=== PATIENT | male | born 1950 | race Caucasian/White ===

== ENCOUNTER 2022-11-15 18:22 | Inpatient (IN) ==
[2022-11-15] MEDS ORDERED: SODIUM CHLORIDE 0.9% 250 ML IV PRN (18:36)
--- NOTE | 2022-11-15 18:43 | Emergency Department Note ---
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 EMS did find the patient to be tachycardic and hypotensive and per their report attempted to convince the patient's family to go to closer hospitals including [facility] and [facility] for stabilization however per their report family insisted he be transported to [facility]. Per EMS report the colonoscopy polypectomy was performed at the [facility] in [place]. The patient is a poor historian and while alert to self is confused to situation and place and unable to explain in any substantive way why he was brought to the hospital nor was he able to independently say generally where he was, i.e. at the hospital. On arrival emergency department patient is tachycardic in the 160s, hypotensive with systolic blood pressure 80s/50s. He is pale, cool and clammy. Anasarca diffusely. Abdomen is mildly distended but non-tender. Old ventral abdominal surgical scar with palpable scarring/abdominal wall asymmetry. Bilateral lower extremities are wrapped in compression wound dressings. The patient did have scant amount of red blood that was Hemoccult positive on rectal exam though no gross hematochezia at this time. Given the patient's hemodynamic instability and suspicion for acute lower GI bleed the patient was crossed for 4 units of PRBCs initially ordered to transfuse but then held after hemoglobin appeared stable. Emergent consent was implied given the patient's critical illness. I did contact the patient's son using the patient's own cell phone which was accompanying him as no contact information was brought by EMS. I did explain to the patient's son the patient's critical condition at this time and that his resuscitation is underway but despite these efforts underway the possibility of the patient having further decline leading to is still a high possibility and communicated this to him clearly. I did then discuss whether or not they had reviewed goals of care with the patient in the past. He did reply that he is the power of ict support and test engineers and has the decision making ability for this. However I did want to emphasize that typically the decision maker will keep in mind the goals which the patient would have wanted and/or may have stated/communicated in the past. He did report that if the patient were to be "brain he would not want to be hooked up to machines" but beyond this he did not describe any definitive wishes that the patient had and so at this time patient is full code. His son will be traveling to the hospital shortly to be at the bedside as a we did agree that the complexity of these conversations is difficult over the phone given his father's critical condition. Upon the arrival of the patient's son and [id number] additional history was obtained including the report of her recent hospitalization a month or so ago at the [facility] for a blood infection which they understood to be related to MRSA. They further confirm the patient's history of cirrhosis related to alcohol use and confirm the patient had reported and that he has not had anything to drink since July. They describe that the patient had his recent colonoscopy at the [facility] in [place] due to his high risk medical history and they understand that he had several polyps removed that were considered to be cancerous but they understand that it was suspected that the polyps may have been resected with clear margins per the family's understanding. They report that the patient has been feeling sick for the past week with frequent nausea and vomiting and poor oral intake which they report became acutely worse over the past 2 days and in particular today. He reports that he began to have red blood per rectum yesterday and today had large amounts of red blood that had passed when he became over, by weakness and lethargy which prompted their call for EMS. At this time they confirm that the patient does not have any limitations on his care but they will discuss as a family whether or not this will be modified. EKG demonstrates atrial fibrillation with RVR with ST and T wave abnormalities without overt ST elevation. Chest x-ray negative for acute cardiopulmonary process per my preliminary review. Chemistry demonstrates elevated anion gap metabolic acidosis with anion gap of 18 and bicarbonate of 18. Creatinine is 2.97 consistent with acute renal failure as family reported that they understood his kidney function to be normal recently. Initial lactic acid 10.1. Lab with potassium was 5.1 and so [id number] potassium likely hemolyzed. Sodium 130. LFTs with total bilirubin 2.1 and direct bilirubin 1.1 in the setting of the patient's known cirrhosis without recent values for comparison. Alk phos is 271. AST 107. ALT within normal limits. Initial high-sensitivity troponin 48, nonspecific. Total protein is low at 5.5 and albumin at 2.0 consistent with the patient's cirrhosis and anasarca. INR was elevated at 6.5 without prior for comparison though in setting of the patient cirrhosis and acute critical illness. Lipase is not elevated. Procalcitonin is elevated at 4.2 in the setting of the patient's acute renal failure. TSH 5.5 with free T4 within normal limits. UA with 2+ bacteria and WBCs albeit with no nitrites and epithelial cells present. COVID- 19 RNA, JANELL test was negative. CT of the head negative for acute findings though demonstrates chronic small vessel disease. CT of the chest with nonspecific sm all layering left-sided pleural effusion and associated atelectasis. CT of the abdomen pelvis demonstrates nondilated bowel loops with note of thickening of the left side of the transverse colon and sigmoid colon consistent with colitis/ileus. Note is made of 4.5 x 2.8 x 5.6 left rectus sheath hematoma of unclear etiology given the patient denies any falls. Repeat H/H following CT imaging relatively stable and declined to 10.6 after 1.5L normal saline for initial resuscitation. Thus transfusion of PRBCs was deferred. IV fluid hydration/resuscitation was initiated with caution given the patient's physical exam with evidence of third spacing in the setting of acute renal failure and cirrhosis and the patient's atrial fibrillation with RVR. Thus 30 cc/kg of IV fluid were deferred. Given the patient's cirrhosis with GI bleeding without recent medical history available for review patient was started on Protonix and octreotide with bolus and drip. Given family reports recent bacteremia from MRSA the patient was treated empirically with cefepime and vancomycin. Of note, while the patient's blood pressure did respond to initial IV fluid hydration it did also gradually soften in the setting of his atrial fibrillation with RVR. He was given 5 mg Lopressor x2 which did result in some improvement in heart rate from the 150s-160s down to the 130s-140s and did translate to improvement in blood pressure to 100s-110s/70s-80s. Case was discussed with Ty Kam hospitalist who will evaluate the patient for admission. Further management per admitting team. Triage Nursing notes reviewed and agree them. Prior/outside medical records reviewed Vital Signs: reviewed Differential diagnosis: Diverticulosis, AVM, coagulopathy, colitis, inflammatory bowel disease, malignancy, Janet-Browne tear, esophagitis, peptic ulcer disease, variceal bleed, gastritis, epistaxis, fissure, hemorrhoids, as well as other pathologies. ER treatment provided: See below. Diagnostics interpreted by me: ECG: Atrial fibrillation with RVR, 166 bpm, ST and T wave abnormalities, no overt ST elevation, QTc 422, QRS 66 Cardiac Monitoring: An order for continuous cardiac monitoring was placed and demonstrated Atrial fibrillation with RVR, 166 bpm. no ectopy. Laboratory studies: See below Imaging studies: See below Consultation(s): Case was discussed with Ty Kam hospitalist who will evaluate the patient for admission. 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 EMS did find the patient to be tachycardic and hypotensive and per their report attempted to convince the patient's family [facility] [place] [facility] [place] for stabilization however per their report family insisted he be transported to [facility]. Per EMS report the colonoscopy polypectomy was performed at the [facility] in [place]. The patient is a poor historian and while alert to self is confused to situation and place and unable to explain in any substantive way why he was brought to the hospital nor was he able to independently say generally where he was, i.e. at the hospital. ROS: See above HPI for pertinent positives & negatives. A total of 10 systems reviewed and were otherwise negative. VITALS:See Below PHYSICAL EXAMINATION: GENERAL: Awake, alert, but confused, critically ill-appearing, in moderate distress. HENT: Normocephalic, atraumatic. Oropharynx with dry mucous membranes and otherwise unremarkable. EYES: Normal conjunctiva. Sclera non-icteric. NECK: Supple. No nuchal rigidity. FROM. No JVD. RESPIRATORY: Diminished breath sounds at the bases and otherwise clear. CARDIAC: Tachycardic rate, irregular rhythm. Pulses equal. ABDOMEN: Abdomen is mildly distended but non-tender. Old ventral abdominal surgical scar with palpable scarring/abdominal wall asymmetry. RECTAL: Deferred. MUSCULOSKELETAL: Chest examination reveals no tenderness. The back is symmetrical on inspection without obvious abnormality. There is no CVA tenderness to palpation. No joint edema. LOWER EXTREMITIES: Calves are equal size bilaterally and non-tender. No edema. No discoloration. NEURO: Normal sensorium. No sensory or motor deficits noted. SKIN: No rash or jaundice noted. Moderate pallor. Extremities cool and clammy with delayed capillary refill and skin mottling. ED COURSE: Critical Care: I have personally spent greater than 125 minutes of critical care time in the direct management of this patient. This includes bedside care, interpretation of diagnostic studies, and testing, discussion with consultants, patient, and family members, and other required patient management activities. This 125 minutes is in excess of all separately billable procedures. Patrick Singer MD Past Med/Surg History Medical History Atrial fibrillation Cirrhosis History of alcohol abuse History of bacteremia Per family's report On apixaban therapy Family History Other Family history non-contributory Social History Smoking Status: Never smoker Second Hand Exposure: No; Do You Dip or Chew Tobacco: No; Tobacco Cessation Education Requested by Patient: No Hx Alcohol Use: Yes Hx Substance Use: No Preferred Language: Zimbabwean Communication Ability: Impaired Beliefs That Will Affect Care: None Current Living Situation: Family Other Information That Helps Us Care for You: No Feels Safe at Home: Yes Safety Concerns: Feels Safe At This Time Allergies Allergies Allergy/AdvReac Type Severity Reaction Status Date / Time fentanyl AdvReac Mild itch Verified 09/13/14 14:09 Home Meds Home Medications Medication Instructions Recorded Confirmed albuterol sulfate 2.5 mg/3 mL 2.5 mg continuous nebulization Q4 11/15/22 11/15/22 (0.083 %) solution for nebulization PRN Shortness Of Breath Or Wheezing amiodarone 100 mg tablet 100 mg PO BID 11/15/22 11/15/22 apixaban 5 mg tablet (Eliquis) 5 mg PO BID 11/15/22 11/15/22 ascorbic acid (vitamin C) 500 mg 500 mg PO DAILY 11/15/22 11/15/22 tablet (Vitamin C) aspirin 81 mg tablet,delayed 81 mg PO DAILY 11/15/22 11/15/22 release bumetanide 0.5 mg tablet 0.5 mg PO BID 11/15/22 11/15/22 diltiazem HCl 180 mg capsule,24 180 mg PO DAILY 11/15/22 11/15/22 hr,extended release ferrous sulfate 325 mg (65 mg 325 mg PO DAILY 11/15/22 11/15/22 iron) tablet (FeroSul) furosemide 40 mg tablet 40 mg PO DAILY 11/15/22 11/15/22 gabapentin 300 mg capsule 300 mg PO HS 11/15/22 11/15/22 lisinopril 5 mg tablet 5 mg PO DAILY 11/15/22 11/15/22 magnesium oxide 420 mg tablet 420 mg PO BID 11/15/22 11/15/22 metoprolol succinate 100 mg 100 mg PO BID 11/15/22 11/15/22 tablet,extended release 24 hr metoprolol tartrate 50 mg tablet 50 mg PO BID 11/15/22 11/15/22 morphine 15 mg tablet,extended 15 mg PO BID 11/15/22 11/15/22 release multivitamin (Daily Multi-Vitamin 1 tab PO DAILY 11/15/22 11/15/22 tablet) omeprazole 20 mg capsule,delayed 20 mg PO DAILY 11/15/22 11/15/22 release ondansetron HCl 4 mg tablet 4 mg PO TID PRN Nausea 11/15/22 11/15/22 potassium chloride 20 mEq 20 meq PO BID 11/15/22 11/15/22 tablet,extended release(part/cryst) spironolactone 25 mg tablet 25 mg PO DAILY 11/15/22 11/15/22 thiamine HCl (vitamin B1) 100 mg 100 mg PO DAILY 11/15/22 11/15/22 tablet Results & Data (ED) Vital Signs Vital Signs - 24 hr 11/15/22 18:15 11/15/22 18:15 11/15/22 18:50 Temperature Temperature Source Pulse Rate 164 H 166 H Pulse Rate [Apical] 158 H Pulse Rate from SpO2 Sensor Respiratory Rate 18 18 18 Blood Pressure 109/78 Blood Pressure [Left Arm] 109/78 Blood Pressure Mean 88 Blood Pressure Mean [Left Arm] 88 Pulse Oximetry 100 100 100 Oxygen Delivery Method Ambu-Bag Oxygen Flow Rate 8 8 Sepsis Recent Fever Within 48 Hours No Sepsis New/Unexplained Change in Mental Status N/A Sepsis Action Taken by Nursing No Action Required 11/15/22 18:36 11/15/22 19:31 11/15/22 18:45 Temperature 37.3 C Temperature Source Rectal Pulse Rate 167 H 166 H Pulse Rate [Apical] Pulse Rate from SpO2 Sensor 159 H Respiratory Rate 19 Blood Pressure 109/78 Blood Pressure [Left Arm] Blood Pressure Mean 88 Blood Pressure Mean [Left Arm] Pulse Oximetry 100 Oxygen Delivery Method Nasal Cannula Oxygen Flow Rate 4 Sepsis Recent Fever Within 48 Hours Sepsis New/Unexplained Change in Mental Status Sepsis Action Taken by Nursing 11/15/22 18:50 11/15/22 18:55 11/15/22 19:00 Temperature Temperature Source Pulse Rate 164 H 160 H 168 H Pulse Rate [Apical] Pulse Rate from SpO2 Sensor 147 H 157 H 159 H Respiratory Rate 17 18 19 Blood Pressure 123/90 127/91 114/99 Blood Pressure [Left Arm] Blood Pressure Mean 101 103 104 Blood Pressure Mean [Left Arm] Pulse Oximetry 100 100 100 Oxygen Delivery Method Nasal Cannula Nasal Cannula Nasal Cannula Oxygen Flow Rate 4 4 4 Sepsis Recent Fever Within 48 Hours Sepsis New/Unexplained Change in Mental Status Sepsis Action Taken by Nursing 11/15/22 19:05 11/15/22 19:14 11/15/22 19:15 Temperature Temperature Source Pulse Rate 161 H 170 H 180 H Pulse Rate [Apical] Pulse Rate from SpO2 Sensor 174 H 173 H 173 H Respiratory Rate 22 22 20 Blood Pressure 110/86 117/97 128/82 Blood Pressure [Left Arm] Blood Pressure Mean 94 103 97 Blood Pressure Mean [Left Arm] Pulse Oximetry 100 100 99 Oxygen Delivery Method Nasal Cannula Nasal Cannula Nasal Cannula Oxygen Flow Rate 4 4 4 Sepsis Recent Fever Within 48 Hours Sepsis New/Unexplained Change in Mental Status Sepsis Action Taken by Nursing 11/15/22 19:20 11/15/22 19:25 11/15/22 19:42 Temperature Temperature Source Pulse Rate 166 H 169 H 167 H Pulse Rate [Apical] Pulse Rate from SpO2 Sensor 167 H 178 H 167 H Respiratory Rate 20 21 23 Blood Pressure 119/90 121/99 120/78 Blood Pressure [Left Arm] Blood Pressure Mean 99 106 92 Blood Pressure Mean [Left Arm] Pulse Oximetry 100 100 99 Oxygen Delivery Method Nasal Cannula Nasal Cannula Nasal Cannula Oxygen Flow Rate 4 4 4 Sepsis Recent Fever Within 48 Hours Sepsis New/Unexplained Change in Mental Status Sepsis Action Taken by Nursing 11/15/22 19:45 11/15/22 20:06 11/15/22 20:10 Temperature Temperature Source Pulse Rate 144 H 156 H 164 H Pulse Rate [Apical] Pulse Rate from SpO2 Sensor 148 H Respiratory Rate 22 24 22 Blood Pressure 139/86 99/83 L 101/75 Blood Pressure [Left Arm] Blood Pressure Mean 103 88 83 Blood Pressure Mean [Left Arm] Pulse Oximetry 95 96 99 Oxygen Delivery Method Nasal Cannula Nasal Cannula Nasal Cannula Oxygen Flow Rate 4 4 4 Sepsis Recent Fever Within 48 Hours Sepsis New/Unexplained Change in Mental Status Sepsis Action Taken by Nursing 11/15/22 20:15 11/15/22 20:20 11/15/22 20:25 Temperature Temperature Source Pulse Rate 152 H 150 H 157 H Pulse Rate [Apical] Pulse Rate from SpO2 Sensor Respiratory Rate 21 24 24 Blood Pressure 103/77 104/83 127/104 H Blood Pressure [Left Arm] Blood Pressure Mean 85 90 111 Blood Pressure Mean [Left Arm] Pulse Oximetry 99 97 99 Oxygen Delivery Method Nasal Cannula Nasal Cannula Nasal Cannula Oxygen Flow Rate 4 4 4 Sepsis Recent Fever Within 48 Hours Sepsis New/Unexplained Change in Mental Status Sepsis Action Taken by Nursing 11/15/22 20:30 11/15/22 20:35 11/15/22 20:45 Temperature Temperature Source Pulse Rate 152 H 151 H 145 H Pulse Rate [Apical] Pulse Rate from SpO2 Sensor Respiratory Rate 30 H 27 H 22 Blood Pressure 126/99 118/94 129/71 Blood Pressure [Left Arm] Blood Pressure Mean 108 102 90 Blood Pressure Mean [Left Arm] Pulse Oximetry 97 98 97 Oxygen Delivery Method Nasal Cannula Nasal Cannula Nasal Cannula Oxygen Flow Rate 4 4 4 Sepsis Recent Fever Within 48 Hours Sepsis New/Unexplained Change in Mental Status Sepsis Action Taken by Nursing 11/15/22 20:50 11/15/22 20:55 11/15/22 21:05 Temperature Temperature Source Pulse Rate 163 H 153 H 154 H Pulse Rate [Apical] Pulse Rate from SpO2 Sensor Respiratory Rate 23 22 22 Blood Pressure 113/79 101/76 Blood Pressure [Left Arm] Blood Pressure Mean 90 84 Blood Pressure Mean [Left Arm] Pulse Oximetry 98 94 96 Oxygen Delivery Method Nasal Cannula Nasal Cannula Nasal Cannula Oxygen Flow Rate 4 4 4 Sepsis Recent Fever Within 48 Hours Sepsis New/Unexplained Change in Mental Status Sepsis Action Taken by Nursing 11/15/22 21:10 11/15/22 21:46 11/15/22 21:50 Temperature Temperature Source Pulse Rate 146 H 158 H 153 H Pulse Rate [Apical] Pulse Rate from SpO2 Sensor 162 H 160 H Respiratory Rate 24 22 Blood Pressure 109/77 109/77 94/67 L Blood Pressure [Left Arm] Blood Pressure Mean 87 87 76 Blood Pressure Mean [Left Arm] Pulse Oximetry 96 96 95 Oxygen Delivery Method Nasal Cannula Nasal Cannula Nasal Cannula Oxygen Flow Rate 4 4 4 Sepsis Recent Fever Within 48 Hours Sepsis New/Unexplained Change in Mental Status Sepsis Action Taken by Nursing Laboratory Data Attestation: I reviewed the patient's lab results. 11/15/22 21:40 11/16/22 01:31 Lab Results 11/15/22 11/15/22 11/15/22 Range/Units 17:46 18:46 18:46 WBC 13.23 H (4.8-10.8) K/ul RBC 3.43 L (4.70-6.10) M/uL Hgb 11.3 L (14.0-18.0) g/dl POC Hgb (14.0-18.0) g/dl Hct 31.7 L (42.0-52.0) % POC Hct (42-52) % MCV 92.4 (80.0-100.0) fL MCH 32.9 (25.0-34.0) pg MCHC 35.6 (32.0-36.0) g/dL RDW Std Deviation 57.3 H (36.4-46.3) fL RDW Coeff of Giancarlo 18.2 H (11.5-14.5) % Plt Count 271 (130-400) K/uL MPV 9.7 (9.4-12.4) fL Immature Gran % (Auto) 0.7 % Neut % (Auto) 89.9 % Lymph % (Auto) 4.9 % Fleming % (Auto) 4.3 % Eos % (Auto) 0.0 % Baso % (Auto) 0.2 % Neut # (Auto) 11.90 H (1.40-6.50) K/uL Lymph # (Auto) 0.65 L (1.2-3.4) K/uL Fleming # (Auto) 0.57 (0.11-0.59) K/uL Eos # (Auto) 0.00 (0-0.50) K/uL Baso # (Auto) 0.02 (0-0.2) K/uL Immature Gran # (Auto) 0.09 (0.01-0.20) K/uL Absolute Nucleated RBC 0.03 (0-0.12) K/uL Nucleated RBC % (auto) 0.2 % Toxic Vacuolation 2+ Polychromasia 1+ Macrocytosis Present Target Cells 2+ PT INR APTT PTT Ratio POC Sodium (135-144) mmol/L Sodium (136-145) mmol/L POC Potassium (3.3-5.0) mmol/L Potassium (3.5-5.1) mmol/L POC Chloride (101-112) mmol/L Chloride (98-107) mmol/L Carbon Dioxide (21-32) mmol/L POC Total CO2 (24-31) mmol/L Anion Gap (3-11) POC Anion Gap (16-25) mmol/L POC BUN (7-18) mg/dl BUN (6-23) mg/dl Creatinine (0.6-1.4) mg/dl POC Creatinine (0.6-1.3) mg/dl Est Cr Clr Drug Dosing ml/min Est GFR ( Amer) ml/min Est GFR (Non-Af Amer) ml/min BUN/Creatinine Ratio (10-20) Glucose (70-99(Fasting)) mg/dl POC Glucose (other) (70-99) mg/dl Osmolality (280-300) mOsm/kg Lactate (0.4-2.0) mmol/L Calcium (8.6-10.3) mg/dl POC Ioniz Calcium Lili (1.12-1.32) mmol/l Phosphorus (2.5-4.9) mg/dl Magnesium (1.7-2.4) mg/dl Total Bilirubin (0.2-1.0) mg/dl Direct Bilirubin (0-0.2) mg/dl AST (13-39) U/L ALT (7-52) U/L Alkaline Phosphatase (34-104) U/L Ammonia (18-72) umol/L Troponin I High Sens (0-20) pg/ml Total Protein (6.0-8.3) gm/dl Albumin (3.4-5.0) gm/dl Globulin (2.5-4.0) gm/dl Albumin/Globulin Ratio (0.9-2) Lipase (11-82) U/L Procalcitonin 4.28 H (0-0.5) ng/ml TSH (0.300-4.500) uIu/ml Free T4 (0.61-1.60) ng/dl Urine Color Urine Appearance (Clear) Urine pH (4.5-7.5) Ur Specific [place] (1.000-1.030) Urine Protein (Negative) Urine Glucose (UA) (Negative) Urine Ketones (Negative) Urine Blood (Negative) Urine Nitrite (Negative) Urine Bilirubin (Negative) Urine Urobilinogen (Negative) Ur Leukocyte Esterase (Negative) Urine RBC (0-4) /hpf Urine WBC (0-5) /hpf Ur Epithelial Cells (0-5) /lpf Urine Bacteria (Negative) Urine Osmolality (500-800) mOsm/kg Ur Random Sodium mmol/L POC Stool Occult Blood (Negative) Ethyl Alcohol mg/dL (<10.0) mg/dl SARS-CoV-2, RNA, NAAT (NEGATIVE) Blood Type A Positive Blood Type Recheck Antibody Screen NEGATIVE Crossmatch See Detail 11/15/22 11/15/22 11/15/22 Range/Units 18:46 18:46 18:48 WBC (4.8-10.8) K/ul RBC (4.70-6.10) M/uL Hgb (14.0-18.0) g/dl POC Hgb 12.6 L (14.0-18.0) g/dl Hct (42.0-52.0) % POC Hct 37 L (42-52) % MCV (80.0-100.0) fL MCH (25.0-34.0) pg MCHC (32.0-36.0) g/dL RDW Std Deviation (36.4-46.3) fL RDW Coeff of Giancarlo (11.5-14.5) % Plt Count (130-400) K/uL MPV (9.4-12.4) fL Immature Gran % (Auto) % Neut % (Auto) % Lymph % (Auto) % Fleming % (Auto) % Eos % (Auto) % Baso % (Auto) % Neut # (Auto) (1.40-6.50) K/uL Lymph # (Auto) (1.2-3.4) K/uL Fleming # (Auto) (0.11-0.59) K/uL Eos # (Auto) (0-0.50) K/uL Baso # (Auto) (0-0.2) K/uL Immature Gran # (Auto) (0.01-0.20) K/uL Absolute Nucleated RBC (0-0.12) K/uL Nucleated RBC % (auto) % Toxic Vacuolation Polychromasia Macrocytosis Target Cells PT Cancelled INR Cancelled APTT Cancelled PTT Ratio Cancelled POC Sodium 128 L (135-144) mmol/L Sodium 130 L (136-145) mmol/L POC Potassium 6.0 H (3.3-5.0) mmol/L Potassium 5.1 (3.5-5.1) mmol/L POC Chloride 95 L (101-112) mmol/L Chloride 94 L (98-107) mmol/L Carbon Dioxide 18 L (21-32) mmol/L POC Total CO2 21 L (24-31) mmol/L Anion Gap 18 H (3-11) POC Anion Gap 20.0 (16-25) mmol/L POC BUN 41 H (7-18) mg/dl BUN 32 H (6-23) mg/dl Creatinine 2.97 H (0.6-1.4) mg/dl POC Creatinine 3.3 H (0.6-1.3) mg/dl Est Cr Clr Drug Dosing 19.6 ml/min Est GFR ( Amer) 22.9 ml/min Est GFR (Non-Af Amer) 19.8 ml/min BUN/Creatinine Ratio 10.8 (10-20) Glucose 119 H (70-99(Fasting)) mg/dl POC Glucose (other) 115 H (70-99) mg/dl Osmolality (280-300) mOsm/kg Lactate (0.4-2.0) mmol/L Calcium 7.7 L (8.6-10.3) mg/dl POC Ioniz Calcium Lili 0.88 L (1.12-1.32) mmol/l Phosphorus 5.2 H (2.5-4.9) mg/dl Magnesium 2.4 (1.7-2.4) mg/dl Total Bilirubin 2.1 H (0.2-1.0) mg/dl Direct Bilirubin (0-0.2) mg/dl AST 107 H (13-39) U/L ALT 27 (7-52) U/L Alkaline Phosphatase 271 H (34-104) U/L Ammonia (18-72) umol/L Troponin I High Sens (0-20) pg/ml Total Protein 5.5 L (6.0-8.3) gm/dl Albumin 2.0 L (3.4-5.0) gm/dl Globulin 3.5 (2.5-4.0) gm/dl Albumin/Globulin Ratio 0.6 L (0.9-2) Lipase (11-82) U/L Procalcitonin (0-0.5) ng/ml TSH (0.300-4.500) uIu/ml Free T4 (0.61-1.60) ng/dl Urine Color Urine Appearance (Clear) Urine pH (4.5-7.5) Ur Specific [place] (1.000-1.030) Urine Protein (Negative) Urine Glucose (UA) (Negative) Urine Ketones (Negative) Urine Blood (Negative) Urine Nitrite (Negative) Urine Bilirubin (Negative) Urine Urobilinogen (Negative) Ur Leukocyte Esterase (Negative) Urine RBC (0-4) /hpf Urine WBC (0-5) /hpf Ur Epithelial Cells (0-5) /lpf Urine Bacteria (Negative) Urine Osmolality (500-800) mOsm/kg Ur Random Sodium mmol/L POC Stool Occult Blood (Negative) Ethyl Alcohol mg/dL (<10.0) mg/dl SARS-CoV-2, RNA, NAAT (NEGATIVE) Blood Type Blood Type Recheck Antibody Screen Crossmatch 11/15/22 11/15/22 11/15/22 Range/Units 19:05 19:10 19:29 WBC (4.8-10.8) K/ul RBC (4.70-6.10) M/uL Hgb (14.0-18.0) g/dl POC Hgb (14.0-18.0) g/dl Hct (42.0-52.0) % POC Hct (42-52) % MCV (80.0-100.0) fL MCH (25.0-34.0) pg MCHC (32.0-36.0) g/dL RDW Std Deviation (36.4-46.3) fL RDW Coeff of Giancarlo (11.5-14.5) % Plt Count (130-400) K/uL MPV (9.4-12.4) fL Immature Gran % (Auto) % Neut % (Auto) % Lymph % (Auto) % Fleming % (Auto) % Eos % (Auto) % Baso % (Auto) % Neut # (Auto) (1.40-6.50) K/uL Lymph # (Auto) (1.2-3.4) K/uL Fleming # (Auto) (0.11-0.59) K/uL Eos # (Auto) (0-0.50) K/uL Baso # (Auto) (0-0.2) K/uL Immature Gran # (Auto) (0.01-0.20) K/uL Absolute Nucleated RBC (0-0.12) K/uL Nucleated RBC % (auto) % Toxic Vacuolation Polychromasia Macrocytosis Target Cells PT INR APTT PTT Ratio POC Sodium (135-144) mmol/L Sodium (136-145) mmol/L POC Potassium (3.3-5.0) mmol/L Potassium (3.5-5.1) mmol/L POC Chloride (101-112) mmol/L Chloride (98-107) mmol/L Carbon Dioxide (21-32) mmol/L POC Total CO2 (24-31) mmol/L Anion Gap (3-11) POC Anion Gap (16-25) mmol/L POC BUN (7-18) mg/dl BUN (6-23) mg/dl Creatinine (0.6-1.4) mg/dl POC Creatinine (0.6-1.3) mg/dl Est Cr Clr Drug Dosing ml/min Est GFR ( Amer) ml/min Est GFR (Non-Af Amer) ml/min BUN/Creatinine Ratio (10-20) Glucose (70-99(Fasting)) mg/dl POC Glucose (other) (70-99) mg/dl Osmolality (280-300) mOsm/kg Lactate (0.4-2.0) mmol/L Calcium (8.6-10.3) mg/dl POC Ioniz Calcium Lili (1.12-1.32) mmol/l Phosphorus (2.5-4.9) mg/dl Magnesium (1.7-2.4) mg/dl Total Bilirubin (0.2-1.0) mg/dl Direct Bilirubin (0-0.2) mg/dl AST (13-39) U/L ALT (7-52) U/L Alkaline Phosphatase (34-104) U/L Ammonia (18-72) umol/L Troponin I High Sens (0-20) pg/ml Total Protein (6.0-8.3) gm/dl Albumin (3.4-5.0) gm/dl Globulin (2.5-4.0) gm/dl Albumin/Globulin Ratio (0.9-2) Lipase (11-82) U/L Procalcitonin (0-0.5) ng/ml TSH (0.300-4.500) uIu/ml Free T4 (0.61-1.60) ng/dl Urine Color Dark Yellow Urine Appearance Slightly Cloudy (Clear) Urine pH 5.0 (4.5-7.5) Ur Specific [place] >= 1.030 (1.000-1.030) Urine Protein 2+ H (Negative) Urine Glucose (UA) Trace H (Negative) Urine Ketones Trace H (Negative) Urine Blood 1+ H (Negative) Urine Nitrite Negative (Negative) Urine Bilirubin 2+ H (Negative) Urine Urobilinogen Negative (Negative) Ur Leukocyte Esterase Negative (Negative) Urine RBC 5-10 H (0-4) /hpf Urine WBC 5-10 H (0-5) /hpf Ur Epithelial Cells 10-20 H (0-5) /lpf Urine Bacteria 2+ H (Negative) Urine Osmolality (500-800) mOsm/kg Ur Random Sodium mmol/L POC Stool Occult Blood (Negative) Ethyl Alcohol mg/dL (<10.0) mg/dl SARS-CoV-2, RNA, NAAT NEGATIVE (NEGATIVE) Blood Type Blood Type Recheck A Positive Antibody Screen Crossmatch 11/15/22 11/15/22 11/15/22 Range/Units 19:29 19:29 19:31 WBC (4.8-10.8) K/ul RBC (4.70-6.10) M/uL Hgb (14.0-18.0) g/dl POC Hgb (14.0-18.0) g/dl Hct (42.0-52.0) % POC Hct (42-52) % MCV (80.0-100.0) fL MCH (25.0-34.0) pg MCHC (32.0-36.0) g/dL RDW Std Deviation (36.4-46.3) fL RDW Coeff of Giancarlo (11.5-14.5) % Plt Count (130-400) K/uL MPV (9.4-12.4) fL Immature Gran % (Auto) % Neut % (Auto) % Lymph % (Auto) % Fleming % (Auto) % Eos % (Auto) % Baso % (Auto) % Neut # (Auto) (1.40-6.50) K/uL Lymph # (Auto) (1.2-3.4) K/uL Fleming # (Auto) (0.11-0.59) K/uL Eos # (Auto) (0-0.50) K/uL Baso # (Auto) (0-0.2) K/uL Immature Gran # (Auto) (0.01-0.20) K/uL Absolute Nucleated RBC (0-0.12) K/uL Nucleated RBC % (auto) % Toxic Vacuolation Polychromasia Macrocytosis Target Cells PT INR APTT PTT Ratio POC Sodium (135-144) mmol/L Sodium (136-145) mmol/L POC Potassium (3.3-5.0) mmol/L Potassium (3.5-5.1) mmol/L POC Chloride (101-112) mmol/L Chloride (98-107) mmol/L Carbon Dioxide (21-32) mmol/L POC Total CO2 (24-31) mmol/L Anion Gap (3-11) POC Anion Gap (16-25) mmol/L POC BUN (7-18) mg/dl BUN (6-23) mg/dl Creatinine (0.6-1.4) mg/dl POC Creatinine (0.6-1.3) mg/dl Est Cr Clr Drug Dosing ml/min Est GFR ( Amer) ml/min Est GFR (Non-Af Amer) ml/min BUN/Creatinine Ratio (10-20) Glucose (70-99(Fasting)) mg/dl POC Glucose (other) (70-99) mg/dl Osmolality (280-300) mOsm/kg Lactate (0.4-2.0) mmol/L Calcium (8.6-10.3) mg/dl POC Ioniz Calcium Lili (1.12-1.32) mmol/l Phosphorus (2.5-4.9) mg/dl Magnesium (1.7-2.4) mg/dl Total Bilirubin (0.2-1.0) mg/dl Direct Bilirubin (0-0.2) mg/dl AST (13-39) U/L ALT (7-52) U/L Alkaline Phosphatase (34-104) U/L Ammonia (18-72) umol/L Troponin I High Sens (0-20) pg/ml Total Protein (6.0-8.3) gm/dl Albumin (3.4-5.0) gm/dl Globulin (2.5-4.0) gm/dl Albumin/Globulin Ratio (0.9-2) Lipase (11-82) U/L Procalcitonin (0-0.5) ng/ml TSH (0.300-4.500) uIu/ml Free T4 (0.61-1.60) ng/dl Urine Color Urine Appearance (Clear) Urine pH (4.5-7.5) Ur Specific [place] (1.000-1.030) Urine Protein (Negative) Urine Glucose (UA) (Negative) Urine Ketones (Negative) Urine Blood (Negative) Urine Nitrite (Negative) Urine Bilirubin (Negative) Urine Urobilinogen (Negative) Ur Leukocyte Esterase (Negative) Urine RBC (0-4) /hpf Urine WBC (0-5) /hpf Ur Epithelial Cells (0-5) /lpf Urine Bacteria (Negative) Urine Osmolality 304 L (500-800) mOsm/kg Ur Random Sodium 11 mmol/L POC Stool Occult Blood Positive A (Negative) Ethyl Alcohol mg/dL (<10.0) mg/dl SARS-CoV-2, RNA, NAAT (NEGATIVE) Blood Type Blood Type Recheck Antibody Screen Crossmatch 11/15/22 11/15/22 11/15/22 Range/Units 20:29 20:59 21:40 WBC (4.8-10.8) K/ul RBC (4.70-6.10) M/uL Hgb (14.0-18.0) g/dl POC Hgb (14.0-18.0) g/dl Hct (42.0-52.0) % POC Hct (42-52) % MCV (80.0-100.0) fL MCH (25.0-34.0) pg MCHC (32.0-36.0) g/dL RDW Std Deviation (36.4-46.3) fL RDW Coeff of Giancarlo (11.5-14.5) % Plt Count (130-400) K/uL MPV (9.4-12.4) fL Immature Gran % (Auto) % Neut % (Auto) % Lymph % (Auto) % Fleming % (Auto) % Eos % (Auto) % Baso % (Auto) % Neut # (Auto) (1.40-6.50) K/uL Lymph # (Auto) (1.2-3.4) K/uL Fleming # (Auto) (0.11-0.59) K/uL Eos # (Auto) (0-0.50) K/uL Baso # (Auto) (0-0.2) K/uL Immature Gran # (Auto) (0.01-0.20) K/uL Absolute Nucleated RBC (0-0.12) K/uL Nucleated RBC % (auto) % Toxic Vacuolation Polychromasia Macrocytosis Target Cells PT INR APTT PTT Ratio POC Sodium (135-144) mmol/L Sodium (136-145) mmol/L POC Potassium (3.3-5.0) mmol/L Potassium (3.5-5.1) mmol/L POC Chloride (101-112) mmol/L Chloride (98-107) mmol/L Carbon Dioxide (21-32) mmol/L POC Total CO2 (24-31) mmol/L Anion Gap (3-11) POC Anion Gap (16-25) mmol/L POC BUN (7-18) mg/dl BUN (6-23) mg/dl Creatinine (0.6-1.4) mg/dl POC Creatinine (0.6-1.3) mg/dl Est Cr Clr Drug Dosing ml/min Est GFR ( Amer) ml/min Est GFR (Non-Af Amer) ml/min BUN/Creatinine Ratio (10-20) Glucose (70-99(Fasting)) mg/dl POC Glucose (other) (70-99) mg/dl Osmolality 292 (280-300) mOsm/kg Lactate 10.1 H* (0.4-2.0) mmol/L Calcium (8.6-10.3) mg/dl POC Ioniz Calcium Lili (1.12-1.32) mmol/l Phosphorus (2.5-4.9) mg/dl Magnesium (1.7-2.4) mg/dl Total Bilirubin (0.2-1.0) mg/dl Direct Bilirubin (0-0.2) mg/dl AST (13-39) U/L ALT (7-52) U/L Alkaline Phosphatase (34-104) U/L Ammonia (18-72) umol/L Troponin I High Sens (0-20) pg/ml Total Protein (6.0-8.3) gm/dl Albumin (3.4-5.0) gm/dl Globulin (2.5-4.0) gm/dl Albumin/Globulin Ratio (0.9-2) Lipase (11-82) U/L Procalcitonin (0-0.5) ng/ml TSH 5.570 H (0.300-4.500) uIu/ml Free T4 0.86 (0.61-1.60) ng/dl Urine Color Urine Appearance (Clear) Urine pH (4.5-7.5) Ur Specific [place] (1.000-1.030) Urine Protein (Negative) Urine Glucose (UA) (Negative) Urine Ketones (Negative) Urine Blood (Negative) Urine Nitrite (Negative) Urine Bilirubin (Negative) Urine Urobilinogen (Negative) Ur Leukocyte Esterase (Negative) Urine RBC (0-4) /hpf Urine WBC (0-5) /hpf Ur Epithelial Cells (0-5) /lpf Urine Bacteria (Negative) Urine Osmolality (500-800) mOsm/kg Ur Random Sodium mmol/L POC Stool Occult Blood (Negative) Ethyl Alcohol mg/dL (<10.0) mg/dl SARS-CoV-2, RNA, NAAT (NEGATIVE) Blood Type Blood Type Recheck Antibody Screen Crossmatch 11/15/22 11/15/22 11/15/22 Range/Units 21:40 21:40 21:40 WBC (4.8-10.8) K/ul RBC (4.70-6.10) M/uL Hgb 10.6 L (14.0-18.0) g/dl POC Hgb (14.0-18.0) g/dl Hct 29.0 L (42.0-52.0) % POC Hct (42-52) % MCV (80.0-100.0) fL MCH (25.0-34.0) pg MCHC (32.0-36.0) g/dL RDW Std Deviation (36.4-46.3) fL RDW Coeff of Giancarlo (11.5-14.5) % Plt Count (130-400) K/uL MPV (9.4-12.4) fL Immature Gran % (Auto) % Neut % (Auto) % Lymph % (Auto) % Fleming % (Auto) % Eos % (Auto) % Baso % (Auto) % Neut # (Auto) (1.40-6.50) K/uL Lymph # (Auto) (1.2-3.4) K/uL Fleming # (Auto) (0.11-0.59) K/uL Eos # (Auto) (0-0.50) K/uL Baso # (Auto) (0-0.2) K/uL Immature Gran # (Auto) (0.01-0.20) K/uL Absolute Nucleated RBC (0-0.12) K/uL Nucleated RBC % (auto) % Toxic Vacuolation Polychromasia Macrocytosis Target Cells PT 63.4 H INR 6.5 H* APTT 64.3 H* PTT Ratio 2.3 POC Sodium (135-144) mmol/L Sodium (136-145) mmol/L POC Potassium (3.3-5.0) mmol/L Potassium (3.5-5.1) mmol/L POC Chloride (101-112) mmol/L Chloride (98-107) mmol/L Carbon Dioxide (21-32) mmol/L POC Total CO2 (24-31) mmol/L Anion Gap (3-11) POC Anion Gap (16-25) mmol/L POC BUN (7-18) mg/dl BUN (6-23) mg/dl Creatinine (0.6-1.4) mg/dl POC Creatinine (0.6-1.3) mg/dl Est Cr Clr Drug Dosing ml/min Est GFR ( Amer) ml/min Est GFR (Non-Af Amer) ml/min BUN/Creatinine Ratio (10-20) Glucose (70-99(Fasting)) mg/dl POC Glucose (other) (70-99) mg/dl Osmolality (280-300) mOsm/kg Lactate (0.4-2.0) mmol/L Calcium (8.6-10.3) mg/dl POC Ioniz Calcium Lili (1.12-1.32) mmol/l Phosphorus (2.5-4.9) mg/dl Magnesium (1.7-2.4) mg/dl Total Bilirubin (0.2-1.0) mg/dl Direct Bilirubin 1.1 H (0-0.2) mg/dl AST (13-39) U/L ALT (7-52) U/L Alkaline Phosphatase (34-104) U/L Ammonia (18-72) umol/L Troponin I High Sens 48.8 H (0-20) pg/ml Total Protein (6.0-8.3) gm/dl Albumin (3.4-5.0) gm/dl Globulin (2.5-4.0) gm/dl Albumin/Globulin Ratio (0.9-2) Lipase 6 L (11-82) U/L Procalcitonin (0-0.5) ng/ml TSH (0.300-4.500) uIu/ml Free T4 (0.61-1.60) ng/dl Urine Color Urine Appearance (Clear) Urine pH (4.5-7.5) Ur Specific [place] (1.000-1.030) Urine Protein (Negative) Urine Glucose (UA) (Negative) Urine Ketones (Negative) Urine Blood (Negative) Urine Nitrite (Negative) Urine Bilirubin (Negative) Urine Urobilinogen (Negative) Ur Leukocyte Esterase (Negative) Urine RBC (0-4) /hpf Urine WBC (0-5) /hpf Ur Epithelial Cells (0-5) /lpf Urine Bacteria (Negative) Urine Osmolality (500-800) mOsm/kg Ur Random Sodium mmol/L POC Stool Occult Blood (Negative) Ethyl Alcohol mg/dL (<10.0) mg/dl SARS-CoV-2, RNA, NAAT (NEGATIVE) Blood Type Blood Type Recheck Antibody Screen Crossmatch 11/15/22 11/15/22 Range/Units 21:40 21:40 WBC (4.8-10.8) K/ul RBC (4.70-6.10) M/uL Hgb (14.0-18.0) g/dl POC Hgb (14.0-18.0) g/dl Hct (42.0-52.0) % POC Hct (42-52) % MCV (80.0-100.0) fL MCH (25.0-34.0) pg MCHC (32.0-36.0) g/dL RDW Std Deviation (36.4-46.3) fL RDW Coeff of Giancarlo (11.5-14.5) % Plt Count (130-400) K/uL MPV (9.4-12.4) fL Immature Gran % (Auto) % Neut % (Auto) % Lymph % (Auto) % Fleming % (Auto) % Eos % (Auto) % Baso % (Auto) % Neut # (Auto) (1.40-6.50) K/uL Lymph # (Auto) (1.2-3.4) K/uL Fleming # (Auto) (0.11-0.59) K/uL Eos # (Auto) (0-0.50) K/uL Baso # (Auto) (0-0.2) K/uL Immature Gran # (Auto) (0.01-0.20) K/uL Absolute Nucleated RBC (0-0.12) K/uL Nucleated RBC % (auto) % Toxic Vacuolation Polychromasia Macrocytosis Target Cells PT INR APTT PTT Ratio POC Sodium (135-144) mmol/L Sodium (136-145) mmol/L POC Potassium (3.3-5.0) mmol/L Potassium (3.5-5.1) mmol/L POC Chloride (101-112) mmol/L Chloride (98-107) mmol/L Carbon Dioxide (21-32) mmol/L POC Total CO2 (24-31) mmol/L Anion Gap (3-11) POC Anion Gap (16-25) mmol/L POC BUN (7-18) mg/dl BUN (6-23) mg/dl Creatinine (0.6-1.4) mg/dl POC Creatinine (0.6-1.3) mg/dl Est Cr Clr Drug Dosing ml/min Est GFR ( Amer) ml/min Est GFR (Non-Af Amer) ml/min BUN/Creatinine Ratio (10-20) Glucose (70-99(Fasting)) mg/dl POC Glucose (other) (70-99) mg/dl Osmolality (280-300) mOsm/kg Lactate (0.4-2.0) mmol/L Calcium (8.6-10.3) mg/dl POC Ioniz Calcium Lili (1.12-1.32) mmol/l Phosphorus (2.5-4.9) mg/dl Magnesium (1.7-2.4) mg/dl Total Bilirubin (0.2-1.0) mg/dl Direct Bilirubin (0-0.2) mg/dl AST (13-39) U/L ALT (7-52) U/L Alkaline Phosphatase (34-104) U/L Ammonia 45.0 (18-72) umol/L Troponin I High Sens (0-20) pg/ml Total Protein (6.0-8.3) gm/dl Albumin (3.4-5.0) gm/dl Globulin (2.5-4.0) gm/dl Albumin/Globulin Ratio (0.9-2) Lipase (11-82) U/L Procalcitonin (0-0.5) ng/ml TSH (0.300-4.500) uIu/ml Free T4 (0.61-1.60) ng/dl Urine Color Urine Appearance (Clear) Urine pH (4.5-7.5) Ur Specific [place] (1.000-1.030) Urine Protein (Negative) Urine Glucose (UA) (Negative) Urine Ketones (Negative) Urine Blood (Negative) Urine Nitrite (Negative) Urine Bilirubin (Negative) Urine Urobilinogen (Negative) Ur Leukocyte Esterase (Negative) Urine RBC (0-4) /hpf Urine WBC (0-5) /hpf Ur Epithelial Cells (0-5) /lpf Urine Bacteria (Negative) Urine Osmolality (500-800) mOsm/kg Ur Random Sodium mmol/L POC Stool Occult Blood (Negative) Ethyl Alcohol mg/dL < 10.0 (<10.0) mg/dl SARS-CoV-2, RNA, NAAT (NEGATIVE) Blood Type Blood Type Recheck Antibody Screen Crossmatch Administered Medications Amiodarone HCl (Amiodarone 200 Mg Tab) 100 mg PO BID SHAWN Stop: 12/15/22 23:28 Last Admin: 11/16/22 00:07 Dose: Not Given Documented By: NETTE Amiodarone HCl/Dextrose (Nexterone / D5w) 360 mg in 200 mls @ 33.333 mls/hr IV ONE ONE Stop: 11/16/22 03:28 Last Admin: 11/15/22 21:57 Dose: 1 mg/min, 33.3 mls/hr Documented By: QGV Co-signed By: DML Discontinued Medications Sodium Chloride (Nss) 500 mls @ 999 mls/hr IV .Q31M ONE Stop: 11/15/22 19:07 Last Admin: 11/15/22 20:52 Dose: Not Given Documented By: QGV Pantoprazole Sodium (Protonix Bolus/Drip) 0 mls @ 1 mls/hr IV ONE STA Stop: 11/15/22 19:44 Last Admin: 11/15/22 20:49 Dose: Not Given Documented By: QGV Pantoprazole Sodium 80 mg/ (Dextrose) 120 mls @ 400 mls/hr IV NOW ONE Stop: 11/15/22 20:00 Last Infusion: 11/15/22 20:52 Dose: 0 mls/hr Documented By: Admin: 11/15/22 20:48 Dose: 400 mls/hr Documented By: QGV Pantoprazole Sodium 40 mg/ (Dextrose) 100 mls @ 20 mls/hr IV Q5H SHAWN Stop: 12/15/22 19:59 Last Infusion: 11/15/22 22:34 Dose: 0 mg/hr, 0 mls/hr Documented By: Admin: 11/15/22 20:48 Dose: 8 mg/hr, 20 mls/hr Documented By: QGV Octreotide Acetate 50 mcg/ (Syringe) 10 mls @ 3 mls/min IV ONE STA Stop: 11/15/22 19:46 Last Admin: 11/15/22 20:09 Dose: 3 mls/min Documented By: QGV Octreotide Acetate 500 mcg/ (Dextrose) 100.5 mls @ 10.05 mls/hr IV .Q10H SHAWN Stop: 12/15/22 19:44 Last Infusion: 11/15/22 22:34 Dose: 0 mcg/hr, 0 mls/hr Documented By: Admin: 11/15/22 20:09 Dose: 50 mcg/hr, 10.1 mls/hr Documented By: QGV Sodium Chloride (Nss 1000ml) 1,000 mls @ 999 mls/hr IV .Q1H1M ONE Stop: 11/15/22 21:15 Last Infusion: 11/15/22 20:52 Dose: 0 mls/hr Documented By: Admin: 11/15/22 19:40 Dose: 999 mls/hr Documented By: QGV Vancomycin HCl 1,750 mg/ (Sodium Chloride) 535 mls @ 200 mls/hr IV NOW ONE Stop: 11/15/22 23:01 Last Admin: 11/15/22 22:02 Dose: Not Given Documented By: QGV Cefepime HCl (Maxipime) 2,000 mg in 20 mls @ 5 mls/min IV NOW STA; Protocol Stop: 11/15/22 20:25 Last Admin: 11/15/22 22:02 Dose: Not Given Documented By: QGV Amiodarone HCl/Dextrose (Nexterone / D5w) 150 mg in 100 mls @ 600 mls/hr IV NOW STA Stop: 11/15/22 21:28 Last Infusion: 11/15/22 22:02 Dose: 0 mls/hr Documented By: QGV Co-signed By: DMMelvin Admin: 11/15/22 21:46 Dose: 600 mls/hr Documented By: QGV Co-signed By: DML Albumin Human (Albumin 25% 100 Ml) 25 gm in 100 mls @ 50 mls/hr IV ONE ONE Stop: 11/15/22 23:44 Last Infusion: 11/15/22 23:56 Dose: 0 mls/hr Documented By: Admin: 11/15/22 21:48 Dose: 50 mls/hr Documented By: QGV Piperacillin Sod/Tazobactam Sod (Zosyn) 4.5 gm in 120 mls @ 240 mls/hr IV NOW ONE Stop: 11/15/22 21:54 Last Infusion: 11/15/22 22:35 Dose: 0 mls/hr Documented By: Admin: 11/15/22 22:05 Dose: 240 mls/hr Documented By: QGV Metronidazole (Flagyl) 500 mg in 100 mls @ 100 mls/hr IV NOW STA Stop: 11/15/22 22:50 Last Infusion: 11/16/22 00:02 Dose: 0 mls/hr Documented By: Admin: 11/15/22 22:46 Dose: 100 mls/hr Documented By: QGV Sodium Chloride (Nss 1000ml) 1,000 mls @ 999 mls/hr IV .Q1H1M ONE Stop: 11/15/22 23:19 Last Admin: 11/15/22 22:25 Dose: Not Given Documented By: QGV Lactated Ringer's (Lr) 1,000 mls @ 500 mls/hr IV .Q2H ONE Stop: 11/16/22 00:21 Last Infusion: 11/16/22 01:24 Dose: 0 mls/hr Documented By: Admin: 11/15/22 22:46 Dose: 500 mls/hr Documented By: QGV Metoprolol Tartrate (Metoprolol Tartrate 1 Mg/Ml Vial) Confirm Administered Dose 5 mg IV .STK-MED ONE Stop: 11/15/22 19:40 Last Admin: 11/15/22 20:44 Dose: Not Given Documented By: QGV Metoprolol Tartrate (Metoprolol Tartrate 1 Mg/Ml Vial) 5 mg IV NOW STA Stop: 11/15/22 20:16 Last Admin: 11/15/22 19:41 Dose: 5 mg Documented By: QGV Miscellaneous (Stat Iv) 1 each N/A NOW STA Stop: 11/15/22 19:44 Last Admin: 11/15/22 20:44 Dose: Not Given Documented By: QGV Imaging Data Radiologist's Impression: Head CT 11/15/22 18:41 Exam(s): CT HEAD Without Contrast EXAM: CT Head Without Intravenous Contrast CLINICAL HISTORY: Reason for exam: ams. TECHNIQUE: Axial computed tomography images of the head/brain without intravenous contrast. CTDI is 10.36 mGy and DLP is 296.47 mGy-cm. Automated exposure control was utilized for the study. A dose lowering technique was utilized adhering to the principles of ALARA. COMPARISON: No relevant prior studies available. FINDINGS: Brain: Mild cerebral atrophy and periventricular white matter low density consistent with chronic small vessel disease and/or senescent changes. No acute large vessel infarct or intracranial hemorrhage is seen. Ventricles: Unremarkable. No ventriculomegaly. Bones/joints: Unremarkable. No acute fracture. Soft tissues: Unremarkable. Sinuses: Unremarkable as visualized. No acute sinusitis. Mastoid air cells: Unremarkable as visualized. No mastoid effusion. IMPRESSION: Mild cerebral atrophy and periventricular white matter low density consistent with chronic small vessel disease and/or senescent changes. No acute large vessel infarct or intracranial hemorrhage is seen. Electronically signed by: Johnson Perrin MD 11/15/22 20:29 PM Abdomen/Pelvis CT 11/15/22 19:24 Exam(s): CT ABDOMEN + PELVIS Without Contrast EXAM: CT Abdomen and Pelvis Without Intravenous Contrast CLINICAL HISTORY: Reason for exam: GIB, hypotension. TECHNIQUE: Axial computed tomography images of the abdomen and pelvis without intravenous contrast. CTDI is 10.79 mGy and DLP is 545.97 mGy-cm. Automated exposure control was utilized for the study. A dose lowering technique was utilized adhering to the principles of ALARA. COMPARISON: No relevant prior studies available. FINDINGS: Lung bases: See below. Pleural space: There is a small left pleural effusion layering 4 cm with adjacent left lung base atelectasis. Heart: Mild cardiomegaly. There is a pacing device in place. Mediastinum: Surgical clips adjacent to the gastroesophageal junction, likely previous hiatal hernia repair. No recurrence. ABDOMEN: Liver: There is fatty infiltration of the liver. No focal liver lesion is identified. Gallbladder and bile ducts: Unremarkable. No calcified stones. No ductal dilation. Pancreas: Unremarkable. No ductal dilation. Spleen: Unremarkable. No splenomegaly. Adrenals: Unremarkable. No mass. Kidneys and ureters: Unremarkable. No obstructing stones. No hydronephrosis. Stomach and bowel: Bowel loops are nondilated. There is wall thickening of the left side of the transverse colon and sigmoid colon consistent with colitis and mild ileus. PELVIS: Appendix: No findings to suggest acute appendicitis. Bladder: The urinary bladder is decompressed by Caraballo catheter. No stones. Reproductive: Unremarkable as visualized. ABDOMEN and PELVIS: Intraperitoneal space: There is a trace amount of free fluid in the pelvis. No free air. Bones/joints: Metallic artifact from left hip arthroplasty. No periprosthetic fracture or dislocation is seen. Moderate multilevel degenerative changes throughout the spine. There is a chronic appearing compression fracture at L1 50%. There is a 20% superior endplate compression fracture at L5. No acute fracture or subluxation is seen. Soft tissues: Anterior abdominal wall hernia superior to the previous abdominal incision. There is herniation of a small amount of the transverse colon without signs of obstruction or incarceration. There is an approximately 4.5 x 2.8 x 5.6 cm left rectus sheath hematoma. Vasculature: Unremarkable. No abdominal aortic aneurysm. Lymph nodes: Unremarkable. No enlarged lymph nodes. IMPRESSION: 1. Bowel loops are nondilated. There is wall thickening of the left side of the transverse colon and sigmoid colon consistent with colitis and mild ileus. 2. There is an approximately 4.5 x 2.8 x 5.6 cm left rectus sheath hematoma. Electronically signed by: Johnson Perrin MD 11/15/22 20:[address] 11/15/22 19:24 Exam(s): CT CHEST Without Contrast EXAM: CT Chest Without Intravenous Contrast CLINICAL HISTORY: Images Study Description: CT chest diagnostic wo con Body Part: <none> HX ams hypotension best images possible PT unable to raise arem TECHNIQUE: Axial computed tomography images of the chest without intravenous contrast. CTDI is 10.79 mGy and DLP is 545.97 mGy-cm. Automated exposure control was utilized for the study. A dose lowering technique was utilized adhering to the principles of ALARA. COMPARISON: No relevant prior studies available. FINDINGS: Lungs: See below. Pleural space: Left pleural effusion layering 4 cm posteriorly with small amount of left lung base atelectasis. No pneumothorax. Heart: Unremarkable. No cardiomegaly. No significant pericardial effusion. No significant coronary artery calcifications. There is a left atrial appendage point. Bones/joints: Mild to moderate multilevel degenerative changes throughout the spine. No acute fracture or subluxation is seen. There is an old healed compression fracture in the mid thoracic spine. Soft tissues: See below. Vasculature: There is a sessile calcified aneurysm/penetrating ulcer measuring 2.4 cm in diameter. No evidence of B-cell hematoma. This is a noncontrast study. Lymph nodes: Unremarkable. No enlarged lymph nodes. Tubes, lines and devices: The heart is mildly enlarged. There is a pacing device in place. IMPRESSION: Left pleural effusion layering 4 cm posteriorly with small amount of left lung base atelectasis. The lungs are otherwise clear. 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 No sign of hematoma. Mild cardiomegaly pacing device in place. Electronically signed by: Johnson Perrin MD 11/15/22 21:16 PM Discharge Plan Visit Data Chief Complaint: GI Bleed ED Provider: Patrick Singer Discharge Problem: Lower gastrointestinal hemorrhage, Atrial fibrillation with rapid ventricular response, Hypotension, Increased anion gap metabolic acidosis, Elevated lactic acid level, Acute renal failure Patient Disposition: Admitted As Inpatient Discharge Instructions Interventions: ED Discharge Assessment Last Done: 11/15/22 23:03
[2022-11-15] MEDS: SODIUM CHLORIDE 0.9% 500 ML IV ONE ×2 (19:00→20:52)
[2022-11-15 19:01] LABS: iSTAT Creatinine 3.3 mg/dl (0.6-1.3); iSTAT Hemoglobin 12.6 g/dl (14.0-18.0); iSTAT Ionized Calcium 0.88 mmol/l (1.12-1.32)
[2022-11-15 19:03] LABS: Hematocrit (blood only) 31.7 % (42.0-52.0); Hemoglobin 11.3 g/dl (14.0-18.0); Mean Corpuscular Hemoglobin 32.9 pg (25.0-34.0); Mean Corpuscular Hgb Conc 35.6 g/dL (32.0-36.0); Mean Corpuscular Volume 92.4 fL (80.0-100.0); Mean Platelet Volume 9.7 fL (9.4-12.4); Nucleated RBC # (auto) 0.03 K/uL (0-0.12); Nucleated RBC % (auto) 0.2 %; Platelet Count 271 K/uL (130-400); RDW Coefficient of Variation 18.2 % (11.5-14.5); RDW Standard Deviation 57.3 fL (36.4-46.3); Red Blood Count 3.43 M/uL (4.70-6.10); White Blood Count 13.23 K/ul (4.8-10.8)
[2022-11-15 19:24] LABS: Toxic Vacuolation 2+
[2022-11-15 19:25] LABS: Macrocytosis Present; Polychromasia 1+
[2022-11-15 19:26] LABS: Albumin Globulin Ratio 0.6 (0.9-2); BUN Creatinine Ratio 10.8 (10-20); Basophils # (auto) 0.02 K/uL (0-0.2); Basophils % (auto) 0.2 %; Bilirubin,Total 2.1 mg/dl (0.2-1.0); Calcium 7.7 mg/dl (8.6-10.3); Creatinine Clr Calc Pharmacy 19.6 ml/min; Est GFR (African American) 22.9 ml/min; Est GFR (Non-African American) 19.8 ml/min; Globulin 3.5 gm/dl (2.5-4.0); Immature Granulocytes # (auto) 0.09 K/uL (0.01-0.20); Immature Granulocytes % (auto) 0.7 %; Lymphocytes # (auto) 0.65 K/uL (1.2-3.4); Lymphocytes % (auto) 4.9 %; Magnesium 2.4 mg/dl (1.7-2.4); Monocytes # (auto) 0.57 K/uL (0.11-0.59); Monocytes % (auto) 4.3 %; Neutrophils % (auto) 89.9 %; Phosphorus 5.2 mg/dl (2.5-4.9); Potassium 5.1 mmol/L (3.5-5.1); Total Protein 5.5 gm/dl (6.0-8.3)
[2022-11-15] MEDS ORDERED: METOPROLOL TARTRATE 1 MG/ML VIAL IV ONE (19:39)
[2022-11-15] MEDS ORDERED: PANTOprazole 80 MG in DEXTROSE 5% 100 ML IV ONE (19:43)
[2022-11-15] MEDS ORDERED: OCTREOTIDE ACETATE 50 MCG in SYRINGE 9.5 ML IV STA (19:43)
[2022-11-15] MEDS ORDERED: PANTOPRAZOLE BOLUS/DRIP 1 EACH IV STA (19:43)
[2022-11-15] MEDS ORDERED: STAT IV STA (19:43)
[2022-11-15] MEDS ORDERED: OCTREOTIDE ACETATE 500 MCG in DEXTROSE 5% 100 ML IV SCH (19:45)
[2022-11-15] MEDS ORDERED: PANTOprazole 40 MG in DEXTROSE 5% 100 ML IV SCH (20:00)
[2022-11-15] MEDS ORDERED: SODIUM CHLORIDE 0.9% 1000ML 1,000 ML IV ONE ×2 (20:15→22:19)
[2022-11-15] MEDS ORDERED: METOPROLOL TARTRATE 1 MG/ML VIAL IV STA (20:15)
[2022-11-15] MEDS ORDERED: VANCOMYCIN CONSULT ACTIVE PRN (20:21)
[2022-11-15] MEDS ORDERED: VANCOMYCIN HCL 1,750 MG in SODIUM CHLORIDE 0.9% 500 ML IV ONE (20:21)
[2022-11-15] MEDS ORDERED: CEFEPIME 2,000 MG/20 ML VIAL IV STA (20:22)
--- NOTE | 2022-11-15 20:30 | CT Scan Report ---
Exam(s): CT HEAD Without Contrast EXAM: CT Head Without Intravenous Contrast CLINICAL HISTORY: Reason for exam: ams. TECHNIQUE: Axial computed tomography images of the head/brain without intravenous contrast. CTDI is 10.36 mGy and DLP is 296.47 mGy-cm. Automated exposure control was utilized for the study. A dose lowering technique was utilized adhering to the principles of ALARA. COMPARISON: No relevant prior studies available. FINDINGS: Brain: Mild cerebral atrophy and periventricular white matter low density consistent with chronic small vessel disease and/or senescent changes. No acute large vessel infarct or intracranial hemorrhage is seen. Ventricles: Unremarkable. No ventriculomegaly. Bones/joints: Unremarkable. No acute fracture. Soft tissues: Unremarkable. Sinuses: Unremarkable as visualized. No acute sinusitis. Mastoid air cells: Unremarkable as visualized. No mastoid effusion. IMPRESSION: Mild cerebral atrophy and periventricular white matter low density consistent with chronic small vessel disease and/or senescent changes. No acute large vessel infarct or intracranial hemorrhage is seen. Electronically signed by: Johnson Perrin MD 11/15/22 20:29 PM
[2022-11-15 20:40] LABS: Appearance Urine Slightly Cloudy (Clear); Bilirubin Urine 2+ (Negative); Blood Urine 1+ (Negative); Glucose Urine UA Trace (Negative); Ketones Urine Trace (Negative); Leukocyte Esterase Urine Negative (Negative); Nitrite Urine Negative (Negative); Protein Urine 2+ (Negative); Specific Gravity Urine >= 1.030 (1.000-1.030); Urobilinogen Urine Negative (Negative)
[2022-11-15 20:48] LABS: Color Urine Dark Yellow
[2022-11-15 20:50] LABS: Bacteria Urine 2+ (Negative)
--- NOTE | 2022-11-15 21:00 | CT Scan Report ---
Exam(s): CT ABDOMEN + PELVIS Without Contrast EXAM: CT Abdomen and Pelvis Without Intravenous Contrast CLINICAL HISTORY: Reason for exam: GIB, hypotension. TECHNIQUE: Axial computed tomography images of the abdomen and pelvis without intravenous contrast. CTDI is 10.79 mGy and DLP is 545.97 mGy-cm. Automated exposure control was utilized for the study. A dose lowering technique was utilized adhering to the principles of ALARA. COMPARISON: No relevant prior studies available. FINDINGS: Lung bases: See below. Pleural space: There is a small left pleural effusion layering 4 cm with adjacent left lung base atelectasis. Heart: Mild cardiomegaly. There is a pacing device in place. Mediastinum: Surgical clips adjacent to the gastroesophageal junction, likely previous hiatal hernia repair. No recurrence. ABDOMEN: Liver: There is fatty infiltration of the liver. No focal liver lesion is identified. Gallbladder and bile ducts: Unremarkable. No calcified stones. No ductal dilation. Pancreas: Unremarkable. No ductal dilation. Spleen: Unremarkable. No splenomegaly. Adrenals: Unremarkable. No mass. Kidneys and ureters: Unremarkable. No obstructing stones. No hydronephrosis. Stomach and bowel: Bowel loops are nondilated. There is wall thickening of the left side of the transverse colon and sigmoid colon consistent with colitis and mild ileus. PELVIS: Appendix: No findings to suggest acute appendicitis. Bladder: The urinary bladder is decompressed by Caraballo catheter. No stones. Reproductive: Unremarkable as visualized. ABDOMEN and PELVIS: Intraperitoneal space: There is a trace amount of free fluid in the pelvis. No free air. Bones/joints: Metallic artifact from left hip arthroplasty. No periprosthetic fracture or dislocation is seen. Moderate multilevel degenerative changes throughout the spine. There is a chronic appearing compression fracture at L1 50%. There is a 20% superior endplate compression fracture at L5. No acute fracture or subluxation is seen. Soft tissues: Anterior abdominal wall hernia superior to the previous abdominal incision. There is herniation of a small amount of the transverse colon without signs of obstruction or incarceration. There is an approximately 4.5 x 2.8 x 5.6 cm left rectus sheath hematoma. Vasculature: Unremarkable. No abdominal aortic aneurysm. Lymph nodes: Unremarkable. No enlarged lymph nodes. IMPRESSION: 1. Bowel loops are nondilated. There is wall thickening of the left side of the transverse colon and sigmoid colon consistent with colitis and mild ileus. 2. There is an approximately 4.5 x 2.8 x 5.6 cm left rectus sheath hematoma. Electronically signed by: Johnson Perrin MD 11/15/22 20:59 PM
[2022-11-15] MEDS ORDERED: AMIODARONE / D5W 150 MG/100 ML BAG IV STA (21:19)
[2022-11-15] MEDS ORDERED: 0.2 MICRON FILTER SET 1 EACH IV STA (21:19)
[2022-11-15] MEDS ORDERED: AMIODARONE IV BOLUS & DRIP IV STA (21:19)
[2022-11-15] MEDS ORDERED: STAT IV Infusion **Titration per Protocol STA (21:19)
[2022-11-15] MEDS ORDERED: PIPERACILLIN/TAZOBACTAM 4.5 GM/120 ML BAG IV ONE (21:25)
[2022-11-15 21:28] LABS: Thyroid Stimulating Hormone 5.57 uIu/ml (0.300-4.500)
[2022-11-15] MEDS ORDERED: AMIODARONE / D5W 360 MG/200 ML BAG IV ONE (21:29)
[2022-11-15] MEDS ORDERED: ALBUMIN 25% 100 mL 25 GM/100 ML VIAL IV ONE (21:45)
--- NOTE | 2022-11-15 21:50 | History & Physical Report ---
Date of Service November 15, 2022 Assessment & Plan (1) Hypotension: Plan: Multifactorial: Hypovolemia secondary to abdominal bleed (rectus sheath hematoma and colitis rule out C. 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 difficile Bowel rest for now GI consult for colitis if C. difficile negative General Surgery consult RE rectus sheath hematoma Appropriate to hold home aspirin and Eliquis for now given bleeding. Follow H&H, transfuse RBC if hemoglobin less than 8 and or for symptomatic anemia (hx PVD as per records) Follow troponin, TTE for progression Cardiology consult if A-fib rate uncontrolled with IV amiodarone Hold RTC narcotics and gabapentin until patient mentation back to baseline Check hemoglobin A1c Nephrology consult if with worsening kidney dysfunction. Check hemoglobin A1c Nicotine replacement therapy as needed PT OT eval once medically stable to assess px patient for fall risk especially with home Eliquis Rx sent home DVT prophylaxis. SCDs Re: Abdominal bleed Full code as per son/POA, Mr. Moreno Gilbert. He requests updates providers through [id number]. Total critical care time was 50 minutes. Text document was generated using Periscope voice recognition software. It may contain grammatical or spelling errors. Kindly contact undersigned for clarification of any documentation item in question. History of Present Illness Chief Complaint: Confusion, lower GI bleed Primary Care Provider: Shadia Hernandez DO History obtained from patient, family, and records. Limited history from patient secondary to disoriented state. Medical history significant for CHF, A-fib status post PPM on Eliquis, PVD, hypertension, chronic back pain secondary to thoracic spine fracture status post surgery on narcotics, dural AV fistula as per records, recent diagnosis of colonic malignancy, past alcohol abuse, ongoing tobacco abuse. Patient underwent follow-up colonoscopic polypectomy at the [facility] in [place]. Family informed of malignancy on pathology a few days ago over the phone. Family instructed to follow-up with his [place] [facility] specialist. Few days ago, patient noted by family to be increasingly confused. Fall at home 2 days ago. Yesterday, patient complained of lower abdominal pain associated with nausea symptoms. Bloody bowel movements. No account of hematemesis/coffee-ground emesis/melena as per family. No fever, no chills. No chest pain. Patient complaining of some shortness of breath. Patient noted to be hypotensive upon EMS arrival at home. Patient noted to be in rapid A-fib upon arrival at the ER Lowest SBP at the ER was 90s. Medical History as above Surgical History : PPM, splenectomy, partial gastrectomy, thoracic spine surgery Family History : Lung cancer, DM Personal/Social history : Few cigarettes a day, past alcohol abuse Allergies Allergy/AdvReac Type Severity Reaction Status Date / Time fentanyl AdvReac Mild itch Verified 09/13/14 14:09 Home Medications Medication Instructions Recorded Confirmed Type albuterol sulfate 2.5 mg/3 mL 2.5 mg continuous nebulization Q4 11/15/22 11/15/22 History (0.083 %) solution for nebulization PRN Shortness Of Breath Or Wheezing amiodarone 100 mg tablet 100 mg PO BID 11/15/22 11/15/22 History apixaban 5 mg tablet (Eliquis) 5 mg PO BID 11/15/22 11/15/22 History ascorbic acid (vitamin C) 500 mg 500 mg PO DAILY 11/15/22 11/15/22 History tablet (Vitamin C) aspirin 81 mg tablet,delayed 81 mg PO DAILY 11/15/22 11/15/22 History release bumetanide 0.5 mg tablet 0.5 mg PO BID 11/15/22 11/15/22 History diltiazem HCl 180 mg capsule,24 180 mg PO DAILY 11/15/22 11/15/22 History hr,extended release ferrous sulfate 325 mg (65 mg 325 mg PO DAILY 11/15/22 11/15/22 History iron) tablet (FeroSul) furosemide 40 mg tablet 40 mg PO DAILY 11/15/22 11/15/22 History gabapentin 300 mg capsule 300 mg PO HS 11/15/22 11/15/22 History lisinopril 5 mg tablet 5 mg PO DAILY 11/15/22 11/15/22 History magnesium oxide 420 mg tablet 420 mg PO BID 11/15/22 11/15/22 History metoprolol succinate 100 mg 100 mg PO BID 11/15/22 11/15/22 History tablet,extended release 24 hr metoprolol tartrate 50 mg tablet 50 mg PO BID 11/15/22 11/15/22 History morphine 15 mg tablet,extended 15 mg PO BID 11/15/22 11/15/22 History release multivitamin (Daily Multi-Vitamin 1 tab PO DAILY 11/15/22 11/15/22 History tablet) omeprazole 20 mg capsule,delayed 20 mg PO DAILY 11/15/22 11/15/22 History release ondansetron HCl 4 mg tablet 4 mg PO TID PRN Nausea 11/15/22 11/15/22 History potassium chloride 20 mEq 20 meq PO BID 11/15/22 11/15/22 History tablet,extended release(part/cryst) spironolactone 25 mg tablet 25 mg PO DAILY 11/15/22 11/15/22 History thiamine HCl (vitamin B1) 100 mg 100 mg PO DAILY 11/15/22 11/15/22 History tablet Past Med/Surg History Medical History (Updated 11/16/22 @ 05:21 by CANDIDO Hollis) Atrial fibrillation Cirrhosis History of alcohol abuse History of bacteremia Per family's report On apixaban therapy Family History Other Family history non-contributory Social History Smoking Status: Never smoker Second Hand Exposure: No; Do You Dip or Chew Tobacco: No; Tobacco Cessation Education Requested by Patient: No Hx Alcohol Use: Yes Hx Substance Use: No Preferred Language: Iranian Communication Ability: Impaired Beliefs That Will Affect Care: None Current Living Situation: Family Other Information That Helps Us Care for You: No Feels Safe at Home: Yes Safety Concerns: Feels Safe At This Time Review of Systems Review of Systems: Could not be reliably obtained secondary to disorientation Physical Exam Physical Exam: GENERAL: Disoriented, no respiratory distress SKIN: Pallor, warm HEENT: Pale palpebral conjunctivae, no ptosis, dry buccal mucosa, nasal cannula in place NECK : Supple, no tenderness CHEST : Decreased breath sounds, no tenderness HEART : Irregular, tachycardic, systolic murmur ABDOMEN: Marked distention, hypogastric tenderness EXTREMITIES : Bilateral LE swelling, no LE tenderness, no other conspicuous deformities noted NEUROLOGIC : Disoriented, no facial asymmetry, gait and stance not assessed Results & Data Results & Data Vital Signs (Past 12 Hours) Vital Signs Temp Pulse Pulse Resp BP BP Pulse Ox 11/15/22 20:50 163 H 23 98 11/15/22 20:45 145 H 22 129/71 97 11/15/22 20:35 151 H 27 H 118/94 98 11/15/22 20:30 152 H 30 H 126/99 97 11/15/22 20:25 157 H 24 127/104 H 99 11/15/22 20:20 150 H 24 104/83 97 11/15/22 20:15 152 H 21 103/77 99 11/15/22 20:10 164 H 22 101/75 99 11/15/22 20:06 156 H 24 99/83 L 96 11/15/22 19:45 144 H 22 139/86 95 11/15/22 19:42 167 H 23 120/78 99 11/15/22 19:25 169 H 21 121/99 100 11/15/22 19:20 166 H 20 119/90 100 11/15/22 19:15 180 H 20 128/82 99 11/15/22 19:14 170 H 22 117/97 100 11/15/22 19:05 161 H 22 110/86 100 11/15/22 19:00 168 H 19 114/99 100 11/15/22 18:55 160 H 18 127/91 100 11/15/22 18:50 164 H 17 123/90 100 11/15/22 18:45 166 H 19 109/78 100 11/15/22 19:31 37.3 C 11/15/22 18:36 167 H 11/15/22 18:50 166 H 18 100 11/15/22 18:15 158 H 18 109/78 100 11/15/22 18:15 164 H 18 109/78 100 O2 Del Method O2 Flow Rate 11/15/22 20:50 Nasal Cannula 4 11/15/22 20:45 Nasal Cannula 4 11/15/22 20:35 Nasal Cannula 4 11/15/22 20:30 Nasal Cannula 4 11/15/22 20:25 Nasal Cannula 4 11/15/22 20:20 Nasal Cannula 4 11/15/22 20:15 Nasal Cannula 4 11/15/22 20:10 Nasal Cannula 4 11/15/22 20:06 Nasal Cannula 4 11/15/22 19:45 Nasal Cannula 4 11/15/22 19:42 Nasal Cannula 4 11/15/22 19:25 Nasal Cannula 4 11/15/22 19:20 Nasal Cannula 4 11/15/22 19:15 Nasal Cannula 4 11/15/22 19:14 Nasal Cannula 4 11/15/22 19:05 Nasal Cannula 4 11/15/22 19:00 Nasal Cannula 4 11/15/22 18:55 Nasal Cannula 4 11/15/22 18:50 Nasal Cannula 4 11/15/22 18:45 Nasal Cannula 4 11/15/22 19:31 11/15/22 18:36 11/15/22 18:50 8 11/15/22 18:15 11/15/22 18:15 Ambu-Bag 8 Laboratory Results Laboratory Results WBC 13.23 K/ul (4.8-10.8) H 11/15/22 18:46 RBC 3.43 M/uL (4.70-6.10) L 11/15/22 18:46 Hgb 11.3 g/dl (14.0-18.0) L 11/15/22 18:46 POC Hgb 12.6 g/dl (14.0-18.0) L 11/15/22 18:48 Hct 31.7 % (42.0-52.0) L 11/15/22 18:46 POC Hct 37 % (42-52) L 11/15/22 18:48 MCV 92.4 fL (80.0-100.0) 11/15/22 18:46 MCH 32.9 pg (25.0-34.0) 11/15/22 18:46 MCHC 35.6 g/dL (32.0-36.0) 11/15/22 18:46 RDW Std Deviation 57.3 fL (36.4-46.3) H 11/15/22 18:46 RDW Coeff of Giancarlo 18.2 % (11.5-14.5) H 11/15/22 18:46 Plt Count 271 K/uL (130-400) 11/15/22 18:46 MPV 9.7 fL (9.4-12.4) 11/15/22 18:46 Immature Gran % (Auto) 0.7 % 11/15/22 18:46 Neut % (Auto) 89.9 % 11/15/22 18:46 Lymph % (Auto) 4.9 % 11/15/22 18:46 [place] % (Auto) 4.3 % 11/15/22 18:46 Eos % (Auto) 0.0 % 11/15/22 18:46 Baso % (Auto) 0.2 % 11/15/22 18:46 Neut # (Auto) 11.90 K/uL (1.40-6.50) H 11/15/22 18:46 Lymph # (Auto) 0.65 K/uL (1.2-3.4) L 11/15/22 18:46 [place] # (Auto) 0.57 K/uL (0.11-0.59) 11/15/22 18:46 Eos # (Auto) 0.00 K/uL (0-0.50) 11/15/22 18:46 Baso # (Auto) 0.02 K/uL (0-0.2) 11/15/22 18:46 Immature Gran # (Auto) 0.09 K/uL (0.01-0.20) 11/15/22 18:46 Absolute Nucleated RBC 0.03 K/uL (0-0.12) 11/15/22 18:46 Nucleated RBC % (auto) 0.2 % 11/15/22 18:46 Toxic Vacuolation 2+ 11/15/22 18:46 Polychromasia 1+ 11/15/22 18:46 Macrocytosis Present 11/15/22 18:46 Target Cells 2+ 11/15/22 18:46 PT Cancelled 11/15/22 18:46 INR Cancelled 11/15/22 18:46 APTT Cancelled 11/15/22 18:46 PTT Ratio Cancelled 11/15/22 18:46 POC Sodium 128 mmol/L (135-144) L 11/15/22 18:48 Sodium 130 mmol/L (136-145) L 11/15/22 18:46 POC Potassium 6.0 mmol/L (3.3-5.0) H 11/15/22 18:48 Potassium 5.1 mmol/L (3.5-5.1) 11/15/22 18:46 POC Chloride 95 mmol/L (101-112) L 11/15/22 18:48 Chloride 94 mmol/L (98-107) L 11/15/22 18:46 Carbon Dioxide 18 mmol/L (21-32) L 11/15/22 18:46 POC Total CO2 21 mmol/L (24-31) L 11/15/22 18:48 Anion Gap 18 (3-11) H 11/15/22 18:46 POC Anion Gap 20.0 mmol/L (16-25) 11/15/22 18:48 POC BUN 41 mg/dl (7-18) H 11/15/22 18:48 BUN 32 mg/dl (6-23) H 11/15/22 18:46 Creatinine 2.97 mg/dl (0.6-1.4) H 11/15/22 18:46 POC Creatinine 3.3 mg/dl (0.6-1.3) H 11/15/22 18:48 Est Cr Clr Drug Dosing 19.6 ml/min 11/15/22 18:46 Est GFR ( Amer) 22.9 ml/min 11/15/22 18:46 Est GFR (Non-Af Amer) 19.8 ml/min 11/15/22 18:46 BUN/Creatinine Ratio 10.8 (10-20) 11/15/22 18:46 Glucose 119 mg/dl (70-99(Fasting)) H 11/15/22 18:46 POC Glucose (other) 115 mg/dl (70-99) H 11/15/22 18:48 Osmolality 292 mOsm/kg (280-300) 11/15/22 20:29 Calcium 7.7 mg/dl (8.6-10.3) L 11/15/22 18:46 POC Ioniz Calcium Lili 0.88 mmol/l (1.12-1.32) L 11/15/22 18:48 Phosphorus 5.2 mg/dl (2.5-4.9) H 11/15/22 18:46 Magnesium 2.4 mg/dl (1.7-2.4) 11/15/22 18:46 Total Bilirubin 2.1 mg/dl (0.2-1.0) H 11/15/22 18:46 AST 107 U/L (13-39) H 11/15/22 18:46 ALT 27 U/L (7-52) 11/15/22 18:46 Alkaline Phosphatase 271 U/L (34-104) H 11/15/22 18:46 Total Protein 5.5 gm/dl (6.0-8.3) L 11/15/22 18:46 Albumin 2.0 gm/dl (3.4-5.0) L 11/15/22 18:46 Globulin 3.5 gm/dl (2.5-4.0) 11/15/22 18:46 Albumin/Globulin Ratio 0.6 (0.9-2) L 11/15/22 18:46 Procalcitonin 4.28 ng/ml (0-0.5) H 11/15/22 17:46 TSH 5.570 uIu/ml (0.300-4.500) H 11/15/22 20:59 Urine Color Dark Yellow 11/15/22 19: Urine Appearance Slightly Cloudy (Clear) 11/15/22 19: Urine pH 5.0 (4.5-7.5) 11/15/22 19:29 Ur Specific [place] >= 1.030 (1.000-1.030) 11/15/22 19:29 Urine Protein 2+ (Negative) H 11/15/22 19:29 Urine Glucose (UA) Trace (Negative) H 11/15/22 19:29 Urine Ketones Trace (Negative) H 11/15/22 19:29 Urine Blood 1+ (Negative) H 11/15/22 19: Urine Nitrite Negative (Negative) 11/15/22 19: Urine Bilirubin 2+ (Negative) H 11/15/22 19: Urine Urobilinogen Negative (Negative) 11/15/22 19: Ur Leukocyte Esterase Negative (Negative) 11/15/22 19: Urine RBC 5-10 /hpf (0-4) H 11/15/22 19:29 Urine WBC 5-10 /hpf (0-5) H 11/15/22 19:29 Ur Epithelial Cells 10-20 /lpf (0-5) H 11/15/22 19:29 Urine Bacteria 2+ (Negative) H 11/15/22 19:29 Urine Osmolality 304 mOsm/kg (500-800) L 11/15/22 19:29 Ur Random Sodium 11 mmol/L 11/15/22 19:29 POC Stool Occult Blood Positive (Negative) A 11/15/22 19:31 SARS-CoV-2, RNA, NAAT NEGATIVE (NEGATIVE) 11/15/22 19:10 Blood Type A Positive 11/15/22 18:46 Blood Type Recheck A Positive 11/15/22 19:05 Antibody Screen NEGATIVE 11/15/22 18:46 Crossmatch See Detail 11/15/22 18:[address] 11/15/22 18:41 Exam(s): CT HEAD Without Contrast EXAM: CT Head Without Intravenous Contrast CLINICAL HISTORY: Reason for exam: ams. TECHNIQUE: Axial computed tomography images of the head/brain without intravenous contrast. CTDI is 10.36 mGy and DLP is 296.47 mGy-cm. Automated exposure control was utilized for the study. A dose lowering technique was utilized adhering to the principles of ALARA. COMPARISON: No relevant prior studies available. FINDINGS: Brain: Mild cerebral atrophy and periventricular white matter low density consistent with chronic small vessel disease and/or senescent changes. No acute large vessel infarct or intracranial hemorrhage is seen. Ventricles: Unremarkable. No ventriculomegaly. Bones/joints: Unremarkable. No acute fracture. Soft tissues: Unremarkable. Sinuses: Unremarkable as visualized. No acute sinusitis. Mastoid air cells: Unremarkable as visualized. No mastoid effusion. IMPRESSION: Mild cerebral atrophy and periventricular white matter low density consistent with chronic small vessel disease and/or senescent changes. No acute large vessel infarct or intracranial hemorrhage is seen. Electronically signed by: Johnson Perrin MD 11/15/22 20:29 PM Abdomen/Pelvis CT 11/15/22 19:24 Exam(s): CT ABDOMEN + PELVIS Without Contrast EXAM: CT Abdomen and Pelvis Without Intravenous Contrast CLINICAL HISTORY: Reason for exam: GIB, hypotension. TECHNIQUE: Axial computed tomography images of the abdomen and pelvis without intravenous contrast. CTDI is 10.79 mGy and DLP is 545.97 mGy-cm. Automated exposure control was utilized for the study. A dose lowering technique was utilized adhering to the principles of ALARA. COMPARISON: No relevant prior studies available. FINDINGS: Lung bases: See below. Pleural space: There is a small left pleural effusion layering 4 cm with adjacent left lung base atelectasis. Heart: Mild cardiomegaly. There is a pacing device in place. Mediastinum: Surgical clips adjacent to the gastroesophageal junction, likely previous hiatal hernia repair. No recurrence. ABDOMEN: Liver: There is fatty infiltration of the liver. No focal liver lesion is identified. Gallbladder and bile ducts: Unremarkable. No calcified stones. No ductal dilation. Pancreas: Unremarkable. No ductal dilation. Spleen: Unremarkable. No splenomegaly. Adrenals: Unremarkable. No mass. Kidneys and ureters: Unremarkable. No obstructing stones. No hydronephrosis. Stomach and bowel: Bowel loops are nondilated. There is wall thickening of the left side of the transverse colon and sigmoid colon consistent with colitis and mild ileus. PELVIS: Appendix: No findings to suggest acute appendicitis. Bladder: The urinary bladder is decompressed by Caraballo catheter. No stones. Reproductive: Unremarkable as visualized. ABDOMEN and PELVIS: Intraperitoneal space: There is a trace amount of free fluid in the pelvis. No free air. Bones/joints: Metallic artifact from left hip arthroplasty. No periprosthetic fracture or dislocation is seen. Moderate multilevel degenerative changes throughout the spine. There is a chronic appearing compression fracture at L1 50%. There is a 20% superior endplate compression fracture at L5. No acute fracture or subluxation is seen. Soft tissues: Anterior abdominal wall hernia superior to the previous abdominal incision. There is herniation of a small amount of the transverse colon without signs of obstruction or incarceration. There is an approximately 4.5 x 2.8 x 5.6 cm left rectus sheath hematoma. Vasculature: Unremarkable. No abdominal aortic aneurysm. Lymph nodes: Unremarkable. No enlarged lymph nodes. IMPRESSION: 1. Bowel loops are nondilated. There is wall thickening of the left side of the transverse colon and sigmoid colon consistent with colitis and mild ileus. 2. There is an approximately 4.5 x 2.8 x 5.6 cm left rectus sheath hematoma. Electronically signed by: Johnson Perrin MD 11/15/22 20:59 PM Diagnostic Findings EKG as per my interpretation : Rate 170, A-fib, normal axis, diffuse T wave abnormalities, low voltage
[2022-11-15] MEDS ORDERED: metroNIDAZOLE 500 MG/100 ML BAG IV STA (21:51)
[2022-11-15] MEDS ORDERED: PROMETHAZINE HCL 6.25 MG in SODIUM CHLORIDE 0.9% 50 ML IV PRN (21:58)
[2022-11-15] MEDS ORDERED: oxyCODONE HCL IR 5 MG TAB (IMMEDIATE RELEASE) PO PRN (21:58)
[2022-11-15] MEDS ORDERED: ACETAMINOPHEN 325 MG TAB PO PRN (21:58)
--- NOTE | 2022-11-15 22:00 | CT Scan Report ---
Exam(s): CT CHEST Without Contrast EXAM: CT Chest Without Intravenous Contrast CLINICAL HISTORY: Images Study Description: CT chest diagnostic wo con Body Part: <none> HX ams hypotension best images possible PT unable to raise arem TECHNIQUE: Axial computed tomography images of the chest without intravenous contrast. CTDI is 10.79 mGy and DLP is 545.97 mGy-cm. Automated exposure control was utilized for the study. A dose lowering technique was utilized adhering to the principles of ALARA. COMPARISON: No relevant prior studies available. FINDINGS: Lungs: See below. Pleural space: Left pleural effusion layering 4 cm posteriorly with small amount of left lung base atelectasis. No pneumothorax. Heart: Unremarkable. No cardiomegaly. No significant pericardial effusion. No significant coronary artery calcifications. There is a left atrial appendage point. Bones/joints: Mild to moderate multilevel degenerative changes throughout the spine. No acute fracture or subluxation is seen. There is an old healed compression fracture in the mid thoracic spine. Soft tissues: See below. Vasculature: There is a sessile calcified aneurysm/penetrating ulcer measuring 2.4 cm in diameter. No evidence of B-cell hematoma. This is a noncontrast study. Lymph nodes: Unremarkable. No enlarged lymph nodes. Tubes, lines and devices: The heart is mildly enlarged. There is a pacing device in place. IMPRESSION: Left pleural effusion layering 4 cm posteriorly with small amount of left lung base atelectasis. The lungs are otherwise clear. 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 No sign of hematoma. Mild cardiomegaly pacing device in place. Electronically signed by: Johnson Perrin MD 11/15/22 21:16 PM
[2022-11-15 22:03] LABS: Hemoglobin 10.6 g/dl (14.0-18.0)
[2022-11-15 22:04] LABS: T4 Free Thyroxine 0.86 ng/dl (0.61-1.60)
[2022-11-15 22:14] LABS: Bilirubin Direct 1.1 mg/dl (0-0.2)
[2022-11-15 22:21] LABS: Troponin I High Sensitivity 48.8 pg/ml (0-20)
[2022-11-15] MEDS ORDERED: LACTATED RINGER'S 1,000 ML IV ONE (22:22)
[2022-11-15 22:49] LABS: Partial Thromboplastin Ratio 2.3; Prothrombin Time 63.4 Seconds (9.0-12.0)
[2022-11-15 23:05] LABS: INR 6.5 (0.9-1.1)
[2022-11-15 23:06] LABS: Partial Thromboplastin Time 64.3 Seconds (21.0-31.0)
[2022-11-16] MEDS: AMIODARONE 200 MG TAB PO SCH ×2 (00:07→08:39)
[2022-11-16] MEDS ORDERED: LACTATED RINGER'S 1,000 ML IV ONE (02:08)
[2022-11-16 02:10] LABS: Alanine Aminotransferase 23 U/L (7-52); Albumin Globulin Ratio 0.8 (0.9-2); Albumin Level 2.2 gm/dl (3.4-5.0); Alkaline Phosphatase 193 U/L (34-104); Anion Gap 14 (3-11); BUN Creatinine Ratio 10.7 (10-20); Bilirubin,Total 2.1 mg/dl (0.2-1.0); Blood Urea Nitrogen 32 mg/dl (6-23); Calcium 7.5 mg/dl (8.6-10.3); Carbon Dioxide 18 mmol/L (21-32); Chloride 98 mmol/L (98-107); Creatinine Clr Calc Pharmacy 19.5 ml/min; Est GFR (African American) 22.7 ml/min; Est GFR (Non-African American) 19.6 ml/min; Globulin 2.7 gm/dl (2.5-4.0); Glucose 104 mg/dl (70-99(Fasting)); Sodium 130 mmol/L (136-145); Total Protein 4.9 gm/dl (6.0-8.3)
[2022-11-16 02:12] LABS: Troponin I High Sensitivity 42.5 pg/ml (0-20)
[2022-11-16] MEDS ORDERED: STAT IV Infusion **Titration per Protocol STA ×3 (03:27→09:44)
[2022-11-16] MEDS ORDERED: NOREPINEPHRINE/D5W 4 MG/250 ML PLCT IV SCH (03:30)
[2022-11-16] MEDS ORDERED: AMIODARONE / D5W 360 MG/200 ML BAG IV SCH (03:30)
--- NOTE | 2022-11-16 03:31 | Communication Note ---
Date of Service: November 16, 2022 3:20 AM Notified by RN of difficulty in obtaining patient blood pressure. Lab could not get repeat lactic acid and H&H scheduled for midnight. INR 6.5. AP Worsening hypotension Coagulopathy (high INR), unclear reason ICU transfer for possible pressor Rx IV vitamin K Case discussed with Dr. Melendez ([facility] transfusion specialist) to ask for recomm endations regarding role for Kcentra given hemodynamic instability in the setting of coagulopathy, hold Eliquis Rx (last dose presumably more than 12 hours ago after discussion with family). She recommends holding off on Kcentra Rx for now.
[2022-11-16] MEDS ORDERED: SODIUM CHLORIDE 0.9% 250 ML IV PRN ×2 (03:33→03:44)
[2022-11-16] MEDS ORDERED: PHYTONADIONE 10 MG in SODIUM CHLORIDE 0.9% 50 ML IV ONE (03:45)
[2022-11-16] MEDS ORDERED: LACTATED RINGER'S 1,000 ML IV SCH (04:00)
[2022-11-16] MEDS: VASOPRESSION #-# Do NOT Titrate #-# Option IV SCH ×2 (04:02→10:23)
[2022-11-16 04:06] LABS: iSTAT Allen Test Pass; iSTAT Art Bld Gas pCO2 Correct 25 mmHg (35-46); iSTAT Art Bld Gas pH Corrected 7.494 (7.35-7.45); iSTAT Arterial Blood Gas HCO3 19 meg/L (19-24); iSTAT Arterial Blood Gas pCO2 25 mmHg (35-46); iSTAT Arterial Blood Gas pH 7.49 (7.35-7.45); iSTAT Arterial Blood Gas pO2 146 mmHg (80-95); iSTAT Arterial Blood Gas pO2 C 144; iSTAT Carbon Dioxide 20 mmol/L (24-31); iSTAT Hematocrit 30 % (42-52); iSTAT Hemoglobin 10.2 g/dl (14.0-18.0); iSTAT Site L Radial; iSTAT Sodium 131 mmol/L (135-144)
[2022-11-16] MEDS ORDERED: ALBUMIN 25% 100 mL 25 GM/100 ML VIAL IV SCH ×2 (04:30→06:00)
--- NOTE | 2022-11-16 04:32 | Procedure Note ---
Procedure Note Date of Service November 16, 2022 Note INTERNAL JUGULAR CENTRAL LINE PROCEDURE NOTE: Procedure: Internal Jugular Central Line Placement Attending: Dr. Dez Bear Provider: CANDIDO Farias Indication: Central Drug Administration, Poor Venous Access, Multiple Lab Draws Necessary, Anesthesia: Lidocaine 1% Line placed emergently in the setting of shock requiring vasopressor support and need for central venous access, multiple lab draws, and patient with anasarca and poor venous access. A time-out was completed verifying correct patient, procedure, site, positioning, and implants(s) or special equipment if applicable. Patients Right Neck was cleansed and draped in the typical sterile fashion using Chloraprep. TheRight Internal Jugular Vein and Carotid Artery were identified using ultrasound. The superficial tissue was anesthetized using 3 mL of 1% lidocaine without epinephrine under direct visualization with the ultrasound. After adequate anesthetization was achieved, the Internal Jugular vein was cannulated under direct ultrasound guidance using an introducer needle on a syringe. Good venous blood return was maintained prior to removal of syringe from introducer needle. Using Seldinger Technique, a guide wire was advanced through the introducer needle without resistance. The introducer needle was removed and ultrasound images were obtained of the guide wire within the Internal Jugular Vein and saved to the patients medical record. A small incision was made in penetrating fashion at the guide wire insertion site utilizing an 11 blade scalpel. The dilator was advanced to the vessel without resistance. The dilator was exchanged for the triple lumen catheter which was advanced into the vessel without resistance. The guide wire was removed intact from the catheter without issue. Claves were placed on each catheter tip with confirmation of good blood flow from each lumen. Each port was easily flushed with sterile saline. The catheter was placed at 16 cm and sutured in place. BioPatch was applied to the catheter and a sterile Tegaderm dressing was applied over the catheter with careful attention to sterility. Patient tolerated procedure well. No immediate complications were met. Post procedure x-ray was completed, placement was appropriate and no pneumothorax was noted. Coding
--- NOTE | 2022-11-16 04:42 | Critical Care Consultation ---
Date of Consultation November 16, 2022 Assessment & Plan (1) Septic shock: Reason Critically Ill: 72-year-old male presents to the ICU with hypotension with presumed Sepsis, GI bleed, acute renal failure, and liver failure. Now undergoing blood transfusion with FFP for supratherapeutic INR, and vasopressor support with Levophed drip. Neuro - Encephalopathy Likely metabolic in the setting of sepsis, acute liver failure, and liver failure - CT head negative for acute intracranial findings - Ammonia within normal limits - BUN mildly elevated at 32 - Continue to monitor for now. We will treat underlying issues Cardiac - ShockUnsure of etiology at this time but likely multifactoral in the setting of sepsis, GI bleed, acute liver failure, and acute renal failure with metabolic acidosis. - Received 3 L crystalloid bolus and currently requiring vasopressor support with Levophed drip. Right IJ central line was emergently inserted -TTE pending, cortisol level pending - Undergoing blood transfusion for GI bleed, see ID for management of sepsis - Starting 25 mg IV albumin every 8 hours as patient appears to be failure to thrive with diffuse anasarca and malnourished - Hold antihypertensives A-fib RVR History of chronic a field and anticoagulated on Eliquis. Anticoagulation on hold due to GI bleed. Continue to hold beta-franc for hypotension. Started on amnio drip with goal of rate control. Continuous monitoring on telemetry. Cardiology consulted. Respiratory - No history of pulmonary disease. Currently maintaining oxygen saturation on nasal cannula. CT chest with left pleural effusion. We will continue to monitor on pulse ox and wean FiO2 as tolerated. No indication for diuresis at this time. DuoNeb as needed. GI - Acute on chronic liver failure Patient with history of alcoholic cirrhosis and reported last drink in July 2022. Currently jaundiced with elevated LFTs and bilirubin. Possibly shock liver in the setting of hypotension. - CT abdomen and pelvis with fatty liver disease and no focal liver lesion identified - Continue to trend LFTs for now Acute colitisCT abdomen with bowel loops nondilated but with wall thickening of the left side of the transverse colon and sigmoid colon with a mild ileus - Antibiotics expanded to cover intra-abdominal - Abdomen distended and somewhat firm but nontender. Surgery consulted. Continue to monitor for now Lower GI bleedpatient with positive Hemoccult without's gross Hematochezia - See treatment for blood loss anemia below - Continue Protonix and Ocrotide drip - Consult to gastroenterology RENAL/LYTES - Acute renal failure Unsure of baseline creatinine. Creatinine now 3.0. Patient was initially hyperkalemic in the ED but now within normal limits. ATN in the setting of hypotension? - Metabolic acidosis likely due to elevated lactate, now improving - Hold lisinopril, renally adjust medications, Maintain maps greater than 65 - We will start on scheduled albumin, continue with gentle fluid resuscitation - Nephrology consulted - Monitor routine BMPs and follow electrolytes closely - OliguricFoley strict I's and O's ENDO - No history of diabetes or thyroid disease. ICU hyperglycemic protocol HEME - Acute blood loss anemia Patient with lower GI bleed with positive Hemoccult and CT with gluteal hematoma which was reportedly from a recent fall, In the setting of supratherapeutic INR - Transfused with FFP for INR now elevated at 6, vitamin K 10 mg Transfused - We will give 2 units RBCs as patient appears to be still bleeding and hemoglobin of 10. No baseline hemoglobin to based off of but patient does appear very pallor and is now hypotensive - Platelets in the normal limits. Fibrinogen pending - Continue to trend INR and H&H and transfuse as indicated ID - SepsisLikely intra-abdominal source with colitis but patient also has UTI with +2 bacteria on UA - Urine culture and blood cultures pending -COVID-19 negative - Continue with Zosyn, Vancomycin added for positive nasal MRSA LINES/IV ACCESS - Peripheral IVs, right IJ CVC DVT PROPHYLAXIS - SCDs, Hold anticoagulation in the setting of GI bleed Heme-onc- Patient with recent colonoscopy andPolypectomy which per EMS/family was reported to be cancerous. [place] to have scheduled outpatient follow-up prior to treatment which has not been done yet. Consider records request CODE STATUS: Full code I have personally spent 60 minutes of critical care time in the direct management of this patient. This is a life/limb threatening event. This includes time spent evaluating patient, direct bedside care, chart review, placing orders, interpretation of diagnostic studies, discussion with consultants, patient, and family members, as well as other required patient management activities. This time is exclusive of all separately billable procedures, and teaching time and separate from and in addition to any other critical care service time. Thank you for allowing us to participate in the care of this patient. Please refer to my attending physician's documentation for any further recommendations. (2) Hypotension: (3) Lower gastrointestinal hemorrhage: (4) Atrial fibrillation with rapid ventricular response: (5) Encephalopathy: (6) Increased anion gap metabolic acidosis: (7) Elevated lactic acid level: (8) Acute renal failure: (9) Liver failure: (10) Cirrhosis: (11) UTI (urinary tract infection): History of Present Illness Attending Physician: Lucio Herrmann MD History of Present Illness Patient is a 72-year-old male with past medical history of hypertension, atrial fibrillation (anticoagulated on Eliquis), cirrhosis leading to alcohol abuse (last drink in July 2022) and recent colonoscopy with polypectomy which per EMS report was found to be cancerous which occurred at the [facility] (patient has not undergone treatment yet). Patient presented to the emergency department via EMS from home but was found to be poor historian with confusion and only oriented to self. Per family the patient had bleeding from his rectum for the past 2 days and increased confusion. He was found to be tachycardic and hypotensive. He was noted to be pale, clammy, with diffuse anasarca and distended abdomen but nontender.His lower extremities were wrapped in compression wound dressings. He was found to have positive Hemoccult without gross hematochezia. EKG revealed A-fib RVR with heart rate in the 160s and he was started on amiodarone drip. Lab work revealed metabolic acidosis with anion gap of 18, bicarb 18, lactic acid 10.1. INR elevated at 6.5 and hemoglobin currently 10.6. He was started on a creatinine diet and Protonix drips. Patient also has BIANCA with elevated creatinine 2.97 but no prior lab work to confirm baseline creatinine. LFTs elevated. He underwent CT head which is negative for acute intracranial findings. CT showed chest showed left-sided pleural effusion with associated atelectasis. He underwent CT abdomen and pelvis's which demonstrated nondilated bowel loops with noted thickening of the left side of the transverse colon and sigmoid colon consistent with colitis/ileus, And 4.5 x 2.8 x 5.6 left rectus sheath hematoma. Patient was given IV fluid boluses and broad-spectrum antibiotics. Urinalysis was consistent with UTI as well. He was initially admitted to PCU. ICU was called as patient was becoming Increasingly hypotensive. He was started on vasopressors and given crystalloid bolus x1 L. A right IJ CVC was emergently placed as the patient has poor venous access due to anasarca and there was need for central drug administration. Vitamin K 10 mg administered and FFP ordered along with RBCs. Repeat lab work also pending. Will manage patient in ICU for now. Allergies Allergy/AdvReac Type Severity Reaction Status Date / Time fentanyl AdvReac Mild itch Verified 09/13/14 14:09 Home Medications Medication Instructions Recorded Confirmed Type albuterol sulfate 2.5 mg/3 mL 2.5 mg continuous nebulization Q4 11/15/22 11/15/22 History (0.083 %) solution for nebulization PRN Shortness Of Breath Or Wheezing amiodarone 100 mg tablet 100 mg PO BID 11/15/22 11/15/22 History apixaban 5 mg tablet (Eliquis) 5 mg PO BID 11/15/22 11/15/22 History ascorbic acid (vitamin C) 500 mg 500 mg PO DAILY 11/15/22 11/15/22 History tablet (Vitamin C) aspirin 81 mg tablet,delayed 81 mg PO DAILY 11/15/22 11/15/22 History release bumetanide 0.5 mg tablet 0.5 mg PO BID 11/15/22 11/15/22 History diltiazem HCl 180 mg capsule,24 180 mg PO DAILY 11/15/22 11/15/22 History hr,extended release ferrous sulfate 325 mg (65 mg 325 mg PO DAILY 11/15/22 11/15/22 History iron) tablet (FeroSul) furosemide 40 mg tablet 40 mg PO DAILY 11/15/22 11/15/22 History gabapentin 300 mg capsule 300 mg PO HS 11/15/22 11/15/22 History lisinopril 5 mg tablet 5 mg PO DAILY 11/15/22 11/15/22 History magnesium oxide 420 mg tablet 420 mg PO BID 11/15/22 11/15/22 History metoprolol succinate 100 mg 100 mg PO BID 11/15/22 11/15/22 History tablet,extended release 24 hr metoprolol tartrate 50 mg tablet 50 mg PO BID 11/15/22 11/15/22 History morphine 15 mg tablet,extended 15 mg PO BID 11/15/22 11/15/22 History release multivitamin (Daily Multi-Vitamin 1 tab PO DAILY 11/15/22 11/15/22 History tablet) omeprazole 20 mg capsule,delayed 20 mg PO DAILY 11/15/22 11/15/22 History release ondansetron HCl 4 mg tablet 4 mg PO TID PRN Nausea 11/15/22 11/15/22 History potassium chloride 20 mEq 20 meq PO BID 11/15/22 11/15/22 History tablet,extended release(part/cryst) spironolactone 25 mg tablet 25 mg PO DAILY 11/15/22 11/15/22 History thiamine HCl (vitamin B1) 100 mg 100 mg PO DAILY 11/15/22 11/15/22 History tablet Patient History Medical History (Updated 11/16/22 @ 05:21 by CANDIDO Hollis) Atrial fibrillation Cirrhosis History of alcohol abuse History of bacteremia Per family's report On apixaban therapy Family History Other Family history non-contributory Social History Smoking Status: Never smoker Second Hand Exposure: No; Do You Dip or Chew Tobacco: No; Tobacco Cessation Education Requested by Patient: No Hx Alcohol Use: Yes Hx Substance Use: No Preferred Language: Libyan Communication Ability: Impaired Beliefs That Will Affect Care: None Current Living Situation: Family Other Information That Helps Us Care for You: No Feels Safe at Home: Yes Safety Concerns: Feels Safe At This Time Review of Systems Review of Systems: Unobtainable due to cognitive status Physical Exam Constitutional: + ill appearing, + frail appearing and + edematous; + uncooperative Eyes: Jaundiced sclera, PERRLA ENMT: external ear and nose normal, oropharynx normal Neck: trachea midline, no thyromegaly Respiratory: normal respiratory effort, lungs clear to auscultation Cardiovascular: Rate/Rhythm: + tachycardic and + irregularly irregular Heart Sounds: no murmur Vessels: no JVD General anasarca Gastrointestinal (Abdomen): Abdomen distended, semifirm, nontender on exam. Hypoactive bowel sounds auscultated. Musculoskeletal: no cyanosis or clubbing, extremities motor strength 5/5 Skin: Jaundiced, there are weeping wounds bilaterally in the lower extremities. Skin is edematous with anasarca diffuse Neurologic: PERRLA, no facial asymmetry. Patient is confused, does not respond to questions or interact. Seems to be moving all 4 extremities well. Genitourinary: Indwelling Caraballo catheter present, oliguric with concentrated dark yellow urine Results & Data Results & Data Vital Signs (Past 12 Hours) Vital Signs Temp Pulse Pulse Resp BP BP Pulse Ox 11/15/22 23:18 155 H 11/15/22 23:40 11/16/22 03:13 36.5 C 145 H 22 86/42 L 97 11/16/22 02:35 97 11/16/22 00:04 36.4 C L 19 131/81 100 11/15/22 23:44 36.3 C L 144 H 22 105/73 11/15/22 23:00 153 H 23 129/93 100 11/15/22 22:40 163 H 22 107/79 96 11/15/22 22:30 153 H 22 106/73 94 11/15/22 22:28 141 H 22 113/72 96 11/15/22 22:11 163 H 24 89/58 L 94 11/15/22 22:05 161 H 21 104/78 92 11/15/22 22:00 149 H 21 96/74 L 92 11/15/22 21:55 131 H 23 89/76 L 94 11/15/22 21:50 153 H 22 94/67 L 95 11/15/22 21:46 158 H 24 109/77 96 11/15/22 21:10 146 H 22 109/77 96 11/15/22 21:05 154 H 22 101/76 96 11/15/22 20:55 153 H 22 113/79 94 11/15/22 20:50 163 H 23 98 11/15/22 20:45 145 H 22 129/71 97 11/15/22 20:35 151 H 27 H 118/94 98 11/15/22 20:30 152 H 30 H 126/99 97 11/15/22 20:25 157 H 24 127/104 H 99 11/15/22 20:20 150 H 24 104/83 97 11/15/22 20:15 152 H 21 103/77 99 11/15/22 20:10 164 H 22 101/75 99 11/15/22 20:06 156 H 24 99/83 L 96 11/15/22 19:45 144 H 22 139/86 95 11/15/22 19:42 167 H 23 120/78 99 11/15/22 19:25 169 H 21 121/99 100 11/15/22 19:20 166 H 20 119/90 100 11/15/22 19:15 180 H 20 128/82 99 11/15/22 19:14 170 H 22 117/97 100 11/15/22 19:05 161 H 22 110/86 100 11/15/22 19:00 168 H 19 114/99 100 11/15/22 18:55 160 H 18 127/91 100 11/15/22 18:50 164 H 17 123/90 100 11/15/22 18:45 166 H 19 109/78 100 11/15/22 19:31 37.3 C 11/15/22 18:36 167 H 11/15/22 18:50 166 H 18 100 11/15/22 18:15 158 H 18 109/78 100 11/15/22 18:15 164 H 18 109/78 100 O2 Del Method O2 Flow Rate 11/15/22 23:18 11/15/22 23:40 Nasal Cannula 4 11/16/22 03:13 Nasal Cannula 1 11/16/22 02:35 Room Air 11/16/22 00:04 Nasal Cannula 4 11/15/22 23:44 Nasal Cannula 4 11/15/22 23:00 Nasal Cannula 4 11/15/22 22:40 Nasal Cannula 4 11/15/22 22:30 Nasal Cannula 4 11/15/22 22:28 Nasal Cannula 4 11/15/22 22:11 Nasal Cannula 4 11/15/22 22:05 Nasal Cannula 4 11/15/22 22:00 Nasal Cannula 4 11/15/22 21:55 Nasal Cannula 4 11/15/22 21:50 Nasal Cannula 4 11/15/22 21:46 Nasal Cannula 4 11/15/22 21:10 Nasal Cannula 4 11/15/22 21:05 Nasal Cannula 4 11/15/22 20:55 Nasal Cannula 4 11/15/22 20:50 Nasal Cannula 4 11/15/22 20:45 Nasal Cannula 4 11/15/22 20:35 Nasal Cannula 4 11/15/22 20:30 Nasal Cannula 4 11/15/22 20:25 Nasal Cannula 4 11/15/22 20:20 Nasal Cannula 4 11/15/22 20:15 Nasal Cannula 4 11/15/22 20:10 Nasal Cannula 4 11/15/22 20:06 Nasal Cannula 4 11/15/22 19:45 Nasal Cannula 4 11/15/22 19:42 Nasal Cannula 4 11/15/22 19:25 Nasal Cannula 4 11/15/22 19:20 Nasal Cannula 4 11/15/22 19:15 Nasal Cannula 4 11/15/22 19:14 Nasal Cannula 4 11/15/22 19:05 Nasal Cannula 4 11/15/22 19:00 Nasal Cannula 4 11/15/22 18:55 Nasal Cannula 4 11/15/22 18:50 Nasal Cannula 4 11/15/22 18:45 Nasal Cannula 4 11/15/22 19:31 11/15/22 18:36 11/15/22 18:50 8 11/15/22 18:15 11/15/22 18:15 Ambu-Bag 8 Coding Level of Care Code 72536 CRITICAL CARE 1ST 30-74M Diagnoses Septic shock A41.9; R65.21 Hypotension I95.9 Lower gastrointestinal hemorrhage K92.2 Atrial fibrillation with rapid ventricular response I48.91 Encephalopathy G93.40 Increased anion gap metabolic acidosis E87.29 Elevated lactic acid level R79.89 Acute renal failure N17.9 Liver failure K72.90 Cirrhosis K74.60 UTI (urinary tract infection) N39.0
[2022-11-16 05:08] LABS: Bilirubin Direct 1.2 mg/dl (0-0.2); Total Protein 4.3 gm/dl (6.0-8.3)
[2022-11-16] MEDS ORDERED: PLASMA-LYTE A 1,000 ML IV SCH (05:15)
[2022-11-16] MEDS ORDERED: ALBUT/IPRATROP 3MG/0.5MG NEB 3 ML VIAL NEB PRN (05:26)
[2022-11-16] MEDS ORDERED: VASOPRESSIN 20 UNITS in 0.9 % SODIUM CHLORIDE 100 ML IV SCH (05:30)
[2022-11-16 05:32] LABS: Hematocrit (blood only) 24.6 % (42.0-52.0); Hemoglobin 8.7 g/dl (14.0-18.0); Mean Corpuscular Hemoglobin 32.7 pg (25.0-34.0); Mean Corpuscular Hgb Conc 35.4 g/dL (32.0-36.0); Mean Corpuscular Volume 92.5 fL (80.0-100.0); Nucleated RBC # (auto) 0.03 K/uL (0-0.12); Nucleated RBC % (auto) 0.4 %; Platelet Count 193 K/uL (130-400); RDW Coefficient of Variation 17.8 % (11.5-14.5); RDW Standard Deviation 56.7 fL (36.4-46.3); Red Blood Count 2.66 M/uL (4.70-6.10); White Blood Count 8.09 K/ul (4.8-10.8)
[2022-11-16 05:41] LABS: Fibrinogen 151 mg/dl (184-400); Partial Thromboplastin Ratio 3.6; Prothrombin Time 85.7 Seconds (9.0-12.0)
[2022-11-16 05:51] LABS: Partial Thromboplastin Time 101.4 Seconds (21.0-31.0)
[2022-11-16] MEDS ORDERED: PIPERACILLIN/TAZOBACTAM 4.5 GM in DEXTROSE 5% 100 ML IV SCH (06:00)
[2022-11-16] MEDS ORDERED: VANCOMYCIN CONSULT ACTIVE PRN (06:17)
[2022-11-16 06:25] LABS: Basophilic Stippling Occasional; Basophils # (auto) 0.02 K/uL (0-0.2); Basophils % (auto) 0.2 %; Lymphocytes # (auto) 0.45 K/uL (1.2-3.4); Lymphocytes % (auto) 5.6 %; Monocytes # (auto) 0.24 K/uL (0.11-0.59); Neutrophils # (auto) 7.38 K/uL (1.40-6.50); Neutrophils % (auto) 91.2 %; Pappenheimer Bodies Occasional
[2022-11-16] MEDS ORDERED: VANCOMYCIN HCL 1,500 MG in SODIUM CHLORIDE 0.9% 500 ML IV ONE (06:30)
[2022-11-16 06:39] LABS: Pappenheimer Bodies Occasional; Target Cells 1+
--- NOTE | 2022-11-16 07:37 | XRay Report ---
XR chest 1V portable CLINICAL HISTORY: cvc, ng tube placement COMPARISON STUDY: Chest CT and chest radiograph November 15, 2022. FINDINGS: There is no pneumothorax following placement of a right internal jugular central line. Cath eter tip projects over the distal SVC. Nasogastric tube tip projects over the gastric cardia. Left cobb bclavian pacer is in place. There is no pneumothorax. Small left pleural effusion is similar to prior chest CT. There is associated left basilar opacity. Pulmonary vascular congestion is noted. Cardiome diastinal silhouette is stable. Left atrial appendage occluder device is in place IMPRESSION: 1. No pneumothorax following placement of a right internal jugular central line. Catheter tip project s over the distal SVC. 2. No change in a small left pleural effusion with associated left basilar opacity which favors atele ctasis. 3. Pulmonary vascular congestion without overt pulmonary edema. ACT 112: Negative or not required by law. Electronically signed by: Steve Vela M.D. 11/16/2022 7:35 AM
[2022-11-16 08:01] LABS: Estimated Average Glucose 94 mg/dl; Hemoglobin A1C 4.9 % (4.5-5.6)
--- NOTE | 2022-11-16 08:12 | XRay Report ---
XR chest 1V portable CLINICAL HISTORY: abd pain, lower GIB COMPARISON STUDY: Chest CT performed earlier today. FINDINGS: A left subclavian pacer is in place. Left atrial appendage occluder device is in place. The re are postoperative findings at the GE junction. A small left pleural effusion is noted. There is no pneumothorax. There is no right pleural effusion. Pulmonary vascular congestion is noted. Left basil ar opacity favors atelectasis. IMPRESSION: 1. Small left pleural effusion with left basilar opacity that favors atelectasis. No pneumothorax. 2. Pulmonary vascular congestion. ACT 112: Negative or not required by law. Electronically signed by: Steve Vela M.D. 11/16/2022 8:11 AM
--- NOTE | 2022-11-16 08:14 | Cardiology Consultation ---
Date of Consultation November 16, 2022 Assessment & Plan (1) Encephalopathy: (2) Septic shock: (3) Atrial fibrillation with rapid ventricular response: (4) Lower gastrointestinal hemorrhage: (5) Anemia due to blood loss: (6) Acute renal failure: (7) Liver failure: (8) Cardiac pacemaker in situ: Plan Impression: Medically complex 72 year old male who initially presented due to level of consciousness change and falls. Found to have septic shock, GI bleed, acute renal failure and liver failure. Requiring multiple blood transfusions with FFP be for supratherapeutic INR as well as vasopressor support. Ultimately requiring intubation this morning around 0900. From a cardiology standpoint atrial fibrillation rates were elevated. IV amiodarone started for rate control only. Carries a history of persistent atrial fibrillation with a watchman placed 06/2021. Outpatient [facility]I through [facility] showed a well seated watchman device 08/2021. Follows with the [place] cardiology-he was on anticoagulation for an unknown reason. Echo showing a preserved LVEF with moderate MR and Severe TR. Plan: 1. Elevated ventricular rates while in A-fib due to acute illness with septic shock and acute GI bleed. Recommend supportive measures to improve h emodynamics. Once hemodynamics stabilize can consider discontinuation of amiodarone at that time. 2. He does have a functioning watchman device-from a cardiology standpoint no indication for anticoagulation at this time in regards to atrial fibrillation. However, the patient's history is limited at this time. Agree with discontinuation of Eliquis at this time. Consider reversal for Eliquis. 3. Continue to hold antihypertensives due to hypotension/BIANCA- patient requiring pressor support. Receiving IV albumin. Appreciate nephrology support. 4. Critical care/Hospitalist team for care of Sepsis- felt to be intra-abdominal source given colitis, possible urosepsis given + bacteremia on UA Case discussed with Dr. Ramos- will follow. Supervising Physician Co-Signing Physician Notes Patient was seen and personally examined. Patient intubated and unable to provide any additional information. Outpatient records reviewed from limited notes available from [facility]. Assessment as above Patient presents in acute distress with active GI bleeding acute hepatic and renal insufficiency with atrial fibrillation (chronic) and rapid ventricular response. Patient does have indwelling pacemaker dual-chamber as well as Watchman device with outpatient records reflecting appropriate positioning and seating in August 2021. As above anticoagulation may be appropriately stopped. Atrial fibrillation increased due to acute illness, sepsis with blood cultures growing gram-negative bacilli. Initially treated with IV amiodarone but heart rates improved with hemodynamic treatment and intubation. Would hold IV amiodarone given hepatic dysfunction, chronic atrial fibrillation LV systolic function low normal EF 50-55% without wall segment abnormality but assessment performed well on inotropic support Exam intubated and critically ill-appearing male tachycardic and requiring pressors for blood pressure support receiving IV blood Neck thick no distinct jugular venous distention. Lungs coarse airway sounds Abdomen: Tense and distended midline incision old healed History of Present Illness Reason for Consultation: AFIB RVR Requesting Physician: Ty Fam Attending Physician: Lucio Herrmann MD History of Present Illness Medically complex 72-year-old male who initially presented to [facility] emergency department due to increasing confusion and falls at home. He was also noted to have bleeding per the rectum following a colonoscopy and polypectomy-Per records biopsies were found to be cancerous (done at the [place] in [facility]). EMS was called. Patient was found to be hypotensive with A-fib RVR, heart rates in the 160s. Anasarca was noted. CT of the chest showed left pleural effusion and calcified aneurysm/penetrating ulcer of the mid aortic arch without hematoma. Blood work indicated metabolic acidosis and BIANCA with a creatinine of 2.97. Per chart review/family, renal function is usually within normal range. High-sensitivity troponin minimally elevated at 48 Lactate trending down (10.1>>7.5) INR was elevated at 6.5 Patient was treated with IV fluid resuscitation as well as IV antibiotics. Heart rates remained elevated and patient was started on IV amiodarone. Patient carries a history of persistent atrial fibrillation status post watchman implantation 06/2021. MINI dated 08/2021 showed a well-seated Watchman device. Patient was on an anticoagulation for an unknown reason. Aspirin and Eliquis held. GI consulted, patient was started on a Protonix and octreotide drip. CT of the abdomen and pelvis consistent with colitis/ileus with a rectus sheath hematoma. Urinalysis consistent with UTI. Due to ongoing hypotension patient was transferred to the ICU, right IJ placed and patient was started on Levophed. Hemoglobin 11.3>>10.6>>8.7 . Vit K 10 mg, 2 units of PRBCs have been given + 2 FFP so far. Further decline in clinical status- decompensated this morning around 0900 requiring intubation by the critical care team. Echocardiogram dated 11/16/2022: LVEF 50 to 55%, mild concentric LVH. Left atrium moderately dilated. Moderate MR and severe TR, no findings of pulmonary hypertension. Upon entrance into the room patient sedated resting in bed. In no acute distress. Blood pressure stable. Heart rates improving following intubation. Tele: AFIB 80-90s, rates improving following intubation this am. Follows with [place] cardiology-no [place] records are available for review. 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 Ongoing tobacco abuse Allergies Allergy/AdvReac Type Severity Reaction Status Date / Time fentanyl AdvReac Mild itch Verified 09/13/14 14:09 Home Medications Medication Instructions Recorded Confirmed Type albuterol sulfate 2.5 mg/3 mL 2.5 mg continuous nebulization Q4 11/15/22 11/15/22 History (0.083 %) solution for nebulization PRN Shortness Of Breath Or Wheezing amiodarone 100 mg tablet 100 mg PO BID 11/15/22 11/15/22 History apixaban 5 mg tablet (Eliquis) 5 mg PO BID 11/15/22 11/15/22 History ascorbic acid (vitamin C) 500 mg 500 mg PO DAILY 11/15/22 11/15/22 History tablet (Vitamin C) aspirin 81 mg tablet,delayed 81 mg PO DAILY 11/15/22 11/15/22 History release bumetanide 0.5 mg tablet 0.5 mg PO BID 11/15/22 11/15/22 History diltiazem HCl 180 mg capsule,24 180 mg PO DAILY 11/15/22 11/15/22 History hr,extended release ferrous sulfate 325 mg (65 mg 325 mg PO DAILY 11/15/22 11/15/22 History iron) tablet (FeroSul) furosemide 40 mg tablet 40 mg PO DAILY 11/15/22 11/15/22 History gabapentin 300 mg capsule 300 mg PO HS 11/15/22 11/15/22 History lisinopril 5 mg tablet 5 mg PO DAILY 11/15/22 11/15/22 History magnesium oxide 420 mg tablet 420 mg PO BID 11/15/22 11/15/22 History metoprolol succinate 100 mg 100 mg PO BID 11/15/22 11/15/22 History tablet,extended release 24 hr metoprolol tartrate 50 mg tablet 50 mg PO BID 11/15/22 11/15/22 History morphine 15 mg tablet,extended 15 mg PO BID 11/15/22 11/15/22 History release multivitamin (Daily Multi-Vitamin 1 tab PO DAILY 11/15/22 11/15/22 History tablet) omeprazole 20 mg capsule,delayed 20 mg PO DAILY 11/15/22 11/15/22 History release ondansetron HCl 4 mg tablet 4 mg PO TID PRN Nausea 11/15/22 11/15/22 History potassium chloride 20 mEq 20 meq PO BID 11/15/22 11/15/22 History tablet,extended release(part/cryst) spironolactone 25 mg tablet 25 mg PO DAILY 11/15/22 11/15/22 History thiamine HCl (vitamin B1) 100 mg 100 mg PO DAILY 11/15/22 11/15/22 History tablet Patient History Medical History Atrial fibrillation Cirrhosis History of alcohol abuse History of bacteremia Per family's report On apixaban therapy Family History Other Family history non-contributory Social History Smoking Status: Never smoker Second Hand Exposure: No; Do You Dip or Chew Tobacco: No; Tobacco Cessation Education Requested by Patient: No Hx Alcohol Use: Yes Hx Substance Use: No Preferred Language: Welsh Communication Ability: Unable Beliefs That Will Affect Care: None Current Living Situation: Family Other Information That Helps Us Care for You: No Feels Safe at Home: Yes Safety Concerns: Feels Safe At This Time Review of Systems Review of Systems: Unobtainable due to endotracheal tube Physical Exam Constitutional: + ill appearing and + edematous; no acute distress Neck: normal visual inspection and trachea midline Respiratory: symmetric chest movement Auscultation: + diminished lung sounds Cardiovascular: Rate/Rhythm: regular rate and + irregularly irregular Heart Sounds: normal S1 and normal S2 Extremities: + edema (+ anasarca ) Chest (Breasts): Chest: + pacemaker Gastrointestinal (Abdomen): Inspection/Auscultation: + abdominal edema Skin: + ecchymosis Results & Data Vital Signs (Past 12 Hours) Vital Signs Temp Pulse Pulse Resp BP BP Pulse Ox 11/16/22 07:53 36.2 C L 99 H 22 124/69 100 11/16/22 07:41 36.2 C L 111 H 20 124/69 100 11/16/22 07:29 36.2 C L 110 H 20 130/87 97 11/16/22 07:28 36.2 C L 110 H 20 130/87 97 11/16/22 06:49 36.5 C 108 H 22 113/96 93 11/16/22 06:41 36.5 C 113 H 26 H 113/96 97 11/16/22 06:32 36.5 C 116 H 19 117/83 97 11/16/22 06:11 36.5 C 124 H 24 98/78 L 99 11/16/22 05:56 36.5 C 118 H 20 111/94 94 11/16/22 05:33 36.6 C 123 H 22 117/75 99 11/16/22 04:37 11/15/22 23:18 155 H 11/15/22 23:40 11/16/22 03:13 36.5 C 145 H 22 86/42 L 97 11/16/22 02:35 97 11/16/22 00:04 36.4 C L 19 131/81 100 11/15/22 23:44 36.3 C L 144 H 22 105/73 11/15/22 23:00 153 H 23 129/93 100 11/15/22 22:40 163 H 22 107/79 96 11/15/22 22:30 153 H 22 106/73 94 11/15/22 22:28 141 H 22 113/72 96 11/15/22 22:11 163 H 24 89/58 L 94 11/15/22 22:05 161 H 21 104/78 92 11/15/22 22:00 149 H 21 96/74 L 92 11/15/22 21:55 131 H 23 89/76 L 94 11/15/22 21:50 153 H 22 94/67 L 95 11/15/22 21:46 158 H 24 109/77 96 11/15/22 21:10 146 H 22 109/77 96 11/15/22 21:05 154 H 22 101/76 96 11/15/22 20:55 153 H 22 113/79 94 11/15/22 20:50 163 H 23 98 11/15/22 20:45 145 H 22 129/71 97 11/15/22 20:35 151 H 27 H 118/94 98 11/15/22 20:30 152 H 30 H 126/99 97 11/15/22 20:25 157 H 24 127/104 H 99 11/15/22 20:20 150 H 24 104/83 97 11/15/22 20:15 152 H 21 103/77 99 O2 Del Method O2 Flow Rate 11/16/22 07:53 4 11/16/22 07:41 4 11/16/22 07:29 4 11/16/22 07:28 4 11/16/22 06:49 4 11/16/22 06:41 4 11/16/22 06:32 4 11/16/22 06:11 11/16/22 05:56 11/16/22 05:33 4 11/16/22 04:37 Nasal Cannula 4 11/15/22 23:18 11/15/22 23:40 Nasal Cannula 4 11/16/22 03:13 Nasal Cannula 1 11/16/22 02:35 Room Air 11/16/22 00:04 Nasal Cannula 4 11/15/22 23:44 Nasal Cannula 4 11/15/22 23:00 Nasal Cannula 4 11/15/22 22:40 Nasal Cannula 4 11/15/22 22:30 Nasal Cannula 4 11/15/22 22:28 Nasal Cannula 4 11/15/22 22:11 Nasal Cannula 4 11/15/22 22:05 Nasal Cannula 4 11/15/22 22:00 Nasal Cannula 4 11/15/22 21:55 Nasal Cannula 4 11/15/22 21:50 Nasal Cannula 4 11/15/22 21:46 Nasal Cannula 4 11/15/22 21:10 Nasal Cannula 4 11/15/22 21:05 Nasal Cannula 4 11/15/22 20:55 Nasal Cannula 4 11/15/22 20:50 Nasal Cannula 4 11/15/22 20:45 Nasal Cannula 4 11/15/22 20:35 Nasal Cannula 4 11/15/22 20:30 Nasal Cannula 4 11/15/22 20:25 Nasal Cannula 4 11/15/22 20:20 Nasal Cannula 4 11/15/22 20:15 Nasal Cannula 4 Laboratory Results Cardiac Enzymes 11/15/22 11/15/22 11/16/22 Range/Units 18:46 21:40 01:31 AST 107 H TNP (13-39) U/L Troponin I High Sens 48.8 H 42.5 H (0-20) pg/ml 11/16/22 Range/Units 04:29 AST 93 H (13-39) U/L Troponin I High Sens (0-20) pg/ml Coagulation 11/15/22 11/15/22 11/16/22 Range/Units 18:46 21:40 04:29 PT Cancelled 63.4 H 85.7 H APTT Cancelled 64.3 H* 101.4 H* CBC 11/15/22 11/15/22 11/16/22 Range/Units 18:46 21:40 04:29 WBC 13.23 H 8.09 (4.8-10.8) K/ul RBC 3.43 L 2.66 L (4.70-6.10) M/uL Hgb 11.3 L 10.6 L 8.7 L (14.0-18.0) g/dl Hct 31.7 L 29.0 L 24.6 L (42.0-52.0) % Plt Count 271 193 (130-400) K/uL Neut # (Auto) 11.90 H 7.38 H (1.40-6.50) K/uL Lymph # (Auto) 0.65 L 0.45 L (1.2-3.4) K/uL [place]nee # (Auto) 0.57 0.24 (0.11-0.59) K/uL Eos # (Auto) 0.00 0.00 (0-0.50) K/uL Baso # (Auto) 0.02 0.02 (0-0.2) K/uL Comprehensive Metabolic Panel 11/15/22 11/15/22 11/16/22 Range/Units 18:46 21:40 01:31 Sodium 130 L 130 L (136-145) mmol/L Potassium 5.1 TNP (3.5-5.1) mmol/L Chloride 94 L 98 (98-107) mmol/L Carbon Dioxide 18 L 18 L (21-32) mmol/L BUN 32 H 32 H (6-23) mg/dl Creatinine 2.97 H 3.00 H (0.6-1.4) mg/dl Glucose 119 H 104 H (70-99(Fasting)) mg/dl Calcium 7.7 L 7.5 L (8.6-10.3) mg/dl Direct Bilirubin 1.1 H (0-0.2) mg/dl AST 107 H TNP (13-39) U/L ALT 27 23 (7-52) U/L Alkaline Phosphatase 271 H 193 H (34-104) U/L Total Protein 5.5 L 4.9 L (6.0-8.3) gm/dl Albumin 2.0 L 2.2 L (3.4-5.0) gm/dl 11/16/22 Range/Units 04:29 Sodium (136-145) mmol/L Potassium (3.5-5.1) mmol/L Chloride (98-107) mmol/L Carbon Dioxide (21-32) mmol/L BUN (6-23) mg/dl Creatinine (0.6-1.4) mg/dl Glucose (70-99(Fasting)) mg/dl Calcium (8.6-10.3) mg/dl Direct Bilirubin 1.2 H (0-0.2) mg/dl AST 93 H (13-39) U/L ALT 22 (7-52) U/L Alkaline Phosphatase 189 H (34-104) U/L Total Protein 4.3 L (6.0-8.3) gm/dl Albumin 2.0 L (3.4-5.0) gm/dl Intake and Output 11/15/22 11/16/22 11/16/22 22:59 06:59 14:59 Intake Total 1455.5 / 4251.5 2796 / 4251.5 2956.792 / 2956.792 Output Total 55 / 55 Balance 1455.5 / 4196.5 2741 / 4196.5 2956.792 / 2956.792 Intake: IV 1455.5 / 3906.5 2451 / 3906.5 1438.792 / 1438.792 ALBUMIN 25% 100 mL 25 gm In 100 100 / 100 100 / 100 ml @ 50 mls/hr IV Q8H [facility] Rx#: [id number] Amiodarone / D5w 150 mg In 100 100 / 100 ml @ 600 mls/hr IV NOW [facility] Rx#: [id number] Amiodarone / D5w 360 mg In 200 200 / 200 166.500 / 166.500 ml @ 0.5 MG/MIN 16.667 mls/hr IV .Q12H [facility] Rx#:[id number] Lactated Ringer's 1,000 ml @ 2000 / 2000 500 mls/hr IV .Q2H [facility] Rx#: [id number] Norepinephrine/D5w 4 mg In 250 69.457 / 69.457 ml @ 0.05 MCG/KG/MIN 13.406 mls /hr IV .[id number] [facility] Rx#: [id number] Octreotide Acetate 500 mcg In 95.5 / 95.5 Dextrose 5% 100 ml @ 50 MCG/HR 10.05 mls/hr IV .Q10H [facility] Rx#: [id number] PANTOprazole 40 mg In Dextrose 20 / 20 5% 100 ml @ 8 MG/HR 20 mls/hr IV Q5H [facility] Rx#:[id number] PANTOprazole 80 mg In Dextrose 120 / 120 5% 100 ml @ 400 mls/hr IV NOW ONE Rx#:[id number] Phytonadione 10 mg In Sodium 51 / 51 Chloride 0.9% 50 ml @ 102 mls/ hr IV ONE ONE Rx#:[id number] Piperacillin/Tazobactam 4.5 gm 120 / 120 In 120 ml @ 240 mls/hr IV NOW [facility] Rx#:[id number] Piperacillin/Tazobactam 4.5 gm 120 / 120 In Dextrose 5% 100 ml @ 30 mls/ hr IV Q12H [facility] Rx#:[id number] Plasma-Lyte A 1,000 ml @ 80 mls 376 / 376 /hr IV .[id number] [facility] Rx#: [id number] Sodium Chloride 0.9% 1000ML 1, 1000 / 1000 000 ml @ 999 mls/hr IV .Q1H1M [facility] Rx#:[id number] Vancomycin HCl 1,500 mg In 530 / 530 Sodium Chloride 0.9% 500 ml @ 200 mls/hr IV NOW ONE Rx#: [id number] Vasopressin 20 units In 0.9 % 76.835 / 76.835 Sodium Chloride 100 ml @ 0.04 UNIT/MIN 12.12 mls/hr IV . Q8H20M [facility] Rx#:[id number] metroNIDAZOLE 500 mg In 100 ml 100 / 100 @ 100 mls/hr IV NOW [facility] Rx#: [id number] Intake (Blood Product) Amt 345 / 345 1518 / 1518 Cryoprecipitate Unit 104 / 104 [id number] Cryoprecipitate Unit 117 / 117 [id number] Fresh Frozen Plasma Unit 345 / 345 [id number] Fresh Frozen Plasma Unit 308 / 308 [id number] Fresh Frozen Plasma Unit 329 / 329 [id number] Fresh Frozen Plasma Unit 350 / 350 [id number] Packed Cells, Leukoreduced 0 / 0 310 / 310 Unit [id number] Packed Cells, Leukoreduced 0 / 0 Unit [id number] Output: Urine 0 / 0 Urine Amount (Catheter) Caraballo/Indwelling Other: Other Intake Source Fresh Frozen Plasma Unit Infused emergently at 999 ml/hr per Licensed [employer] [id number] Weight 73.6 kg 69.7 kg Weight Measurement Method Built in [facility]
[2022-11-16] MEDS ORDERED: RAPID SEQUENCE INDUCTION BAG ONE (08:57)
[2022-11-16] MEDS ORDERED: THIAMINE HCL 100 MG TAB PO SCH (09:00)
[2022-11-16] MEDS ORDERED: MULTIVITAMIN TAB PO SCH (09:00)
[2022-11-16] MEDS ORDERED: PANTOprazole 40 MG TAB PO SCH (09:00)
[2022-11-16] MEDS ORDERED: fentaNYL citrate PF 100 MCG/2 ML VIAL IV PRN (09:44)
[2022-11-16] MEDS ORDERED: MIDAZOLAM BOLUS FROM BAG IV PRN (09:44)
[2022-11-16] MEDS ORDERED: MIDAZOLAM HCL 125 MG/250 ML BAG IV SCH (09:45)
[2022-11-16] MEDS ORDERED: PANTOprazole 40 MG in SYRINGE 0 ML IV SCH (10:00)
[2022-11-16 10:06] LABS: iSTAT Art Bld Gas pCO2 Correct 35 mmHg (35-46); iSTAT Art Bld Gas pH Corrected 7.406 (7.35-7.45); iSTAT Arterial Blood Gas HCO3 22 meg/L (19-24); iSTAT Arterial Blood Gas pCO2 37 mmHg (35-46); iSTAT Arterial Blood Gas pH 7.39 (7.35-7.45); iSTAT Arterial Blood Gas pO2 328 mmHg (80-95); iSTAT Arterial Blood Gas pO2 C 323; iSTAT Carbon Dioxide 23 mmol/L (24-31); iSTAT FiO2 70 %; iSTAT Hematocrit 27 % (42-52); iSTAT Hemoglobin 9.2 g/dl (14.0-18.0); iSTAT Potassium 3.6 mmol/L (3.3-5.0); iSTAT Site Art Line; iSTAT Sodium 131 mmol/L (135-144)
[2022-11-16 10:14] LABS: A calco-baum cmplx NotReported Not Detected (NotDetected); Bact fragilis Not Reported Not Detected (NotDetected); C auris Not Reported Not Detected (NotDetected); CTX-M Resistant Gene Not Detected (NotDetected); Calbicans Not Reported Not Detected (NotDetected); Candida glabrata Not Reported Not Detected (NotDetected); Candida krusei Not Reported Not Detected (NotDetected); Cneoformans/gatti Not Reported Not Detected (NotDetected); Cparapsilosis Not Reported Not Detected (NotDetected); Ctropicalis Not Reported Not Detected (NotDetected); E cloacae compx Not Reported Not Detected (NotDetected); Efaecalis Not Reported Not Detected (NotDetected); Efaecium Not Reported Not Detected (NotDetected); Enterobacterales Not Reported DETECTED (NotDetected); Escherichia coli Not Reported DETECTED (NotDetected); H influenzae Not Reported Not Detected (NotDetected); IMP Resistant Gene Not Detected (NotDetected); K aerogenes Not Reported Not Detected (NotDetected); KPC Resistant Gene Not Detected (NotDetected); Koxytoca Not Reported Not Detected (NotDetected); Kpneumoniae grp Not Reported Not Detected (NotDetected); Lmonocyt Not Reported Not Detected (NotDetected); N meningitidis Not Reported Not Detected (NotDetected); NDM Resistant Gene Not Detected (NotDetected); OXA 48 Like Resistant Gene Not Detected (NotDetected); P aeruginosa Not Reported Not Detected (NotDetected); Proteus spp Not Reported Not Detected (NotDetected); Salmonella spp Not Reported Not Detected (NotDetected); Smarcescens Not Reported Not Detected (NotDetected); Staph lugdunensis Not Reported Not Detected (NotDetected); Staph spp. Not Reported Not Detected (NotDetected); Staphaureus Not Reported Not Detected (NotDetected); Staphepi Not Reported Not Detected (NotDetected); Stenmaltophilia Not Reported Not Detected (NotDetected); Strep agal(GrpB) Not Reported Not Detected (NotDetected); Strep pneum Not Reported Not Detected (NotDetected); Strep pyog (GrpA) Not Reported Not Detected (NotDetected); Strep spp Not Reported Not Detected (NotDetected); VIM Resistant Gene Not Detected (NotDetected); mcr-1 Colistin Resistant Gene Not Detected (NotDetected)
[2022-11-16] MEDS: ICU Protocol for HYPERglycemia SCH ×2 (10:20→12:08)
[2022-11-16 10:54] LABS: Enterobacterales DETECTED (NotDetected)
[2022-11-16] MEDS ORDERED: KCENTRA (500unit vial) 2000 units IVP IV ONE (11:30)
--- NOTE | 2022-11-16 11:31 | XRay Report ---
XR chest 1V portable HISTORY: s/p intubation COMPARISON: Chest 11/16/2022. FINDINGS: The endotracheal tube terminates 4.4 cm from the talia. Nasogastric tube is curled within the stomach. Right jugular central venous catheter terminates in the SVC. The left-sided dual-chamber pacemaker. An atrial septal closure device is again noted. The heart remains top normal in size. The re are low lung volumes. No pneumothorax. Small left pleural effusion and left basilar densities pers ist. There is progressive interstitial/vascular thickening consistent with pulmonary edema. 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 IMPRESSION: 1. Interval progression of the pulmonary edema. 2. Satisfactory support line placement. 3. Small left pleural effusions and left basilar densities persist. ACT 112: Negative or not required by law. Electronically signed by: Jeremias Villalba M.D. 11/16/2022 11:29 AM
--- NOTE | 2022-11-16 11:33 | Pharmacy Report ---
Pharmacy PK ABX Note - Date of Service November 16, 2022 - Assessment and Plan Assessment 72 year old M receiving Vancomycin and Zosyn for treatment of sepsis possible urinary vs intraabdominal source. * PMHx significant for cirrhosis secondary to alcohol abuse, possible colon cancer per recent colonoscopy at [facility] in [place] according to H&P. * Temps have been borderline low. No leukocytosis. CT abd/pel with colitis and mild ileus. Procal was 4.28. Lactate above 10, down to 7.5 this AM. * Urine culture pending. MRSA nasal swab positive. One set of blood cultures growing E.coli with no resistance genes per BCID2 PCR. Plan Vancomycin * Loading dose: 1500 mg IV x 1 * Given significant BIANCA (SCr 3.0/CrCl 20 mL/min), will dose per level for now * Ordered random vancomycin level with AM labs for tomorrow (11/17/22) Zosyn * 4.5 g IV every 12 hours is appropriate for now Pharmacy will continue to follow and will adjust dose/frequency as necessary. Thank you. Pharmacy has transitioned to AUC monitoring for vancomycin. AUC/GENNA is the preferred PK/PD target and is associated with decreased risk of nephrotoxicity compared to traditional trough targets.
--- NOTE | 2022-11-16 12:21 | Surgery Consultation ---
Date of Consultation November 16, 2022 Assessment & Plan (1) Anemia due to blood loss: (2) Septic shock: (3) Sepsis: (4) Cirrhosis: (5) Atrial fibrillation with rapid ventricular response: Plan 72 year-old male presented to ED with increasing weakness, rectal bleeding, s/p fall 2 days ago. Found to be in septic shock, liver failure, BIANCA, afib with RVR admitted to ICU requiring pressor support and intubation. CT scan showing left rectus sheath hematoma as well as left sided colitis and ileus. He is now s/p 2 units PRBC, S/P 4 units of FFP's, 2 cryoprecipitate's. INR revered from 9.0 to 1.5. Lactate trending down (10 --> 7 --> 5) Plan: As for rectus sheath hematoma, no surgical intervention recommended at this time. If there is concern for active bleeding, he may require IR for embolization. Continue transfusion as necessary per ICU management Continue PPI drip for GI bleed Continue pressor support Awaiting possible transfer to [place] in [place] given GI bleed, critical illness, and multiorgan system dysfunction. May also require continuous dialysis. Would agree and recommend transfer to tertiary center where there is IR available for embolization if required for continued GI bleeding. Discussed with Dr. Pena who agrees with above. History of Present Illness Reason for Consultation: Rectus sheath hematoma Requesting Physician: Eduardo Hassan MD Attending Physician: Lucio Herrmann MD History of Present Illness Romain is a 72 year-old male with PMHx of CHF, Afib, on Eliquis, PVD, HTN, chronic back pain, hx of tobacco and ETOH abuses who is currently intubated and unable to obtain history by patient. History obtained by chart and nurse at bedside. Patient was brought to ED by family after he's noted to be increasing confused over the last few days. Patient also reportedly had complaints of lower abdominal pain w nausea, and had bloody BMs. No n/v, hematemesis or coffee ground emesis. He had a colonoscopy w polypectomy at a [place] [facility] in [place] w reported malignancy on path 10 days ago. Upon evaluation, he's noted to be hypotensive and in rapid Afib, in septic shock. He has BIANCA and anemia. Labs: H/H 04/19, Plt 123, INR was up to 9, reversed to 1.5. LFTs: Tbili 1.2, AST 93, ALT 22, Alk phose 189. CK 661. Blood ct growing gram negative bacili. He is currently on pressors and was intubated this morning at 9 am. Per nurse he is still having moderate bloody bowel movements. CT abd/pelvis wo contrast showed Left side transverse and sigmoid colon thickening consistent with colitis and mild ileus. There is a also a4.5 x 2.8 x 5.6 cm left rectus sheath hematoma. S/P 4 units of FFP's, 2 cryoprecipitate's S/P 2 units PRBCs Allergies Allergy/AdvReac Type Severity Reaction Status Date / Time fentanyl AdvReac Mild itch Verified 09/13/14 14:09 Home Medications Medication Instructions Recorded Confirmed Type albuterol sulfate 2.5 mg/3 mL 2.5 mg continuous nebulization Q4 11/15/22 11/15/22 History (0.083 %) solution for nebulization PRN Shortness Of Breath Or Wheezing amiodarone 100 mg tablet 100 mg PO BID 11/15/22 11/15/22 History apixaban 5 mg tablet (Eliquis) 5 mg PO BID 11/15/22 11/15/22 History ascorbic acid (vitamin C) 500 mg 500 mg PO DAILY 11/15/22 11/15/22 History tablet (Vitamin C) aspirin 81 mg tablet,delayed 81 mg PO DAILY 11/15/22 11/15/22 History release bumetanide 0.5 mg tablet 0.5 mg PO BID 11/15/22 11/15/22 History diltiazem HCl 180 mg capsule,24 180 mg PO DAILY 11/15/22 11/15/22 History hr,extended release ferrous sulfate 325 mg (65 mg 325 mg PO DAILY 11/15/22 11/15/22 History iron) tablet (FeroSul) furosemide 40 mg tablet 40 mg PO DAILY 11/15/22 11/15/22 History gabapentin 300 mg capsule 300 mg PO HS 11/15/22 11/15/22 History lisinopril 5 mg tablet 5 mg PO DAILY 11/15/22 11/15/22 History magnesium oxide 420 mg tablet 420 mg PO BID 11/15/22 11/15/22 History metoprolol succinate 100 mg 100 mg PO BID 11/15/22 11/15/22 History tablet,extended release 24 hr metoprolol tartrate 50 mg tablet 50 mg PO BID 11/15/22 11/15/22 History morphine 15 mg tablet,extended 15 mg PO BID 11/15/22 11/15/22 History release multivitamin (Daily Multi-Vitamin 1 tab PO DAILY 11/15/22 11/15/22 History tablet) omeprazole 20 mg capsule,delayed 20 mg PO DAILY 11/15/22 11/15/22 History release ondansetron HCl 4 mg tablet 4 mg PO TID PRN Nausea 11/15/22 11/15/22 History potassium chloride 20 mEq 20 meq PO BID 11/15/22 11/15/22 History tablet,extended release(part/cryst) spironolactone 25 mg tablet 25 mg PO DAILY 11/15/22 11/15/22 History thiamine HCl (vitamin B1) 100 mg 100 mg PO DAILY 11/15/22 11/15/22 History tablet Patient History Medical History Atrial fibrillation Cirrhosis History of alcohol abuse History of bacteremia Per family's report On apixaban therapy Family History Other Family history non-contributory Social History Smoking Status: Never smoker Second Hand Exposure: No; Do You Dip or Chew Tobacco: No; Tobacco Cessation Education Requested by Patient: No Hx Alcohol Use: Yes Hx Substance Use: No Preferred Language: Japanese Communication Ability: Unable Beliefs That Will Affect Care: None Current Living Situation: Family Other Information That Helps Us Care for You: No Feels Safe at Home: Yes Safety Concerns: Feels Safe At This Time Physical Exam Constitutional: + mechanically ventilated and + edematous Neck: normal visual inspection and trachea midline Respiratory: normal respiratory effort, lungs clear to auscultation Cardiovascular: Rate/Rhythm: + irregularly irregular Heart Sounds: no murmur Gastrointestinal (Abdomen): Inspection/Auscultation: + abdomen distended Percussion/Palpation: + abdomen firm abdomen distended , firm, there is no ecchymosis externally on visual inspection. Endotracheal tube with blood in it as well as OG tube Skin: no rashes, warm and dry Psychiatric: intubated Results & Data Vital Signs (Past 12 Hours) Vital Signs Temp Pulse Pulse Resp BP BP Pulse Ox 11/16/22 10:00 105 H 24 97 11/16/22 10:53 35.6 C L 97 H 24 112/64 100 11/16/22 10:18 35.7 C L 106 H 22 107/62 96 11/16/22 10:17 35.7 C L 104 H 22 105/59 L 97 11/16/22 10:16 35.7 C L 98 H 22 108/65 96 11/16/22 10:12 35.7 C L 102 H 24 93/70 L 97 11/16/22 10:09 36.1 C L 90 24 108/64 93 11/16/22 09:43 35.9 C L 97 H 22 94/61 L 96 11/16/22 09:17 36.1 C L 102 H 24 95/61 L 96 11/16/22 09:27 36.0 C L 93 H 24 71/55 L 93 11/16/22 09:23 36 C L 93 H 24 71/55 L 96 11/16/22 08:47 36.1 C L 116 H 20 88/73 L 94 11/16/22 08:32 36.1 C L 120 H 20 88/73 L 96 11/16/22 08:13 35.9 C L 116 H 24 130/110 H 95 11/16/22 08:29 35.9 C L 124 H 24 131/113 H 96 11/16/22 08:17 36.2 C L 124 H 26 H 131/113 H 95 11/16/22 08:12 36.2 C L 114 H 24 151/106 H 95 11/16/22 07:51 36.2 C L 125 H 24 151/106 H 95 11/16/22 07:53 36.2 C L 99 H 22 124/69 100 11/16/22 07:41 36.2 C L 111 H 20 124/69 100 11/16/22 07:29 36.2 C L 110 H 20 130/87 97 11/16/22 07:28 36.2 C L 110 H 20 130/87 97 11/16/22 06:49 36.5 C 108 H 22 113/96 93 11/16/22 06:41 36.5 C 113 H 26 H 113/96 97 11/16/22 06:32 36.5 C 116 H 19 117/83 97 11/16/22 06:11 36.5 C 124 H 24 98/78 L 99 11/16/22 05:56 36.5 C 118 H 20 111/94 94 11/16/22 05:33 36.6 C 123 H 22 117/75 99 11/16/22 04:37 11/16/22 03:13 36.5 C 145 H 22 86/42 L 97 11/16/22 02:35 97 O2 Del Method O2 Flow Rate FiO2 11/16/22 10:00 45 11/16/22 10:53 11/16/22 10:18 11/16/22 10:17 11/16/22 10:16 11/16/22 10:12 11/16/22 10:09 11/16/22 09:43 70 11/16/22 09:17 11/16/22 09:27 11/16/22 09:23 70 11/16/22 08:47 4 11/16/22 08:32 4 11/16/22 08:13 4 11/16/22 08:29 4 11/16/22 08:17 11/16/22 08:12 4 11/16/22 07:51 4 11/16/22 07:53 4 11/16/22 07:41 4 11/16/22 07:29 4 11/16/22 07:28 4 11/16/22 06:49 4 11/16/22 06:41 4 11/16/22 06:32 4 11/16/22 06:11 11/16/22 05:56 11/16/22 05:33 4 11/16/22 04:37 Nasal Cannula 4 11/16/22 03:13 Nasal Cannula 1 11/16/22 02:35 Room Air Laboratory Results 11/16/22 11/16/22 11/16/22 Range/Units 11:49 11:49 11:49 WBC (4.8-10.8) K/ul RBC (4.70-6.10) M/uL Hgb (14.0-18.0) g/dl POC Hgb (14.0-18.0) g/dl Hct (42.0-52.0) % POC Hct (42-52) % MCV (80.0-100.0) fL MCH (25.0-34.0) pg MCHC (32.0-36.0) g/dL RDW Std Deviation (36.4-46.3) fL RDW Coeff of Giancarlo (11.5-14.5) % Plt Count (130-400) K/uL MPV (9.4-12.4) fL Immature Gran % (Auto) % Neut % (Auto) % Lymph % (Auto) % [place] % (Auto) % Eos % (Auto) % Baso % (Auto) % Neut # (Auto) (1.40-6.50) K/uL Lymph # (Auto) (1.2-3.4) K/uL [place] # (Auto) (0.11-0.59) K/uL Eos # (Auto) (0-0.50) K/uL Baso # (Auto) (0-0.2) K/uL Immature Gran # (Auto) (0.01-0.20) K/uL Absolute Nucleated RBC (0-0.12) K/uL Nucleated RBC % (auto) % Toxic Vacuolation Polychromasia Basophilic Stippling Macrocytosis Pappenheimer Bodies Target Cells PT 16.2 H INR 1.5 H APTT PTT Ratio Fibrinogen 348 D (184-400) mg/dl Sample Site POC pH (7.35-7.45) POC pCO2 (35-46) mmHg POC pO2 (80-95) mmHg POC HCO3 (19-24) nai/L POC Base Excess (-9-1.8) nia/L ABG pH (Temp Correct) (7.35-7.45) ABG pCO2 (Temp Corrct (35-46) mmHg POC ABG pO2 at Pt Temp POC ABG O2 Sat (90-95) % Rosales Test O2 Delivery Device POC O2 Rate POC FiO2 % Tidal Volume PEEP POC Sodium (135-144) mmol/L Sodium 132 L (136-145) mmol/L POC Potassium (3.3-5.0) mmol/L Potassium 3.7 D (3.5-5.1) mmol/L POC Chloride (101-112) mmol/L Chloride 97 L (98-107) mmol/L Carbon Dioxide 18 L (21-32) mmol/L POC Total CO2 (24-31) mmol/L Anion Gap 17 H (3-11) POC Anion Gap (16-25) mmol/L POC BUN (7-18) mg/dl BUN 29 H (6-23) mg/dl Creatinine 2.76 H (0.6-1.4) mg/dl POC Creatinine (0.6-1.3) mg/dl Est Cr Clr Drug Dosing 21.2 ml/min Est GFR ( Amer) 25.1 ml/min Est GFR (Non-Af Amer) 21.6 ml/min BUN/Creatinine Ratio 10.5 (10-20) Glucose 116 H (70-99(Fasting)) mg/dl POC Glucose (other) (70-99) mg/dl Estimat Average Glucose mg/dl Hemoglobin A1c (4.5-5.6) % Osmolality (280-300) mOsm/kg Lactate 5.9 H* (0.4-2.0) mmol/L Calcium 7.8 L (8.6-10.3) mg/dl POC Ioniz Calcium Lili (1.12-1.32) mmol/l Phosphorus (2.5-4.9) mg/dl Magnesium (1.7-2.4) mg/dl Total Bilirubin (0.2-1.0) mg/dl Direct Bilirubin (0-0.2) mg/dl AST (13-39) U/L ALT (7-52) U/L Alkaline Phosphatase (34-104) U/L Ammonia (18-72) umol/L Total Creatine Kinase (30-223) U/L Troponin I High Sens (0-20) pg/ml Total Protein (6.0-8.3) gm/dl Albumin (3.4-5.0) gm/dl Globulin (2.5-4.0) gm/dl Albumin/Globulin Ratio (0.9-2) Lipase (11-82) U/L Procalcitonin (0-0.5) ng/ml TSH (0.300-4.500) uIu/ml Free T4 (0.61-1.60) ng/dl Random Cortisol mcg/dl Urine Color Urine Appearance (Clear) Urine pH (4.5-7.5) Ur Specific [place] (1.000-1.030) Urine Protein (Negative) Urine Glucose (UA) (Negative) Urine Ketones (Negative) Urine Blood (Negative) Urine Nitrite (Negative) Urine Bilirubin (Negative) Urine Urobilinogen (Negative) Ur Leukocyte Esterase (Negative) Urine RBC (0-4) /hpf Urine WBC (0-5) /hpf Ur Epithelial Cells (0-5) /lpf Urine Bacteria (Negative) Urine Osmolality (500-800) mOsm/kg Ur Random Sodium mmol/L Nasal Screen MRSA (PCR) (Negative) POC Stool Occult Blood (Negative) Ethyl Alcohol mg/dL (<10.0) mg/dl Enterobacterales (PCR) (NotDetected) E. coli (PCR) (NotDetected) SARS-CoV-2, RNA, NAAT (NEGATIVE) mcr-1 Colistin Res Gene PCR (NotDetected) blaIMP Car res Gene PCR (NotDetected) KPC-Carbap Res Gene PCR (NotDetected) blaNDM Car Res Gene PCR (NotDetected) OXA-48 Carbapenem Resis Gene (PCR) (NotDetected) blaVIM Car Res Gene PCR (NotDetected) CTX-M Gene Resistance (PCR) (NotDetected) Bld Cult ID Panel PCR (NotDetected) Blood Type Blood Type Recheck Antibody Screen Crossmatch 11/16/22 11/16/22 11/16/22 Range/Units 11:49 11:48 09:38 WBC 9.11 (4.8-10.8) K/ul RBC 3.07 L (4.70-6.10) M/uL Hgb 9.5 L (14.0-18.0) g/dl POC Hgb (14.0-18.0) g/dl Hct 25.9 L (42.0-52.0) % POC Hct (42-52) % MCV 84.4 D (80.0-100.0) fL MCH 30.9 (25.0-34.0) pg MCHC 36.7 H (32.0-36.0) g/dL RDW Std Deviation 46.5 H (36.4-46.3) fL RDW Coeff of Giancarlo 16.5 H (11.5-14.5) % Plt Count 123 L (130-400) K/uL MPV 9.8 (9.4-12.4) fL Immature Gran % (Auto) 1.3 % Neut % (Auto) 87.8 % Lymph % (Auto) 4.9 % [place] % (Auto) 5.6 % Eos % (Auto) 0.1 % Baso % (Auto) 0.3 % Neut # (Auto) 7.99 H (1.40-6.50) K/uL Lymph # (Auto) 0.45 L (1.2-3.4) K/uL [place] # (Auto) 0.51 (0.11-0.59) K/uL Eos # (Auto) 0.01 (0-0.50) K/uL Baso # (Auto) 0.03 (0-0.2) K/uL Immature Gran # (Auto) 0.12 (0.01-0.20) K/uL Absolute Nucleated RBC 0.03 (0-0.12) K/uL Nucleated RBC % (auto) 0.3 % Toxic Vacuolation 2+ Polychromasia 1+ Basophilic Stippling Macrocytosis Pappenheimer Bodies Target Cells 2+ PT INR APTT PTT Ratio Fibrinogen (184-400) mg/dl Sample Site POC pH (7.35-7.45) POC pCO2 (35-46) mmHg POC pO2 (80-95) mmHg POC HCO3 (19-24) nai/L POC Base Excess (-9-1.8) nai/L ABG pH (Temp Correct) (7.35-7.45) ABG pCO2 (Temp Corrct (35-46) mmHg POC ABG pO2 at Pt Temp POC ABG O2 Sat (90-95) % Rosales Test O2 Delivery Device POC O2 Rate POC FiO2 % Tidal Volume PEEP POC Sodium (135-144) mmol/L Sodium (136-145) mmol/L POC Potassium (3.3-5.0) mmol/L Potassium (3.5-5.1) mmol/L POC Chloride (101-112) mmol/L Chloride (98-107) mmol/L Carbon Dioxide (21-32) mmol/L POC Total CO2 (24-31) mmol/L Anion Gap (3-11) POC Anion Gap (16-25) mmol/L POC BUN (7-18) mg/dl BUN (6-23) mg/dl Creatinine (0.6-1.4) mg/dl POC Creatinine (0.6-1.3) mg/dl Est Cr Clr Drug Dosing ml/min Est GFR ( Amer) ml/min Est GFR (Non-Af Amer) ml/min BUN/Creatinine Ratio (10-20) Glucose (70-99(Fasting)) mg/dl POC Glucose (other) 115 H 121 H (70-99) mg/dl Estimat Average Glucose mg/dl Hemoglobin A1c (4.5-5.6) % Osmolality (280-300) mOsm/kg Lactate (0.4-2.0) mmol/L Calcium (8.6-10.3) mg/dl POC Ioniz Calcium Lili (1.12-1.32) mmol/l Phosphorus (2.5-4.9) mg/dl Magnesium (1.7-2.4) mg/dl Total Bilirubin (0.2-1.0) mg/dl Direct Bilirubin (0-0.2) mg/dl AST (13-39) U/L ALT (7-52) U/L Alkaline Phosphatase (34-104) U/L Ammonia (18-72) umol/L Total Creatine Kinase (30-223) U/L Troponin I High Sens (0-20) pg/ml Total Protein (6.0-8.3) gm/dl Albumin (3.4-5.0) gm/dl Globulin (2.5-4.0) gm/dl Albumin/Globulin Ratio (0.9-2) Lipase (11-82) U/L Procalcitonin (0-0.5) ng/ml TSH (0.300-4.500) uIu/ml Free T4 (0.61-1.60) ng/dl Random Cortisol mcg/dl Urine Color Urine Appearance (Clear) Urine pH (4.5-7.5) Ur Specific [place] (1.000-1.030) Urine Protein (Negative) Urine Glucose (UA) (Negative) Urine Ketones (Negative) Urine Blood (Negative) Urine Nitrite (Negative) Urine Bilirubin (Negative) Urine Urobilinogen (Negative) Ur Leukocyte Esterase (Negative) Urine RBC (0-4) /hpf Urine WBC (0-5) /hpf Ur Epithelial Cells (0-5) /lpf Urine Bacteria (Negative) Urine Osmolality (500-800) mOsm/kg Ur Random Sodium mmol/L Nasal Screen MRSA (PCR) (Negative) POC Stool Occult Blood (Negative) Ethyl Alcohol mg/dL (<10.0) mg/dl Enterobacterales (PCR) (NotDetected) E. coli (PCR) (NotDetected) SARS-CoV-2, RNA, NAAT (NEGATIVE) mcr-1 Colistin Res Gene PCR (NotDetected) blaIMP Car res Gene PCR (NotDetected) KPC-Carbap Res Gene PCR (NotDetected) blaNDM Car Res Gene PCR (NotDetected) OXA-48 Carbapenem Resis Gene (PCR) (NotDetected) blaVIM Car Res Gene PCR (NotDetected) CTX-M Gene Resistance (PCR) (NotDetected) Bld Cult ID Panel PCR (NotDetected) Blood Type Blood Type Recheck Antibody Screen Crossmatch 11/16/22 11/16/22 11/16/22 Range/Units 09:32 04:37 04:29 WBC (4.8-10.8) K/ul RBC (4.70-6.10) M/uL Hgb (14.0-18.0) g/dl POC Hgb 9.2 L (14.0-18.0) g/dl Hct (42.0-52.0) % POC Hct 27 L (42-52) % MCV (80.0-100.0) fL MCH (25.0-34.0) pg MCHC (32.0-36.0) g/dL RDW Std Deviation (36.4-46.3) fL RDW Coeff of Giancarlo (11.5-14.5) % Plt Count (130-400) K/uL MPV (9.4-12.4) fL Immature Gran % (Auto) % Neut % (Auto) % Lymph % (Auto) % [place] % (Auto) % Eos % (Auto) % Baso % (Auto) % Neut # (Auto) (1.40-6.50) K/uL Lymph # (Auto) (1.2-3.4) K/uL [place] # (Auto) (0.11-0.59) K/uL Eos # (Auto) (0-0.50) K/uL Baso # (Auto) (0-0.2) K/uL Immature Gran # (Auto) (0.01-0.20) K/uL Absolute Nucleated RBC (0-0.12) K/uL Nucleated RBC % (auto) % Toxic Vacuolation Polychromasia Basophilic Stippling Macrocytosis Pappenheimer Bodies Target Cells PT INR APTT PTT Ratio Fibrinogen (184-400) mg/dl Sample Site Art Line POC pH 7.39 (7.35-7.45) POC pCO2 37 (35-46) mmHg POC pO2 328 H (80-95) mmHg POC HCO3 22 (19-24) nai/L POC Base Excess -3.0 (-9-1.8) nai/L ABG pH (Temp Correct) 7.406 (7.35-7.45) ABG pCO2 (Temp Corrct 35 (35-46) mmHg POC ABG pO2 at Pt Temp 323 POC ABG O2 Sat 100.0 H (90-95) % Rosales Test NA O2 Delivery Device Ventilator POC O2 Rate 18 POC FiO2 70 % Tidal Volume 350 PEEP 5 POC Sodium 131 L (135-144) mmol/L Sodium (136-145) mmol/L POC Potassium 3.6 (3.3-5.0) mmol/L Potassium (3.5-5.1) mmol/L POC Chloride (101-112) mmol/L Chloride (98-107) mmol/L Carbon Dioxide (21-32) mmol/L POC Total CO2 23 L (24-31) mmol/L Anion Gap (3-11) POC Anion Gap (16-25) mmol/L POC BUN (7-18) mg/dl BUN (6-23) mg/dl Creatinine (0.6-1.4) mg/dl POC Creatinine (0.6-1.3) mg/dl Est Cr Clr Drug Dosing ml/min Est GFR ( Amer) ml/min Est GFR (Non-Af Amer) ml/min BUN/Creatinine Ratio (10-20) Glucose (70-99(Fasting)) mg/dl POC Glucose (other) (70-99) mg/dl Estimat Average Glucose mg/dl Hemoglobin A1c (4.5-5.6) % Osmolality (280-300) mOsm/kg Lactate (0.4-2.0) mmol/L Calcium (8.6-10.3) mg/dl POC Ioniz Calcium Lili (1.12-1.32) mmol/l Phosphorus (2.5-4.9) mg/dl Magnesium (1.7-2.4) mg/dl Total Bilirubin 2.0 H (0.2-1.0) mg/dl Direct Bilirubin 1.2 H (0-0.2) mg/dl AST 93 H (13-39) U/L ALT 22 (7-52) U/L Alkaline Phosphatase 189 H (34-104) U/L Ammonia (18-72) umol/L Total Creatine Kinase 661 H (30-223) U/L Troponin I High Sens (0-20) pg/ml Total Protein 4.3 L (6.0-8.3) gm/dl Albumin 2.0 L (3.4-5.0) gm/dl Globulin (2.5-4.0) gm/dl Albumin/Globulin Ratio (0.9-2) Lipase (11-82) U/L Procalcitonin (0-0.5) ng/ml TSH (0.300-4.500) uIu/ml Free T4 (0.61-1.60) ng/dl Random Cortisol > 60.00 mcg/dl Urine Color Urine Appearance (Clear) Urine pH (4.5-7.5) Ur Specific [place] (1.000-1.030) Urine Protein (Negative) Urine Glucose (UA) (Negative) Urine Ketones (Negative) Urine Blood (Negative) Urine Nitrite (Negative) Urine Bilirubin (Negative) Urine Urobilinogen (Negative) Ur Leukocyte Esterase (Negative) Urine RBC (0-4) /hpf Urine WBC (0-5) /hpf Ur Epithelial Cells (0-5) /lpf Urine Bacteria (Negative) Urine Osmolality (500-800) mOsm/kg Ur Random Sodium mmol/L Nasal Screen MRSA (PCR) (Negative) POC Stool Occult Blood (Negative) Ethyl Alcohol mg/dL (<10.0) mg/dl Enterobacterales (PCR) (NotDetected) E. coli (PCR) (NotDetected) SARS-CoV-2, RNA, NAAT (NEGATIVE) mcr-1 Colistin Res Gene PCR (NotDetected) blaIMP Car res Gene PCR (NotDetected) KPC-Carbap Res Gene PCR (NotDetected) blaNDM Car Res Gene PCR (NotDetected) OXA-48 Carbapenem Resis Gene (PCR) (NotDetected) blaVIM Car Res Gene PCR (NotDetected) CTX-M Gene Resistance (PCR) (NotDetected) Bld Cult ID Panel PCR (NotDetected) Blood Type Blood Type Recheck Antibody Screen Crossmatch 11/16/22 11/16/22 11/16/22 Range/Units 04:29 04:29 04:29 WBC 8.09 (4.8-10.8) K/ul RBC 2.66 L (4.70-6.10) M/uL Hgb 8.7 L (14.0-18.0) g/dl POC Hgb (14.0-18.0) g/dl Hct 24.6 L (42.0-52.0) % POC Hct (42-52) % MCV 92.5 (80.0-100.0) fL MCH 32.7 (25.0-34.0) pg MCHC 35.4 (32.0-36.0) g/dL RDW Std Deviation 56.7 H (36.4-46.3) fL RDW Coeff of Giancarlo 17.8 H (11.5-14.5) % Plt Count 193 (130-400) K/uL MPV 10.0 (9.4-12.4) fL Immature Gran % (Auto) 0.0 % Neut % (Auto) 91.2 % Lymph % (Auto) 5.6 % [place] % (Auto) 3.0 % Eos % (Auto) 0.0 % Baso % (Auto) 0.2 % Neut # (Auto) 7.38 H (1.40-6.50) K/uL Lymph # (Auto) 0.45 L (1.2-3.4) K/uL [place] # (Auto) 0.24 (0.11-0.59) K/uL Eos # (Auto) 0.00 (0-0.50) K/uL Baso # (Auto) 0.02 (0-0.2) K/uL Immature Gran # (Auto) 0.00 L (0.01-0.20) K/uL Absolute Nucleated RBC 0.03 (0-0.12) K/uL Nucleated RBC % (auto) 0.4 % Toxic Vacuolation Polychromasia Basophilic Stippling Occasional Macrocytosis Pappenheimer Bodies Occasional Target Cells PT 85.7 H INR 9.0 H* APTT 101.4 H* PTT Ratio 3.6 Fibrinogen 151 L (184-400) mg/dl Sample Site POC pH (7.35-7.45) POC pCO2 (35-46) mmHg POC pO2 (80-95) mmHg POC HCO3 (19-24) nai/L POC Base Excess (-9-1.8) nai/L ABG pH (Temp Correct) (7.35-7.45) ABG pCO2 (Temp Corrct (35-46) mmHg POC ABG pO2 at Pt Temp POC ABG O2 Sat (90-95) % Rosales Test O2 Delivery Device POC O2 Rate POC FiO2 % Tidal Volume PEEP POC Sodium (135-144) mmol/L Sodium (136-145) mmol/L POC Potassium (3.3-5.0) mmol/L Potassium (3.5-5.1) mmol/L POC Chloride (101-112) mmol/L Chloride (98-107) mmol/L Carbon Dioxide (21-32) mmol/L POC Total CO2 (24-31) mmol/L Anion Gap (3-11) POC Anion Gap (16-25) mmol/L POC BUN (7-18) mg/dl BUN (6-23) mg/dl Creatinine (0.6-1.4) mg/dl POC Creatinine (0.6-1.3) mg/dl Est Cr Clr Drug Dosing ml/min Est GFR ( Amer) ml/min Est GFR (Non-Af Amer) ml/min BUN/Creatinine Ratio (10-20) Glucose (70-99(Fasting)) mg/dl POC Glucose (other) (70-99) mg/dl Estimat Average Glucose mg/dl Hemoglobin A1c (4.5-5.6) % Osmolality (280-300) mOsm/kg Lactate 7.5 H* (0.4-2.0) mmol/L Calcium (8.6-10.3) mg/dl POC Ioniz Calcium Lili (1.12-1.32) mmol/l Phosphorus (2.5-4.9) mg/dl Magnesium (1.7-2.4) mg/dl Total Bilirubin (0.2-1.0) mg/dl Direct Bilirubin (0-0.2) mg/dl AST (13-39) U/L ALT (7-52) U/L Alkaline Phosphatase (34-104) U/L Ammonia (18-72) umol/L Total Creatine Kinase (30-223) U/L Troponin I High Sens (0-20) pg/ml Total Protein (6.0-8.3) gm/dl Albumin (3.4-5.0) gm/dl Globulin (2.5-4.0) gm/dl Albumin/Globulin Ratio (0.9-2) Lipase (11-82) U/L Procalcitonin (0-0.5) ng/ml TSH (0.300-4.500) uIu/ml Free T4 (0.61-1.60) ng/dl Random Cortisol mcg/dl Urine Color Urine Appearance (Clear) Urine pH (4.5-7.5) Ur Specific [place] (1.000-1.030) Urine Protein (Negative) Urine Glucose (UA) (Negative) Urine Ketones (Negative) Urine Blood (Negative) Urine Nitrite (Negative) Urine Bilirubin (Negative) Urine Urobilinogen (Negative) Ur Leukocyte Esterase (Negative) Urine RBC (0-4) /hpf Urine WBC (0-5) /hpf Ur Epithelial Cells (0-5) /lpf Urine Bacteria (Negative) Urine Osmolality (500-800) mOsm/kg Ur Random Sodium mmol/L Nasal Screen MRSA (PCR) (Negative) POC Stool Occult Blood (Negative) Ethyl Alcohol mg/dL (<10.0) mg/dl Enterobacterales (PCR) (NotDetected) E. coli (PCR) (NotDetected) SARS-CoV-2, RNA, NAAT (NEGATIVE) mcr-1 Colistin Res Gene PCR (NotDetected) blaIMP Car res Gene PCR (NotDetected) KPC-Carbap Res Gene PCR (NotDetected) blaNDM Car Res Gene PCR (NotDetected) OXA-48 Carbapenem Resis Gene (PCR) (NotDetected) blaVIM Car Res Gene PCR (NotDetected) CTX-M Gene Resistance (PCR) (NotDetected) Bld Cult ID Panel PCR (NotDetected) Blood Type Blood Type Recheck Antibody Screen Crossmatch 11/16/22 11/16/22 11/16/22 Range/Units 04:15 03:52 01:31 WBC (4.8-10.8) K/ul RBC (4.70-6.10) M/uL Hgb (14.0-18.0) g/dl POC Hgb 10.2 L (14.0-18.0) g/dl Hct (42.0-52.0) % POC Hct 30 L (42-52) % MCV (80.0-100.0) fL MCH (25.0-34.0) pg MCHC (32.0-36.0) g/dL RDW Std Deviation (36.4-46.3) fL RDW Coeff of Giancarlo (11.5-14.5) % Plt Count (130-400) K/uL MPV (9.4-12.4) fL Immature Gran % (Auto) % Neut % (Auto) % Lymph % (Auto) % [place] % (Auto) % Eos % (Auto) % Baso % (Auto) % Neut # (Auto) (1.40-6.50) K/uL Lymph # (Auto) (1.2-3.4) K/uL [place] # (Auto) (0.11-0.59) K/uL Eos # (Auto) (0-0.50) K/uL Baso # (Auto) (0-0.2) K/uL Immature Gran # (Auto) (0.01-0.20) K/uL Absolute Nucleated RBC (0-0.12) K/uL Nucleated RBC % (auto) % Toxic Vacuolation Polychromasia Basophilic Stippling Macrocytosis Pappenheimer Bodies Target Cells PT INR APTT PTT Ratio Fibrinogen (184-400) mg/dl Sample Site L Radial POC pH 7.49 H (7.35-7.45) POC pCO2 25 L (35-46) mmHg POC pO2 146 H (80-95) mmHg POC HCO3 19 (19-24) nai/L POC Base Excess -4.0 (-9-1.8) nai/L ABG pH (Temp Correct) 7.494 H (7.35-7.45) ABG pCO2 (Temp Corrct 25 L (35-46) mmHg POC ABG pO2 at Pt Temp 144 POC ABG O2 Sat 99.0 H (90-95) % [place] Test Pass O2 Delivery Device Cannula POC O2 Rate POC FiO2 % Tidal Volume PEEP POC Sodium 131 L (135-144) mmol/L Sodium 130 L (136-145) mmol/L POC Potassium 4.0 (3.3-5.0) mmol/L Potassium TNP (3.5-5.1) mmol/L POC Chloride (101-112) mmol/L Chloride 98 (98-107) mmol/L Carbon Dioxide 18 L (21-32) mmol/L POC Total CO2 20 L (24-31) mmol/L Anion Gap 14 H (3-11) POC Anion Gap (16-25) mmol/L POC BUN (7-18) mg/dl BUN 32 H (6-23) mg/dl Creatinine 3.00 H (0.6-1.4) mg/dl POC Creatinine (0.6-1.3) mg/dl Est Cr Clr Drug Dosing 19.5 ml/min Est GFR ( Amer) 22.7 ml/min Est GFR (Non-Af Amer) 19.6 ml/min BUN/Creatinine Ratio 10.7 (10-20) Glucose 104 H (70-99(Fasting)) mg/dl POC Glucose (other) (70-99) mg/dl Estimat Average Glucose mg/dl Hemoglobin A1c (4.5-5.6) % Osmolality (280-300) mOsm/kg Lactate (0.4-2.0) mmol/L Calcium 7.5 L (8.6-10.3) mg/dl POC Ioniz Calcium Lili (1.12-1.32) mmol/l Phosphorus (2.5-4.9) mg/dl Magnesium (1.7-2.4) mg/dl Total Bilirubin 2.1 H (0.2-1.0) mg/dl Direct Bilirubin (0-0.2) mg/dl AST TNP (13-39) U/L ALT 23 (7-52) U/L Alkaline Phosphatase 193 H (34-104) U/L Ammonia (18-72) umol/L Total Creatine Kinase (30-223) U/L Troponin I High Sens 42.5 H (0-20) pg/ml Total Protein 4.9 L (6.0-8.3) gm/dl Albumin 2.2 L (3.4-5.0) gm/dl Globulin 2.7 (2.5-4.0) gm/dl Albumin/Globulin Ratio 0.8 L (0.9-2) Lipase (11-82) U/L Procalcitonin (0-0.5) ng/ml TSH (0.300-4.500) uIu/ml Free T4 (0.61-1.60) ng/dl Random Cortisol mcg/dl Urine Color Urine Appearance (Clear) Urine pH (4.5-7.5) Ur Specific [place] (1.000-1.030) Urine Protein (Negative) Urine Glucose (UA) (Negative) Urine Ketones (Negative) Urine Blood (Negative) Urine Nitrite (Negative) Urine Bilirubin (Negative) Urine Urobilinogen (Negative) Ur Leukocyte Esterase (Negative) Urine RBC (0-4) /hpf Urine WBC (0-5) /hpf Ur Epithelial Cells (0-5) /lpf Urine Bacteria (Negative) Urine Osmolality (500-800) mOsm/kg Ur Random Sodium mmol/L Nasal Screen MRSA (PCR) Positive A (Negative) POC Stool Occult Blood (Negative) Ethyl Alcohol mg/dL (<10.0) mg/dl Enterobacterales (PCR) (NotDetected) E. coli (PCR) (NotDetected) SARS-CoV-2, RNA, NAAT (NEGATIVE) mcr-1 Colistin Res Gene PCR (NotDetected) blaIMP Car res Gene PCR (NotDetected) KPC-Carbap Res Gene PCR (NotDetected) blaNDM Car Res Gene PCR (NotDetected) OXA-48 Carbapenem Resis Gene (PCR) (NotDetected) blaVIM Car Res Gene PCR (NotDetected) CTX-M Gene Resistance (PCR) (NotDetected) Bld Cult ID Panel PCR (NotDetected) Blood Type Blood Type Recheck Antibody Screen Crossmatch 11/15/22 11/15/22 11/15/22 Range/Units 21:40 21:40 21:40 WBC (4.8-10.8) K/ul RBC (4.70-6.10) M/uL Hgb (14.0-18.0) g/dl POC Hgb (14.0-18.0) g/dl Hct (42.0-52.0) % POC Hct (42-52) % MCV (80.0-100.0) fL MCH (25.0-34.0) pg MCHC (32.0-36.0) g/dL RDW Std Deviation (36.4-46.3) fL RDW Coeff of Giancarlo (11.5-14.5) % Plt Count (130-400) K/uL MPV (9.4-12.4) fL Immature Gran % (Auto) % Neut % (Auto) % Lymph % (Auto) % [place] % (Auto) % Eos % (Auto) % Baso % (Auto) % Neut # (Auto) (1.40-6.50) K/uL Lymph # (Auto) (1.2-3.4) K/uL [place] # (Auto) (0.11-0.59) K/uL Eos # (Auto) (0-0.50) K/uL Baso # (Auto) (0-0.2) K/uL Immature Gran # (Auto) (0.01-0.20) K/uL Absolute Nucleated RBC (0-0.12) K/uL Nucleated RBC % (auto) % Toxic Vacuolation Polychromasia Basophilic Stippling Macrocytosis Pappenheimer Bodies Target Cells PT INR APTT PTT Ratio Fibrinogen (184-400) mg/dl Sample Site POC pH (7.35-7.45) POC pCO2 (35-46) mmHg POC pO2 (80-95) mmHg POC HCO3 (19-24) nai/L POC Base Excess (-9-1.8) nai/L ABG pH (Temp Correct) (7.35-7.45) ABG pCO2 (Temp Corrct (35-46) mmHg POC ABG pO2 at Pt Temp POC ABG O2 Sat (90-95) % Rosales Test O2 Delivery Device POC O2 Rate POC FiO2 % Tidal Volume PEEP POC Sodium (135-144) mmol/L Sodium (136-145) mmol/L POC Potassium (3.3-5.0) mmol/L Potassium (3.5-5.1) mmol/L POC Chloride (101-112) mmol/L Chloride (98-107) mmol/L Carbon Dioxide (21-32) mmol/L POC Total CO2 (24-31) mmol/L Anion Gap (3-11) POC Anion Gap (16-25) mmol/L POC BUN (7-18) mg/dl BUN (6-23) mg/dl Creatinine (0.6-1.4) mg/dl POC Creatinine (0.6-1.3) mg/dl Est Cr Clr Drug Dosing ml/min Est GFR ( Amer) ml/min Est GFR (Non-Af Amer) ml/min BUN/Creatinine Ratio (10-20) Glucose (70-99(Fasting)) mg/dl POC Glucose (other) (70-99) mg/dl Estimat Average Glucose 94 mg/dl Hemoglobin A1c 4.9 (4.5-5.6) % Osmolality (280-300) mOsm/kg Lactate (0.4-2.0) mmol/L Calcium (8.6-10.3) mg/dl POC Ioniz Calcium Lili (1.12-1.32) mmol/l Phosphorus (2.5-4.9) mg/dl Magnesium (1.7-2.4) mg/dl Total Bilirubin (0.2-1.0) mg/dl Direct Bilirubin (0-0.2) mg/dl AST (13-39) U/L ALT (7-52) U/L Alkaline Phosphatase (34-104) U/L Ammonia 45.0 (18-72) umol/L Total Creatine Kinase (30-223) U/L Troponin I High Sens (0-20) pg/ml Total Protein (6.0-8.3) gm/dl Albumin (3.4-5.0) gm/dl Globulin (2.5-4.0) gm/dl Albumin/Globulin Ratio (0.9-2) Lipase (11-82) U/L Procalcitonin (0-0.5) ng/ml TSH (0.300-4.500) uIu/ml Free T4 (0.61-1.60) ng/dl Random Cortisol mcg/dl Urine Color Urine Appearance (Clear) Urine pH (4.5-7.5) Ur Specific [place] (1.000-1.030) Urine Protein (Negative) Urine Glucose (UA) (Negative) Urine Ketones (Negative) Urine Blood (Negative) Urine Nitrite (Negative) Urine Bilirubin (Negative) Urine Urobilinogen (Negative) Ur Leukocyte Esterase (Negative) Urine RBC (0-4) /hpf Urine WBC (0-5) /hpf Ur Epithelial Cells (0-5) /lpf Urine Bacteria (Negative) Urine Osmolality (500-800) mOsm/kg Ur Random Sodium mmol/L Nasal Screen MRSA (PCR) (Negative) POC Stool Occult Blood (Negative) Ethyl Alcohol mg/dL (<10.0) mg/dl Enterobacterales (PCR) DETECTED A (NotDetected) E. coli (PCR) DETECTED A (NotDetected) SARS-CoV-2, RNA, NAAT (NEGATIVE) mcr-1 Colistin Res Gene PCR Not Detected (NotDetected) blaIMP Car res Gene PCR Not Detected (NotDetected) KPC-Carbap Res Gene PCR Not Detected (NotDetected) blaNDM Car Res Gene PCR Not Detected (NotDetected) OXA-48 Carbapenem Resis Gene (PCR) Not Detected (NotDetected) blaVIM Car Res Gene PCR Not Detected (NotDetected) CTX-M Gene Resistance (PCR) Not Detected (NotDetected) Bld Cult ID Panel PCR See PCR Comment (NotDetected) Blood Type Blood Type Recheck Antibody Screen Crossmatch 11/15/22 11/15/22 11/15/22 Range/Units 21:40 21:40 21:40 WBC (4.8-10.8) K/ul RBC (4.70-6.10) M/uL Hgb (14.0-18.0) g/dl POC Hgb (14.0-18.0) g/dl Hct (42.0-52.0) % POC Hct (42-52) % MCV (80.0-100.0) fL MCH (25.0-34.0) pg MCHC (32.0-36.0) g/dL RDW Std Deviation (36.4-46.3) fL RDW Coeff of Giancarlo (11.5-14.5) % Plt Count (130-400) K/uL MPV (9.4-12.4) fL Immature Gran % (Auto) % Neut % (Auto) % Lymph % (Auto) % [place] % (Auto) % Eos % (Auto) % Baso % (Auto) % Neut # (Auto) (1.40-6.50) K/uL Lymph # (Auto) (1.2-3.4) K/uL [place] # (Auto) (0.11-0.59) K/uL Eos # (Auto) (0-0.50) K/uL Baso # (Auto) (0-0.2) K/uL Immature Gran # (Auto) (0.01-0.20) K/uL Absolute Nucleated RBC (0-0.12) K/uL Nucleated RBC % (auto) % Toxic Vacuolation Polychromasia Basophilic Stippling Macrocytosis Pappenheimer Bodies Target Cells PT 63.4 H INR 6.5 H* APTT 64.3 H* PTT Ratio 2.3 Fibrinogen (184-400) mg/dl Sample Site POC pH (7.35-7.45) POC pCO2 (35-46) mmHg POC pO2 (80-95) mmHg POC HCO3 (19-24) nai/L POC Base Excess (-9-1.8) nai/L ABG pH (Temp Correct) (7.35-7.45) ABG pCO2 (Temp Corrct (35-46) mmHg POC ABG pO2 at Pt Temp POC ABG O2 Sat (90-95) % Rosales Test O2 Delivery Device POC O2 Rate POC FiO2 % Tidal Volume PEEP POC Sodium (135-144) mmol/L Sodium (136-145) mmol/L POC Potassium (3.3-5.0) mmol/L Potassium (3.5-5.1) mmol/L POC Chloride (101-112) mmol/L Chloride (98-107) mmol/L Carbon Dioxide (21-32) mmol/L POC Total CO2 (24-31) mmol/L Anion Gap (3-11) POC Anion Gap (16-25) mmol/L POC BUN (7-18) mg/dl BUN (6-23) mg/dl Creatinine (0.6-1.4) mg/dl POC Creatinine (0.6-1.3) mg/dl Est Cr Clr Drug Dosing ml/min Est GFR ( Amer) ml/min Est GFR (Non-Af Amer) ml/min BUN/Creatinine Ratio (10-20) Glucose (70-99(Fasting)) mg/dl POC Glucose (other) (70-99) mg/dl Estimat Average Glucose mg/dl Hemoglobin A1c (4.5-5.6) % Osmolality (280-300) mOsm/kg Lactate (0.4-2.0) mmol/L Calcium (8.6-10.3) mg/dl POC Ioniz Calcium Lili (1.12-1.32) mmol/l Phosphorus (2.5-4.9) mg/dl Magnesium (1.7-2.4) mg/dl Total Bilirubin (0.2-1.0) mg/dl Direct Bilirubin 1.1 H (0-0.2) mg/dl AST (13-39) U/L ALT (7-52) U/L Alkaline Phosphatase (34-104) U/L Ammonia (18-72) umol/L Total Creatine Kinase (30-223) U/L Troponin I High Sens 48.8 H (0-20) pg/ml Total Protein (6.0-8.3) gm/dl Albumin (3.4-5.0) gm/dl Globulin (2.5-4.0) gm/dl Albumin/Globulin Ratio (0.9-2) Lipase 6 L (11-82) U/L Procalcitonin (0-0.5) ng/ml TSH (0.300-4.500) uIu/ml Free T4 (0.61-1.60) ng/dl Random Cortisol mcg/dl Urine Color Urine Appearance (Clear) Urine pH (4.5-7.5) Ur Specific [place] (1.000-1.030) Urine Protein (Negative) Urine Glucose (UA) (Negative) Urine Ketones (Negative) Urine Blood (Negative) Urine Nitrite (Negative) Urine Bilirubin (Negative) Urine Urobilinogen (Negative) Ur Leukocyte Esterase (Negative) Urine RBC (0-4) /hpf Urine WBC (0-5) /hpf Ur Epithelial Cells (0-5) /lpf Urine Bacteria (Negative) Urine Osmolality (500-800) mOsm/kg Ur Random Sodium mmol/L Nasal Screen MRSA (PCR) (Negative) POC Stool Occult Blood (Negative) Ethyl Alcohol mg/dL < 10.0 (<10.0) mg/dl Enterobacterales (PCR) (NotDetected) E. coli (PCR) (NotDetected) SARS-CoV-2, RNA, NAAT (NEGATIVE) mcr-1 Colistin Res Gene PCR (NotDetected) blaIMP Car res Gene PCR (NotDetected) KPC-Carbap Res Gene PCR (NotDetected) blaNDM Car Res Gene PCR (NotDetected) OXA-48 Carbapenem Resis Gene (PCR) (NotDetected) blaVIM Car Res Gene PCR (NotDetected) CTX-M Gene Resistance (PCR) (NotDetected) Bld Cult ID Panel PCR (NotDetected) Blood Type Blood Type Recheck Antibody Screen Crossmatch 11/15/22 11/15/22 11/15/22 Range/Units 21:40 21:40 20:59 WBC (4.8-10.8) K/ul RBC (4.70-6.10) M/uL Hgb 10.6 L (14.0-18.0) g/dl POC Hgb (14.0-18.0) g/dl Hct 29.0 L (42.0-52.0) % POC Hct (42-52) % MCV (80.0-100.0) fL MCH (25.0-34.0) pg MCHC (32.0-36.0) g/dL RDW Std Deviation (36.4-46.3) fL RDW Coeff of Giancarlo (11.5-14.5) % Plt Count (130-400) K/uL MPV (9.4-12.4) fL Immature Gran % (Auto) % Neut % (Auto) % Lymph % (Auto) % [place] % (Auto) % Eos % (Auto) % Baso % (Auto) % Neut # (Auto) (1.40-6.50) K/uL Lymph # (Auto) (1.2-3.4) K/uL [place] # (Auto) (0.11-0.59) K/uL Eos # (Auto) (0-0.50) K/uL Baso # (Auto) (0-0.2) K/uL Immature Gran # (Auto) (0.01-0.20) K/uL Absolute Nucleated RBC (0-0.12) K/uL Nucleated RBC % (auto) % Toxic Vacuolation Polychromasia Basophilic Stippling Macrocytosis Pappenheimer Bodies Target Cells PT INR APTT PTT Ratio Fibrinogen (184-400) mg/dl Sample Site POC pH (7.35-7.45) POC pCO2 (35-46) mmHg POC pO2 (80-95) mmHg POC HCO3 (19-24) nai/L POC Base Excess (-9-1.8) nai/L ABG pH (Temp Correct) (7.35-7.45) ABG pCO2 (Temp Corrct (35-46) mmHg POC ABG pO2 at Pt Temp POC ABG O2 Sat (90-95) % Rosales Test O2 Delivery Device POC O2 Rate POC FiO2 % Tidal Volume PEEP POC Sodium (135-144) mmol/L Sodium (136-145) mmol/L POC Potassium (3.3-5.0) mmol/L Potassium (3.5-5.1) mmol/L POC Chloride (101-112) mmol/L Chloride (98-107) mmol/L Carbon Dioxide (21-32) mmol/L POC Total CO2 (24-31) mmol/L Anion Gap (3-11) POC Anion Gap (16-25) mmol/L POC BUN (7-18) mg/dl BUN (6-23) mg/dl Creatinine (0.6-1.4) mg/dl POC Creatinine (0.6-1.3) mg/dl Est Cr Clr Drug Dosing ml/min Est GFR ( Amer) ml/min Est GFR (Non-Af Amer) ml/min BUN/Creatinine Ratio (10-20) Glucose (70-99(Fasting)) mg/dl POC Glucose (other) (70-99) mg/dl Estimat Average Glucose mg/dl Hemoglobin A1c (4.5-5.6) % Osmolality (280-300) mOsm/kg Lactate 10.1 H* (0.4-2.0) mmol/L Calcium (8.6-10.3) mg/dl POC Ioniz Calcium Lili (1.12-1.32) mmol/l Phosphorus (2.5-4.9) mg/dl Magnesium (1.7-2.4) mg/dl Total Bilirubin (0.2-1.0) mg/dl Direct Bilirubin (0-0.2) mg/dl AST (13-39) U/L ALT (7-52) U/L Alkaline Phosphatase (34-104) U/L Ammonia (18-72) umol/L Total Creatine Kinase (30-223) U/L Troponin I High Sens (0-20) pg/ml Total Protein (6.0-8.3) gm/dl Albumin (3.4-5.0) gm/dl Globulin (2.5-4.0) gm/dl Albumin/Globulin Ratio (0.9-2) Lipase (11-82) U/L Procalcitonin (0-0.5) ng/ml TSH 5.570 H (0.300-4.500) uIu/ml Free T4 0.86 (0.61-1.60) ng/dl Random Cortisol mcg/dl Urine Color Urine Appearance (Clear) Urine pH (4.5-7.5) Ur Specific [place] (1.000-1.030) Urine Protein (Negative) Urine Glucose (UA) (Negative) Urine Ketones (Negative) Urine Blood (Negative) Urine Nitrite (Negative) Urine Bilirubin (Negative) Urine Urobilinogen (Negative) Ur Leukocyte Esterase (Negative) Urine RBC (0-4) /hpf Urine WBC (0-5) /hpf Ur Epithelial Cells (0-5) /lpf Urine Bacteria (Negative) Urine Osmolality (500-800) mOsm/kg Ur Random Sodium mmol/L Nasal Screen MRSA (PCR) (Negative) POC Stool Occult Blood (Negative) Ethyl Alcohol mg/dL (<10.0) mg/dl Enterobacterales (PCR) (NotDetected) E. coli (PCR) (NotDetected) SARS-CoV-2, RNA, NAAT (NEGATIVE) mcr-1 Colistin Res Gene PCR (NotDetected) blaIMP Car res Gene PCR (NotDetected) KPC-Carbap Res Gene PCR (NotDetected) blaNDM Car Res Gene PCR (NotDetected) OXA-48 Carbapenem Resis Gene (PCR) (NotDetected) blaVIM Car Res Gene PCR (NotDetected) CTX-M Gene Resistance (PCR) (NotDetected) Bld Cult ID Panel PCR (NotDetected) Blood Type Blood Type Recheck Antibody Screen Crossmatch 11/15/22 11/15/22 11/15/22 Range/Units 20:29 19:31 19:29 WBC (4.8-10.8) K/ul RBC (4.70-6.10) M/uL Hgb (14.0-18.0) g/dl POC Hgb (14.0-18.0) g/dl Hct (42.0-52.0) % POC Hct (42-52) % MCV (80.0-100.0) fL MCH (25.0-34.0) pg MCHC (32.0-36.0) g/dL RDW Std Deviation (36.4-46.3) fL RDW Coeff of Giancarlo (11.5-14.5) % Plt Count (130-400) K/uL MPV (9.4-12.4) fL Immature Gran % (Auto) % Neut % (Auto) % Lymph % (Auto) % [place] % (Auto) % Eos % (Auto) % Baso % (Auto) % Neut # (Auto) (1.40-6.50) K/uL Lymph # (Auto) (1.2-3.4) K/uL [place] # (Auto) (0.11-0.59) K/uL Eos # (Auto) (0-0.50) K/uL Baso # (Auto) (0-0.2) K/uL Immature Gran # (Auto) (0.01-0.20) K/uL Absolute Nucleated RBC (0-0.12) K/uL Nucleated RBC % (auto) % Toxic Vacuolation Polychromasia Basophilic Stippling Macrocytosis Pappenheimer Bodies Target Cells PT INR APTT PTT Ratio Fibrinogen (184-400) mg/dl Sample Site POC pH (7.35-7.45) POC pCO2 (35-46) mmHg POC pO2 (80-95) mmHg POC HCO3 (19-24) nai/L POC Base Excess (-9-1.8) nai/L ABG pH (Temp Correct) (7.35-7.45) ABG pCO2 (Temp Corrct (35-46) mmHg POC ABG pO2 at Pt Temp POC ABG O2 Sat (90-95) % Rosales Test O2 Delivery Device POC O2 Rate POC FiO2 % Tidal Volume PEEP POC Sodium (135-144) mmol/L Sodium (136-145) mmol/L POC Potassium (3.3-5.0) mmol/L Potassium (3.5-5.1) mmol/L POC Chloride (101-112) mmol/L Chloride (98-107) mmol/L Carbon Dioxide (21-32) mmol/L POC Total CO2 (24-31) mmol/L Anion Gap (3-11) POC Anion Gap (16-25) mmol/L POC BUN (7-18) mg/dl BUN (6-23) mg/dl Creatinine (0.6-1.4) mg/dl POC Creatinine (0.6-1.3) mg/dl Est Cr Clr Drug Dosing ml/min Est GFR ( Amer) ml/min Est GFR (Non-Af Amer) ml/min BUN/Creatinine Ratio (10-20) Glucose (70-99(Fasting)) mg/dl POC Glucose (other) (70-99) mg/dl Estimat Average Glucose mg/dl Hemoglobin A1c (4.5-5.6) % Osmolality 292 (280-300) mOsm/kg Lactate (0.4-2.0) mmol/L Calcium (8.6-10.3) mg/dl POC Ioniz Calcium Lili (1.12-1.32) mmol/l Phosphorus (2.5-4.9) mg/dl Magnesium (1.7-2.4) mg/dl Total Bilirubin (0.2-1.0) mg/dl Direct Bilirubin (0-0.2) mg/dl AST (13-39) U/L ALT (7-52) U/L Alkaline Phosphatase (34-104) U/L Ammonia (18-72) umol/L Total Creatine Kinase (30-223) U/L Troponin I High Sens (0-20) pg/ml Total Protein (6.0-8.3) gm/dl Albumin (3.4-5.0) gm/dl Globulin (2.5-4.0) gm/dl Albumin/Globulin Ratio (0.9-2) Lipase (11-82) U/L Procalcitonin (0-0.5) ng/ml TSH (0.300-4.500) uIu/ml Free T4 (0.61-1.60) ng/dl Random Cortisol mcg/dl Urine Color Urine Appearance (Clear) Urine pH (4.5-7.5) Ur Specific [place] (1.000-1.030) Urine Protein (Negative) Urine Glucose (UA) (Negative) Urine Ketones (Negative) Urine Blood (Negative) Urine Nitrite (Negative) Urine Bilirubin (Negative) Urine Urobilinogen (Negative) Ur Leukocyte Esterase (Negative) Urine RBC (0-4) /hpf Urine WBC (0-5) /hpf Ur Epithelial Cells (0-5) /lpf Urine Bacteria (Negative) Urine Osmolality (500-800) mOsm/kg Ur Random Sodium 11 mmol/L Nasal Screen MRSA (PCR) (Negative) POC Stool Occult Blood Positive A (Negative) Ethyl Alcohol mg/dL (<10.0) mg/dl Enterobacterales (PCR) (NotDetected) E. coli (PCR) (NotDetected) SARS-CoV-2, RNA, NAAT (NEGATIVE) mcr-1 Colistin Res Gene PCR (NotDetected) blaIMP Car res Gene PCR (NotDetected) KPC-Carbap Res Gene PCR (NotDetected) blaNDM Car Res Gene PCR (NotDetected) OXA-48 Carbapenem Resis Gene (PCR) (NotDetected) blaVIM Car Res Gene PCR (NotDetected) CTX-M Gene Resistance (PCR) (NotDetected) Bld Cult ID Panel PCR (NotDetected) Blood Type Blood Type Recheck Antibody Screen Crossmatch 11/15/22 11/15/22 11/15/22 Range/Units 19:29 19:29 19:10 WBC (4.8-10.8) K/ul RBC (4.70-6.10) M/uL Hgb (14.0-18.0) g/dl POC Hgb (14.0-18.0) g/dl Hct (42.0-52.0) % POC Hct (42-52) % MCV (80.0-100.0) fL MCH (25.0-34.0) pg MCHC (32.0-36.0) g/dL RDW Std Deviation (36.4-46.3) fL RDW Coeff of Giancarlo (11.5-14.5) % Plt Count (130-400) K/uL MPV (9.4-12.4) fL Immature Gran % (Auto) % Neut % (Auto) % Lymph % (Auto) % [place] % (Auto) % Eos % (Auto) % Baso % (Auto) % Neut # (Auto) (1.40-6.50) K/uL Lymph # (Auto) (1.2-3.4) K/uL [place] # (Auto) (0.11-0.59) K/uL Eos # (Auto) (0-0.50) K/uL Baso # (Auto) (0-0.2) K/uL Immature Gran # (Auto) (0.01-0.20) K/uL Absolute Nucleated RBC (0-0.12) K/uL Nucleated RBC % (auto) % Toxic Vacuolation Polychromasia Basophilic Stippling Macrocytosis Pappenheimer Bodies Target Cells PT INR APTT PTT Ratio Fibrinogen (184-400) mg/dl Sample Site POC pH (7.35-7.45) POC pCO2 (35-46) mmHg POC pO2 (80-95) mmHg POC HCO3 (19-24) nai/L POC Base Excess (-9-1.8) nai/L ABG pH (Temp Correct) (7.35-7.45) ABG pCO2 (Temp Corrct (35-46) mmHg POC ABG pO2 at Pt Temp POC ABG O2 Sat (90-95) % Rosales Test O2 Delivery Device POC O2 Rate POC FiO2 % Tidal Volume PEEP POC Sodium (135-144) mmol/L Sodium (136-145) mmol/L POC Potassium (3.3-5.0) mmol/L Potassium (3.5-5.1) mmol/L POC Chloride (101-112) mmol/L Chloride (98-107) mmol/L Carbon Dioxide (21-32) mmol/L POC Total CO2 (24-31) mmol/L Anion Gap (3-11) POC Anion Gap (16-25) mmol/L POC BUN (7-18) mg/dl BUN (6-23) mg/dl Creatinine (0.6-1.4) mg/dl POC Creatinine (0.6-1.3) mg/dl Est Cr Clr Drug Dosing ml/min Est GFR ( Amer) ml/min Est GFR (Non-Af Amer) ml/min BUN/Creatinine Ratio (10-20) Glucose (70-99(Fasting)) mg/dl POC Glucose (other) (70-99) mg/dl Estimat Average Glucose mg/dl Hemoglobin A1c (4.5-5.6) % Osmolality (280-300) mOsm/kg Lactate (0.4-2.0) mmol/L Calcium (8.6-10.3) mg/dl POC Ioniz Calcium Lili (1.12-1.32) mmol/l Phosphorus (2.5-4.9) mg/dl Magnesium (1.7-2.4) mg/dl Total Bilirubin (0.2-1.0) mg/dl Direct Bilirubin (0-0.2) mg/dl AST (13-39) U/L ALT (7-52) U/L Alkaline Phosphatase (34-104) U/L Ammonia (18-72) umol/L Total Creatine Kinase (30-223) U/L Troponin I High Sens (0-20) pg/ml Total Protein (6.0-8.3) gm/dl Albumin (3.4-5.0) gm/dl Globulin (2.5-4.0) gm/dl Albumin/Globulin Ratio (0.9-2) Lipase (11-82) U/L Procalcitonin (0-0.5) ng/ml TSH (0.300-4.500) uIu/ml Free T4 (0.61-1.60) ng/dl Random Cortisol mcg/dl Urine Color Dark Yellow Urine Appearance Slightly Cloudy (Clear) Urine pH 5.0 (4.5-7.5) Ur Specific [place] >= 1.030 (1.000-1.030) Urine Protein 2+ H (Negative) Urine Glucose (UA) Trace H (Negative) Urine Ketones Trace H (Negative) Urine Blood 1+ H (Negative) Urine Nitrite Negative (Negative) Urine Bilirubin 2+ H (Negative) Urine Urobilinogen Negative (Negative) Ur Leukocyte Esterase Negative (Negative) Urine RBC 5-10 H (0-4) /hpf Urine WBC 5-10 H (0-5) /hpf Ur Epithelial Cells 10-20 H (0-5) /lpf Urine Bacteria 2+ H (Negative) Urine Osmolality 304 L (500-800) mOsm/kg Ur Random Sodium mmol/L Nasal Screen MRSA (PCR) (Negative) POC Stool Occult Blood (Negative) Ethyl Alcohol mg/dL (<10.0) mg/dl Enterobacterales (PCR) (NotDetected) E. coli (PCR) (NotDetected) SARS-CoV-2, RNA, NAAT NEGATIVE (NEGATIVE) mcr-1 Colistin Res Gene PCR (NotDetected) blaIMP Car res Gene PCR (NotDetected) KPC-Carbap Res Gene PCR (NotDetected) blaNDM Car Res Gene PCR (NotDetected) OXA-48 Carbapenem Resis Gene (PCR) (NotDetected) blaVIM Car Res Gene PCR (NotDetected) CTX-M Gene Resistance (PCR) (NotDetected) Bld Cult ID Panel PCR (NotDetected) Blood Type Blood Type Recheck Antibody Screen Crossmatch 11/15/22 11/15/22 11/15/22 Range/Units 19:05 18:48 18:46 WBC (4.8-10.8) K/ul RBC (4.70-6.10) M/uL Hgb (14.0-18.0) g/dl POC Hgb 12.6 L (14.0-18.0) g/dl Hct (42.0-52.0) % POC Hct 37 L (42-52) % MCV (80.0-100.0) fL MCH (25.0-34.0) pg MCHC (32.0-36.0) g/dL RDW Std Deviation (36.4-46.3) fL RDW Coeff of Giancarlo (11.5-14.5) % Plt Count (130-400) K/uL MPV (9.4-12.4) fL Immature Gran % (Auto) % Neut % (Auto) % Lymph % (Auto) % [place] % (Auto) % Eos % (Auto) % Baso % (Auto) % Neut # (Auto) (1.40-6.50) K/uL Lymph # (Auto) (1.2-3.4) K/uL [place] # (Auto) (0.11-0.59) K/uL Eos # (Auto) (0-0.50) K/uL Baso # (Auto) (0-0.2) K/uL Immature Gran # (Auto) (0.01-0.20) K/uL Absolute Nucleated RBC (0-0.12) K/uL Nucleated RBC % (auto) % Toxic Vacuolation Polychromasia Basophilic Stippling Macrocytosis Pappenheimer Bodies Target Cells PT INR APTT PTT Ratio Fibrinogen (184-400) mg/dl Sample Site POC pH (7.35-7.45) POC pCO2 (35-46) mmHg POC pO2 (80-95) mmHg POC HCO3 (19-24) nai/L POC Base Excess (-9-1.8) nai/L ABG pH (Temp Correct) (7.35-7.45) ABG pCO2 (Temp Corrct (35-46) mmHg POC ABG pO2 at Pt Temp POC ABG O2 Sat (90-95) % Rosales Test O2 Delivery Device POC O2 Rate POC FiO2 % Tidal Volume PEEP POC Sodium 128 L (135-144) mmol/L Sodium 130 L (136-145) mmol/L POC Potassium 6.0 H (3.3-5.0) mmol/L Potassium 5.1 (3.5-5.1) mmol/L POC Chloride 95 L (101-112) mmol/L Chloride 94 L (98-107) mmol/L Carbon Dioxide 18 L (21-32) mmol/L POC Total CO2 21 L (24-31) mmol/L Anion Gap 18 H (3-11) POC Anion Gap 20.0 (16-25) mmol/L POC BUN 41 H (7-18) mg/dl BUN 32 H (6-23) mg/dl Creatinine 2.97 H (0.6-1.4) mg/dl POC Creatinine 3.3 H (0.6-1.3) mg/dl Est Cr Clr Drug Dosing 19.6 ml/min Est GFR ( Amer) 22.9 ml/min Est GFR (Non-Af Amer) 19.8 ml/min BUN/Creatinine Ratio 10.8 (10-20) Glucose 119 H (70-99(Fasting)) mg/dl POC Glucose (other) 115 H (70-99) mg/dl Estimat Average Glucose mg/dl Hemoglobin A1c (4.5-5.6) % Osmolality (280-300) mOsm/kg Lactate (0.4-2.0) mmol/L Calcium 7.7 L (8.6-10.3) mg/dl POC Ioniz Calcium Lili 0.88 L (1.12-1.32) mmol/l Phosphorus 5.2 H (2.5-4.9) mg/dl Magnesium 2.4 (1.7-2.4) mg/dl Total Bilirubin 2.1 H (0.2-1.0) mg/dl Direct Bilirubin (0-0.2) mg/dl AST 107 H (13-39) U/L ALT 27 (7-52) U/L Alkaline Phosphatase 271 H (34-104) U/L Ammonia (18-72) umol/L Total Creatine Kinase (30-223) U/L Troponin I High Sens (0-20) pg/ml Total Protein 5.5 L (6.0-8.3) gm/dl Albumin 2.0 L (3.4-5.0) gm/dl Globulin 3.5 (2.5-4.0) gm/dl Albumin/Globulin Ratio 0.6 L (0.9-2) Lipase (11-82) U/L Procalcitonin (0-0.5) ng/ml TSH (0.300-4.500) uIu/ml Free T4 (0.61-1.60) ng/dl Random Cortisol mcg/dl Urine Color Urine Appearance (Clear) Urine pH (4.5-7.5) Ur Specific [place] (1.000-1.030) Urine Protein (Negative) Urine Glucose (UA) (Negative) Urine Ketones (Negative) Urine Blood (Negative) Urine Nitrite (Negative) Urine Bilirubin (Negative) Urine Urobilinogen (Negative) Ur Leukocyte Esterase (Negative) Urine RBC (0-4) /hpf Urine WBC (0-5) /hpf Ur Epithelial Cells (0-5) /lpf Urine Bacteria (Negative) Urine Osmolality (500-800) mOsm/kg Ur Random Sodium mmol/L Nasal Screen MRSA (PCR) (Negative) POC Stool Occult Blood (Negative) Ethyl Alcohol mg/dL (<10.0) mg/dl Enterobacterales (PCR) (NotDetected) E. coli (PCR) (NotDetected) SARS-CoV-2, RNA, NAAT (NEGATIVE) mcr-1 Colistin Res Gene PCR (NotDetected) blaIMP Car res Gene PCR (NotDetected) KPC-Carbap Res Gene PCR (NotDetected) blaNDM Car Res Gene PCR (NotDetected) OXA-48 Carbapenem Resis Gene (PCR) (NotDetected) blaVIM Car Res Gene PCR (NotDetected) CTX-M Gene Resistance (PCR) (NotDetected) Bld Cult ID Panel PCR (NotDetected) Blood Type Blood Type Recheck A Positive Antibody Screen Crossmatch 11/15/22 11/15/22 11/15/22 Range/Units 18:46 18:46 18:46 WBC 13.23 H (4.8-10.8) K/ul RBC 3.43 L (4.70-6.10) M/uL Hgb 11.3 L (14.0-18.0) g/dl POC Hgb (14.0-18.0) g/dl Hct 31.7 L (42.0-52.0) % POC Hct (42-52) % MCV 92.4 (80.0-100.0) fL MCH 32.9 (25.0-34.0) pg MCHC 35.6 (32.0-36.0) g/dL RDW Std Deviation 57.3 H (36.4-46.3) fL RDW Coeff of Giancarlo 18.2 H (11.5-14.5) % Plt Count 271 (130-400) K/uL MPV 9.7 (9.4-12.4) fL Immature Gran % (Auto) 0.7 % Neut % (Auto) 89.9 % Lymph % (Auto) 4.9 % [place] % (Auto) 4.3 % Eos % (Auto) 0.0 % Baso % (Auto) 0.2 % Neut # (Auto) 11.90 H (1.40-6.50) K/uL Lymph # (Auto) 0.65 L (1.2-3.4) K/uL [place] # (Auto) 0.57 (0.11-0.59) K/uL Eos # (Auto) 0.00 (0-0.50) K/uL Baso # (Auto) 0.02 (0-0.2) K/uL Immature Gran # (Auto) 0.09 (0.01-0.20) K/uL Absolute Nucleated RBC 0.03 (0-0.12) K/uL Nucleated RBC % (auto) 0.2 % Toxic Vacuolation 2+ Polychromasia 1+ Basophilic Stippling Macrocytosis Present Pappenheimer Bodies Occasional Target Cells 1+ PT Cancelled INR Cancelled APTT Cancelled PTT Ratio Cancelled Fibrinogen (184-400) mg/dl Sample Site POC pH (7.35-7.45) POC pCO2 (35-46) mmHg POC pO2 (80-95) mmHg POC HCO3 (19-24) nai/L POC Base Excess (-9-1.8) nai/L ABG pH (Temp Correct) (7.35-7.45) ABG pCO2 (Temp Corrct (35-46) mmHg POC ABG pO2 at Pt Temp POC ABG O2 Sat (90-95) % Rosales Test O2 Delivery Device POC O2 Rate POC FiO2 % Tidal Volume PEEP POC Sodium (135-144) mmol/L Sodium (136-145) mmol/L POC Potassium (3.3-5.0) mmol/L Potassium (3.5-5.1) mmol/L POC Chloride (101-112) mmol/L Chloride (98-107) mmol/L Carbon Dioxide (21-32) mmol/L POC Total CO2 (24-31) mmol/L Anion Gap (3-11) POC Anion Gap (16-25) mmol/L POC BUN (7-18) mg/dl BUN (6-23) mg/dl Creatinine (0.6-1.4) mg/dl POC Creatinine (0.6-1.3) mg/dl Est Cr Clr Drug Dosing ml/min Est GFR ( Amer) ml/min Est GFR (Non-Af Amer) ml/min BUN/Creatinine Ratio (10-20) Glucose (70-99(Fasting)) mg/dl POC Glucose (other) (70-99) mg/dl Estimat Average Glucose mg/dl Hemoglobin A1c (4.5-5.6) % Osmolality (280-300) mOsm/kg Lactate (0.4-2.0) mmol/L Calcium (8.6-10.3) mg/dl POC Ioniz Calcium Lili (1.12-1.32) mmol/l Phosphorus (2.5-4.9) mg/dl Magnesium (1.7-2.4) mg/dl Total Bilirubin (0.2-1.0) mg/dl Direct Bilirubin (0-0.2) mg/dl AST (13-39) U/L ALT (7-52) U/L Alkaline Phosphatase (34-104) U/L Ammonia (18-72) umol/L Total Creatine Kinase (30-223) U/L Troponin I High Sens (0-20) pg/ml Total Protein (6.0-8.3) gm/dl Albumin (3.4-5.0) gm/dl Globulin (2.5-4.0) gm/dl Albumin/Globulin Ratio (0.9-2) Lipase (11-82) U/L Procalcitonin (0-0.5) ng/ml TSH (0.300-4.500) uIu/ml Free T4 (0.61-1.60) ng/dl Random Cortisol mcg/dl Urine Color Urine Appearance (Clear) Urine pH (4.5-7.5) Ur Specific [place] (1.000-1.030) Urine Protein (Negative) Urine Glucose (UA) (Negative) Urine Ketones (Negative) Urine Blood (Negative) Urine Nitrite (Negative) Urine Bilirubin (Negative) Urine Urobilinogen (Negative) Ur Leukocyte Esterase (Negative) Urine RBC (0-4) /hpf Urine WBC (0-5) /hpf Ur Epithelial Cells (0-5) /lpf Urine Bacteria (Negative) Urine Osmolality (500-800) mOsm/kg Ur Random Sodium mmol/L Nasal Screen MRSA (PCR) (Negative) POC Stool Occult Blood (Negative) Ethyl Alcohol mg/dL (<10.0) mg/dl Enterobacterales (PCR) (NotDetected) E. coli (PCR) (NotDetected) SARS-CoV-2, RNA, NAAT (NEGATIVE) mcr-1 Colistin Res Gene PCR (NotDetected) blaIMP Car res Gene PCR (NotDetected) KPC-Carbap Res Gene PCR (NotDetected) blaNDM Car Res Gene PCR (NotDetected) OXA-48 Carbapenem Resis Gene (PCR) (NotDetected) blaVIM Car Res Gene PCR (NotDetected) CTX-M Gene Resistance (PCR) (NotDetected) Bld Cult ID Panel PCR (NotDetected) Blood Type A Positive Blood Type Recheck Antibody Screen NEGATIVE Crossmatch See Detail 11/15/22 Range/Units 17:46 WBC (4.8-10.8) K/ul RBC (4.70-6.10) M/uL Hgb (14.0-18.0) g/dl POC Hgb (14.0-18.0) g/dl Hct (42.0-52.0) % POC Hct (42-52) % MCV (80.0-100.0) fL MCH (25.0-34.0) pg MCHC (32.0-36.0) g/dL RDW Std Deviation (36.4-46.3) fL RDW Coeff of Giancarlo (11.5-14.5) % Plt Count (130-400) K/uL MPV (9.4-12.4) fL Immature Gran % (Auto) % Neut % (Auto) % Lymph % (Auto) % [place] % (Auto) % Eos % (Auto) % Baso % (Auto) % Neut # (Auto) (1.40-6.50) K/uL Lymph # (Auto) (1.2-3.4) K/uL [place] # (Auto) (0.11-0.59) K/uL Eos # (Auto) (0-0.50) K/uL Baso # (Auto) (0-0.2) K/uL Immature Gran # (Auto) (0.01-0.20) K/uL Absolute Nucleated RBC (0-0.12) K/uL Nucleated RBC % (auto) % Toxic Vacuolation Polychromasia Basophilic Stippling Macrocytosis Pappenheimer Bodies Target Cells PT INR APTT PTT Ratio Fibrinogen (184-400) mg/dl Sample Site POC pH (7.35-7.45) POC pCO2 (35-46) mmHg POC pO2 (80-95) mmHg POC HCO3 (19-24) nai/L POC Base Excess (-9-1.8) nai/L ABG pH (Temp Correct) (7.35-7.45) ABG pCO2 (Temp Corrct (35-46) mmHg POC ABG pO2 at Pt Temp POC ABG O2 Sat (90-95) % Rosales Test O2 Delivery Device POC O2 Rate POC FiO2 % Tidal Volume PEEP POC Sodium (135-144) mmol/L Sodium (136-145) mmol/L POC Potassium (3.3-5.0) mmol/L Potassium (3.5-5.1) mmol/L POC Chloride (101-112) mmol/L Chloride (98-107) mmol/L Carbon Dioxide (21-32) mmol/L POC Total CO2 (24-31) mmol/L Anion Gap (3-11) POC Anion Gap (16-25) mmol/L POC BUN (7-18) mg/dl BUN (6-23) mg/dl Creatinine (0.6-1.4) mg/dl POC Creatinine (0.6-1.3) mg/dl Est Cr Clr Drug Dosing ml/min Est GFR ( Amer) ml/min Est GFR (Non-Af Amer) ml/min BUN/Creatinine Ratio (10-20) Glucose (70-99(Fasting)) mg/dl POC Glucose (other) (70-99) mg/dl Estimat Average Glucose mg/dl Hemoglobin A1c (4.5-5.6) % Osmolality (280-300) mOsm/kg Lactate (0.4-2.0) mmol/L Calcium (8.6-10.3) mg/dl POC Ioniz Calcium Lili (1.12-1.32) mmol/l Phosphorus (2.5-4.9) mg/dl Magnesium (1.7-2.4) mg/dl Total Bilirubin (0.2-1.0) mg/dl Direct Bilirubin (0-0.2) mg/dl AST (13-39) U/L ALT (7-52) U/L Alkaline Phosphatase (34-104) U/L Ammonia (18-72) umol/L Total Creatine Kinase (30-223) U/L Troponin I High Sens (0-20) pg/ml Total Protein (6.0-8.3) gm/dl Albumin (3.4-5.0) gm/dl Globulin (2.5-4.0) gm/dl Albumin/Globulin Ratio (0.9-2) Lipase (11-82) U/L Procalcitonin 4.28 H (0-0.5) ng/ml TSH (0.300-4.500) uIu/ml Free T4 (0.61-1.60) ng/dl Random Cortisol mcg/dl Urine Color Urine Appearance (Clear) Urine pH (4.5-7.5) Ur Specific [place] (1.000-1.030) Urine Protein (Negative) Urine Glucose (UA) (Negative) Urine Ketones (Negative) Urine Blood (Negative) Urine Nitrite (Negative) Urine Bilirubin (Negative) Urine Urobilinogen (Negative) Ur Leukocyte Esterase (Negative) Urine RBC (0-4) /hpf Urine WBC (0-5) /hpf Ur Epithelial Cells (0-5) /lpf Urine Bacteria (Negative) Urine Osmolality (500-800) mOsm/kg Ur Random Sodium mmol/L Nasal Screen MRSA (PCR) (Negative) POC Stool Occult Blood (Negative) Ethyl Alcohol mg/dL (<10.0) mg/dl Enterobacterales (PCR) (NotDetected) E. coli (PCR) (NotDetected) SARS-CoV-2, RNA, NAAT (NEGATIVE) mcr-1 Colistin Res Gene PCR (NotDetected) blaIMP Car res Gene PCR (NotDetected) KPC-Carbap Res Gene PCR (NotDetected) blaNDM Car Res Gene PCR (NotDetected) OXA-48 Carbapenem Resis Gene (PCR) (NotDetected) blaVIM Car Res Gene PCR (NotDetected) CTX-M Gene Resistance (PCR) (NotDetected) Bld Cult ID Panel PCR (NotDetected) Blood Type Blood Type Recheck Antibody Screen Crossmatch Diagnostic Findings Exam(s): CT ABDOMEN + PELVIS Without Contrast EXAM: CT Abdomen and Pelvis Without Intravenous Contrast CLINICAL HISTORY: Reason for exam: GIB, hypotension. TECHNIQUE: Axial computed tomography images of the abdomen and pelvis without intravenous contrast. CTDI is 10.79 mGy and DLP is 545.97 mGy-cm. Automated exposure control was utilized for the study. A dose lowering technique was utilized adhering to the principles of ALARA. COMPARISON: No relevant prior studies available. FINDINGS: Lung bases: See below. Pleural space: There is a small left pleural effusion layering 4 cm with adjacent left lung base atelectasis. Heart: Mild cardiomegaly. There is a pacing device in place. Mediastinum: Surgical clips adjacent to the gastroesophageal junction, likely previous hiatal hernia repair. No recurrence. ABDOMEN: Liver: There is fatty infiltration of the liver. No focal liver lesion is identified. Gallbladder and bile ducts: Unremarkable. No calcified stones. No ductal dilation. Pancreas: Unremarkable. No ductal dilation. Spleen: Unremarkable. No splenomegaly. Adrenals: Unremarkable. No mass. Kidneys and ureters: Unremarkable. No obstructing stones. No hydronephrosis. Stomach and bowel: Bowel loops are nondilated. There is wall thickening of the left side of the transverse colon and sigmoid colon consistent with colitis and mild ileus. PELVIS: Appendix: No findings to suggest acute appendicitis. Bladder: The urinary bladder is decompressed by Caraballo catheter. No stones. Reproductive: Unremarkable as visualized. ABDOMEN and PELVIS: Intraperitoneal space: There is a trace amount of free fluid in the pelvis. No free air. Bones/joints: Metallic artifact from left hip arthroplasty. No periprosthetic fracture or dislocation is seen. Moderate multilevel degenerative changes throughout the spine. There is a chronic appearing compression fracture at L1 50%. There is a 20% superior endplate compression fracture at L5. No acute fracture or subluxation is seen. Soft tissues: Anterior abdominal wall hernia superior to the previous abdominal incision. There is herniation of a small amount of the transverse colon without signs of obstruction or incarceration. There is an approximately 4.5 x 2.8 x 5.6 cm left rectus sheath hematoma. Vasculature: Unremarkable. No abdominal aortic aneurysm. Lymph nodes: Unremarkable. No enlarged lymph nodes. IMPRESSION: 1. Bowel loops are nondilated. There is wall thickening of the left side of the transverse colon and sigmoid colon consistent with colitis and mild ileus. 2. There is an approximately 4.5 x 2.8 x 5.6 cm left rectus sheath hematoma.
[2022-11-16 12:27] LABS: INR 1.5 (0.9-1.1); Prothrombin Time 16.2 Seconds (9.0-12.0)
[2022-11-16 12:33] LABS: BUN Creatinine Ratio 10.5 (10-20); Calcium 7.8 mg/dl (8.6-10.3); Creatinine Clr Calc Pharmacy 21.2 ml/min; Est GFR (African American) 25.1 ml/min; Est GFR (Non-African American) 21.6 ml/min; Potassium 3.7 mmol/L (3.5-5.1)
[2022-11-16 12:34] LABS: Basophils # (auto) 0.03 K/uL (0-0.2); Basophils % (auto) 0.3 %; Eosinophils # (auto) 0.01 K/uL (0-0.50); Eosinophils % (auto) 0.1 %; Hematocrit (blood only) 25.9 % (42.0-52.0); Hemoglobin 9.5 g/dl (14.0-18.0); Immature Granulocytes # (auto) 0.12 K/uL (0.01-0.20); Immature Granulocytes % (auto) 1.3 %; Lymphocytes # (auto) 0.45 K/uL (1.2-3.4); Lymphocytes % (auto) 4.9 %; Mean Corpuscular Hemoglobin 30.9 pg (25.0-34.0); Mean Corpuscular Hgb Conc 36.7 g/dL (32.0-36.0); Mean Corpuscular Volume 84.4 fL (80.0-100.0); Mean Platelet Volume 9.8 fL (9.4-12.4); Monocytes # (auto) 0.51 K/uL (0.11-0.59); Monocytes % (auto) 5.6 %; Neutrophils # (auto) 7.99 K/uL (1.40-6.50); Neutrophils % (auto) 87.8 %; Nucleated RBC # (auto) 0.03 K/uL (0-0.12); Nucleated RBC % (auto) 0.3 %; Platelet Count 123 K/uL (130-400); Polychromasia 1+; RDW Coefficient of Variation 16.5 % (11.5-14.5); RDW Standard Deviation 46.5 fL (36.4-46.3); Red Blood Count 3.07 M/uL (4.70-6.10); Target Cells 2+; Toxic Vacuolation 2+; White Blood Count 9.11 K/ul (4.8-10.8)
--- NOTE | 2022-11-16 12:38 | Communication Note ---
Date of Service: November 16, 2022 Current Inpatient Medications Acetaminophen (Acetaminophen 325 Mg Tab) 325 mg PO Q6H PRN PRN Reason: Mild Pain (Scale 1, 2, 3) Stop: 12/15/22 21:57 Albuterol (Albut/Ipratrop 3mg/0.5mg Neb 3 Ml Vial) 3 ml NEB Q4R PRN; Protocol PRN Reason: Shortness Of Breath Or Wheezing Stop: 12/16/22 06:59 Amiodarone HCl (Amiodarone 200 Mg Tab) 100 mg PO BID [facility] Stop: 12/15/22 23:28 Last Admin: 11/16/22 08:39 Dose: Not Given Fentanyl Citrate (Fentanyl Citrate Pf 100 Mcg/2 Ml Vial) 50 mcg IV Q2H PRN PRN Reason: Moderate Pain (4,5,6) on NRS Stop: 11/30/22 09:43 Amiodarone HCl/Dextrose (Nexterone / D5w) 360 mg in 200 mls @ 16.667 mls/hr IV .Q12H [facility] Stop: 12/16/22 03:29 Last Infusion: 11/16/22 09:03 Dose: 0 mg/min, 0 mls/hr Promethazine HCl 6.25 mg/ (Sodium Chloride) 50.25 mls @ 201 mls/hr IV Q6H PRN PRN Reason: Nausea And Vomiting Stop: 12/15/22 21:57 Piperacillin Sod/Tazobactam (Sod 4.5 gm/ Dextrose) 120 mls @ 30 mls/hr IV Q12H [facility]; Protocol Stop: 11/26/22 05:59 Last Infusion: 11/16/22 09:54 Dose: Infused Norepinephrine Bitartrate (Levophed/D5w) 4 mg in 250 mls @ 40.219 mls/hr IV .Q6H13M [facility]; Protocol Stop: 12/16/22 03:29 Last Titration: 11/16/22 09:13 Dose: 0.15 mcg/kg/min, 40.2 mls/hr Sodium Chloride (Nss) 250 mls @ 15 mls/hr IV .[id number] PRN PRN Reason: For Transfusion Duration Stop: 11/16/22 13:44 Vasopressin 20 units/ Sodium (Chloride) 101 mls @ 12.12 mls/hr IV .Q8H20M [facility] Stop: 12/16/22 03:59 Last Admin: 11/16/22 10:23 Dose: 0.04 unit/min, 12.1 mls/hr Midazolam HCl (Versed) 125 mg in 250 mls @ 2 mls/hr IV .Q96H [facility]; Protocol Stop: 12/16/22 09:44 Last Admin: 11/16/22 10:24 Dose: Not Given Pantoprazole Sodium 40 mg/ (Syringe) 10 mls @ 5 mls/min IV BID [facility] Stop: 12/16/22 09:59 Last Admin: 11/16/22 10:20 Dose: 5 mls/min Midazolam HCl (Midazolam Bolus From Bag) 2 mg IV Q60M PRN PRN Reason: Sedation Stop: 12/16/22 09:43 Miscellaneous (Icu Protocol For Hyperglycemia) 1 each N/A ACHS [facility] Stop: 11/18/22 07:29 Last Admin: 11/16/22 12:08 Dose: 1 each Miscellaneous Information (Vancomycin Consult Active) 1 each N/A UD PRN PRN Reason: Consult Stop: 12/16/22 06:16 Multivitamins (Multivitamin Tab) 1 tab PO DAILY [facility] Stop: 12/16/22 08:59 Last Admin: 11/16/22 08:39 Dose: Not Given Oxycodone HCl (Oxycodone Hcl Ir 5 Mg Tab (Immediate Release)) 5 mg PO Q4H PRN PRN Reason: Pain Stop: 11/29/22 21:57 Thiamine HCl (Thiamine Hcl 100 Mg Tab) 100 mg PO DAILY [facility] Stop: 12/16/22 08:59 Last Admin: 11/16/22 08:39 Dose: Not Given
--- NOTE | 2022-11-16 12:38 | Hospitalist Progress Note ---
Date of Service November 16, 2022 Assessment & Plan (1) Hypotension: Plan: Septic shock Acute kidney injury likely ATN Atrial fibrillation with RVR Acute GI bleed Acute respiratory failure with hypoxia Acute metabolic encephalopathy Supratherapeutic INR Acute colitis Acute blood loss anemia Rectus sheath hematoma Lactic acidosis Hyponatremia Possible urinary tract infection Gram-negative bacilli bacteremia Abnormal echo Anion gap metabolic acidosis Other chronic conditions: Cirrhosis, hypertension, atrial fibrillation on Eliquis, past alcohol abuse, s/p recent polypectomy--cancerous, cardiac pacemaker, S/P Watchman device, H/O CHF, PVD, dural AV fistula, ongoing tobacco abuse --ECHO: Left ventricle is normal in size. Mild concentric LVH. Left ventricle systolic function is normal. Left atrium is moderately dilated. EF 50 to 55%. Mitral valve leaflets are moderately thickened. Moderate mitral regurgitation. Severe tricuspid regurgitation. Doppler findings do not suggest pulmonary hypertension. --CT Head:Mild cerebral atrophy and periventricular white matter low density consistent with chronic small vessel disease and/or senescent changes.No acute large vessel infarct or intracranial hemorrhage is seen. --CT ABD: Bowel loops are nondilated. There is wall thickening of the left side of the transverse colon and sigmoid colon consistent with colitis and mild ileus. There is an approximately 4.5 x 2.8 x 5.6 cm left rectus sheath hematoma. --CT Chest:Left pleural effusion layering 4 cm posteriorly with small amount of left lung base atelectasis. The lungs are otherwise clear. 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 No sign of hematoma. Mild cardiomegaly pacing device in place. --CXR:. Interval progression of the pulmonary edema.. Satisfactory support line placement. Small left pleural effusions and left basilar densities persist. --Blood cultures 2/4: Gram-negative bacilli --Urine culture pending Plan: Continue ventilatory support, appreciate tower climber help S/P 4 units of FFP's, 2 cryoprecipitate's S/P 2 units PRBCs IV amiodarone discontinued Currently on Levophed and vasopressin. Empirically on Zosyn, vancomycin Monitor H&H and transfuse PRBCs as needed Appreciate tower climber, GI, cardiology and nephrology input Vent settings: Respiratory rate 24, tidal volume 350, PEEP 7, FiO2 45% Currently anuric, needs CVVH Continue current care in ICU, pending transfer to [facility], [place]. Discussed with , tower climber at [facility]. Patient would need IR intervention, CVVH. Admission and Anticipated Discharge Date Admission Date: November 15, 2022 Subjective Patient is seen and examined at bedside. Currently intubated Patient has ongoing bleeding issues Currently on pressors Discussed with tower climber who recommended transfer to tertiary [facility] Discussed with at [facility], [place] for possible IR intervention, CVVH Updated patient's son over the phone Review of Systems Review of Systems: Unobtainable due to endotracheal tube Physical Exam Physical Exam: Physical Exam: Vitals signs as noted above General Appearance:Moderately built and nourished, Intubated Head: normocephalic, Atraumatic Eyes: normal inspection, EOMI Neck: supple, Trachea midline Respiratory/Chest: Normal breath sounds, CTA, No accessory muscle use Cardiovascular: Irregularly irregular, No murmur Abdomen/GI:Soft, Non tender, Bowel sounds present Extremities/Musculoskeletal:normal inspection, B/LE LE wounds in dressing Neurologic/Psych: Intubated. Currently unable to perform complete neurological exam Skin: normal color, warm Results & Data Results & Data Vital Signs (Past 12 Hours) Vital Signs Temp Pulse Pulse Resp BP BP Pulse Ox 11/16/22 10:00 105 H 24 97 11/16/22 10:53 35.6 C L 97 H 24 112/64 100 11/16/22 10:18 35.7 C L 106 H 22 107/62 96 11/16/22 10:17 35.7 C L 104 H 22 105/59 L 97 11/16/22 10:16 35.7 C L 98 H 22 108/65 96 11/16/22 10:12 35.7 C L 102 H 24 93/70 L 97 11/16/22 10:09 36.1 C L 90 24 108/64 93 11/16/22 09:43 35.9 C L 97 H 22 94/61 L 96 11/16/22 09:17 36.1 C L 102 H 24 95/61 L 96 11/16/22 09:27 36.0 C L 93 H 24 71/55 L 93 11/16/22 09:23 36 C L 93 H 24 71/55 L 96 11/16/22 08:47 36.1 C L 116 H 20 88/73 L 94 11/16/22 08:32 36.1 C L 120 H 20 88/73 L 96 11/16/22 08:13 35.9 C L 116 H 24 130/110 H 95 11/16/22 08:29 35.9 C L 124 H 24 131/113 H 96 11/16/22 08:17 36.2 C L 124 H 26 H 131/113 H 95 11/16/22 08:12 36.2 C L 114 H 24 151/106 H 95 11/16/22 07:51 36.2 C L 125 H 24 151/106 H 95 11/16/22 07:53 36.2 C L 99 H 22 124/69 100 11/16/22 07:41 36.2 C L 111 H 20 124/69 100 11/16/22 07:29 36.2 C L 110 H 20 130/87 97 11/16/22 07:28 36.2 C L 110 H 20 130/87 97 11/16/22 06:49 36.5 C 108 H 22 113/96 93 11/16/22 06:41 36.5 C 113 H 26 H 113/96 97 11/16/22 06:32 36.5 C 116 H 19 117/83 97 11/16/22 06:11 36.5 C 124 H 24 98/78 L 99 11/16/22 05:56 36.5 C 118 H 20 111/94 94 11/16/22 05:33 36.6 C 123 H 22 117/75 99 11/16/22 04:37 11/16/22 03:13 36.5 C 145 H 22 86/42 L 97 11/16/22 02:35 97 O2 Del Method O2 Flow Rate FiO2 11/16/22 10:00 45 11/16/22 10:53 11/16/22 10:18 11/16/22 10:17 11/16/22 10:16 11/16/22 10:12 11/16/22 10:09 11/16/22 09:43 70 11/16/22 09:17 11/16/22 09:27 11/16/22 09:23 70 11/16/22 08:47 4 11/16/22 08:32 4 11/16/22 08:13 4 11/16/22 08:29 4 11/16/22 08:17 11/16/22 08:12 4 11/16/22 07:51 4 11/16/22 07:53 4 11/16/22 07:41 4 11/16/22 07:29 4 11/16/22 07:28 4 11/16/22 06:49 4 11/16/22 06:41 4 11/16/22 06:32 4 11/16/22 06:11 11/16/22 05:56 11/16/22 05:33 4 11/16/22 04:37 Nasal Cannula 4 11/16/22 03:13 Nasal Cannula 1 11/16/22 02:35 Room Air Laboratory Results Short CBC 11/15/22 11/15/22 11/16/22 Range/Units 18:46 21:40 04:29 WBC 13.23 H 8.09 (4.8-10.8) K/ul Hgb 11.3 L 10.6 L 8.7 L (14.0-18.0) g/dl Hct 31.7 L 29.0 L 24.6 L (42.0-52.0) % Plt Count 271 193 (130-400) K/uL 11/16/22 Range/Units 11:49 WBC 9.11 (4.8-10.8) K/ul Hgb 9.5 L (14.0-18.0) g/dl Hct 25.9 L (42.0-52.0) % Plt Count 123 L (130-400) K/uL BMP 11/15/22 11/16/22 11/16/22 18:46 01:31 11:49 Sodium 130 L 130 L 132 L Potassium 5.1 TNP 3.7 D Chloride 94 L 98 97 L Carbon Dioxide 18 L 18 L 18 L BUN 32 H 32 H 29 H Creatinine 2.97 H 3.00 H 2.76 H Glucose 119 H 104 H 116 H Calcium 7.7 L 7.5 L 7.8 L Cardiac Enzymes 11/16/22 Range/Units 04:29 Total Creatine Kinase 661 H (30-223) U/L Liver Function 11/15/22 11/15/22 11/16/22 Range/Units 18:46 21:40 01:31 Total Bilirubin 2.1 H 2.1 H (0.2-1.0) mg/dl Direct Bilirubin 1.1 H (0-0.2) mg/dl AST 107 H TNP (13-39) U/L ALT 27 23 (7-52) U/L Alkaline Phosphatase 271 H 193 H (34-104) U/L Albumin 2.0 L 2.2 L (3.4-5.0) gm/dl 11/16/22 Range/Units 04:29 Total Bilirubin 2.0 H (0.2-1.0) mg/dl Direct Bilirubin 1.2 H (0-0.2) mg/dl AST 93 H (13-39) U/L ALT 22 (7-52) U/L Alkaline Phosphatase 189 H (34-104) U/L Albumin 2.0 L (3.4-5.0) gm/dl Urine 11/15/22 Range/Units 19:29 Urine Color Dark Yellow Urine Appearance Slightly Cloudy (Clear) Urine pH 5.0 (4.5-7.5) Ur Specific [place] >= 1.030 (1.000-1.030) Urine Protein 2+ H (Negative) Urine Glucose (UA) Trace H (Negative)
[2022-11-16 12:41] LABS: Fibrinogen 348 mg/dl (184-400)
--- NOTE | 2022-11-16 12:44 | Procedure Note ---
Procedure Note Date of Service November 16, 2022 Note INTUBATION PROCEDURE NOTE: Provider: Esteban Bear MD A time-out was completed verifying correct patient, procedure, site, positioning. Patient was evaluated and required intubation for respiratory failure, altered mental status, and ongoing septic/hemorrhagic shock. Sedative agent used: Etomidate 40 mg, Versed 5 mg Paralysis agent used: None Emergent consent was implied given patients rapidly declining clinical status and need for airway protection. I did discuss the patient's poor clinical status with his son who agreed to intubation arterial lines and resuscitation as needed The patient was prepared in the appropriate fashion. Patient was sedated using etomidate and Versed. The patient was easily ventilated using [id number] to achieve adequate oxygenation. A 8.0 endotracheal tube was placed under video la ryngoscopy to 23 cm at the incisors. The stylette was removed and balloon was inflated with 10mL of air. Appropriate Colorimetric change was appreciated. Bilateral breath sounds were heard without air sounds in the abdomen. Postintubation chest x-ray pending Coding CPT Codes Resuscitation - Resuscitation: 22583 Endotracheal Intubation, emergency ([id number]) [facility] Procedure Codes (Charges) Resuscitation Resuscitation: 16494 Endotracheal Intubation, emergency
--- NOTE | 2022-11-16 12:44 | Electrocardiogram Report ---
Test Reason : Blood Pressure : / mmHG Vent. Rate : 166 BPM Atrial Rate : 192 BPM P-R Int : 000 ms QRS Dur : 066 ms QT Int : 254 ms P-R-T Axes : 000 014 141 degrees QTc Int : 422 ms Poor data quality, interpretation may be adversely affected Atrial fibrillation with rapid ventricular response Low voltage QRS Abnormal ECG No previous ECGs available Confirmed by Johan Paz ([id number]) on 11/16/2022 12:44:15 PM Referred By: REFERRED SELF Confirmed By:Johan Paz
--- NOTE | 2022-11-16 13:00 | Procedure Note ---
Procedure Note Date of Service November 16, 2022 Note ARTERIAL LINE PROCEDURE NOTE: Procedure: Arterial Line Placement, right femoral Provider: Esteban Bear MD Indication: Monitoring on Pressors Anesthesia: None Discussed with son on the phone. He agreed to proceed A time-out was completed verifying correct patient, procedure, site, positioning, and implant(s) or special equipment if applicable. Using ultrasound, the femoral vein and artery were identified. Skin was prepped and draped in normal fashion. Under direct ultrasound guidance, the right femoral artery was accessed using an 18-gauge needle. A wire was passed through the needle removing the needle and leaving the wire in place. Wire was verified to be within the artery. Catheter was then threaded over the wire and the wire removed leaving the catheter in place. Arterial blood flow was returned and a waveform was transduced. Good waveform was observed. The patient tolerated the procedure well. Blood Loss: Minimal Complications: None Coding CPT Codes Tubes, Drains, and Vasc Access - Tubes, Drains, and Vasc Access: [id number] Arterial Cath/Cannulation Sampling/Monitoring/Transfusion ([id number]) Tubes, Drains, and Vasc Access - Tubes, Drains, and Vasc Access: [id number] Ultrasound Guidance For Vascular ([id number]) [facility] Procedure Codes (Charges) Tubes, Drains, and Vasc Access Procedure 1: Tubes, Drains, and Vasc Access: [id number] Arterial Cath/Cannulation Sampling/Monitoring/Transfusion Procedure 2: Tubes, Drains, and Vasc Access: [id number] Ultrasound Guidance For Vascular
--- NOTE | 2022-11-16 13:03 | Communication Note ---
Date of Service: November 16, 2022 Patient seen and examined. EMR reviewed. Discussed with RAMIRO overnight. Patient was also discussed on multidisciplinary rounds and with the bedside critical care nurse. I assessed the patient immediately on arrival to the ICU this morning. He remained in multifactorial shock on 2 pressors. His mental status was waning. Decision was made to proceed with intubation after it was discussed with the patient's son. The patient was intubated and an arterial line placed. Please see separate notes. Discussed briefly with nephrology. The patient may require renal replacement therapy and given his marginal hemodynamics, its unlikely this can be safely provided here. In addition, preliminary discussions with surgery and GI indicate that they would favor transporting the patient to a higher level of care. We do not have interventional radiology available here. Discussed with the draw frame runner at the DC in [place] where the patient had his colonoscopy performed. They have agreed to accept the patient in transfer as we do not have IR capabilities for potential embolization or capabilities for continuous renal replacement therapy here. The patient's blood cultures are now positive for E. coli. He is currently on broad-spectrum antibiotics. These will be continued. Overall the patient's prognosis appears significantly guarded given multiorgan system dysfunction. Discussed with the hospitalist who is in the process of arranging transport currently. Discussed with cardiology. His echocardiogram shows his EF to be adequate. The watchman is in place. Unclear his indication for anticoagulation at this point in time. We will hold additional amiodarone. An additional 95 minutes in critical care time exclusive of procedures was spent in evaluation management stabilization of this patient. Coding Level of Care Code 76067 CRITICAL CARE EA ADD 30M Comment [id number]
--- NOTE | 2022-11-16 13:04 | Discharge Summary ---
Date of Service November 16, 2022 Admission HPI Per Admitting Provider History obtained from patient, family, and records. Limited history from patient secondary to disoriented state. Medical history significant for CHF, A-fib status post PPM on Eliquis, PVD, hypertension, chronic back pain secondary to thoracic spine fracture status post surgery on narcotics, dural AV fistula as per records, recent diagnosis of colonic malignancy, past alcohol abuse, ongoing tobacco abuse. Patient underwent follow-up colonoscopic polypectomy at the [facility] in [place]. Family informed of malignancy on pathology a few days ago over the phone. Family instructed to follow-up with his [place] [facility] specialist. Few days ago, patient noted by family to be increasingly confused. Fall at home 2 days ago. Yesterday, patient complained of lower abdominal pain associated with nausea symptoms. Bloody bowel movements. No account of hematemesis/coffee-ground emesis/melena as per family. No fever, no chills. No chest pain. Patient complaining of some shortness of breath. Patient noted to be hypotensive upon EMS arrival at home. Patient noted to be in rapid A-fib upon arrival at the ER Lowest SBP at the ER was 90s. Medical History as above Surgical History : PPM, splenectomy, partial gastrectomy, thoracic spine surgery Family History : Lung cancer, DM Personal/Social history : Few cigarettes a day, past alcohol abuse Admission Exam Per Admitting Provider GENERAL: Disoriented, no respiratory distress SKIN: Pallor, warm HEENT: Pale palpebral conjunctivae, no ptosis, dry buccal mucosa, nasal cannula in place NECK : Supple, no tenderness CHEST : Decreased breath sounds, no tenderness HEART : Irregular, tachycardic, systolic murmur ABDOMEN: Marked distention, hypogastric tenderness EXTREMITIES : Bilateral LE swelling, no LE tenderness, no other conspicuous deformities noted NEUROLOGIC : Disoriented, no facial asymmetry, gait and stance not assessed Principal Diagnosis Septic shock Acute kidney injury likely ATN Atrial fibrillation with RVR Acute GI bleed Acute respiratory failure with hypoxia Acute metabolic encephalopathy Supratherapeutic INR Acute colitis Acute blood loss anemia Rectus sheath hematoma Lactic acidosis Hyponatremia Possible urinary tract infection Gram-negative bacilli bacteremia Abnormal echo Anion gap metabolic acidosis Discharge Data Allergies Allergy/AdvReac Type Severity Reaction Status Date / Time fentanyl AdvReac Mild itch Verified 09/13/14 14:09 Consultations 11/15/22 20:35 ED Decision to Admit Stat 11/15/22 21:58 Consult General Surgery Routine 11/16/22 04:03 Consult Cardiology Routine 11/16/22 04:12 Consult Armature Bander Routine 11/16/22 05:53 Consult Gastroenterology Routine 11/16/22 05:59 Consult Nephrology Routine 11/16/22 12:37 Burn CD for patient Stat Ordered Studies 11/15/22 18:41 CT head/brain wo con Stat 11/15/22 19:24 CT abd pelvis wo con Stat CT chest diagnostic wo con Stat Laboratory Results WBC 9.11 K/ul (4.8-10.8) 11/16/22 11:49 RBC 3.07 M/uL (4.70-6.10) L 11/16/22 11:49 Hgb 9.5 g/dl (14.0-18.0) L 11/16/22 11:49 POC Hgb 9.2 g/dl (14.0-18.0) L 11/16/22 09:32 Hct 25.9 % (42.0-52.0) L 11/16/22 11:49 POC Hct 27 % (42-52) L 11/16/22 09:32 MCV 84.4 fL (80.0-100.0) D 11/16/22 11:49 MCH 30.9 pg (25.0-34.0) 11/16/22 11:49 MCHC 36.7 g/dL (32.0-36.0) H 11/16/22 11:49 RDW Std Deviation 46.5 fL (36.4-46.3) H 11/16/22 11:49 RDW Coeff of Giancarlo 16.5 % (11.5-14.5) H 11/16/22 11:49 Plt Count 123 K/uL (130-400) L 11/16/22 11:49 MPV 9.8 fL (9.4-12.4) 11/16/22 11:49 Immature Gran % (Auto) 1.3 % 11/16/22 11:49 Neut % (Auto) 87.8 % 11/16/22 11:49 Lymph % (Auto) 4.9 % 11/16/22 11:49 Archuleta % (Auto) 5.6 % 11/16/22 11:49 Eos % (Auto) 0.1 % 11/16/22 11:49 Baso % (Auto) 0.3 % 11/16/22 11:49 Neut # (Auto) 7.99 K/uL (1.40-6.50) H 11/16/22 11:49 Lymph # (Auto) 0.45 K/uL (1.2-3.4) L 11/16/22 11:49 Archuleta # (Auto) 0.51 K/uL (0.11-0.59) 11/16/22 11:49 Eos # (Auto) 0.01 K/uL (0-0.50) 11/16/22 11:49 Baso # (Auto) 0.03 K/uL (0-0.2) 11/16/22 11:49 Immature Gran # (Auto) 0.12 K/uL (0.01-0.20) 11/16/22 11:49 Absolute Nucleated RBC 0.03 K/uL (0-0.12) 11/16/22 11:49 Nucleated RBC % (auto) 0.3 % 11/16/22 11:49 Toxic Vacuolation 2+ 11/16/22 11:49 Polychromasia 1+ 11/16/22 11:49 Basophilic Stippling Occasional 11/16/22 04:29 Macrocytosis Present 11/15/22 18:46 Pappenheimer Bodies Occasional 11/16/22 04:29 Target Cells 2+ 11/16/22 11:49 PT 16.2 Seconds (9.0-12.0) H 11/16/22 11:49 INR 1.5 (0.9-1.1) H 11/16/22 11:49 APTT 101.4 Seconds (21.0-31.0) H* 11/16/22 04:29 PTT Ratio 3.6 11/16/22 04:29 Fibrinogen 348 mg/dl (184-400) D 11/16/22 11:49 Sample Site Art Line 11/16/22 09:32 POC pH 7.39 (7.35-7.45) 11/16/22 09:32 POC pCO2 37 mmHg (35-46) 11/16/22 09:32 POC pO2 328 mmHg (80-95) H 11/16/22 09:32 POC HCO3 22 nai/L (19-24) 11/16/22 09:32 POC Total CO2 23 mmol/L (24-31) L 11/16/22 09:32 POC Base Excess -3.0 nai/L (-9-1.8) 11/16/22 09:32 ABG pH (Temp Correct) 7.406 (7.35-7.45) 11/16/22 09:32 ABG pCO2 (Temp Corrct 35 mmHg (35-46) 11/16/22 09:32 POC ABG pO2 at Pt Temp 323 11/16/22 09:32 POC ABG O2 Sat 100.0 % (90-95) H 11/16/22 09:32 Rosales Test NA 11/16/22 09:32 O2 Delivery Device Ventilator 11/16/22 09:32 POC O2 Rate 18 11/16/22 09:32 POC FiO2 70 % 11/16/22 09:32 Tidal Volume 350 11/16/22 09:32 PEEP 5 11/16/22 09:32 POC Sodium 131 mmol/L (135-144) L 11/16/22 09:32 Sodium 132 mmol/L (136-145) L 11/16/22 11:49 POC Potassium 3.6 mmol/L (3.3-5.0) 11/16/22 09:32 Potassium 3.7 mmol/L (3.5-5.1) D 11/16/22 11:49 POC Chloride 95 mmol/L (101-112) L 11/15/22 18:48 Chloride 97 mmol/L (98-107) L 11/16/22 11:49 Carbon Dioxide 18 mmol/L (21-32) L 11/16/22 11:49 POC Total CO2 21 mmol/L (24-31) L 11/15/22 18:48 Anion Gap 17 (3-11) H 11/16/22 11:49 POC Anion Gap 20.0 mmol/L (16-25) 11/15/22 18:48 POC BUN 41 mg/dl (7-18) H 11/15/22 18:48 BUN 29 mg/dl (6-23) H 11/16/22 11:49 Creatinine 2.76 mg/dl (0.6-1.4) H 11/16/22 11:49 POC Creatinine 3.3 mg/dl (0.6-1.3) H 11/15/22 18:48 Est Cr Clr Drug Dosing 21.2 ml/min 11/16/22 11:49 Est GFR ( Amer) 25.1 ml/min 11/16/22 11:49 Est GFR (Non-Af Amer) 21.6 ml/min 11/16/22 11:49 BUN/Creatinine Ratio 10.5 (10-20) 11/16/22 11:49 Glucose 116 mg/dl (70-99(Fasting)) H 11/16/22 11:49 POC Glucose (other) 115 mg/dl (70-99) H 11/16/22 11:48 Estimat Average Glucose 94 mg/dl 11/15/22 21:40 Hemoglobin A1c 4.9 % (4.5-5.6) 11/15/22 21:40 Osmolality 292 mOsm/kg (280-300) 11/15/22 20:29 Lactate 5.9 mmol/L (0.4-2.0) H* 11/16/22 11:49 Calcium 7.8 mg/dl (8.6-10.3) L 11/16/22 11:49 POC Ioniz Calcium Lili 0.88 mmol/l (1.12-1.32) L 11/15/22 18:48 Phosphorus 5.2 mg/dl (2.5-4.9) H 11/15/22 18:46 Magnesium 2.4 mg/dl (1.7-2.4) 11/15/22 18:46 Total Bilirubin 2.0 mg/dl (0.2-1.0) H 11/16/22 04:29 Direct Bilirubin 1.2 mg/dl (0-0.2) H 11/16/22 04:29 AST 93 U/L (13-39) H 11/16/22 04:29 ALT 22 U/L (7-52) 11/16/22 04:29 Alkaline Phosphatase 189 U/L (34-104) H 11/16/22 04:29 Ammonia 45.0 umol/L (18-72) 11/15/22 21:40 Total Creatine Kinase 661 U/L (30-223) H 11/16/22 04:29 Troponin I High Sens 42.5 pg/ml (0-20) H 11/16/22 01:31 Total Protein 4.3 gm/dl (6.0-8.3) L 11/16/22 04:29 Albumin 2.0 gm/dl (3.4-5.0) L 11/16/22 04:29 Globulin 2.7 gm/dl (2.5-4.0) 11/16/22 01:31 Albumin/Globulin Ratio 0.8 (0.9-2) L 11/16/22 01:31 Lipase 6 U/L (11-82) L 11/15/22 21:40 Procalcitonin 4.28 ng/ml (0-0.5) H 11/15/22 17:46 TSH 5.570 uIu/ml (0.300-4.500) H 11/15/22 20:59 Free T4 0.86 ng/dl (0.61-1.60) 11/15/22 20:59 Random Cortisol > 60.00 mcg/dl 11/16/22 04:37 Urine Color Dark Yellow 11/15/22 19:29 Urine Appearance Slightly Cloudy (Clear) 11/15/22 19: Urine pH 5.0 (4.5-7.5) 11/15/22 19:29 Ur Specific [place] >= 1.030 (1.000-1.030) 11/15/22 19:29 Urine Protein 2+ (Negative) H 11/15/22 19: Urine Glucose (UA) Trace (Negative) H 11/15/22 19: Urine Ketones Trace (Negative) H 11/15/22 19:29 Urine Blood 1+ (Negative) H 11/15/22 19: Urine Nitrite Negative (Negative) 11/15/22 19: Urine Bilirubin 2+ (Negative) H 11/15/22 19:29 Urine Urobilinogen Negative (Negative) 11/15/22 19: Ur Leukocyte Esterase Negative (Negative) 11/15/22 19:29 Urine RBC 5-10 /hpf (0-4) H 11/15/22 19:29 Urine WBC 5-10 /hpf (0-5) H 11/15/22 19:29 Ur Epithelial Cells 10-20 /lpf (0-5) H 11/15/22 19:29 Urine Bacteria 2+ (Negative) H 11/15/22 19: Urine Osmolality 304 mOsm/kg (500-800) L 11/15/22 19:29 Ur Random Sodium 11 mmol/L 11/15/22 19:29 Nasal Screen MRSA (PCR) Positive (Negative) A 11/16/22 04:15 POC Stool Occult Blood Positive (Negative) A 11/15/22 19:31 Ethyl Alcohol mg/dL < 10.0 mg/dl (<10.0) 11/15/22 21:40 Enterobacterales (PCR) DETECTED (NotDetected) A 11/15/22 21:40 E. coli (PCR) DETECTED (NotDetected) A 11/15/22 21:40 SARS-CoV-2, RNA, NAAT NEGATIVE (NEGATIVE) 11/15/22 19:10 mcr-1 Colistin Res Gene PCR Not Detected (NotDetected) 11/15/22 21:40 blaIMP Car res Gene PCR Not Detected (NotDetected) 11/15/22 21:40 KPC-Carbap Res Gene PCR Not Detected (NotDetected) 11/15/22 21:40 blaNDM Car Res Gene PCR Not Detected (NotDetected) 11/15/22 21:40 OXA-48 Carbapenem Resis Gene (PCR) Not Detected (NotDetected) 11/15/22 21:40 blaVIM Car Res Gene PCR Not Detected (NotDetected) 11/15/22 21:40 CTX-M Gene Resistance (PCR) Not Detected (NotDetected) 11/15/22 21:40 Bld Cult ID Panel PCR See PCR Comment (NotDetected) 11/15/22 21:40 Blood Type A Positive 11/15/22 18:46 Blood Type Recheck A Positive 11/15/22 19:05 Antibody Screen NEGATIVE 11/15/22 18:46 Crossmatch See Detail 11/15/22 18:[address] 11/15/22 18:41 Exam(s): CT HEAD Without Contrast EXAM: CT Head Without Intravenous Contrast CLINICAL HISTORY: Reason for exam: ams. TECHNIQUE: Axial computed tomography images of the head/brain without intravenous contrast. CTDI is 10.36 mGy and DLP is 296.47 mGy-cm. Automated exposure control was utilized for the study. A dose lowering technique was utilized adhering to the principles of ALARA. COMPARISON: No relevant prior studies available. FINDINGS: Brain: Mild cerebral atrophy and periventricular white matter low density consistent with chronic small vessel disease and/or senescent changes. No acute large vessel infarct or intracranial hemorrhage is seen. Ventricles: Unremarkable. No ventriculomegaly. Bones/joints: Unremarkable. No acute fracture. Soft tissues: Unremarkable. Sinuses: Unremarkable as visualized. No acute sinusitis. Mastoid air cells: Unremarkable as visualized. No mastoid effusion. IMPRESSION: Mild cerebral atrophy and periventricular white matter low density consistent with chronic small vessel disease and/or senescent changes. No acute large vessel infarct or intracranial hemorrhage is seen. Electronically signed by: Johnson Perrin MD 11/15/22 20:29 PM Abdomen/Pelvis CT 11/15/22 19:24 Exam(s): CT ABDOMEN + PELVIS Without Contrast EXAM: CT Abdomen and Pelvis Without Intravenous Contrast CLINICAL HISTORY: Reason for exam: GIB, hypotension. TECHNIQUE: Axial computed tomography images of the abdomen and pelvis without intravenous contrast. CTDI is 10.79 mGy and DLP is 545.97 mGy-cm. Automated exposure control was utilized for the study. A dose lowering technique was utilized adhering to the principles of ALARA. COMPARISON: No relevant prior studies available. FINDINGS: Lung bases: See below. Pleural space: There is a small left pleural effusion layering 4 cm with adjacent left lung base atelectasis. Heart: Mild cardiomegaly. There is a pacing device in place. Mediastinum: Surgical clips adjacent to the gastroesophageal junction, likely previous hiatal hernia repair. No recurrence. ABDOMEN: Liver: There is fatty infiltration of the liver. No focal liver lesion is identified. Gallbladder and bile ducts: Unremarkable. No calcified stones. No ductal dilation. Pancreas: Unremarkable. No ductal dilation. Spleen: Unremarkable. No splenomegaly. Adrenals: Unremarkable. No mass. Kidneys and ureters: Unremarkable. No obstructing stones. No hydronephrosis. Stomach and bowel: Bowel loops are nondilated. There is wall thickening of the left side of the transverse colon and sigmoid colon consistent with colitis and mild ileus. PELVIS: Appendix: No findings to suggest acute appendicitis. Bladder: The urinary bladder is decompressed by Caraballo catheter. No stones. Reproductive: Unremarkable as visualized. ABDOMEN and PELVIS: Intraperitoneal space: There is a trace amount of free fluid in the pelvis. No free air. Bones/joints: Metallic artifact from left hip arthroplasty. No periprosthetic fracture or dislocation is seen. Moderate multilevel degenerative changes throughout the spine. There is a chronic appearing compression fracture at L1 50%. There is a 20% superior endplate compression fracture at L5. No acute fracture or subluxation is seen. Soft tissues: Anterior abdominal wall hernia superior to the previous abdominal incision. There is herniation of a small amount of the transverse colon without signs of obstruction or incarceration. There is an approximately 4.5 x 2.8 x 5.6 cm left rectus sheath hematoma. Vasculature: Unremarkable. No abdominal aortic aneurysm. Lymph nodes: Unremarkable. No enlarged lymph nodes. IMPRESSION: 1. Bowel loops are nondilated. There is wall thickening of the left side of the transverse colon and sigmoid colon consistent with colitis and mild ileus. 2. There is an approximately 4.5 x 2.8 x 5.6 cm left rectus sheath hematoma. Electronically signed by: Johnson Perrin MD 11/15/22 20:[address] 11/15/22 19:24 Exam(s): CT CHEST Without Contrast EXAM: CT Chest Without Intravenous Contrast CLINICAL HISTORY: Images Study Description: CT chest diagnostic wo con Body Part: <none> HX ams hypotension best images possible PT unable to raise arem TECHNIQUE: Axial computed tomography images of the chest without intravenous contrast. CTDI is 10.79 mGy and DLP is 545.97 mGy-cm. Automated exposure control was utilized for the study. A dose lowering technique was utilized adhering to the principles of ALARA. COMPARISON: No relevant prior studies available. FINDINGS: Lungs: See below. Pleural space: Left pleural effusion layering 4 cm posteriorly with small amount of left lung base atelectasis. No pneumothorax. Heart: Unremarkable. No cardiomegaly. No significant pericardial effusion. No significant coronary artery calcifications. There is a left atrial appendage point. Bones/joints: Mild to moderate multilevel degenerative changes throughout the spine. No acute fracture or subluxation is seen. There is an old healed compression fracture in the mid thoracic spine. Soft tissues: See below. Vasculature: There is a sessile calcified aneurysm/penetrating ulcer measuring 2.4 cm in diameter. No evidence of B-cell hematoma. This is a noncontrast study. Lymph nodes: Unremarkable. No enlarged lymph nodes. Tubes, lines and devices: The heart is mildly enlarged. There is a pacing device in place. IMPRESSION: Left pleural effusion layering 4 cm posteriorly with small amount of left lung base atelectasis. The lungs are otherwise clear. 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 No sign of hematoma. Mild cardiomegaly pacing device in place. Electronically signed by: Johnson Perrin MD 11/15/22 21:16 PM Chest X-Ray 11/16/22 10:15 XR chest 1V portable HISTORY: s/p intubation COMPARISON: Chest 11/16/2022. FINDINGS: The endotracheal tube terminates 4.4 cm from the talia. Nasogastric tube is curled within the stomach. Right jugular central venous catheter terminates in the SVC. The left-sided dual-chamber pacemaker. An atrial septal closure device is again noted. The heart remains top normal in size. There are low lung volumes. No pneumothorax. Small left pleural effusion and left basilar densities persist. There is progressive interstitial/vascular thickening consistent with pulmonary edema. 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 IMPRESSION: 1. Interval progression of the pulmonary edema. 2. Satisfactory support line placement. 3. Small left pleural effusions and left basilar densities persist. ACT 112: Negative or not required by law. Electronically signed by: Jeremias Villalba M.D. 11/16/2022 11:29 AM Hospital Course (1) Hypotension: Septic shock Acute kidney injury likely ATN Atrial fibrillation with RVR Acute GI bleed Acute respiratory failure with hypoxia Acute metabolic encephalopathy Supratherapeutic INR Acute colitis Acute blood loss anemia Rectus sheath hematoma Lactic acidosis Hyponatremia Possible urinary tract infection Gram-negative bacilli bacteremia Abnormal echo Anion gap metabolic acidosis Other chronic conditions: Cirrhosis, hypertension, atrial fibrillation on Eliquis, past alcohol abuse, s/p recent polypectomy--cancerous, cardiac pacemaker, S/P Watchman device, H/O CHF, PVD, dural AV fistula, ongoing tobacco abuse --ECHO: Left ventricle is normal in size. Mild concentric LVH. Left ventricle systolic function is normal. Left atrium is moderately dilated. EF 50 to 55%. Mitral valve leaflets are moderately thickened. Moderate mitral regurgitation. Severe tricuspid regurgitation. Doppler findings do not suggest pulmonary hypertension. --CT Head:Mild cerebral atrophy and periventricular white matter low density consistent with chronic small vessel disease and/or senescent changes.No acute large vessel infarct or intracranial hemorrhage is seen. --CT ABD: Bowel loops are nondilated. There is wall thickening of the left side of the transverse colon and sigmoid colon consistent with colitis and mild ileus. There is an approximately 4.5 x 2.8 x 5.6 cm left rectus sheath hematoma. --CT Chest:Left pleural effusion layering 4 cm posteriorly with small amount of left lung base atelectasis. The lungs are otherwise clear. 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 No sign of hematoma. Mild cardiomegaly pacing device in place. --CXR:. Interval progression of the pulmonary edema.. Satisfactory support line placement. Small left pleural effusions and left basilar densities persist. --Blood cultures 08/29: Gram-negative bacilli --Urine culture pending Plan: Continue ventilatory support, appreciate branch operations manager help S/P 4 units of FFP's, 2 cryoprecipitate's S/P 2 units PRBCs IV amiodarone discontinued Currently on Levophed and vasopressin. Empirically on Zosyn, vancomycin Monitor H&H and transfuse PRBCs as needed Appreciate branch operations manager, GI, cardiology and nephrology input Vent settings: Respiratory rate 24, tidal volume 350, PEEP 7, FiO2 45% Currently anuric, needs CVVH Continue current care in ICU, pending transfer to [facility]. Discussed with , branch operations manager at [facility]. Patient would need IR intervention, CVVH. Total Time Total Time Spent Total Time Spent (In Minutes): 76 minutes Discharge Plan Discharge Items Patient Disposition: Transfer [facility] Reason For Visit: RAPID AF Discharge Diagnosis: Septic shock Acute kidney injury likely ATN Atrial fibrillation with RVR Acute GI bleed Acute respiratory failure with hypoxia Acute metabolic encephalopathy Supratherapeutic INR Acute colitis Acute blood loss anemia Rectus sheath hematoma Lactic acidosis Hyponatremia Possible urinary tract infection Gram-negative bacilli bacteremia Abnormal echo Anion gap metabolic acidosis Activity: Per Instructions section Non-emergency contact: Primary Care Provider and Specialist Call non-emergency contact if: you have any medication questions, your symptoms worsen, your pain is concerning for you and you have a fever Follow-up/Referrals: Shadia Hernandez DO [Primary Care Provider] - Dietitian Info: NPO Diet: Other - See Diet Comment Addtl Attending Provider Instructions: Follow-up with at [facility] for further management. Please review current inpatient medications as below. Seek immediate medical attention if your symptoms reoccur or worsen Please take all medications as instructed on discharge list below. Please call if you have any questions or problems. You can reach a [facility] hospitalist on duty at [facility] 24 hours a day by calling [phone] [facility] Pipe Organ Technician Provider Instructions: Current Inpatient Medications Acetaminophen (Acetaminophen 325 Mg Tab) 325 mg PO Q6H PRN PRN Reason: Mild Pain (Scale 1, 2, 3) Stop: 12/15/22 21:57 Albuterol (Albut/Ipratrop 3mg/0.5mg Neb 3 Ml Vial) 3 ml NEB Q4R PRN; Protocol PRN Reason: Shortness Of Breath Or Wheezing Stop: 12/16/22 06:59 Amiodarone HCl (Amiodarone 200 Mg Tab) 100 mg PO BID SHAWN Stop: 12/15/22 23:28 Last Admin: 11/16/22 08:39 Dose: Not Given Fentanyl Citrate (Fentanyl Citrate Pf 100 Mcg/2 Ml Vial) 50 mcg IV Q2H PRN PRN Reason: Moderate Pain (4,5,6) on NRS Stop: 11/30/22 09:43 Amiodarone HCl/Dextrose (Nexterone / D5w) 360 mg in 200 mls @ 16.667 mls/hr IV .Q12H SHAWN Stop: 12/16/22 03:29 Last Infusion: 11/16/22 09:03 Dose: 0 mg/min, 0 mls/hr Promethazine HCl 6.25 mg/ (Sodium Chloride) 50.25 mls @ 201 mls/hr IV Q6H PRN PRN Reason: Nausea And Vomiting Stop: 12/15/22 21:57 Piperacillin Sod/Tazobactam (Sod 4.5 gm/ Dextrose) 120 mls @ 30 mls/hr IV Q12H SHAWN; Protocol Stop: 11/26/22 05:59 Last Infusion: 11/16/22 09:54 Dose: Infused Norepinephrine Bitartrate (Levophed/D5w) 4 mg in 250 mls @ 40.219 mls/hr IV .Q6H13M SHAWN; Protocol Stop: 12/16/22 03:29 Last Titration: 11/16/22 09:13 Dose: 0.15 mcg/kg/min, 40.2 mls/hr Sodium Chloride (Nss) 250 mls @ 15 mls/hr IV .[id number] PRN PRN Reason: For Transfusion Duration Stop: 11/16/22 13:44 Vasopressin 20 units/ Sodium (Chloride) 101 mls @ 12.12 mls/hr IV .Q8H20M [facility] Stop: 12/16/22 03:59 Last Admin: 11/16/22 10:23 Dose: 0.04 unit/min, 12.1 mls/hr Midazolam HCl (Versed) 125 mg in 250 mls @ 2 mls/hr IV .Q96H [facility]; Protocol Stop: 12/16/22 09:44 Last Admin: 11/16/22 10:24 Dose: Not Given Pantoprazole Sodium 40 mg/ (Syringe) 10 mls @ 5 mls/min IV BID [facility] Stop: 12/16/22 09:59 Last Admin: 11/16/22 10:20 Dose: 5 mls/min Midazolam HCl (Midazolam Bolus From Bag) 2 mg IV Q60M PRN PRN Reason: Sedation Stop: 12/16/22 09:43 Miscellaneous (Icu Protocol For Hyperglycemia) 1 each N/A ACHS [facility] Stop: 11/18/22 07:29 Last Admin: 11/16/22 12:08 Dose: 1 each Miscellaneous Information (Vancomycin Consult Active) 1 each N/A UD PRN PRN Reason: Consult Stop: 12/16/22 06:16 Multivitamins (Multivitamin Tab) 1 tab PO DAILY [facility] Stop: 12/16/22 08:59 Last Admin: 11/16/22 08:39 Dose: Not Given Oxycodone HCl (Oxycodone Hcl Ir 5 Mg Tab (Immediate Release)) 5 mg PO Q4H PRN PRN Reason: Pain Stop: 11/29/22 21:57 Thiamine HCl (Thiamine Hcl 100 Mg Tab) 100 mg PO DAILY [facility] Stop: 12/16/22 08:59 Last Admin: 11/16/22 08:39 Dose: Not Given Pending Studies at Discharge: Yes Studies:: Blood culture, urine culture Stand-Alone Forms: Counts Include [facility] Skilled Items Patient informed of condition?: No DNR: No Discharge Level of Care: Other Communicable Disease: No Discharge Prognosis: Deteriorating Lines: Peripheral IV Urinary Catheter: Yes Medications and DC Order Prescriptions: Continued magnesium oxide 420 mg tablet 420 mg PO BID albuterol sulfate 2.5 mg /3 mL (0.083 %) solution for nebulization 2.5 mg continuous nebulization Q4 PRN (Reason: Shortness Of Breath Or Wheezing) metoprolol succinate 100 mg tablet extended release 24 hr 100 mg PO BID thiamine HCl (vitamin B1) 100 mg tablet 100 mg PO DAILY spironolactone 25 mg tablet 25 mg PO DAILY lisinopril 5 mg tablet 5 mg PO DAILY amiodarone 100 mg tablet 100 mg PO BID multivitamin [Daily Multi-Vitamin] Tablet 1 tab PO DAILY furosemide 40 mg tablet 40 mg PO DAILY diltiazem HCl 180 mg capsule,extended release 24 hr 180 mg PO DAILY aspirin 81 mg tablet,delayed release (DR/EC) 81 mg PO DAILY bumetanide 0.5 mg tablet 0.5 mg PO BID ondansetron HCl 4 mg tablet 4 mg PO TID PRN (Reason: Nausea) potassium chloride 20 mEq tablet,ER particles/crystals 20 meq PO BID ascorbic acid (vitamin C) [Vitamin C] 500 mg tablet 500 mg PO DAILY ferrous sulfate [FeroSul] 325 mg (65 mg iron) tablet 325 mg PO DAILY metoprolol tartrate 50 mg tablet 50 mg PO BID gabapentin 300 mg capsule 300 mg PO HS omeprazole 20 mg capsule,delayed release(DR/EC) 20 mg PO DAILY morphine 15 mg tablet extended release 15 mg PO BID Discontinued Eliquis 5 mg tablet 5 mg PO BID Discharge Orders: Discharge Order (Routine); Ordered 11/16/22 Ordered By: Lucio Herrmann Admission Data Admit Date/Time: 11/15/22 21:54 Attending Provider: Lucio Herrmann Admit Provider: Eduardo Hassan Primary Care Provider: Shadia Hernandez Other Providers: Eduardo Hassan ; Gary Pena ; Suhail Verde ; Brittney Stern ; Jocelynn Vera ; Frank Cooper ; Shailesh Bryan ; Elda Peña ; Shannon Segundo ; Yaya Vaughn Jr ; Cheyenne Veras ; Yan Finn ; Vita Lima ; Justyna Sanchez ; Lui Mcneill ; Fransisco Braxton ; Diego Ramos ; Danilo Douglas ; Shailesh Hu ; Suhail Wagoner ; Katharine Grubbs ; Aleta Gomez ; Justyna Sparks ; Xavier Bravo ; Bismark Jones ; Marquise Gonzalez ; Eriberto Carrasco ; Leif Flores ; Elida Yang ; Shannon Rankin ; Terri Bowens ; Samia Massey ; Larisa,Grady ; Marquis Reddy ; Balta Vera ; Dash Cummings ; Sander Dubon ; Loyda Mejias ; Sary Valle ; Savannah Jeong ; Vita Sanchez ; Freda Noble ; Gideon Lau ; Nigel Dhillon ; Justyna Cheung ; Yvonne Lucia Jr ; Stephy Bustamante. ; uLca Gonzalez ; Jessica Vaca ; Lalo Kearney. ; Neel Mckeon ; Hortencia Jeronimo ; [facility]
--- NOTE | 2022-11-16 14:17 | Gastrointestinal Consultation ---
Date of Consultation November 16, 2022 Assessment & Plan (1) Septic shock: (2) Anemia due to blood loss: Pt is a 72 yo male currently admitted w septic shock, on pressure support, intubated on vent, seen for rectal bleeding. CT showed rectal sheath hematoma and L colon thickening ? non specific colitis and ileus. About 1 week ago he had polypectomy at a [place] [facility], and was told polyp was malignant. His CT is likely ischemic colitis. Of note, he has polymicrobial sepsis. Can consider HIDA scan r/o biliary source. PPI IV BID continued. At time of afternoon rounds, pt was on his way to get transferred to [place] in [place]. His OG tube had blood in tubing. He will need GI f/u to monitor for continued s/s of GI bleeding and evaluated for possible endoscopic intervention. Supervising Physician Co-Signing Physician Notes Pt seen and examined as he is about to be transferred. He will need GI eval for possible UGIB, w/u for polymicrobial sepsis at receiving facility. History of Present Illness Reason for Consultation: GI bleeding," liver failure" Requesting Physician: Dr. Lucio Herrmann Attending Physician: Dr. Dash Cummings History of Present Illness Pt currently intubated, unable to obtain history from him. HPI obtained from chart review: Pt w PMHx of CHF, Afib, on Eliquis, PVD, HTN, chronic back pain, hx of tobacco and ETOH abuses, who was brought to ED by family after he's noted to be increasing confused over the last few days. He also had a fall 2 days ago. Pt had c/o lower abd pain w nausea, and had bloody BMs. No n/v, hematemesis or coffee ground emesis. He had a colonoscopy w polypectomy at a [place] [facility] in [place] w reported malignancy on path. Upon evaluation, he's noted to be hypotensive and in rapid Afib, in septics shock. He has BIANCA and anemic. Labs: H/H 04/19, Plt 123, INR was up to 9, reversed to 1.5. LFTs: Tbili 1.2, AST 93, ALT 22, Alk phose 189. CK 661. Blood ct growing Ecoli and Enterobacter. He is currently on pressors and was intubated this morning. CT abd/pelvis wo contrast showed L side transverse and sigmoid colon thickening consistent with colitis and mild ileus. There is a also a 4.5 x 2.8 x 5.6 cm left rectus sheath hematoma. Pt having rectal bleeding, last episode around 11am. Allergies Allergy/AdvReac Type Severity Reaction Status Date / Time fentanyl AdvReac Mild itch Verified 09/13/14 14:09 Home Medications Medication Instructions Recorded Confirmed Type albuterol sulfate 2.5 mg/3 mL 2.5 mg continuous nebulization Q4 11/15/22 11/15/22 History (0.083 %) solution for nebulization PRN Shortness Of Breath Or Wheezing amiodarone 100 mg tablet 100 mg PO BID 11/15/22 11/15/22 History ascorbic acid (vitamin C) 500 mg 500 mg PO DAILY 11/15/22 11/15/22 History tablet (Vitamin C) aspirin 81 mg tablet,delayed 81 mg PO DAILY 11/15/22 11/15/22 History release bumetanide 0.5 mg tablet 0.5 mg PO BID 11/15/22 11/15/22 History diltiazem HCl 180 mg capsule,24 180 mg PO DAILY 11/15/22 11/15/22 History hr,extended release ferrous sulfate 325 mg (65 mg 325 mg PO DAILY 11/15/22 11/15/22 History iron) tablet (FeroSul) furosemide 40 mg tablet 40 mg PO DAILY 11/15/22 11/15/22 History gabapentin 300 mg capsule 300 mg PO HS 11/15/22 11/15/22 History lisinopril 5 mg tablet 5 mg PO DAILY 11/15/22 11/15/22 History magnesium oxide 420 mg tablet 420 mg PO BID 11/15/22 11/15/22 History metoprolol succinate 100 mg 100 mg PO BID 11/15/22 11/15/22 History tablet,extended release 24 hr metoprolol tartrate 50 mg tablet 50 mg PO BID 11/15/22 11/15/22 History morphine 15 mg tablet,extended 15 mg PO BID 11/15/22 11/15/22 History release multivitamin (Daily Multi-Vitamin 1 tab PO DAILY 11/15/22 11/15/22 History tablet) omeprazole 20 mg capsule,delayed 20 mg PO DAILY 11/15/22 11/15/22 History release ondansetron HCl 4 mg tablet 4 mg PO TID PRN Nausea 11/15/22 11/15/22 History potassium chloride 20 mEq 20 meq PO BID 11/15/22 11/15/22 History tablet,extended release(part/cryst) spironolactone 25 mg tablet 25 mg PO DAILY 11/15/22 11/15/22 History thiamine HCl (vitamin B1) 100 mg 100 mg PO DAILY 11/15/22 11/15/22 History tablet Patient History Medical History Atrial fibrillation Cirrhosis History of alcohol abuse History of bacteremia Per family's report On apixaban therapy Family History Other Family history non-contributory Social History Smoking Status: Never smoker Second Hand Exposure: No; Hx Alcohol Use: Yes Hx Substance Use: No Preferred Language: Chinese Communication Ability: Unable Beliefs That Will Affect Care: None Current Living Situation: Family Feels Safe at Home: Yes Review of Systems Review of Systems: Unobtainable due to endotracheal tube Physical Exam Constitutional: + mechanically ventilated ENMT: external ear and nose normal, oropharynx normal blood noted on ET and OG tubing Respiratory: On ventilator Cardiovascular: RRR, no murmur, no edema Gastrointestinal (Abdomen): Mildly distended, BS hypoactive Skin: no rashes, warm and dry no jaundice Psychiatric: Intubated, sedated Lymphatic: no lymphedema Results & Data Vital Signs (Past 12 Hours) Vital Signs Temp Pulse Pulse Resp BP BP Pulse Ox 11/16/22 11:20 11/16/22 12:30 35.8 C L 110 H 24 100 11/16/22 12:00 35.4 C L 107 H 24 100 11/16/22 12:00 113/79 11/16/22 11:30 35.5 C L 96 H 24 100 11/16/22 11:00 35.6 C L 100 H 24 100 11/16/22 11:00 104/79 11/16/22 10:30 35.6 C L 90 24 98 11/16/22 10:00 35.8 C L 108 H 24 11/16/22 10:00 93/70 L 11/16/22 09:40 92/62 L 11/16/22 09:40 35.9 C L 88 21 11/16/22 09:38 35.9 C L 92 H 24 11/16/22 09:38 76/63 L 11/16/22 09:35 36.0 C L 96 H 24 11/16/22 09:35 80/58 L 11/16/22 09:33 36.0 C L 96 H 24 11/16/22 09:33 79/62 L 11/16/22 09:30 36.0 C L 93 H 18 11/16/22 09:30 81/57 L 11/16/22 09:28 77/56 L 11/16/22 09:28 36.0 C L 104 H 16 11/16/22 09:25 36.0 C L 99 H 16 11/16/22 09:25 81/54 L 11/16/22 09:23 36.0 C L 88 16 11/16/22 09:23 71/55 L 11/16/22 09:18 36.0 C L 97 H 11/16/22 09:18 81/56 L 11/16/22 09:15 76/52 L 11/16/22 09:15 36.1 C L 94 H 18 100 11/16/22 09:14 36.1 C L 89 0 L 11/16/22 09:14 74/47 L 11/16/22 09:13 72/47 L 11/16/22 09:13 36.1 C L 100 H 0 L 11/16/22 09:11 36.1 C L 98 H 0 L 11/16/22 09:11 71/50 L 11/16/22 09:08 75/55 L 11/16/22 09:08 36.1 C L 118 H 20 11/16/22 09:00 36.1 C L 118 H 23 87 L 11/16/22 09:00 113/75 11/16/22 08:45 36.1 C L 128 H 22 11/16/22 08:45 88/73 L 11/16/22 08:30 36.0 C L 120 H 23 11/16/22 08:15 131/113 H 11/16/22 08:15 125 H 25 H 83 L 11/16/22 08:10 125 H 24 73 L 11/16/22 08:10 151/106 H 11/16/22 08:00 121 H 21 100 11/16/22 07:31 115 H 23 100 11/16/22 07:31 96/71 L 11/16/22 07:30 122 H 20 100 11/16/22 11:20 11/16/22 10:00 105 H 24 97 11/16/22 10:53 35.6 C L 97 H 24 112/64 100 11/16/22 10:18 35.7 C L 106 H 22 107/62 96 11/16/22 10:17 35.7 C L 104 H 22 105/59 L 97 11/16/22 10:16 35.7 C L 98 H 22 108/65 96 11/16/22 10:12 35.7 C L 102 H 24 93/70 L 97 11/16/22 10:09 36.1 C L 90 24 108/64 93 11/16/22 09:43 35.9 C L 97 H 22 94/61 L 96 11/16/22 09:17 36.1 C L 102 H 24 95/61 L 96 11/16/22 09:27 36.0 C L 93 H 24 71/55 L 93 11/16/22 09:23 36 C L 93 H 24 71/55 L 96 11/16/22 08:47 36.1 C L 116 H 20 88/73 L 94 11/16/22 08:32 36.1 C L 120 H 20 88/73 L 96 11/16/22 08:13 35.9 C L 116 H 24 130/110 H 95 11/16/22 08:29 35.9 C L 124 H 24 131/113 H 96 11/16/22 08:17 36.2 C L 124 H 26 H 131/113 H 95 11/16/22 08:12 36.2 C L 114 H 24 151/106 H 95 11/16/22 07:51 36.2 C L 125 H 24 151/106 H 95 11/16/22 07:53 36.2 C L 99 H 22 124/69 100 11/16/22 07:41 36.2 C L 111 H 20 124/69 100 11/16/22 07:29 36.2 C L 110 H 20 130/87 97 11/16/22 07:28 36.2 C L 110 H 20 130/87 97 11/16/22 06:49 36.5 C 108 H 22 113/96 93 11/16/22 06:41 36.5 C 113 H 26 H 113/96 97 11/16/22 06:32 36.5 C 116 H 19 117/83 97 11/16/22 06:11 36.5 C 124 H 24 98/78 L 99 11/16/22 05:56 36.5 C 118 H 20 111/94 94 11/16/22 05:33 36.6 C 123 H 22 117/75 99 11/16/22 04:37 11/16/22 03:13 36.5 C 145 H 22 86/42 L 97 11/16/22 02:35 97 O2 Del Method O2 Flow Rate FiO2 11/16/22 11:20 40 11/16/22 12:30 11/16/22 12:00 11/16/22 12:00 11/16/22 11:30 11/16/22 11:00 11/16/22 11:00 11/16/22 10:30 11/16/22 10:00 11/16/22 10:00 11/16/22 09:40 11/16/22 09:40 11/16/22 09:38 11/16/22 09:38 11/16/22 09:35 11/16/22 09:35 11/16/22 09:33 11/16/22 09:33 11/16/22 09:30 11/16/22 09:30 11/16/22 09:28 11/16/22 09:28 11/16/22 09:25 11/16/22 09:25 11/16/22 09:23 11/16/22 09:23 11/16/22 09:18 11/16/22 09:18 11/16/22 09:15 11/16/22 09:15 11/16/22 09:14 11/16/22 09:14 11/16/22 09:13 11/16/22 09:13 11/16/22 09:11 11/16/22 09:11 11/16/22 09:08 11/16/22 09:08 11/16/22 09:00 11/16/22 09:00 11/16/22 08:45 11/16/22 08:45 11/16/22 08:30 11/16/22 08:15 11/16/22 08:15 11/16/22 08:10 11/16/22 08:10 11/16/22 08:00 11/16/22 07:31 11/16/22 07:31 11/16/22 07:30 11/16/22 11:20 Mechanical Vent 40 11/16/22 10:00 45 11/16/22 10:53 11/16/22 10:18 11/16/22 10:17 11/16/22 10:16 11/16/22 10:12 11/16/22 10:09 11/16/22 09:43 70 11/16/22 09:17 11/16/22 09:27 11/16/22 09:23 70 11/16/22 08:47 4 11/16/22 08:32 4 11/16/22 08:13 4 11/16/22 08:29 4 11/16/22 08:17 11/16/22 08:12 4 11/16/22 07:51 4 11/16/22 07:53 4 11/16/22 07:41 4 11/16/22 07:29 4 11/16/22 07:28 4 11/16/22 06:49 4 11/16/22 06:41 4 11/16/22 06:32 4 11/16/22 06:11 11/16/22 05:56 11/16/22 05:33 4 11/16/22 04:37 Nasal Cannula 4 11/16/22 03:13 Nasal Cannula 1 11/16/22 02:35 Room Air
[2022-11-16] MEDS ORDERED: MIDAZOLAM HCL 5 MG/ML 2ML VIAL IV ONE (15:49)
[2022-11-16] MEDS ORDERED: ETOMIDATE 2 MG/ML 20 ML VIAL IV ONE (15:49)
[2022-11-16] MEDS ORDERED: fentaNYL citrate 100 MCG/2 ML CARP IV ONE (15:49)
== END 2022-11-16 15:50 | DRG 871 ==
LOC: ED 18:22 → 4W 21:54 → 1E 11-16 03:32

== ENCOUNTER 2024-09-28 11:07 | Inpatient (IN) ==
[2024-09-28] MEDS ORDERED: VANCOMYCIN CONSULT ACTIVE PRN (12:18)
[2024-09-28] MEDS: SODIUM CHLORIDE 0.9% 1,000 ML IV SCH (12:22)
[2024-09-28] MEDS: CEFEPIME 2000MG 2,000 MG/20 ML SYR IV STA (12:43)
--- NOTE | 2024-09-28 12:49 | Emergency Department Note ---
Impression & Plan Bilateral cellulitis of lower leg, Alcohol abuse, Alcohol intoxication, Dehydration, Atrial fibrillation ED Provider Note ED Provider Note NAME: RADHA SULLIVAN AGE:74 SEX: Male : 1950 ARRIVES VIA: Private vehicle INFORMANT: Patient, son ED PROVIDER(s): Florence Menjivar DO CHIEF COMPLAINT: Leg pain and redness HPI: This is a 74-year-old male presents to the emergency department with son at bedside who is concern for worsening swelling and redness of bilateral lower extremities. Patient states he has been dealing with infection in his legs and feet since May. He states he was on antibiotics as recently as 2 weeks ago. He states he follows through the [facility] in [place]. Son confirms this at bedside as well and states at 1 point he was seen here and was found to be septic and was flown to the [facility] in [place]. Patient denies any recent trauma. Son states while his legs have slowly worsened again over the last 2 weeks since stopping antibiotics, they have looked worse in the past. He has not noted any fevers or chills. Patient states the legs are painful and sensitive to touch and he has some mild accompanying numbness. He denies vomiting or diarrhea. Son also states he uses alcohol daily. He feels this is likely contributing to his wounds. PAST MEDICAL HISTORY:See Below PAST SURGICAL HISTORY:See Below FAMILY HISTORY:See Below SOCIAL HISTORY:See Below HOME MEDICATIONS:See Below ALLERGIES:See Below VITALS:See Below PHYSICAL EXAMINATION: GENERAL: alert, well appearing, well nourished, no distress, non-toxic EYE EXAM: normal conjunctiva, PERRL and EOM's grossly intact OROPHARYNX: no exudate, no erythema, lips, buccal mucosa, and tongue normal and mucous membranes are dry NECK: supple, no nuchal rigidity, no adenopathy, non-tender LUNGS: Clear to auscultation. Normal chest wall mechanics, no w/r/r HEART: no murmurs, S1 normal and S2 normal ABDOMEN: abdomen soft, non-tender, normo-active bowel sounds, no masses, no rebound or guarding. BACK: Back is symmetrical on inspection and there is no deformity, no midline tenderness, no CVA tenderness. SKIN: no rashes, petechiae, orbruising UPPER EXTREMITIES: upper extremities are grossly normal. FROM, nml pulses b/l. LOWER EXTREMITIES: FROM, nml pulses b/l. Increased erythema and edema noted bilateral lower extremities right greater than left with appearance of desquamation noted along the dorsal aspect of the right foot and toes, diffuse pain with palpation NEURO EXAM: Normal sensorium, cranial nerves II-XII grossly intact, normal speech, no facial droop,nogross weakness of arms, no gross weakness of legs. Gross sensation intact. No ataxia. Vital Signs: reviewed and remarkable Differential Diagnosis: etoh intoxication, etoh withdrawal, noncompliance, cellulitis, nec fasc, SSS, chronic lymphedema, BIANCA MEDICAL DECISION MAKING: THis is a 74 yo male who presents to the ER with son due to concern for worsening b/l LE wounds. Patient with hx of alcohol abuse and prior admission with similar leg wounds. Labs drawn and sent, IV established, EKG and CXR performed and interpreted at bedside, and patient placed on telemetry. Cultures, procal, lactic acid added also. He was started on IVF and started on vanc/cefepime. Patient noted to have intermittent a.fib on tele. Patient has had a.fib previously. BP stable and patient given 30 ml/kg based on IBW and ABW. Initial lactic acid elevated, procal reassuring. I did ask charge nurse to take pictures of the legs for monitoring and comparison to prior episode. Case discussed with the hospitalist team for additional evaluation and mgmt. Consultation(s): 1405: Discussed with Ty Gastelum hospitalist team, for additional evaluation and management. ER Treatment Provided: See below Diagnostics Interpreted By Me: -ECG: a.fib at 115, normal axis, normal intervals, no acute ST/T wave changes -Cardiac Monitoring: An order was placed for continuous cardiac monitoring. The monitor shows a rate of 102 with sinus tachycardia rhythm. -Laboratory studies: As stated above and show below. -Imaging studies: X-ray Chest: A single view study of the chest was reviewed and was negative for cardiomegaly, focal infiltrate, effusion, pulmonary edema, or wide mediastinum. xr foot b/l: no fx, no fb Triage Nursing Note Reviewed Prior/Outside Records Reviewed Critical Care: Critical care of 41 min performed to assess and manage high likelihood of life- threatening sepsis and alcohol withdrawal, involving labs and imaging performed with assessment to evaluate b/l LE cellulitis and alcohol intoxication diagnosis with frequent reassessment. This time includes bedside time, treatment discussions with patient/family/consultants, documentation time and excludes procedure time. Past Med/Surg History Problem List (Updated 09/28/24 @ 20:49 by Florence Menjivar DO) Atrial fibrillation (Acute) Dehydration (Acute) Alcohol intoxication (Acute) Hypernatremia Severe sepsis Alcohol abuse (Acute) Bilateral cellulitis of lower leg (Acute) Atrial fibrillation with rapid ventricular response (Acute) Medical History (Updated 09/28/24 @ 20:49 by Florence Menjivar DO) CHF (congestive heart failure) Presence of Watchman left atrial appendage closure device Cardiac pacemaker in situ Cirrhosis History of bacteremia Per family's report Atrial fibrillation History of alcohol abuse Surgical History (Updated 09/28/24 @ 15:30 by CANDIDO Mendez) History of splenectomy Family History Other Family history non-contributory Social History Smoking Status: Former smoker Second Hand Exposure: No; Do You Dip or Chew Tobacco: No; Hx Alcohol Use: Yes Alcohol type: beer and hard liquor Hx Substance Use: No Preferred Language: Swiss Communication Ability: Effective Conference Director Required: No Beliefs That Will Affect Care: None Current Living Situation: Family Feels Safe at Home: Yes Assistive Devices: Cane and Walker Allergies Allergies Allergy/AdvReac Type Severity Reaction Status Date / Time gabapentin Allergy Unknown Unknown - Unverified 09/28/24 14:31 On file / [facility] Pharmacy fentanyl AdvReac Mild itch Verified 09/28/24 14:31 Home Meds Home Medications Medication Instructions Recorded Confirmed aspirin 81 mg tablet,delayed 81 mg PO DAILY 11/15/22 09/28/24 release ferrous sulfate 325 mg (65 mg 325 mg PO DAILY 11/15/22 09/28/24 iron) tablet (FeroSul) magnesium oxide 420 mg tablet 420 mg PO DAILY 11/15/22 09/28/24 multivitamin (Daily Multi-Vitamin 1 tab PO DAILY 11/15/22 09/28/24 tablet) cetirizine 10 mg tablet (Zyrtec) 10 mg PO HS 09/28/24 09/28/24 cholecalciferol (vitamin D3) 25 50 mcg PO DAILY 09/28/24 09/28/24 mcg (1,000 unit) tablet (Vitamin D3) docusate sodium 100 mg capsule 100 mg PO HS 09/28/24 09/28/24 eplerenone 50 mg tablet 50 mg PO DAILY 09/28/24 09/28/24 furosemide 20 mg tablet 20 mg PO DAILY 09/28/24 09/28/24 ketoconazole 2 % shampoo 1 ea topical 3XWK 09/28/24 09/28/24 lanolin alcohols-mineral 1 applic topical BID 09/28/24 09/28/24 oil-w.petrolatum-ceresin topical cream (Eucerin topical cream) metoprolol succinate 50 mg See Rx Instructions .Route .COMPLEX 09/28/24 09/28/24 tablet,extended release 24 hr naloxone 4 mg/actuation nasal spray 4 mg intranasal DAILY PRN Opioid 09/28/24 09/28/24 Overdose oxycodone 10 mg tablet,crush 10 mg PO Q12H 09/28/24 09/28/24 resistant,extended release 12 hr pregabalin 25 mg capsule 25 mg PO BID 09/28/24 09/28/24 promethazine 25 mg tablet 25 mg PO Q8H PRN Nausea And 09/28/24 09/28/24 Vomiting rifaximin 550 mg tablet 550 mg PO BID 09/28/24 09/28/24 sennosides 8.6 mg tablet (senna) 8.6 mg PO HS 09/28/24 09/28/24 zinc oxide 20 % topical ointment 1 applic topical BID Buttock/Groin 09/28/24 09/28/24 irritation Results & Data (ED) Vital Signs Vital Signs - 24 hr 09/28/24 11:30 09/28/24 11:33 09/28/24 11:33 Temperature 36.6 C Temperature Source Oral Pulse Rate 126 H 112 H Pulse Rate [Apical] Pulse Rate from SpO2 Sensor 95 H Pulse Rhythm Irregular Pulse Rhythm [Apical] Respiratory Rate 25 H 24 Blood Pressure 105/70 Blood Pressure [Left Arm] Blood Pressure Mean 81 Blood Pressure Mean [Left Arm] Pulse Oximetry 96 99 Oxygen Delivery Method Room Air Room Air Room Air Sepsis New/Unexplained Change in Mental Status No Sepsis Action Taken by Nursing No Action Required 09/28/24 12:00 09/28/24 12:17 09/28/24 12:21 Temperature Temperature Source Pulse Rate 111 H 107 H Pulse Rate [Apical] Pulse Rate from SpO2 Sensor 84 Pulse Rhythm Pulse Rhythm [Apical] Respiratory Rate 15 25 H Blood Pressure Blood Pressure [Left Arm] Blood Pressure Mean Blood Pressure Mean [Left Arm] Pulse Oximetry 95 92 Oxygen Delivery Method Room Air Room Air Room Air Sepsis New/Unexplained Change in Mental Status Sepsis Action Taken by Nursing 09/28/24 12:54 09/28/24 13:00 09/28/24 13:04 Temperature Temperature Source Pulse Rate 109 H 135 H Pulse Rate [Apical] 114 H Pulse Rate from SpO2 Sensor 116 H 112 H Pulse Rhythm Pulse Rhythm [Apical] Respiratory Rate 26 H 21 22 Blood Pressure Blood Pressure [Left Arm] 106/71 Blood Pressure Mean Blood Pressure Mean [Left Arm] 82 Pulse Oximetry 93 95 94 Oxygen Delivery Method Room Air Room Air Sepsis New/Unexplained Change in Mental Status Sepsis Action Taken by Nursing 09/28/24 13:18 09/28/24 13:36 09/28/24 14:01 Temperature Temperature Source Pulse Rate 118 H 140 H Pulse Rate [Apical] Pulse Rate from SpO2 Sensor 127 H 134 H Pulse Rhythm Pulse Rhythm [Apical] Respiratory Rate 25 H 31 H Blood Pressure 96/83 L Blood Pressure [Left Arm] Blood Pressure Mean 90 Blood Pressure Mean [Left Arm] Pulse Oximetry 92 98 Oxygen Delivery Method Room Air Room Air Sepsis New/Unexplained Change in Mental Status Sepsis Action Taken by Nursing 09/28/24 14:01 09/28/24 14:01 09/28/24 14:03 Temperature Temperature Source Pulse Rate 137 H Pulse Rate [Apical] Pulse Rate from SpO2 Sensor 152 H Pulse Rhythm Pulse Rhythm [Apical] Respiratory Rate 20 Blood Pressure 96/83 L 96/83 L Blood Pressure [Left Arm] Blood Pressure Mean 90 90 Blood Pressure Mean [Left Arm] Pulse Oximetry 82 L Oxygen Delivery Method Sepsis New/Unexplained Change in Mental Status Sepsis Action Taken by Nursing 09/28/24 14:12 09/28/24 14:15 Temperature Temperature Source Pulse Rate 155 H Pulse Rate [Apical] 121 H Pulse Rate from SpO2 Sensor 152 H Pulse Rhythm Pulse Rhythm [Apical] Irregular Respiratory Rate 21 18 Blood Pressure Blood Pressure [Left Arm] 103/83 Blood Pressure Mean Blood Pressure Mean [Left Arm] 89 Pulse Oximetry 93 95 Oxygen Delivery Method Room Air Sepsis New/Unexplained Change in Mental Status Sepsis Action Taken by Nursing Laboratory Data 09/28/24 12:41 09/28/24 19:35 Lab Results 09/28/24 09/28/24 Range/Units 11:39 12:41 WBC 5.45 (4.8-10.8) K/ul RBC 3.48 L (4.70-6.10) M/uL Hgb 12.1 L (14.0-18.0) g/dl Hct 36.7 L (42.0-52.0) % MCV 105.5 H (80.0-100.0) fL MCH 34.8 H (25.0-34.0) pg MCHC 33.0 (32.0-36.0) g/dL RDW Std Deviation 69.0 H (36.4-46.3) fL RDW Coeff of Giancarlo 18.1 H (11.5-14.5) % Plt Count 273 (130-400) K/uL MPV 8.1 L (9.4-12.4) fL Immature Gran % (Auto) 0.4 % Neut % (Auto) 53.9 % Lymph % (Auto) 31.0 % Parmer % (Auto) 13.6 % Eos % (Auto) 0.2 % Baso % (Auto) 0.9 % Neut # (Auto) 2.94 (1.40-6.50) K/uL Lymph # (Auto) 1.69 (1.20-3.40) K/uL Parmer # (Auto) 0.74 H (0.11-0.59) K/uL Eos # (Auto) 0.01 (0.00-0.50) K/uL Baso # (Auto) 0.05 (0.00-0.20) K/uL Immature Gran # (Auto) 0.02 (0.01-0.20) K/uL PT 11.0 (9.0-12.0) Seconds INR 1.0 (0.9-1.1) VBG pH 7.34 L (7.36-7.41) VBG pCO2 48 (38-50) mmHg VBG pO2 38 mmHg VBG HCO3 26 mmol/L VBG O2 Saturation < 60.0 % VBG Base Excess -0.4 mEq/L Sodium 152 H (136-145) mmol/L Potassium 3.8 (3.5-5.1) mmol/L Chloride 115 H (98-107) mmol/L Carbon Dioxide 27 (21-32) mmol/L Anion Gap 10 (3-11) BUN 10 (6-23) mg/dl Creatinine 0.65 (0.6-1.4) mg/dl Est Cr Clr Drug Dosing 84.4 ml/min eGFR 97.66 BUN/Creatinine Ratio 15.4 (10-20) Glucose 114 H (70-99(Fasting)) mg/dl Lactate 3.9 H* (0.4-2.0) mmol/L Calcium 7.7 L (8.6-10.3) mg/dl Magnesium 2.1 (1.7-2.4) mg/dl Total Bilirubin 0.4 (0.2-1.0) mg/dl Direct Bilirubin 0.1 (0-0.2) mg/dl AST 37 (13-39) U/L ALT 14 (7-52) U/L Alkaline Phosphatase 217 H (34-104) U/L Troponin I High Sens 8.8 (0-20) pg/ml Total Protein 6.5 (6.0-8.3) gm/dl Albumin 2.9 L (3.4-5.0) gm/dl Procalcitonin 0.15 (0-0.5) ng/ml Nasal Screen MRSA (PCR) Positive A (Negative) Ethyl Alcohol mg/dL 374.4 H (<10.0) mg/dl Administered Medications Acetaminophen (Acetaminophen 500 Mg Tab) 1,000 mg PO BID SHAWN Stop: 10/28/24 20:59 Last Admin: 09/28/24 20:31 Dose: 1,000 mg Documented By: AUGUSTO Cetirizine HCl (Cetirizine Hcl 10 Mg Tablet) 10 mg PO HS SHAWN Stop: 10/28/24 20:59 Last Admin: 09/28/24 20:32 Dose: 10 mg Documented By: AUGUSTO Chlordiazepoxide HCl (Chlordiazepoxide Hcl 25 Mg Cap) 25 mg PO Q6H [facility] Stop: 09/29/24 11:31 Last Admin: 09/28/24 18:36 Dose: 25 mg Documented By: JERSON Docusate Sodium (Docusate Sodium 100 Mg Cap) 100 mg PO [facility] Stop: 10/28/24 20:59 Last Admin: 09/28/24 20:32 Dose: 100 mg Documented By: AUGUSTO Lactated Ringer's (Lr) 1,000 mls @ 100 mls/hr IV .Q10H [facility] Stop: 09/29/24 17:44 Last Admin: 09/28/24 18:35 Dose: 100 mls/hr Documented By: JERSON Vancomycin HCl (Vancomycin Hcl) 1,000 mg in 270 mls @ 200 mls/hr IV Q12H [facility] Stop: 10/05/24 18:59 Last Infusion: 09/28/24 20:25 Dose: Infused Documented By: Admin: 09/28/24 18:49 Dose: 200 mls/hr Documented By: JERSON Metoprolol Succinate (Metoprolol Succ 50mg Ext Rel Tab) 100 mg PO QPM [facility] Stop: 10/28/24 19:09 Last Admin: 09/28/24 19:45 Dose: 100 mg Documented By: AUGUSTO Pregabalin (Pregabalin 25 Mg Cap) 25 mg PO BID [facility] Stop: 10/28/24 20:59 Last Admin: 09/28/24 20:32 Dose: 25 mg Documented By: AUGUSTO Rifaximin (Rifaximin 550 Mg Tablet) 550 mg PO BID [facility] Stop: 10/28/24 20:59 Last Admin: 09/28/24 20:32 Dose: 550 mg Documented By: AUGUSTO Sennosides (Senna 8.6 Mg Tab) 8.6 mg PO HS [facility] Stop: 10/28/24 20:59 Last Admin: 09/28/24 20:32 Dose: 8.6 mg Documented By: AUGUSTO Discontinued Medications Sodium Chloride (Nss) 1,000 mls @ 999 mls/hr IV .Q1H1M [facility] Stop: 09/28/24 13:15 Last Infusion: 09/28/24 13:28 Dose: Infused Documented By: Admin: 09/28/24 12:22 Dose: 999 mls/hr Documented By: KHANH Cefepime HCl (Maxipime 2000mg) 2,000 mg in 20 mls @ 5 mls/min IV NOW STA; Protocol Stop: 09/28/24 12:21 Last Admin: 09/28/24 12:43 Dose: 5 mls/min Documented By: DEBBIE Vancomycin HCl 1,500 mg/ (Sodium Chloride) 530 mls @ 200 mls/hr IV NOW ONE Stop: 09/28/24 14:56 Last Infusion: 09/28/24 15:40 Dose: Infused Documented By: Admin: 09/28/24 12:50 Dose: 200 mls/hr Documented By: DEBBIE Parenteral Electrolytes (Plasma-Lyte A Ph 7.4) 1,000 mls @ 999 mls/hr IV .Q1H1M ONE Stop: 09/28/24 14:16 Last Infusion: 09/28/24 14:28 Dose: Infused Documented By: Admin: 09/28/24 13:28 Dose: 999 mls/hr Documented By: KHANH Lactated Ringer's (Lr) 1,000 mls @ 999 mls/hr IV .Q1H1M ONE Stop: 09/28/24 15:06 Last Infusion: 09/28/24 15:40 Dose: Infused Documented By: Admin: 09/28/24 14:37 Dose: 999 mls/hr Documented By: KHANH Thiamine HCl 500 mg/ Sodium (Chloride) 55 mls @ 210 mls/hr IV NOW STA Stop: 09/28/24 14:27 Last Infusion: 09/28/24 15:40 Dose: Infused Documented By: Admin: 09/28/24 15:21 Dose: 210 mls/hr Documented By: GERI Folic Acid 1 mg/ Syringe 10 mls @ 5 mls/min IV NOW STA Stop: 09/28/24 14:13 Last Admin: 09/28/24 15:21 Dose: 5 mls/min Documented By: GERI Cefepime HCl (Maxipime 2000mg) 1,000 mg in 10 mls @ 5 mls/min IV NOW STA; Protocol Stop: 09/28/24 17:17 Last Admin: 09/28/24 17:38 Dose: 5 mls/min Documented By: JERSON Imaging Data Radiologist's Impression: Chest X-Ray 09/28/24 12:13 XR chest 1V portable CLINICAL HISTORY: Sepsis COMPARISON STUDY: 11/16/2022 FINDINGS: Stable pacemaker. Heart size and pulmonary vasculature are normal. Stable mild blunting of the left costophrenic angle. No other consolidation or pleural effusion seen. No pneumothorax. 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 IMPRESSION: Stable mild blunting of the left costophrenic angle. No acute findings seen. ACT 112: Negative or not required by law. Electronically signed by: Lui Tan M.D. 09/28/2024 1:04 PM Foot X-Ray 09/28/24 12:14 XR foot RT 2V CLINICAL HISTORY: wound COMPARISON: None FINDINGS: There are atherosclerotic calcifications. No fracture or dislocation. There are minimal scattered degenerative changes without erosions. No radiopaque foreign body. No evidence of osteomyelitis. IMPRESSION: No osteomyelitis seen. ACT 112: Negative or not required by law. Electronically signed by: Lui Tan M.D. 09/28/2024 1:08 PM Foot X-Ray 09/28/24 12:14 XR foot LT 2V CLINICAL HISTORY: wound COMPARISON: None FINDINGS: There are atherosclerotic calcifications. No fracture or dislocation. There are minimal scattered degenerative changes without erosions. No radiopaque foreign body. No evidence of osteomyelitis. IMPRESSION: No osteomyelitis seen. ACT 112: Negative or not required by law. Electronically signed by: Lui Tan M.D. 09/28/2024 1:09 PM Discharge Plan Visit Data Chief Complaint: Illness Stated Complaint: alcohol intox, red swollen legs ED Provider: Florence Menjivar Discharge Problem: Bilateral cellulitis of lower leg, Alcohol abuse, Alcohol intoxication, Dehydration, Atrial fibrillation Patient Disposition: Admitted As Inpatient Discharge Instructions Interventions: ED Discharge Assessment Last Done: 09/28/24 16:46
[2024-09-28] MEDS: VANCOMYCIN HCL 1,500 MG in SODIUM CHLORIDE 0.9% 500 ML IV ONE (12:50)
[2024-09-28 12:54] LABS: Base Excess VBG -0.4 mEq/L; HCO3 VBG 26 mmol/L; Oxygen Saturation VBG < 60.0 %; PCO2 VBG 48 mmHg (38-50); PO2 VBG 38 mmHg; pH VBG 7.34 (7.36-7.41)
[2024-09-28 12:58] LABS: Basophils # (auto) 0.05 K/uL (0.00-0.20); Basophils % (auto) 0.9 %; Eosinophils # (auto) 0.01 K/uL (0.00-0.50); Eosinophils % (auto) 0.2 %; Hematocrit (blood only) 36.7 % (42.0-52.0); Hemoglobin 12.1 g/dl (14.0-18.0); Immature Granulocytes # (auto) 0.02 K/uL (0.01-0.20); Immature Granulocytes % (auto) 0.4 %; Lymphocytes # (auto) 1.69 K/uL (1.20-3.40); Mean Corpuscular Hemoglobin 34.8 pg (25.0-34.0); Mean Corpuscular Volume 105.5 fL (80.0-100.0); Mean Platelet Volume 8.1 fL (9.4-12.4); Monocytes # (auto) 0.74 K/uL (0.11-0.59); Monocytes % (auto) 13.6 %; Neutrophils # (auto) 2.94 K/uL (1.40-6.50); Neutrophils % (auto) 53.9 %; Platelet Count 273 K/uL (130-400); RDW Coefficient of Variation 18.1 % (11.5-14.5); Red Blood Count 3.48 M/uL (4.70-6.10); White Blood Count 5.45 K/ul (4.8-10.8)
--- NOTE | 2024-09-28 13:05 | XRay Report ---
XR chest 1V portable CLINICAL HISTORY: Sepsis COMPARISON STUDY: 11/16/2022 FINDINGS: Stable pacemaker. Heart size and pulmonary vasculature are normal. Stable mild blunting of the left costophrenic angle. No other consolidation or pleural effusion seen. No pneumothorax. 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 IMPRESSION: Stable mild blunting of the left costophrenic angle. No acute findings seen. ACT 112: Negative or not required by law. Electronically signed by: Lui Tan M.D. 09/28/2024 1:04 PM
--- NOTE | 2024-09-28 13:09 | XRay Report ---
XR foot RT 2V CLINICAL HISTORY: wound COMPARISON: None FINDINGS: There are atherosclerotic calcifications. No fracture or dislocation. There are minimal sc attered degenerative changes without erosions. No radiopaque foreign body. No evidence of osteomyelit is. IMPRESSION: No osteomyelitis seen. ACT 112: Negative or not required by law. Electronically signed by: Lui Tan M.D. 09/28/2024 1:08 PM
--- NOTE | 2024-09-28 13:10 | XRay Report ---
XR foot LT 2V CLINICAL HISTORY: wound COMPARISON: None FINDINGS: There are atherosclerotic calcifications. No fracture or dislocation. There are minimal sc attered degenerative changes without erosions. No radiopaque foreign body. No evidence of osteomyelit is. IMPRESSION: No osteomyelitis seen. ACT 112: Negative or not required by law. Electronically signed by: Lui Tan M.D. 09/28/2024 1:09 PM
[2024-09-28 13:14] LABS: Albumin Level 2.9 gm/dl (3.4-5.0); BUN Creatinine Ratio 15.4 (10-20); Bilirubin Direct 0.1 mg/dl (0-0.2); Bilirubin,Total 0.4 mg/dl (0.2-1.0); Calcium 7.7 mg/dl (8.6-10.3); Creatinine Clr Calc Pharmacy 84.4 ml/min; Potassium 3.8 mmol/L (3.5-5.1); Total Protein 6.5 gm/dl (6.0-8.3)
[2024-09-28 13:19] LABS: Troponin I High Sensitivity 8.8 pg/ml (0-20)
[2024-09-28] MEDS: PLASMA-LYTE A 1,000 ML IV ONE (13:28)
[2024-09-28 14:19] LABS: Adenovirus PCR Not Detected (NotDetected); Bordetella parapertussis PCR Not Detected (NotDetected); Bordetella pertussis PCR Not Detected (NotDetected); Chlamydia pneumoniae PCR Not Detected (NotDetected); Coronavirus 229E PCR Not Detected (NotDetected); Coronavirus CoV-2 (COVID19)PCR Not Detected (NotDetected); Coronavirus HKU1 PCR Not Detected (NotDetected); Coronavirus NL63 PCR Not Detected (NotDetected); Coronavirus OC43PCR Not Detected (NotDetected); Human Metapneumovirus PCR Not Detected (NotDetected); Influenza A PCR Not Detected (NotDetected); Influenza B PCR Not Detected (NotDetected); Mycoplasma pneumoniae PCR Not Detected (NotDetected); Parainfluenza Virus 1 PCR Not Detected (NotDetected); Parainfluenza Virus 2 PCR Not Detected (NotDetected); Parainfluenza Virus 3 PCR Not Detected (NotDetected); Parainfluenza Virus 4 PCR Not Detected (NotDetected); Respiratory Syncytial VirusPCR Not Detected (NotDetected); Rhinovirus/Enterovirus PCR Not Detected (NotDetected)
--- NOTE | 2024-09-28 14:22 | Electrocardiogram Report ---
Test Reason : Blood Pressure : */* mmHG Vent. Rate : 115 BPM Atrial Rate : * BPM P-R Int : * ms QRS Dur : 62 ms QT Int : 330 ms P-R-T Axes : * 52 251 degrees QTcB Int : 456 ms Atrial fibrillation Nonspecific ST abnormality Abnormal ECG When compared with ECG of 15-Nov-2022 18:32, ST no longer depressed in Anterior leads Confirmed by Satya Strange ([id number]) on 09/28/2024 2:22:05 PM Referred By: Confirmed By: Satya Strange
[2024-09-28] MEDS: LACTATED RINGER'S 1,000 ML IV ONE (14:37)
[2024-09-28] MEDS: FOLIC ACID 1 MG in SYRINGE 9.8 ML IV STA (15:21)
[2024-09-28] MEDS: THIAMINE HCL 500 MG in SODIUM CHLORIDE 0.9% 50 ML IV STA (15:21)
--- NOTE | 2024-09-28 15:35 | History & Physical Report ---
Date of Service September 28, 2024 Assessment & Plan (1) Severe sepsis: (2) Bilateral cellulitis of lower leg: Plan: Admit to tele Patient presenting from home for evaluation of ongoing BL leg infection. Reports he had been on antibiotics until 2 weeks ago. [facility] B[facility]. Patient meets severe sepsis criteria on presentation with tachycardia, tachypnea, elevated lactate 3.9 (alcohol intoxication may be contributing to elevated lactate) S/p Vanco and cefepime in ED, will continue with both Continue IVF, trend lactate ID consult due to recurrent cellulitis Wound care consult Venous and arterial dopplers Follow blood cultures (3) Atrial fibrillation with rapid ventricular response: (4) Presence of Watchman left atrial appendage closure device: Plan: History of PAF s/p Watchman RVR likely secondary to sepsis Continue IVF resuscitation, consider PRN IV metoprolol if needed Continue EXECUTIVE ADMIN metoprolol succinate (5) Alcohol abuse: Plan: Patient reports drinking 6 beers/week however use is likely much higher Alcohol level 374 Alcohol withdrawal protocol with Librium and PRN Ativan (6) CHF (congestive heart failure): Plan: Update echo Hold diuretics for now due to sepsis (7) Hypernatremia: Plan: Likely due to dehydration Na+ 152 -> 148 after IVF Continue to trend (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 Urias. I spent a total of 75 minutes coordinating, documenting, and providing care for this patient excluding time spent in the performance of separately billed services. This included personally reviewing all current laboratories and imaging studies, medication reconciliation, outpatient chart review, and discussion with specialists. 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 Patient is somewhat a poor historian. He does not know what medications he takes. Alcohol level 374 and patient reports he drinks 6 beers/week, upon further questioning patient states he may have had a bloody jessika this morning. Patient reports he has had BLLE leg skin infection since May. Reports being on antibiotics until about 2 weeks ago and says he was "cut off". Reports he had some improvement while on the antibiotics. Patient denies fever and chills. No chest pain or shortness of breath. Reports somewhat chronic nausea and vomiting at times which is unchanged from baseline. No abdominal pain. Denies lightheadedness, dizziness, diaphoresis, and syncopal events. No urinary symptoms. Allergies Allergy/AdvReac Type Severity Reaction Status Date / Time gabapentin Allergy Unknown Unknown - Unverified 09/28/24 14:31 On file / [facility] Pharmacy fentanyl AdvReac Mild itch Verified 09/28/24 14:31 Home Medications Medication Instructions Recorded Confirmed Type aspirin 81 mg tablet,delayed 81 mg PO DAILY 11/15/22 09/28/24 History release ferrous sulfate 325 mg (65 mg 325 mg PO DAILY 11/15/22 09/28/24 History iron) tablet (FeroSul) magnesium oxide 420 mg tablet 420 mg PO DAILY 11/15/22 09/28/24 History multivitamin (Daily Multi-Vitamin 1 tab PO DAILY 11/15/22 09/28/24 History tablet) cetirizine 10 mg tablet (Zyrtec) 10 mg PO HS 09/28/24 09/28/24 History cholecalciferol (vitamin D3) 25 50 mcg PO DAILY 09/28/24 09/28/24 History mcg (1,000 unit) tablet (Vitamin D3) docusate sodium 100 mg capsule 100 mg PO HS 09/28/24 09/28/24 History eplerenone 50 mg tablet 50 mg PO DAILY 09/28/24 09/28/24 History furosemide 20 mg tablet 20 mg PO DAILY 09/28/24 09/28/24 History ketoconazole 2 % shampoo 1 ea topical 3XWK 09/28/24 09/28/24 History lanolin alcohols-mineral 1 applic topical BID 09/28/24 09/28/24 History oil-w.petrolatum-ceresin topical cream (Eucerin topical cream) metoprolol succinate 50 mg See Rx Instructions .Route .COMPLEX 09/28/24 09/28/24 History tablet,extended release 24 hr naloxone 4 mg/actuation nasal spray 4 mg intranasal DAILY PRN Opioid 09/28/24 09/28/24 History Overdose oxycodone 10 mg tablet,crush 10 mg PO Q12H 09/28/24 09/28/24 History resistant,extended release 12 hr pregabalin 25 mg capsule 25 mg PO BID 09/28/24 09/28/24 History promethazine 25 mg tablet 25 mg PO Q8H PRN Nausea And 09/28/24 09/28/24 History Vomiting rifaximin 550 mg tablet 550 mg PO BID 09/28/24 09/28/24 History sennosides 8.6 mg tablet (senna) 8.6 mg PO HS 09/28/24 09/28/24 History zinc oxide 20 % topical ointment 1 applic topical BID Buttock/Groin 09/28/24 09/28/24 History irritation Past Med/Surg History Problem List (Updated 09/28/24 @ 16:10 by CANDIDO Mendez) Hypernatremia Severe sepsis Alcohol abuse (Acute) Bilateral cellulitis of lower leg (Acute) Atrial fibrillation with rapid ventricular response (Acute) Medical History (Updated 09/28/24 @ 16:10 by CANDIDO Mendez) CHF (congestive heart failure) Presence of Watchman left atrial appendage closure device Cardiac pacemaker in situ Cirrhosis History of bacteremia Per family's report Atrial fibrillation History of alcohol abuse Surgical History (Updated 09/28/24 @ 15:30 by CANDIDO Mendez) History of splenectomy Family History Other Family history non-contributory Social History Smoking Status: Former smoker Second Hand Exposure: No; Do You Dip or Chew Tobacco: No; Hx Alcohol Use: Yes Alcohol type: beer and hard liquor Hx Substance Use: No Preferred Language: Belarusian Communication Ability: Effective Bulb Packer Required: No Beliefs That Will Affect Care: None Current Living Situation: Family Other Information That Helps Us Care for You: No Feels Safe at Home: Yes Safety Concerns: Feels Safe At This Time Assistive Devices: Cane and Walker Physical Exam Constitutional: + ill appearing (chronically); no acute distress Eyes: PERRL, conjunctivae normal, anicteric sclerae ENMT: external ear and nose normal, oropharynx normal Respiratory: normal respiratory effort, lungs clear to auscultation Cardiovascular: Rate/Rhythm: + tachycardic and + irregularly irregular Vessels: normal peripheral pulses Extremities: + edema (BLLE) Gastrointestinal (Abdomen): normal bowel sounds, soft, nontender, no hepatosplenomegaly Musculoskeletal: no cyanosis or clubbing, extremities motor strength 5/5 Skin: please refer to wound care pictures for BLLE skin assessment Neurologic: no focal motor deficits Psychiatric: Orientation: alert, oriented to person and oriented to place; + not oriented to time Insight: + limited insight Results & Data Results & Data Vital Signs (Past 12 Hours) Vital Signs Temp Pulse Pulse Resp BP BP Pulse Ox 09/28/24 15:01 133 H 18 93/67 L 92 09/28/24 14:31 132 H 09/28/24 14:15 121 H 18 103/83 95 09/28/24 14:01 96/83 L 09/28/24 13:36 140 H 31 H 98 09/28/24 13:18 118 H 25 H 92 09/28/24 13:04 114 H 22 106/71 94 09/28/24 13:00 135 H 21 95 09/28/24 12:54 109 H 26 H 93 09/28/24 12:21 107 H 25 H 92 09/28/24 12:17 09/28/24 12:00 111 H 15 95 09/28/24 11:33 09/28/24 11:33 36.6 C 112 H 24 105/70 99 09/28/24 11:30 126 H 25 H 96 O2 Del Method 09/28/24 15:01 09/28/24 14:31 09/28/24 14:15 Room Air 09/28/24 14:01 09/28/24 13:36 Room Air 09/28/24 13:18 Room Air 09/28/24 13:04 09/28/24 13:00 Room Air 09/28/24 12:54 Room Air 09/28/24 12:21 Room Air 09/28/24 12:17 Room Air 09/28/24 12:00 Room Air 09/28/24 11:33 Room Air 09/28/24 11:33 Room Air 09/28/24 11:30 Room Air Laboratory Results Short CBC 09/28/24 Range/Units 12:41 WBC 5.45 (4.8-10.8) K/ul Hgb 12.1 L (14.0-18.0) g/dl Hct 36.7 L (42.0-52.0) % Plt Count 273 (130-400) K/uL BMP 09/28/24 12:41 Sodium 152 H Potassium 3.8 Chloride 115 H Carbon Dioxide 27 BUN 10 Creatinine 0.65 Glucose 114 H Calcium 7.7 L Liver Function 09/28/24 Range/Units 12:41 Total Bilirubin 0.4 (0.2-1.0) mg/dl Direct Bilirubin 0.1 (0-0.2) mg/dl AST 37 (13-39) U/L ALT 14 (7-52) U/L Alkaline Phosphatase 217 H (34-104) U/L Albumin 2.9 L (3.4-5.0) gm/dl Diagnostic Findings Chest X-Ray 09/28/24 12:13 XR chest 1V portable CLINICAL HISTORY: Sepsis COMPARISON STUDY: 11/16/2022 FINDINGS: Stable pacemaker. Heart size and pulmonary vasculature are normal. Stable mild blunting of the left costophrenic angle. No other consolidation or pleural effusion seen. No pneumothorax. 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 IMPRESSION: Stable mild blunting of the left costophrenic angle. No acute findings seen. ACT 112: Negative or not required by law. Electronically signed by: Lui Tan M.D. 09/28/2024 1:04 PM Foot X-Ray 09/28/24 12:14 XR foot RT 2V CLINICAL HISTORY: wound COMPARISON: None FINDINGS: There are atherosclerotic calcifications. No fracture or dislocation. There are minimal scattered degenerative changes without erosions. No radiopaque foreign body. No evidence of osteomyelitis. IMPRESSION: No osteomyelitis seen. ACT 112: Negative or not required by law. Electronically signed by: Lui Tan M.D. 09/28/2024 1:08 PM Foot X-Ray 09/28/24 12:14 XR foot LT 2V CLINICAL HISTORY: wound COMPARISON: None FINDINGS: There are atherosclerotic calcifications. No fracture or dislocation. There are minimal scattered degenerative changes without erosions. No radiopaque foreign body. No evidence of osteomyelitis. IMPRESSION: No osteomyelitis seen. ACT 112: Negative or not required by law. Electronically signed by: Lui Tan M.D. 09/28/2024 1:09 PM Code Status & VTE Plan VTE Prophylaxis Plan VTE Prophylaxis will be ordered: Yes Supervising Physician Co-Signing Physician Notes Attending Addendum: Case reviewed with the advanced practitioner. I have personally performed a history and physical examination on the patient. I have reviewed the advanced practitioner's documentation on the date of service referenced in note, and I agree with, and take responsibility for the plan of care. please refer to her notes for full details patient seen and examined, records reviewed by myself as well on exam, patient seen resting in bed, comfortable has some mild discomfort BL feet no chest pain, dyspnea, palpitations, dizziness no other symptoms VS noted and reviewed oriented x 3 , not in distress, speaks in sentences with no effort nor accessory muscle use mildly tachycardic, irregular rhythm, no murmurs clear breath sounds bilaterally non distended, soft, nontender BL feet: dry skin, significant erythema, mild warmth and tenderness, good pulses (Please refer to uploaded photos on the Notes section) no neuro deficits all labs, imaging noted and reviewed ASSESSMENT AND PLAN SEPSIS SECONDARY TO BL FEEL CELLULITIS ASPLENIA, S/P SPLENECTOMY STATUS sepsis protocol ff up cultures IV Vanco + Cefepime IV fluids ID and wound care consult CHRONIC ATRIAL FIBRILLATION, IN RVR S/P WATCHMAN DEVICE PLACEMENT secondary to above PRN Lopressor continue usual Metoprolol not on anticoagulation ALCOHOLISM Librium taper Alcohol withdrawal protocol other diagnoses and plan of care as per advanced practitioner's notes I spent a total of 35 minutes coordinating, documenting, and providing care for this patient, excluding time spent in the performance of separately billed services or time spent by another provider/QHP. Justyn Urias MD
[2024-09-28] MEDS ORDERED: oxyCODONE HCL IR 5 MG TAB (IMMEDIATE RELEASE) PO PRN (15:46)
[2024-09-28 15:55] LABS: BUN Creatinine Ratio 16.1 (10-20); Calcium 7.1 mg/dl (8.6-10.3); Creatinine Clr Calc Pharmacy 97.9 ml/min; Potassium 4.2 mmol/L (3.5-5.1)
[2024-09-28] MEDS ORDERED: Ativan IV Alcohol Withdrawal--Active Protocol IV PRN (17:10)
[2024-09-28] MEDS ORDERED: chlordiazePOXIDE ALCOHOL WITHDRAWL 25MG PO STA (17:10)
[2024-09-28] MEDS ORDERED: LORazepam 2 MG/1 ML VIAL IV PRN ×3 (17:10)
[2024-09-28] MEDS: CEFEPIME 1000MG 1,000 MG/10 ML SYR IV STA (17:38)
--- NOTE | 2024-09-28 17:42 | Ultrasound Report ---
EXAM: US venous doppler LE BI CLINICAL HISTORY: Edema. TECHNIQUE: An ultrasound examination of bilateral lower extremity veins and duplex was performed in real-time. One or more of the following were performed: spectral analysis, resistive index, waveform analysis, and pulsed Doppler. COMPARISON: None. FINDINGS: Limited visualization of the calf veins due to edema. Normal phasic, non-pulsatile, and spontaneous flow is noted in bilateral common femoral, superficial femoral, and popliteal veins. Visualized veins of both lower extremities demonstrate normal compressibility. No sonographic evidence of acute deep vein thrombosis (DVT) is detected in the visualized veins of both lower extremities. Compression and Augmentation: All evaluated veins compress fully with applied transducer pressure. Augmentation of venous flow is noted with distal compression. Additional Findings: No evidence of intraluminal thrombus. IMPRESSION: No sonographic evidence of acute DVT was detected in bilateral common femoral, superficial femoral, or popliteal veins at the time of examination. Disclaimer: DVT could be missed early in the disease when the clot burden is minimal. For patients with moderate and high pretest probability of DVT and negative ultrasound, the [employer] clinical guidelines recommend testing with a D-dimer assay or repeat ultrasound in 5-7 days. If symptoms worsen, the Society of Radiologists in Ultrasound recommends repeating the ultrasound even earlier. Electronically signed by Delisa Gutierrez 09-28-2024 5:42 PM
[2024-09-28 18:03] LABS: Magnesium 2.1 mg/dl (1.7-2.4)
[2024-09-28] MEDS: LACTATED RINGER'S 1,000 ML IV SCH (18:35)
[2024-09-28] MEDS: chlordiazePOXIDE HCl 25 MG CAP PO SCH (18:36)
--- NOTE | 2024-09-28 18:40 | Ultrasound Report ---
EXAM: US arterial duplex LE BI CLINICAL HISTORY: Non healing wounds. TECHNIQUE: Ultrasound examination of the bilateral lower extremities arteries with ankle brachial indices was performed in real-time and duplex. One or more of the following were performed- spectral analysis, resistive index, waveform analysis, and pulsed Doppler. COMPARISON: None. FINDINGS: Vessel Flow Pattern Right Peak Velocity Right (cm/sec)l Flow Pattern Left Peak Velocity Left (cm/sec) Common Femoral Artery (MAINTENANCE REPRESENTATIVE) Monophasic 60.5/14 Biphasic 75/10 Deep Femoral Artery (DPA) Monophasic 34/3.8 Biphasic 96.6/8.2 Superficial Femoral Artery (SFA)-Proximal Monophasic 91.8/25.5 Biphasic 82.1/6 Superficial Femoral Artery (SFA)-Mid Monophasic 100.8/25.5 Biphasic 73.6/8.5 Superficial Femoral Artery (SFA)-Distal Monophasic 80.5/22.8 Biphasic 58.8/7.2 Popliteal Artery (POP A)- Proximal Monophasic 78.9/19.6 Triphasic 59.8/10.6 Popliteal Artery (POP A)- distal Monophasic 93.3/18 Triphasic 78.5/9.7 Posterior Tibial Artery (CUSTOMER SERVICES MANAGER), proximal Monophasic 105/31.2 Biphasic 25/0.0 Posterior Tibial Artery (CUSTOMER SERVICES MANAGER), mid Monophasic 57.3/27.7 Monophasic 40.9/0.0 Posterior Tibial Artery (CUSTOMER SERVICES MANAGER), distal Monophasic 67.2/33.2 Monophasic 50.7/9 Anterior tibial artery- prox Monophasic 172.7/73.6 Biphasic 61.2/3.7 Anterior tibial artery- Mid Monophasic 138.8/42.2 Biphasic 74.7/13.9 Anterior tibial artery- Distal Monophasic 201.4/60.8 Biphasic 86.6/15 Peroneal artery- prox Monophasic 244.3/96 Biphasic 71.5/14.5 Peroneal artery- mid Monophasic 236.5/84.3 Biphasic 72.6/13.4 Peroneal artery- distal - - Biphasic 53.9/18.9 Dorsalis Pedis Artery (DPA) Monophasic 260.8/101 Biphasic 171.3/17.9 Ankle brachial indices were not measured in today's study. Bilateral moderate calcified atherosclerosis. Bilateral calcified calf Vessels. Significant increased velocity in the right proximal ADRIAN down to the dorsalis pedis artery, indicating the significant stenosis. Significant increased velocity of the left dorsalis pedis artery, indicating significant stenosis. Monophasic wave throughout the right lower extremity and Collateral Circulation: No significant collateral circulation was noted, indicative of chronic arterial occlusion. IMPRESSION: 1. Bilateral moderate calcified atherosclerosis. 2. Significant increased velocity in the right proximal ADRIAN down to the dorsalis pedis artery indicates significant stenosis. 3. Significant increased velocity of the left dorsalis pedis artery, indicating significant stenosis. 4. Further evaluation with CTA is advised as clinically indicated Electronically signed by Delisa Gutierrez 09-28-2024 6:40 PM
[2024-09-28] MEDS: VANCOMYCIN HCL 1,000 MG/270 ML BAG IV SCH (18:49)
--- NOTE | 2024-09-28 19:21 | Communication Note ---
Date of Service: September 28, 2024 Arterial and venous Dopplers reviewed. Venous Doppler negative for DVT. Arterial Doppler shows: 1. Bilateral moderate calcified atherosclerosis. 2. Significant increased velocity in the right proximal ADRIAN down to the dorsalis pedis artery indicates significant stenosis. 3. Significant increased velocity of the left dorsalis pedis artery, indicating significant stenosis. 4. Further evaluation with CTA is advised as clinically indicated. Vascular surgery consult placed. CANDIDO Mendez Hospitalist
[2024-09-28] MEDS: METOPROLOL SUCC 50MG EXT REL TAB PO SCH (19:45)
[2024-09-28 20:07] LABS: BUN Creatinine Ratio 19.6 (10-20); Calcium 7.5 mg/dl (8.6-10.3); Creatinine Clr Calc Pharmacy 90.3 ml/min
[2024-09-28] MEDS: ACETAMINOPHEN 500 MG TAB PO SCH (20:31)
[2024-09-28] MEDS: DOCUSATE SODIUM 100 MG CAP PO SCH (20:32)
[2024-09-28] MEDS: rifAXIMin 550 MG TABLET PO SCH (20:32)
[2024-09-28] MEDS: CETIRIZINE HCL 10 MG TABLET PO SCH (20:32)
[2024-09-28] MEDS: SENNA 8.6 MG TAB PO SCH (20:32)
[2024-09-28] MEDS: PREGABALIN 25 MG CAP PO SCH (20:32)
[2024-09-28] MEDS ORDERED: METOPROLOL SUCC 50MG EXT REL TAB PO SCH (21:00)
[2024-09-28 22:37] LABS: Appearance Urine Cloudy (Clear); Bacteria Urine Automated 2+ (None Seen); Bilirubin Urine Negative (Negative); Blood Urine Trace (Negative); Calcium Oxalate Crystals Urine Present (None Prsent); Color Urine Dark Yellow; Glucose Urine UA Negative (Negative); Ketones Urine Trace (Negative); Leukocyte Esterase Urine 1+ (Negative); Nitrite Urine Positive (Negative); Protein Urine 1+ (Negative); RBC Urine Automated 0-2 /hpf (0-2); Specific Gravity Urine 1.024 (1.000-1.030); Urobilinogen Urine Negative (Negative); WBC Urine Automated >50 /hpf (0-5); pH Urine 5.5 (4.5-7.5)
[2024-09-28 22:57] LABS: Amphetamines+Metham, Urine Neg (Neg); Barbiturates, Urine Neg (Neg); Benzodiazepine, Urine Neg (Neg); Cocaine, Urine Neg (Neg); Fentanyl, Urine Neg (Neg); MDMA (Ecstacy), Urine Neg (Neg); Marijuana, Urine Neg (Neg); Methadone, Urine Neg (Neg); Opiate, Urine Pos (Neg); Phencyclidine, Urine Neg (Neg)
[2024-09-28] MEDS: HEPARIN SOD 5,000 UNIT/0.5 ML VIAL SQ SCH (23:07)
[2024-09-29 01:20] LABS: BUN Creatinine Ratio 16.7 (10-20); Calcium 7.2 mg/dl (8.6-10.3); Creatinine Clr Calc Pharmacy 84.3 ml/min; Potassium 4.3 mmol/L (3.5-5.1)
[2024-09-29] MEDS: CEFEPIME 2000MG 2,000 MG/20 ML SYR IV SCH (01:49)
[2024-09-29 06:19] LABS: Hemoglobin 10.9 g/dl (14.0-18.0); Mean Corpuscular Hemoglobin 35.3 pg (25.0-34.0); Mean Corpuscular Hgb Conc 34.1 g/dL (32.0-36.0); Mean Corpuscular Volume 103.6 fL (80.0-100.0); Mean Platelet Volume 8.4 fL (9.4-12.4); Platelet Count 236 K/uL (130-400); RDW Coefficient of Variation 18.2 % (11.5-14.5); RDW Standard Deviation 68.1 fL (36.4-46.3); Red Blood Count 3.09 M/uL (4.70-6.10); White Blood Count 6.28 K/ul (4.8-10.8)
[2024-09-29 06:39] LABS: Albumin Globulin Ratio 0.8 (0.9-2); Albumin Level 2.6 gm/dl (3.4-5.0); BUN Creatinine Ratio 18.2 (10-20); Bilirubin,Total 0.7 mg/dl (0.2-1.0); Calcium 7.3 mg/dl (8.6-10.3); Creatinine Clr Calc Pharmacy 102.1 ml/min; Globulin 3.1 gm/dl (2.5-4.0); Potassium 4.3 mmol/L (3.5-5.1); Total Protein 5.7 gm/dl (6.0-8.3)
[2024-09-29] MEDS: ACETAMINOPHEN 325 MG TAB PO PRN (07:52)
[2024-09-29] MEDS: METOPROLOL SUCC 25MG EXT REL TAB PO SCH (09:13)
[2024-09-29] MEDS: MULTIVITAMIN TAB PO SCH (09:14)
[2024-09-29] MEDS: THIAMINE HCL 100 MG TAB PO SCH (09:14)
[2024-09-29] MEDS: FOLIC ACID 1 MG TAB PO SCH (09:14)
[2024-09-29] MEDS: MAGNESIUM OXIDE 400 MG TAB PO SCH (09:14)
[2024-09-29] MEDS: ASPIRIN 81 MG ECTAB PO SCH (09:14)
[2024-09-29] MEDS: FERROUS SULFATE 325 MG TAB PO SCH (09:14)
--- NOTE | 2024-09-29 10:46 | Consultation ---
Date of Consultation September 29, 2024 Assessment & Plan (1) PAD (peripheral artery disease): This patient does have peripheral artery occlusive disease however he has palpable DP's bilaterally. Cellulitis that does not have ischemic tissue loss is not an indication for any surgical or endovascular interventions. He has adequate flow for antibiotic therapy to get to the feet. Even with total occlusions as long as the collateral flow is good we would treat cellulitis with antibiotics and reserve surgical or endovascular interventions for those with ischemic tissue loss. Thank you very much for letting us participate in the care of this patient. History of Present Illness Reason for Consultation: pad with bilateral lower extremity cellulitis Attending Physician: Jeyson Matias, DO History of Present Illness This is a 74yo male who has been treated for bilateral lower extremity cellulitis with oral antibiotics since May by the [facility]. The cellulitis has not improved and he was admitted with sepsis and worsening cellulitis of the lower extremity. He had an arterial duplex that showed stenosis of the right ant tib artery. Patient ambulates with a walker. He denies any symptoms consistent with arterial rest pain. He has a history of CHF, atrial fibrillation, pacemaker and a watchman. Allergies Allergy/AdvReac Type Severity Reaction Status Date / Time gabapentin Allergy Unknown Unknown - Unverified 09/28/24 14:31 On file / [facility] Pharmacy fentanyl AdvReac Mild itch Verified 09/28/24 14:31 Home Medications Medication Instructions Recorded Confirmed Type aspirin 81 mg tablet,delayed 81 mg PO DAILY 11/15/22 09/28/24 History release ferrous sulfate 325 mg (65 mg 325 mg PO DAILY 11/15/22 09/28/24 History iron) tablet (FeroSul) magnesium oxide 420 mg tablet 420 mg PO DAILY 11/15/22 09/28/24 History multivitamin (Daily Multi-Vitamin 1 tab PO DAILY 11/15/22 09/28/24 History tablet) cetirizine 10 mg tablet (Zyrtec) 10 mg PO HS 09/28/24 09/28/24 History cholecalciferol (vitamin D3) 25 50 mcg PO DAILY 09/28/24 09/28/24 History mcg (1,000 unit) tablet (Vitamin D3) docusate sodium 100 mg capsule 100 mg PO HS 09/28/24 09/28/24 History eplerenone 50 mg tablet 50 mg PO DAILY 09/28/24 09/28/24 History furosemide 20 mg tablet 20 mg PO DAILY 09/28/24 09/28/24 History ketoconazole 2 % shampoo 1 ea topical 3XWK 09/28/24 09/28/24 History lanolin alcohols-mineral 1 applic topical BID 09/28/24 09/28/24 History oil-w.petrolatum-ceresin topical cream (Eucerin topical cream) metoprolol succinate 50 mg See Rx Instructions .Route .COMPLEX 09/28/24 09/28/24 History tablet,extended release 24 hr naloxone 4 mg/actuation nasal spray 4 mg intranasal DAILY PRN Opioid 09/28/24 09/28/24 History Overdose oxycodone 10 mg tablet,crush 10 mg PO Q12H 09/28/24 09/28/24 History resistant,extended release 12 hr pregabalin 25 mg capsule 25 mg PO BID 09/28/24 09/28/24 History promethazine 25 mg tablet 25 mg PO Q8H PRN Nausea And 09/28/24 09/28/24 History Vomiting rifaximin 550 mg tablet 550 mg PO BID 09/28/24 09/28/24 History sennosides 8.6 mg tablet (senna) 8.6 mg PO HS 09/28/24 09/28/24 History zinc oxide 20 % topical ointment 1 applic topical BID Buttock/Groin 09/28/24 09/28/24 History irritation Patient History Medical History CHF (congestive heart failure) Presence of Watchman left atrial appendage closure device Cardiac pacemaker in situ Cirrhosis History of bacteremia Per family's report Atrial fibrillation History of alcohol abuse Surgical History History of splenectomy Family History Other Family history non-contributory Social History Smoking Status: Former smoker Second Hand Exposure: No; Do You Dip or Chew Tobacco: No; Hx Alcohol Use: Yes Alcohol type: beer and hard liquor Hx Substance Use: No Preferred Language: Swedish Communication Ability: Effective Rpg Programmer Required: No Beliefs That Will Affect Care: None Current Living Situation: Family Feels Safe at Home: Yes Assistive Devices: Cane and Walker Review of Systems Review of Systems: All systems reviewed & are unremarkable except as noted in HPI & below Physical Exam Constitutional: WD/WN, vitals as above Respiratory: normal respiratory effort; no respiratory distress Cardiovascular: Rate/Rhythm: + irregularly irregular Vessels: femoral pulses present, posterior tibial pulses present (excellent doppler on right, min on left) and dorsalis pedis pulses present (bilateral) Extremities: normal capillary refill Skin: bilateral cellulitis of the feet worse on right with excoriations of the right foot. No gangrenous changes noted Neurologic: CN's II-XI intact bilaterally and moves all extremities Psychiatric: A+Ox3, euthymic affect Results & Data Vital Signs (Past 12 Hours) Vital Signs Temp Pulse Pulse Resp BP Pulse Ox O2 Del Method 09/29/24 07:48 36.7 C 107 H 17 131/88 97 Room Air 09/29/24 02:52 36.5 C 86 16 108/73 96 Room Air 09/29/24 02:38 113 H 09/28/24 23:02 36.6 C 96 H 18 108/71 98 Room Air
--- NOTE | 2024-09-29 11:34 | Infectious Disease Consult ---
Date of Service September 29, 2024 Telehealth Information I performed this visit using a real-time telehealth connection between my location and the patients location ([facility]). After connecting through interactive tele-video, patient was identified by name and date of and/or wristband check.Patient (or authorized healthcare traffic workforce representative) was informed that this was a telemedicine visit and it was being conducted confidentially over secure lines. My office door was closed and no one else was present in the room with me.Patient (or authorized healthcare traffic workforce representative) provided consent to proceed with the visit, expressed an understanding of privacy and security of the telemedicine visit, and gave permission to have a hospital traffic workforce representative in the room in order to assist with the visit and to conduct portions of the visit, as needed. I informed the patient (or authorized healthcare traffic workforce representative) that I reviewed their record and presented the opportunity for them to ask any questions regarding the visit today. The patient agreed to participate. Assessment & Plan (1) Bilateral cellulitis of lower leg: (2) Atrial fibrillation with rapid ventricular response: (3) PAD (peripheral artery disease): Plan Patient explaining that he has had some sort of reaction to a topical cream that was given to him in May of 2024. he has been applying combination of petroleum/lidocaine / zinc oxide since this time 5 days a week, without improvement of the tissue on his feet or lower extremities. it is possible that the relative appearance of his lower extremities is caused from a allergic reaction to the constant application of the topical agents and recommended that these are discontinued. With compromise of the skin barrier it is always possible to invite superficial bacteria into the subcutaneous tissues causing a cellulitic picture. It is unclear the role of the arterial stenosis in the current examination. Plan: -Discontinue cefepime -continue vancomycin dosed per pharmacy -please discontinue topical agents on the skin as he is likely having an allergic reaction to one or more of the components - please consult Wound Care for careful evaluation, there input will be appreciated regards to potential allergic reaction and further care - if the patient's pain does not improve over the next 48 -72 hours then likely this is not a cellulitic picture - follow-up blood culture/urine culture and continue to monitor temperature curve - ID will continue to follow Case discussed with ID attending Dr. 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 Was seen at the [place] and was given oral Bactim for infection which ended approximately two weeks ago. Since this time he has noticed increase in the b/l erythema. On presentation BP 96/83 hr126 (afib) rr25 T36.6C on RA LA 3.9-4.5-3.0, wbc 13.23-6.28. RPP Negative. 09/28 Bclx and Uclx pending. ETOH 374 mg/dl. CXR: no acute findings, RT foot XR: no OM seen, Venous doppler bl/LE: no DVT. Arterial duplex showing significant increased velocity in the right proximal ADRIAN down to the dorsalis pedis artery indicates significant stenosis, and significant increased velocity of the left dorsalis pedis artery, indicating significant stenosis. Patient pl aced on Vancomycin and Cefepime and ID consulted due to recurrent cellulitis. Patient states that he is having significant bilateral lower extremity pain, worse on the right. This is slowly redeveloped since stopping the Bactrim approximately 2 weeks ago. He denies any fever/chills, N/V/ D at this time. He states that his lower extremity wounds started in the aproximately May when he was given [place] topical cream by a physician at the [place], this caused him to have significant redness over the areas that were applied. He followed up with a physician in [place] whom stopped that topical agent and changed it to Petroleum/Lidocaine/and zinc oxide which he has been applying 5 days a week since May. There as been no improvement in the redness of his extremities since this time. The pain in the LE was present at the last admission to the [place] and improved with Bactrim and returned after cessation of this medication. Allergies Allergy/AdvReac Type Severity Reaction Status Date / Time gabapentin Allergy Unknown Unknown - Unverified 09/28/24 14:31 On file w/ [facility] fentanyl AdvReac Mild itch Verified 09/28/24 14:31 Home Medications Medication Instructions Recorded Confirmed Type aspirin 81 mg tablet,delayed 81 mg PO DAILY 11/15/22 09/28/24 History release ferrous sulfate 325 mg (65 mg 325 mg PO DAILY 11/15/22 09/28/24 History iron) tablet (FeroSul) magnesium oxide 420 mg tablet 420 mg PO DAILY 11/15/22 09/28/24 History multivitamin (Daily Multi-Vitamin 1 tab PO DAILY 11/15/22 09/28/24 History tablet) cetirizine 10 mg tablet (Zyrtec) 10 mg PO HS 09/28/24 09/28/24 History cholecalciferol (vitamin D3) 25 50 mcg PO DAILY 09/28/24 09/28/24 History mcg (1,000 unit) tablet (Vitamin D3) docusate sodium 100 mg capsule 100 mg PO HS 09/28/24 09/28/24 History eplerenone 50 mg tablet 50 mg PO DAILY 09/28/24 09/28/24 History furosemide 20 mg tablet 20 mg PO DAILY 09/28/24 09/28/24 History ketoconazole 2 % shampoo 1 ea topical 3XWK 09/28/24 09/28/24 History lanolin alcohols-mineral 1 applic topical BID 09/28/24 09/28/24 History oil-w.petrolatum-ceresin topical cream (Eucerin topical cream) metoprolol succinate 50 mg See Rx Instructions .Route .COMPLEX 09/28/24 09/28/24 History tablet,extended release 24 hr naloxone 4 mg/actuation nasal spray 4 mg intranasal DAILY PRN Opioid 09/28/24 09/28/24 History Overdose oxycodone 10 mg tablet,crush 10 mg PO Q12H 09/28/24 09/28/24 History resistant,extended release 12 hr pregabalin 25 mg capsule 25 mg PO BID 09/28/24 09/28/24 History promethazine 25 mg tablet 25 mg PO Q8H PRN Nausea And 09/28/24 09/28/24 History Vomiting rifaximin 550 mg tablet 550 mg PO BID 09/28/24 09/28/24 History sennosides 8.6 mg tablet (senna) 8.6 mg PO HS 09/28/24 09/28/24 History zinc oxide 20 % topical ointment 1 applic topical BID Buttock/Groin 09/28/24 09/28/24 History irritation Patient History Medical History CHF (congestive heart failure) Presence of Watchman left atrial appendage closure device Cardiac pacemaker in situ Cirrhosis History of bacteremia Per family's report Atrial fibrillation History of alcohol abuse Surgical History History of splenectomy Family History Other Family history non-contributory Social History Smoking Status: Former smoker Second Hand Exposure: No; Do You Dip or Chew Tobacco: No; Hx Alcohol Use: Yes Alcohol type: beer and hard liquor Hx Substance Use: No Preferred Language: Mauritian Communication Ability: Effective Lbd Teacher Required: No Beliefs That Will Affect Care: None Current Living Situation: Family Feels Safe at Home: Yes Assistive Devices: Cane, Walker and Wheelchair Review of Systems Constitutional: No fever/chills Eyes: No pain, drainage, vision change HENT: No symptoms reported Cardiovascular: No chest pain, palpitations, Respiratory: No shortness of breath, wheezing, cough, sputum production Gastrointestinal: No abdominal pain, nausea/vomiting Skin: significant redness bilateral lower extremities worse on the right, pain 10/10 in bilateral lower extremities worse on the right Neurological: No dizziness, weakness, confusion, sensory changes Physical Exam telemedicine physical exam: Patient with hoarse voice, fluent speech somewhat muffled, answering questions appropriately, moving upper extremities spontaneously, AAOx3, no overt focality appreciated on this limited exam pictures of lower extremities reviewed, significant rubor from bilateral lower extremities worse on the right foot and distal tib/fib- well demarcated Results & Data Vital Signs (Past 12 Hours) Vital Signs Temp Pulse Pulse Resp BP BP Pulse Ox 09/29/24 11:25 36.3 C L 125 H 18 119/84 96 09/29/24 07:48 36.7 C 107 H 17 131/88 97 09/29/24 02:52 36.5 C 86 16 108/73 96 09/29/24 02:38 113 H O2 Del Method 09/29/24 11:25 Room Air 09/29/24 07:48 Room Air 09/29/24 02:52 Room Air 09/29/24 02:38 Laboratory Results Laboratory Results WBC 6.28 K/ul (4.8-10.8) 09/29/24 05:55 RBC 3.09 M/uL (4.70-6.10) L 09/29/24 05:55 Hgb 10.9 g/dl (14.0-18.0) L 09/29/24 05:55 Hct 32.0 % (42.0-52.0) L 09/29/24 05:55 MCV 103.6 fL (80.0-100.0) H 09/29/24 05:55 MCH 35.3 pg (25.0-34.0) H 09/29/24 05:55 MCHC 34.1 g/dL (32.0-36.0) 09/29/24 05:55 RDW Std Deviation 68.1 fL (36.4-46.3) H 09/29/24 05:55 RDW Coeff of Giancarlo 18.2 % (11.5-14.5) H 09/29/24 05:55 Plt Count 236 K/uL (130-400) 09/29/24 05:55 MPV 8.4 fL (9.4-12.4) L 09/29/24 05:55 Immature Gran % (Auto) 0.4 % 09/28/24 12:41 Neut % (Auto) 53.9 % 09/28/24 12:41 Lymph % (Auto) 31.0 % 09/28/24 12:41 [place] % (Auto) 13.6 % 09/28/24 12:41 Eos % (Auto) 0.2 % 09/28/24 12:41 Baso % (Auto) 0.9 % 09/28/24 12:41 Neut # (Auto) 2.94 K/uL (1.40-6.50) 09/28/24 12:41 Lymph # (Auto) 1.69 K/uL (1.20-3.40) 09/28/24 12:41 [place] # (Auto) 0.74 K/uL (0.11-0.59) H 09/28/24 12:41 Eos # (Auto) 0.01 K/uL (0.00-0.50) 09/28/24 12:41 Baso # (Auto) 0.05 K/uL (0.00-0.20) 09/28/24 12:41 Immature Gran # (Auto) 0.02 K/uL (0.01-0.20) 09/28/24 12:41 PT 11.0 Seconds (9.0-12.0) 09/28/24 12:41 INR 1.0 (0.9-1.1) 09/28/24 12:41 VBG pH 7.34 (7.36-7.41) L 09/28/24 12:41 VBG pCO2 48 mmHg (38-50) 09/28/24 12:41 VBG pO2 38 mmHg 09/28/24 12:41 VBG HCO3 26 mmol/L 09/28/24 12:41 VBG O2 Saturation < 60.0 % 09/28/24 12:41 VBG Base Excess -0.4 mEq/L 09/28/24 12:41 Sodium 144 mmol/L (136-145) 09/29/24 05:55 Potassium 4.3 mmol/L (3.5-5.1) 09/29/24 05:55 Chloride 112 mmol/L (98-107) H 09/29/24 05:55 Carbon Dioxide 27 mmol/L (21-32) 09/29/24 05:55 Anion Gap 5 (3-11) 09/29/24 05:55 BUN 10 mg/dl (6-23) 09/29/24 05:55 Creatinine 0.55 mg/dl (0.6-1.4) L 09/29/24 05:55 Est Cr Clr Drug Dosing 102.1 ml/min 09/29/24 05:55 eGFR 102.71 09/29/24 05:55 BUN/Creatinine Ratio 18.2 (10-20) 09/29/24 05:55 Glucose 85 mg/dl (70-99(Fasting)) 09/29/24 05:55 Lactate 3.0 mmol/L (0.4-2.0) H* 09/29/24 00:53 Calcium 7.3 mg/dl (8.6-10.3) L 09/29/24 05:55 Magnesium 2.1 mg/dl (1.7-2.4) 09/28/24 12:41 Total Bilirubin 0.7 mg/dl (0.2-1.0) 09/29/24 05:55 Direct Bilirubin 0.1 mg/dl (0-0.2) 09/28/24 12:41 AST 36 U/L (13-39) 09/29/24 05:55 ALT 12 U/L (7-52) 09/29/24 05:55 Alkaline Phosphatase 174 U/L (34-104) H 09/29/24 05:55 Troponin I High Sens 8.8 pg/ml (0-20) 09/28/24 12:41 Total Protein 5.7 gm/dl (6.0-8.3) L 09/29/24 05:55 Albumin 2.6 gm/dl (3.4-5.0) L 09/29/24 05:55 Globulin 3.1 gm/dl (2.5-4.0) 09/29/24 05:55 Albumin/Globulin Ratio 0.8 (0.9-2) L 09/29/24 05:55 Procalcitonin 0.15 ng/ml (0-0.5) 09/28/24 12:41 Urine Color Dark Yellow 09/28/24 22:00 Urine Appearance Cloudy (Clear) A 09/28/24 22:00 Urine pH 5.5 (4.5-7.5) 09/28/24 22:00 Ur Specific Drifting 1.024 (1.000-1.030) 09/28/24 22:00 Urine Protein 1+ (Negative) H 09/28/24 22:00 Urine Glucose (UA) Negative (Negative) 09/28/24 22:00 Urine Ketones Trace (Negative) H 09/28/24 22:00 Urine Blood Trace (Negative) H 09/28/24 22:00 Urine Nitrite Positive (Negative) A 09/28/24 22:00 Urine Bilirubin Negative (Negative) 09/28/24 22:00 Urine Urobilinogen Negative (Negative) 09/28/24 22:00 Ur Leukocyte Esterase 1+ (Negative) H 09/28/24 22:00 Urine WBC (Auto) >50 /hpf (0-5) H 09/28/24 22:00 Urine RBC (Auto) 0-2 /hpf (0-2) 09/28/24 22:00 U Hyaline Cast (Auto) 6-10 /lpf (0-2) H 09/28/24 22:00 U Epithel Cells (Auto) 3-5 /hpf (0-2) H 09/28/24 22:00 Urine Bacteria (Auto) 2+ (None Seen) H 09/28/24 22:00 Calcium Oxalate Crystal Present (None Prsent) A 09/28/24 22:00 Nasal Screen MRSA (PCR) Positive (Negative) A 09/28/24 11:39 Urine Opiates Screen Pos (Neg) H 09/28/24 22:00 Ur Methadone, Qual Neg (Neg) 09/28/24 22:00 Urine Fentanyl Screen Neg (Neg) 09/28/24 22:00 Urine Barbiturates Neg (Neg) 09/28/24 22:00 Ur Phencyclidine (PCP) Neg (Neg) 09/28/24 22:00 U Amphetamin/Meth Scrn Neg (Neg) 09/28/24 22:00 MDMA (Ecstasy) Screen Neg (Neg) 09/28/24 22:00 U Benzodiazepines Scrn Neg (Neg) 09/28/24 22:00 Ur Cocaine Metabolite Neg (Neg) 09/28/24 22:00 U Marijuana (THC) Screen Neg (Neg) 09/28/24 22:00 Ethyl Alcohol mg/dL 374.4 mg/dl (<10.0) H 09/28/24 12:41 Adenovirus (PCR) Not Detected (NotDetected) 09/28/24 Unknown B. pertussis DNA (PCR) Not Detected (NotDetected) 09/28/24 Unknown B.parapertussis DNA PCR Not Detected (NotDetected) 09/28/24 Unknown C. pneumoniae DNA (PCR) Not Detected (NotDetected) 09/28/24 Unknown Coronavirus OC43 (PCR) Not Detected (NotDetected) 09/28/24 Unknown Coronavirus HKU1 (PCR) Not Detected (NotDetected) 09/28/24 Unknown Coronavirus 229E (PCR) Not Detected (NotDetected) 09/28/24 Unknown SARS-CoV-2 (PCR) Not Detected (NotDetected) 09/28/24 Unknown Coronavirus NL63 (PCR) Not Detected (NotDetected) 09/28/24 Unknown Human Metapneumovir PCR Not Detected (NotDetected) 09/28/24 Unknown Influenza Type A (PCR) Not Detected (NotDetected) 09/28/24 Unknown Influenza Type B (PCR) Not Detected (NotDetected) 09/28/24 Unknown M. pneumoniae (PCR) Not Detected (NotDetected) 09/28/24 Unknown Parainfluenza 1 (PCR) Not Detected (NotDetected) 09/28/24 Unknown Parainfluenza 2 (PCR) Not Detected (NotDetected) 09/28/24 Unknown Parainfluenza 3 (PCR) Not Detected (NotDetected) 09/28/24 Unknown Parainfluenza 4 (PCR) Not Detected (NotDetected) 09/28/24 Unknown RSV (PCR) Not Detected (NotDetected) 09/28/24 Unknown Entero/Rhino (PCR) Not Detected (NotDetected) 09/28/24 Unknown Impressions Chest X-Ray 09/28/24 12:13 XR chest 1V portable CLINICAL HISTORY: Sepsis COMPARISON STUDY: 11/16/2022 FINDINGS: Stable pacemaker. Heart size and pulmonary vasculature are normal. Stable mild blunting of the left costophrenic angle. No other consolidation or pleural effusion seen. No pneumothorax. 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 IMPRESSION: Stable mild blunting of the left costophrenic angle. No acute findings seen. ACT 112: Negative or not required by law. Electronically signed by: Lui Tan M.D. 09/28/2024 1:04 PM Foot X-Ray 09/28/24 12:14 XR foot LT 2V CLINICAL HISTORY: wound COMPARISON: None FINDINGS: There are atherosclerotic calcifications. No fracture or dislocation. There are minimal scattered degenerative changes without erosions. No radiopaque foreign body. No evidence of osteomyelitis. IMPRESSION: No osteomyelitis seen. ACT 112: Negative or not required by law. Electronically signed by: Lui Tan M.D. 09/28/2024 1:09 PM Duplex Scan Lower Extremity Artery 09/28/24 14:51 EXAM: US arterial duplex LE BI CLINICAL HISTORY: Non healing wounds. TECHNIQUE: Ultrasound examination of the bilateral lower extremities arteries with ankle brachial indices was performed in real-time and duplex. One or more of the following were performed- spectral analysis, resistive index, waveform analysis, and pulsed Doppler. COMPARISON: None. FINDINGS: Vessel Flow Pattern Right Peak Velocity Right (cm/sec)l Flow Pattern Left Peak Velocity Left (cm/sec) Common Femoral Artery (MANAGER ASSISTED LIVING) Monophasic 60.5/14 Biphasic 75/10 Deep Femoral Artery (DPA) Monophasic 34/3.8 Biphasic 96.6/8.2 Superficial Femoral Artery (SFA)-Proximal Monophasic 91.8/25.5 Biphasic 82.1/6 Superficial Femoral Artery (SFA)-Mid Monophasic 100.8/25.5 Biphasic 73.6/8.5 Superficial Femoral Artery (SFA)-Distal Monophasic 80.5/22.8 Biphasic 58.8/7.2 Popliteal Artery (POP A)- Proximal Monophasic 78.9/19.6 Triphasic 59.8/10.6 Popliteal Artery (POP A)- distal Monophasic 93.3/18 Triphasic 78.5/9.7 Posterior Tibial Artery (CNC MACHINIST), proximal Monophasic 105/31.2 Biphasic 25/0.0 Posterior Tibial Artery (CNC MACHINIST), mid Monophasic 57.3/27.7 Monophasic 40.9/0.0 Posterior Tibial Artery (CNC MACHINIST), distal Monophasic 67.2/33.2 Monophasic 50.7/9 Anterior tibial artery- prox Monophasic 172.7/73.6 Biphasic 61.2/3.7 Anterior tibial artery- Mid Monophasic 138.8/42.2 Biphasic 74.7/13.9 Anterior tibial artery- Distal Monophasic 201.4/60.8 Biphasic 86.6/15 Peroneal artery- prox Monophasic 244.3/96 Biphasic 71.5/14.5 Peroneal artery- mid Monophasic 236.5/84.3 Biphasic 72.6/13.4 Peroneal artery- distal - - Biphasic 53.9/18.9 Dorsalis Pedis Artery (DPA) Monophasic 260.8/101 Biphasic 171.3/17.9 Ankle brachial indices were not measured in today's study. Bilateral moderate calcified atherosclerosis. Bilateral calcified calf Vessels. Significant increased velocity in the right proximal ADRIAN down to the dorsalis pedis artery, indicating the significant stenosis. Significant increased velocity of the left dorsalis pedis artery, indicating significant stenosis. Monophasic wave throughout the right lower extremity and Collateral Circulation: No significant collateral circulation was noted, indicative of chronic arterial occlusion. IMPRESSION: 1. Bilateral moderate calcified atherosclerosis. 2. Significant increased velocity in the right proximal ADRIAN down to the dorsalis pedis artery indicates significant stenosis. 3. Significant increased velocity of the left dorsalis pedis artery, indicating significant stenosis. 4. Further evaluation with CTA is advised as clinically indicated Electronically signed by Delisa Gutierrez 09-28-2024 6:40 PM Venous Doppler Study 09/28/24 14:51 EXAM: US venous doppler LE BI CLINICAL HISTORY: Edema. TECHNIQUE: An ultrasound examination of bilateral lower extremity veins and duplex was performed in real-time. One or more of the following were performed: spectral analysis, resistive index, waveform analysis, and pulsed Doppler. COMPARISON: None. FINDINGS: Limited visualization of the calf veins due to edema. Normal phasic, non-pulsatile, and spontaneous flow is noted in bilateral common femoral, superficial femoral, and popliteal veins. Visualized veins of both lower extremities demonstrate normal compressibility. No sonographic evidence of acute deep vein thrombosis (DVT) is detected in the visualized veins of both lower extremities. Compression and Augmentation: All evaluated veins compress fully with applied transducer pressure. Augmentation of venous flow is noted with distal compression. Additional Findings: No evidence of intraluminal thrombus. IMPRESSION: No sonographic evidence of acute DVT was detected in bilateral common femoral, superficial femoral, or popliteal veins at the time of examination. Disclaimer: DVT could be missed early in the disease when the clot burden is minimal. For patients with moderate and high pretest probability of DVT and negative ultrasound, the [place] [employer] clinical guidelines recommend testing with a D-dimer assay or repeat ultrasound in 5-7 days. If symptoms worsen, the Society of Radiologists in Ultrasound recommends repeating the ultrasound even earlier. Electronically signed by Delisa Gutierrez 09-28-2024 5:42 PM Diagnostic Findings 09/28 Bclx and Uclx pending
--- NOTE | 2024-09-29 13:45 | Pharmacy Report ---
Pharmacy PK ABX Note - Date of Service September 29, 2024 - Assessment and Plan Assessment 74 year old M receiving vancomycin and cefepime for treatment of recurrent worsening b/l infection of his feet. Patient states that infection in his legs and feet started in May of 2024. He was last treated a few weeks ago with oral Bactrim (last dose ~2 weeks ago). Patient noticed increase in b/l erythema after completion of outpatient antibiotic. ID has been consulted. * Of note, patient presents with tachycardia, tachypnea, and elevated lactate of 3.9 (alcohol screen was also +). However, no leukocytosis or fever and procalcitonin is negative * Pertinent microbiologic data includes: Positive MRSA Nasal Swab; Blood cultures x 2 and urine culture from 09/28 are pending. Day # 2 of antimicrobial therapy. Plan Vancomycin * Loading dose: 1500 mg IV x 1 * Maintenance dose: 1000 mg IV every 12 hours * Regimen is predicted to achieve target AUC/GENNA of 400-600 mg/L.hr * Random level ordered for: 09/30/24 with AM labs Pharmacy will continue to follow and will adjust dose/frequency as necessary. Thank you. Pharmacy has transitioned to AUC monitoring for vancomycin. AUC/GENNA is the preferred PK/PD target and is associated with decreased risk of nephrotoxicity compared to traditional trough targets.
[2024-09-29] MEDS: METOPROLOL TARTRATE 1 MG/ML VIAL IV STA (14:52)
[2024-09-29] MEDS ORDERED: STAT IV Infusion **Titration per Protocol STA (15:27)
--- NOTE | 2024-09-29 15:36 | Hospitalist Progress Note ---
Date of Service September 29, 2024 Assessment & Plan (1) Severe sepsis: (2) Bilateral cellulitis of lower leg: (3) Atrial fibrillation with rapid ventricular response: (4) PAD (peripheral artery disease): (5) Dehydration: (6) Alcohol intoxication: (7) Hypernatremia: (8) Alcohol abuse: (9) Alcohol withdrawal: (10) Presence of Watchman left atrial appendage closure device: (11) Tricuspid valvular regurgitation: (12) Suspected UTI: Plan Patient presents with severe sepsis due to bilateral foot cellulitis that did not respond to outpatient oral antibiotics noted to have peripheral arterial disease and sepsis seems to have triggered his atrial fibrillation with rapid ve ntricular response. Reviewed infectious disease consultation continue vancomycin. Discontinue cefepime. Will start Rocephin for suspected UTI and await urine culture Reviewed vascular surgery consultation, no indication for surgical intervention on peripheral arterial disease. No necrotic tissues Atrial fibrillation has continued to be uncontrolled despite fluid resuscitation, beta-blockers. Start Cardizem drip. Patient has Watchman device, does not need full anticoagulation, has not been on full anticoagulation Continue heparin for VTE prophylaxis Continue to treat for alcohol withdrawal Monitor electrolytes, renal function and CBC Wound care consultation Admission and Anticipated Discharge Date Admission Date: September 28, 2024 Subjective Patient states is still significant pain in his feet. No significant chest pain or shortness of breath. Physical Exam Physical Exam: Constitutional: Alert, nontoxic HEENT: Mucous membranes moist. Lungs: Decreased breath sounds, no wheezes CV: S1-S2, irregular irregular, tachycardic Abdomen: Soft, nontender, nondistended Extremities: Bilateral feet ruborous, erythematous, warm, swollen, tender, cracked skin with some bleeding and oozing Neuro: No focal deficits, general weakness Psych: Cooperative, normal mood Results & Data Results & Data Vital Signs (Past 12 Hours) Vital Signs Temp Pulse Pulse Resp BP BP BP 09/29/24 14:52 142 H 129/92 09/29/24 14:00 142 H 129/92 09/29/24 11:25 36.3 C L 125 H 18 119/84 09/29/24 08:00 09/29/24 07:48 36.7 C 107 H 17 131/88 Pulse Ox O2 Del Method 09/29/24 14:52 09/29/24 14:00 09/29/24 11:25 96 Room Air 09/29/24 08:00 Room Air 09/29/24 07:48 97 Room Air Diagnostic Findings Reviewed imaging, laboratory and diagnostic studies. Pertinent findings as below. Reviewed echocardiogram, normal ejection fraction, moderate to severe tricuspid regurg Urine culture pending WBC 6.2 Hemoglobin 10.9 Sodium 144, improved Potassium 4.3 Creatinine 0.55
[2024-09-29] MEDS: PROCHLORPERAZINE 5 MG in SYRINGE 4 ML IV PRN (16:28)
[2024-09-29] MEDS: dilTIAZem HCL 125 MG in DEXTROSE 5% 100 ML IV SCH (16:31)
[2024-09-29] MEDS: cefTRIAXone SODIUM 1,000 MG/50 ML BAG IV SCH (16:39)
[2024-09-29] MEDS: dilTIAZem HCl 5 MG/ML 5 ML VIAL IV STA (16:41)
[2024-09-29] MEDS: chlordiazePOXIDE HCl 25 MG CAP PO SCH (20:19)
[2024-09-29] MEDS: oxyCODONE HCL IR 5 MG TAB (IMMEDIATE RELEASE) PO PRN (20:48)
[2024-09-30] MEDS: IPRATROPIUM BROMIDE NEB SOLN 0.02% 0.5MG/2.5ML VIAL NEB STA (02:42)
[2024-09-30] MEDS: LEVALBUTEROL 1.25 MG/3 ML NEB NEB STA (02:42)
[2024-09-30 02:47] LABS: Magnesium 1.8 mg/dl (1.7-2.4)
[2024-09-30] MEDS: VANCOMYCIN LEVEL ONE (05:57)
[2024-09-30 06:33] LABS: Hematocrit (blood only) 35.4 % (42.0-52.0); Hemoglobin 11.5 g/dl (14.0-18.0); Mean Corpuscular Hgb Conc 32.5 g/dL (32.0-36.0); Mean Corpuscular Volume 107.6 fL (80.0-100.0); Nucleated RBC # (auto) 0.04 K/uL (0.00-0.12); Nucleated RBC % (auto) 0.6 %; Platelet Count 144 K/uL (130-400); RDW Coefficient of Variation 18.1 % (11.5-14.5); RDW Standard Deviation 71.4 fL (36.4-46.3); Red Blood Count 3.29 M/uL (4.70-6.10); White Blood Count 6.22 K/ul (4.8-10.8)
[2024-09-30 07:14] LABS: BUN Creatinine Ratio 17.1 (10-20); C Reactive Protein 1.08 mg/dl (0-0.5); Calcium 7.9 mg/dl (8.6-10.3); Creatinine Clr Calc Pharmacy 80.2 ml/min; Magnesium 1.9 mg/dl (1.7-2.4)
--- NOTE | 2024-09-30 09:34 | XRay Report ---
EXAM: XR chest 1V portable CLINICAL HISTORY: Wheeze. TECHNIQUE: An X-ray image of the chest is obtained in AP projection. COMPARISON: Compared to the previous study dated 09/28/2024 FINDINGS: Pulmonary Parenchyma: Bilateral prominent hilar bronchopulmonary vasculature with basal reticulations and left-side atelectatic bands. Lungs are clear bilaterally. No evidence of consolidation, collapse, or focal opacities. No pulmonary nodules are identified. Mild left pleural effusion. No evidence of right pleural effusion. Heart and Mediastinum: Heart size and shape are normal. A pacemaker is inserted in place. Prominent calcific aortic knuckle. No mediastinal widening or masses. No hilar or mediastinal lymphadenopathy. Bony Thorax: Bony thorax appears intact without fractures or deformities. Soft Tissues: Soft tissues overlying the chest wall are unremarkable. IMPRESSION: 1. Bilateral prominent hilar bronchopulmonary vasculature with basal reticulations and left-side atelectatic bands. 2. Pacemaker is inserted in place. 3. Prominent calcific aortic knuckle. 4. Mild left pleural effusion. 5. No acute cardiopulmonary abnormalities are identified. 6. No time interval significant changes. Electronically signed by Bernard Moran 09-30-2024 03:57 AM
--- NOTE | 2024-09-30 09:51 | Pharmacy Report ---
Pharmacy PK ABX Note - Date of Service September 30, 2024 - Assessment and Plan Assessment 09/30: * Day #3 of Vancomycin. Cefepime was discontinued by infectious disease. Hospitalist added 1 g of IV Ceftriaxone daily for a UTI last evening so today will be day #2 of that. * Afebrile. No white count. No growth in any cultures yet. SCr slightly worse today (0.55 --> 0.70 mg/dL). * Trough level therapeutic this AM. 09/29: 74 year old M receiving vancomycin and cefepime for treatment of recurrent worsening b/l infection of his feet. Patient states that infection in his legs and feet started in May of 2024. He was last treated a few weeks ago with oral Bactrim (last dose ~2 weeks ago). Patient noticed increase in b/l erythema after completion of outpatient antibiotic. ID has been consulted. * Of note, patient presents with tachycardia, tachypnea, and elevated lactate of 3.9 (alcohol screen was also +). However, no leukocytosis or fever and procalcitonin is negative * Pertinent microbiologic data includes: Positive MRSA Nasal Swab; Blood cultures x 2 and urine culture from 09/28 are pending. Day # 2 of antimicrobial therapy. Plan Vancomycin * Current regimen: 1000 mg IV every 12 hours * Trough level obtained 09/30/24 resulted as 11.2 mcg/mL. This is predicted to achieve target AUC/GENNA of 400-600 mg/L.hr * Predicted AUC at steady state: 496 mg/L.hr * Continue 1000 mg IV every 12 hours * Repeat trough level ordered for: 10/02/24 Pharmacy will continue to follow and will adjust dose/frequency as necessary. Thank you. Pharmacy has transitioned to AUC monitoring for vancomycin. AUC/GENNA is the preferred PK/PD target and is associated with decreased risk of nephrotoxicity compared to traditional trough targets.
[2024-09-30] MEDS: METOPROLOL SUCC 50MG EXT REL TAB PO SCH (11:04)
--- NOTE | 2024-09-30 11:40 | Hospitalist Progress Note ---
Date of Service September 30, 2024 Assessment & Plan (1) Severe sepsis: (2) Bilateral cellulitis of lower leg: (3) Atrial fibrillation with rapid ventricular response: (4) Suspected UTI: (5) Allergic dermatitis: Plan: Feet and lower legs (6) PAD (peripheral artery disease): (7) Dehydration: (8) Alcohol intoxication: (9) Hypernatremia: (10) Alcohol abuse: (11) Alcohol withdrawal: (12) Presence of Watchman left atrial appendage closure device: (13) Tricuspid valvular regurgitation: Plan Patient presented with severe sepsis in setting of bilateral lower extremity and feet cellulitis with atrial fibrillation rapid ventricular sponsor and alcohol withdrawal. Patient is improving but still requires hospital level care. Rapid ventricular response has been controlled, titrate off diltiazem drip, continuing higher dose metoprolol Continue current antibiotics, monitor urine culture Reviewed pictures on patient's phone. Lower legs and feet were extremely red and inflamed. Also reviewed pictures of various topical preparations he had to place on his feet. Look like he was on petrolatum, zinc oxide, lidocaine jelly, Eucerin, some other type of emollient. This raises question of possible an madhavi rgic dermatitis as a potential cause for the severe inflammatory redness of his feet. This has significantly improved. Will continue to hold off on any topicals Await wound care consultation and input Continue to monitor for alcohol withdrawal and treat as appropriate Updated patient's son Fransisco. He is the patient's supervisor die casting and lives with the patient. Anticipating patient will return to live with him at discharge. Admission and Anticipated Discharge Date Admission Date: September 28, 2024 Subjective Patient denies any chest pain or shortness of breath. Pain in the feet is improving. Definitely confirms that redness is improving. Denies any palpitations. Minimal complaints of withdrawal symptoms Physical Exam Physical Exam: Constitutional: Alert HEENT: Mucous membranes moist. Lungs: Decreased breath sounds, few crackles CV: S1-S2, irregular Abdomen: Soft, nontender, nondistended Extremities: Bilateral feet and lower legs significantly less red. Less swolle n, less tender. Right foot cracks and serous drainage is dried up. Neuro: No focal deficits, generally weak Psych: Cooperative, normal mood Results & Data Results & Data Vital Signs (Past 12 Hours) Vital Signs Temp Pulse Pulse Pulse Resp BP BP 09/30/24 11:20 36.4 C L 77 18 113/78 09/30/24 07:38 36.5 C 75 18 101/72 09/30/24 07:00 86 09/30/24 06:00 80 117/74 09/30/24 05:00 90 112/65 09/30/24 04:00 84 113/61 09/30/24 03:47 36.9 C 82 18 09/30/24 03:00 78 122/81 09/30/24 02:43 77 22 09/30/24 02:00 83 121/72 09/30/24 01:00 78 104/77 09/30/24 00:00 70 111/71 Pulse Ox O2 Del Method 09/30/24 11:20 97 Room Air 09/30/24 07:38 97 Room Air 09/30/24 07:00 09/30/24 06:00 09/30/24 05:00 09/30/24 04:00 09/30/24 03:47 94 Room Air 09/30/24 03:00 09/30/24 02:43 99 Room Air 09/30/24 02:00 09/30/24 01:00 09/30/24 00:00 Diagnostic Findings Reviewed imaging, laboratory and diagnostic studies. Pertinent findings as below. WBC 6.2 Hemoglobin 0.5 Electrolytes stable Creatinine 0.7 CRP 1.0 ESR 31 Blood cultures no growth to date Urine culture pending
[2024-09-30] MEDS: MAGNESIUM SULFATE / D5W 1 GM/100 ML BAG IV ONE (21:39)
--- NOTE | 2024-09-30 21:39 | Communication Note ---
Date of Service: September 30, 2024 Patient with bleeding leg wounds as per RN. Hold heparin subcu for now.
[2024-09-30 22:59] LABS: Hematocrit (blood only) 31.4 % (42.0-52.0); Hemoglobin 10.3 g/dl (14.0-18.0)
[2024-10-01 06:40] LABS: Creatinine Clr Calc Pharmacy 87.5 ml/min
[2024-10-01] MEDS: ACETAMINOPHEN 500 MG TAB PO SCH (09:44)
[2024-10-01] MEDS ORDERED: LEVALBUTEROL HCL 0.63 MG/3 ML NEB NEB PRN (10:11)
--- NOTE | 2024-10-01 10:19 | Hospitalist Progress Note ---
Date of Service October 01, 2024 Assessment & Plan (1) Severe sepsis: (2) Bilateral cellulitis of lower leg: (3) Atrial fibrillation with rapid ventricular response: (4) Allergic dermatitis: Plan: Feet and lower legs (5) PAD (peripheral artery disease): (6) Dehydration: (7) Alcohol intoxication: (8) Hypernatremia: (9) Alcohol abuse: (10) Alcohol withdrawal: (11) Presence of Watchman left atrial appendage closure device: (12) Tricuspid valvular regurgitation: Plan Patient remains significantly ill requiring hospital level care and interventions. Patient continues to have oozing from the cracks and fissures in his feet. Would benefit from some topical water-based emollient and compression wraps. Unclear that that is available. Will instruct to wrap the foot in Kerlix and Rui bandage, I do believe compression treatment will be beneficial. Await wound formal evaluation tomorrow Monitor hemoglobin with reports of chronic oozing from the foot and from his heparin shots. Will hold VTE prophylaxis with heparin today. Will continue with aspirin. Monitor stool for blood and monitor hemoglobin Patient's atrial fibrillation is controlled with increased dose of metoprolol, has been off Cardizem drip since yesterday morning. Has Watchman device, no need for oral anticoagulation Urine culture shows no specific growth, rule out UTI. Discontinue Rocephin. Continue vancomycin for cellulitis of the foot per infectious disease recommendations Monitor laboratory studies in a.m. Patient has no significant symptoms of alcohol withdrawal continue to monitor With reported aspiration, continue to monitor O2 sats. Consult speech, aspiration precautions. Will obtain chest x-ray if he starts to have more issues with hypoxia. Currently his O2 sats in the 90s on room air. Admission and Anticipated Discharge Date Admission Date: September 28, 2024 Subjective Patient continues to ooze from his foot. Nursing concerned there may be some bloody stool as well. Patient denies chest pain or shortness of breath. Heart rates have been controlled. Patient reports that pain in his foot is significantly improved, stressed that whenever he tries to walk on the foot it starts to bleed. Later on in morning, notified by nurse that patient coughed and may have aspirated on his pills. O2 sats are stable and adequate on room air. Physical Exam Physical Exam: Constitutional: Alert, nontoxic HEENT: Mucous membranes moist. Chronic hoarse voice Lungs: Decreased breath sounds CV: S1-S2, irregular Abdomen: Soft, nontender, nondistended Extremities: Left lower extremity and left foot significantly improved with minimal redness, tenderness or swelling. Right lower extremity and foot also significantly improved but still some redness and erythema. Skin over the right foot has multiple cracks and fissures that bleed. Acute inflammatory erythema significantly improved Neuro: No focal deficits, generalized weakness Psych: Cooperative, normal mood Results & Data Results & Data Vital Signs (Past 12 Hours) Vital Signs Temp Pulse Pulse Pulse Resp BP BP 10/01/24 07:42 36.3 C L 84 18 104/71 10/01/24 04:51 36.5 C 86 17 103/69 10/01/24 00:45 36.5 C 80 16 105/66 09/30/24 22:00 85 09/30/24 21:26 85 114/80 Pulse Ox O2 Del Method 10/01/24 07:42 96 Room Air 10/01/24 04:51 96 Room Air 10/01/24 00:45 95 Room Air 09/30/24 22:00 09/30/24 21:26 Diagnostic Findings Reviewed imaging, laboratory and diagnostic studies. Pertinent findings as below. Hemoglobin 10.3 overnight Creatinine 0.65 Urine culture no specific growth
[2024-10-01 12:35] LABS: Hematocrit (blood only) 34.3 % (42.0-52.0); Hemoglobin 11.3 g/dl (14.0-18.0); Mean Corpuscular Hemoglobin 34.9 pg (25.0-34.0); Mean Corpuscular Hgb Conc 32.9 g/dL (32.0-36.0); Mean Corpuscular Volume 105.9 fL (80.0-100.0); Mean Platelet Volume 9.1 fL (9.4-12.4); Nucleated RBC # (auto) 0.07 K/uL (0.00-0.12); Nucleated RBC % (auto) 0.9 %; Platelet Count 180 K/uL (130-400); RDW Coefficient of Variation 17.9 % (11.5-14.5); RDW Standard Deviation 69.7 fL (36.4-46.3); Red Blood Count 3.24 M/uL (4.70-6.10); White Blood Count 7.46 K/ul (4.8-10.8)
--- NOTE | 2024-10-01 13:33 | XRay Report ---
XR chest 1V portable CLINICAL HISTORY: aspiration COMPARISON STUDY: 09/30/2024 FINDINGS: Stable pacemaker. Stable cardiomegaly without pulmonary vascular congestion. Stable small l eft pleural effusion and adjacent mild consolidation left lung base. No pneumothorax. IMPRESSION: Stable exam. ACT 112: Negative or not required by law. Electronically signed by: Lui Tan M.D. 10/01/2024 1:31 PM
--- NOTE | 2024-10-01 20:46 | Communication Note ---
Date of Service: October 01, 2024
[2024-10-01] MEDS: ALBUMIN 25% 12.5 GM/50 ML VIAL IV ONE (21:42)
[2024-10-01 21:50] LABS: Albumin Globulin Ratio 0.8 (0.9-2); Albumin Level 2.5 gm/dl (3.4-5.0); BUN Creatinine Ratio 17.6 (10-20); Bilirubin,Total 0.9 mg/dl (0.2-1.0); Creatinine Clr Calc Pharmacy 76.9 ml/min; Globulin 3.2 gm/dl (2.5-4.0); Magnesium 1.9 mg/dl (1.7-2.4); Total Protein 5.7 gm/dl (6.0-8.3)
[2024-10-01 22:04] LABS: Thyroid Stimulating Hormone 4.37 uIu/ml (0.300-4.500)
--- NOTE | 2024-10-01 23:33 | CT Scan Report ---
Exam(s): CT HEAD Without Contrast EXAM: CT Head Without Intravenous Contrast CLINICAL HISTORY: ams. TECHNIQUE: Axial computed tomography images of the head/brain without intravenous contrast. Automated exposure control was utilized for the study. A dose lowering technique was utilized adhering to the principles of ALARA. COMPARISON: CT head without contrast dated 11/15/2022 FINDINGS: Limitations: There is motion artifact, despite repeated imaging at times, which degrades image quality on multiple image slices. Brain: No intracranial hemorrhage. No significant mass-effect. No cortical infarct. The parenchyma is similar in appearance to the previous examination. There are a few areas of decreased attenuation in the deep cerebral white matter consistent with mild small vessel ischemic/degenerative changes. The cerebral and cerebellar sulci are mildly prominent consistent with mild brain atrophy. Ventricles: No midline shift or ventriculomegaly. No effacement of the ventricles. Bones/joints: Unremarkable. No acute fracture. Soft tissues: Unremarkable. Sinuses: Unremarkable as visualized. No acute sinusitis. Mastoid air cells: Unremarkable as visualized. No mastoid effusion. IMPRESSION: No acute intracranial process or significant alteration from the prior examination. No significant progression and the presumed age-related findings, as detailed above. Electronically signed by: Yan Feldman MD 10/01/24 23:32 PM
[2024-10-01 23:45] LABS: INR 1.3 (0.9-1.1)
[2024-10-02] MEDS ORDERED: chlordiazePOXIDE HCl 5 MG CAP PO SCH
[2024-10-02] MEDS: KETOROLAC TROMETHAMINE 15 MG/ML VIAL IV ONE (00:16)
[2024-10-02] MEDS: VANCOMYCIN LEVEL ONE (06:26)
[2024-10-02 06:28] LABS: Hematocrit (blood only) 33.6 % (42.0-52.0); Hemoglobin 11.1 g/dl (14.0-18.0); Mean Corpuscular Hemoglobin 35.2 pg (25.0-34.0); Mean Corpuscular Volume 106.7 fL (80.0-100.0); Mean Platelet Volume 9.1 fL (9.4-12.4); Platelet Count 178 K/uL (130-400); RDW Coefficient of Variation 18.1 % (11.5-14.5); RDW Standard Deviation 70.8 fL (36.4-46.3); Red Blood Count 3.15 M/uL (4.70-6.10); White Blood Count 5.63 K/ul (4.8-10.8)
[2024-10-02 07:03] LABS: Albumin Level 2.7 gm/dl (3.4-5.0); Bilirubin Direct 0.4 mg/dl (0-0.2); Bilirubin,Total 0.9 mg/dl (0.2-1.0); Creatinine Clr Calc Pharmacy 97.9 ml/min; Magnesium 1.9 mg/dl (1.7-2.4); Potassium 3.4 mmol/L (3.5-5.1); Total Protein 5.7 gm/dl (6.0-8.3)
[2024-10-02] MEDS ORDERED: POTASSIUM PHOS 3 MMOL/1 ML INFUSION IV STA (07:11)
--- NOTE | 2024-10-02 07:55 | Pharmacy Report ---
Pharmacy PK ABX Note - Date of Service October 02, 2024 - Assessment and Plan Assessment 10/02: * Day #5 of vanc. Await further ID recs for duration of vanc. All cultures remain with no significant growth. Scr trended back down. 09/30: * Day #3 of Vancomycin. Cefepime was discontinued by infectious disease. Hospitalist added 1 g of IV Ceftriaxone daily for a UTI last evening so today will be day #2 of that. * Afebrile. No white count. No growth in any cultures yet. SCr slightly worse today (0.55 --> 0.70 mg/dL). * Trough level therapeutic this AM. 09/29: 74 year old M receiving vancomycin and cefepime for treatment of recurrent worsening b/l infection of his feet. Patient states that infection in his legs and feet started in May of 2024. He was last treated a few weeks ago with oral Bactrim (last dose ~2 weeks ago). Patient noticed increase in b/l erythema after completion of outpatient antibiotic. ID has been consulted. * Of note, patient presents with tachycardia, tachypnea, and elevated lactate of 3.9 (alcohol screen was also +). However, no leukocytosis or fever and procalcitonin is negative * Pertinent microbiologic data includes: Positive MRSA Nasal Swab; Blood cultures x 2 and urine culture from 09/28 are pending. Day # 2 of antimicrobial therapy. Plan Vancomycin * Current regimen: 1000 mg IV every 12 hours * Random level obtained 10/02/24 resulted as 16.1 mcg/mL. This is predicted to achieve target AUC/GENNA of 400-600 mg/L.hr * Predicted AUC at steady state: 479 mg/L.hr * Continue 1000 mg IV every 12 hours * Will repeat level in the next 48-72 hours if therapy is continued and/or change in patient clinical status Pharmacy has transitioned to AUC monitoring for vancomycin. AUC/GENNA is the preferred PK/PD target and is associated with decreased risk of nephrotoxicity compared to traditional trough targets.
[2024-10-02] MEDS: POTASSIUM PHOSPHATE 30 MMOL in SODIUM CHLORIDE 0.9% 500 ML IV ONE (08:03)
[2024-10-02] MEDS: ACETAMINOPHEN 500 MG TAB PO SCH (08:31)
[2024-10-02] MEDS ORDERED: METOPROLOL SUCC 25MG EXT REL TAB PO SCH (09:00)
[2024-10-02] MEDS: METOPROLOL SUCC 50MG EXT REL TAB PO SCH (09:20)
--- NOTE | 2024-10-02 11:37 | Hospitalist Progress Note ---
Date of Service October 02, 2024 Assessment & Plan (1) Severe sepsis: (2) Bilateral cellulitis of lower leg: (3) Atrial fibrillation with rapid ventricular response: (4) Allergic dermatitis: Plan: Feet and lower legs (5) PAD (peripheral artery disease): (6) Dehydration: (7) Alcohol intoxication: (8) Hypernatremia: (9) Alcohol abuse: (10) Alcohol withdrawal: (11) Presence of Watchman left atrial appendage closure device: (12) Tricuspid valvular regurgitation: (13) Vocal cord dysfunction: (14) Cirrhosis: Plan Patient's sepsis has resolved. Cellulitis and allergic dermatitis the lower extremity has steadily improved. Suspected aspiration event yesterday, no evidence of pneumonia on chest x-ray. Suspect with his chronic vocal cord dysfunction will have intermittent issues. Patient admits as such. No other interventions at this time Patient requires metoprolol dosing for rate control, continue metoprolol at 100 mg daily continue to monitor rates. Decrease evening dose Awaiting wound care recommendations. Communication with case management, anticipate once I course of care for his wounds arranged could consider transitioning to oral Zyvox and treating as an outpatient. Patient will plan on going home with family and will need home health care and outpatient wound care Patient's LFTs are stable, cirrhosis in setting of chronic alcohol use, no withdrawal symptoms at this time, continue to encourage abstinence from alcohol Replace potassium and phosphorus Monitor laboratory studies Therapies Restart Lyrica for neuropathy Attempted to contact patient's son via phone, no answer Admission and Anticipated Discharge Date Admission Date: September 28, 2024 Subjective Events of last evening noted. Patient denies any complaints. No lightheadedness or dizziness. Pain in feet seem to be improving somewhat. Physical Exam Physical Exam: Constitutional: Alert, nontoxic in appearance HEENT: Mucous membranes moist. Chronic hoarse voice Lungs: Coarse upper airway rhonchi, no wheezes CV: S1-S2, irregular Abdomen: Soft, nontender, nondistended Extremities: Bilateral lower extremity erythema and swelling significantly improved., Right foot and ankle still slightly red and swollen, significant fissures and cracking of the right foot with intermittent bleeding Neuro: No focal deficits, painful peripheral neuropathy Psych: Cooperative, normal mood Results & Data Results & Data Vital Signs (Past 12 Hours) Vital Signs Temp Pulse Pulse Resp BP Pulse Ox O2 Del Method 10/02/24 11:15 Room Air 10/02/24 11:06 98 H 10/02/24 08:36 36.2 C L 96 H 20 103/74 95 Room Air 10/02/24 04:44 36.4 C L 80 97 H 120/78 97 Nasal Cannula 10/02/24 00:10 36.7 C 79 19 119/81 96 Room Air O2 Flow Rate 10/02/24 11:15 10/02/24 11:06 10/02/24 08:36 10/02/24 04:44 2 10/02/24 00:10 Diagnostic Findings Reviewed imaging, laboratory and diagnostic studies. Pertinent findings as below. Hemoglobin 11.1, stable Potassium 3.4 Creatinine 0.59 Phosphorus 2.0 LFTs reviewed, stable Head CT unremarkable, no acute changes
[2024-10-02] MEDS: SODIUM CHLORIDE 0.9% 500 ML IV ONE (13:13)
[2024-10-02] MEDS: FUROSEMIDE 20 MG TAB PO SCH (17:22)
[2024-10-02] MEDS: METOPROLOL SUCC 25MG EXT REL TAB PO SCH (19:33)
[2024-10-02] MEDS ORDERED: METOPROLOL SUCC 50MG EXT REL TAB PO SCH (21:00)
[2024-10-02] MEDS: FUROSEMIDE INJ 20 MG/2 ML VIAL IV ONE (23:41)
[2024-10-02] MEDS: ALBUMIN 25% 12.5 GM/50 ML VIAL IV ONE (23:42)
[2024-10-02] MEDS: IPRATROPIUM BROMIDE NEB SOLN 0.02% 0.5MG/2.5ML VIAL INH STA (23:44)
[2024-10-02] MEDS: LEVALBUTEROL 1.25 MG/3 ML NEB NEB STA (23:44)
[2024-10-03] MEDS: MAGNESIUM SULFATE / D5W 1 GM/100 ML BAG IV ONE (00:09)
[2024-10-03] MEDS: POTASSIUM CHLORIDE / WTR 10 MEQ/100 ML PLCT IV SCH (00:09)
--- NOTE | 2024-10-03 00:56 | XRay Report ---
Exam(s): XR CXR 1 VIEW EXAM: XR Chest, 1 View CLINICAL HISTORY: Reason for exam: wheeze. TECHNIQUE: Frontal view of the chest. COMPARISON: Prior chest x-ray from October 01, 2024. FINDINGS: There is a MR-compatible pacemaker in the left chest wall with distal lead in the right atrium or right ventricle. Lungs: Mild to moderate peribronchial thickening of the central and lower lobe bronchi with subtle patchy opacity at the right costophrenic angle. No consolidation. Pleural space: Small left pleural effusion. No pneumothorax. Heart: Mild cardiomegaly. Mediastinum: Unremarkable. Normal mediastinal contour. Bones/joints: Unremarkable. No acute fracture. IMPRESSION: Bronchitis with developing infiltrate in the right lower lobe. Unchanged left pleural effusion. Communications: Verify Receipt Electronically signed by: Gabrilela Bland MD 10/03/24 00:55 AM
--- NOTE | 2024-10-03 01:02 | Communication Note ---
Date of Service: October 03, 2024 Patient with a significant bilateral upper extremity swelling with some fluid seepage. Scrotal edema noted as well. Patient wheezing as per RN. Chest x-ray Bronchitis with developing infiltrate in the right lower lobe. Unchanged left pleural effusion. AP Fluid retention History of pulmonary hypertension, cirrhosis Rule out upper extremity DVT Hospital-acquired pneumonia History aspiration during confinement as per report Lasix albumin UE venous Dopplers rule out DVT Ertapenem (preferred over Zosyn given hypervolemia concerns) for HAP/aspiration.
[2024-10-03] MEDS: ERTAPENEM 1000MG 1,000 MG/10 ML SYR IV SCH (02:08)
[2024-10-03] MEDS: METOPROLOL SUCC 50MG EXT REL TAB PO SCH (07:55)
[2024-10-03 08:30] LABS: Hematocrit (blood only) 31.9 % (42.0-52.0); Hemoglobin 10.8 g/dl (14.0-18.0); Mean Corpuscular Hemoglobin 35.8 pg (25.0-34.0); Mean Corpuscular Hgb Conc 33.9 g/dL (32.0-36.0); Mean Corpuscular Volume 105.6 fL (80.0-100.0); Mean Platelet Volume 9.1 fL (9.4-12.4); Nucleated RBC # (auto) 0.02 K/uL (0.00-0.12); Nucleated RBC % (auto) 0.3 %; Platelet Count 181 K/uL (130-400); RDW Coefficient of Variation 18.4 % (11.5-14.5); RDW Standard Deviation 70.9 fL (36.4-46.3); Red Blood Count 3.02 M/uL (4.70-6.10); White Blood Count 6.39 K/ul (4.8-10.8)
[2024-10-03 08:38] LABS: BUN Creatinine Ratio 26.7 (10-20); Calcium 7.8 mg/dl (8.6-10.3); Creatinine Clr Calc Pharmacy 98.3 ml/min; Magnesium 1.9 mg/dl (1.7-2.4); Phosphorus 2.8 mg/dl (2.5-4.9); Potassium 3.8 mmol/L (3.5-5.1)
--- NOTE | 2024-10-03 09:11 | Ultrasound Report ---
BILATERAL UPPER EXTREMITY VENOUS DOPPLER ULTRASOUND CLINICAL HISTORY: Swelling. COMPARISON STUDY: No previous studies for comparison. TECHNIQUE: Sonography of the venous systems of the bilateral upper extremities was performed. FINDINGS: The bilateral internal jugular, subclavian, axillary, brachial, radial, ulnar, cephalic and basilic veins were patent. No venous thrombus was identified within the upper extremities. Exam is m ildly compromised from a technical standpoint. IMPRESSION: Exam mildly compromised from a technical standpoint. No venous thrombus identified withi n the upper extremities. ACT 112: Negative or not required by law. Electronically signed by: Steve Vela M.D. 10/03/2024 9:10 AM
[2024-10-03 11:38] LABS: Codeine Urine NEGATIVE ng/mL (<50); Hydrocodone Urine NEGATIVE ng/mL (<50); Hydromor Urine NEGATIVE ng/mL (<50); Morphine Urine NEGATIVE ng/mL (<50); Norhydrocodone Conf Ur NEGATIVE ng/mL (<50); Noroxycodone Urine 2450 ng/mL (<50); Oxycodone Urine 2570 ng/mL (<50); Oxymorph Urine 1320 ng/mL (<50)
[2024-10-03] MEDS: POTASSIUM CHLORIDE CRTAB 20 MEQ TABCR PO ONE (11:43)
[2024-10-03] MEDS: FUROSEMIDE 40 MG/4 ML VIAL IV SCH (11:43)
--- NOTE | 2024-10-03 11:46 | Hospitalist Progress Note ---
Date of Service October 03, 2024 Assessment & Plan (1) Severe sepsis: (2) Bilateral cellulitis of lower leg: (3) Atrial fibrillation with rapid ventricular response: (4) Acute on chronic diastolic heart failure due to valvular disease: (5) Aspiration pneumonitis: (6) Allergic dermatitis: Plan: Feet and lower legs (7) PAD (peripheral artery disease): (8) Alcohol intoxication: (9) Alcohol abuse: (10) Alcohol withdrawal: (11) Presence of Watchman left atrial appendage closure device: (12) Tricuspid valvular regurgitation: (13) Vocal cord dysfunction: (14) Cirrhosis: (15) Hypernatremia: (16) Dehydration: Plan Patient initially presented dehydration and hypernatremia and volume depleted. Received fluid resuscitation for this. Also patient was having some hypotension associated with his infection and but atrial fibrillation treated with fluid boluses. Now showing signs of volume overload with significant edema in the scrotum and dependent portions of his thighs and sacrum. Metoprolol has dose has been decreased, blood pressure is improved, continue to monitor for rapid ventricular response IV Lasix daily, monitor electrolytes and renal function and daily weight Continue vancomycin for lower extremity cellulitis. Transition to oral Zyvox on discharge would treat for total of 14 days including the days that he was on IV vancomycin here in the hospital. Case management reports that cost of Zyvox is less than $10 Awaiting wound care recommendations. Patient would benefit from regular wound care of his lower extremities. It is felt that part of the redness and swelling of his feet were due to an allergic dermatitis from various topical creams and ointments that he was putting on his feet prior to admission. Water-based type of emollient may be best plan of care Reviewed chest x-ray. Patient did have a suspected aspiration event a couple days ago. Suspect chest x-ray findings more consistent with pulmonary edema than significant pneumonia, can transition to oral Augmentin for a short course for possible aspiration pneumonitis. Therapies as tolerated Patient is not having any signs of withdrawal from alcohol, continue to encourage abstinence Patient's determined to return home with his son caring for him and home services. Phone update to patient's son. He reports that him and his are the patient's caretakers and are able to care for him upon discharge. Told him that the earliest date for discharge would be Wednesday. Anticipate discharge when patient's volume status is more euvolemic, heart rate and blood pressure stabilized and transition to oral Zyvox. Admission and Anticipated Discharge Date Admission Date: September 28, 2024 Subjective Events of last night noted. Patient significantly volume overloaded in the setting resuscitation from infection and hypotension. Denies any shortness of breath. Patient reports he had similar lower extremity and scrotal swelling in the past. Physical Exam Physical Exam: Constitutional: Alert, nontoxic HEENT: Mucous membranes moist., Chronic hoarse voice Lungs: Decreased breath sounds, few crackles CV: S1-S2, irregular Abdomen: Soft, nontender, nondistended Extremities: Edema in scrotum and dependent posterior thigh sacral area. Swelling in the feet and ankles improved, erythema is improved Neuro: No focal deficits Psych: Cooperative, normal mood Results & Data Results & Data Vital Signs (Past 12 Hours) Vital Signs Temp Pulse Pulse Resp BP Pulse Ox O2 Del Method 10/03/24 07:56 36.5 C 77 17 103/68 99 Room Air 10/03/24 07:27 Room Air 10/03/24 07:10 83 10/03/24 02:14 36.5 C 86 20 111/79 98 Room Air 10/02/24 23:45 89 18 98 Room Air Diagnostic Findings Reviewed imaging, laboratory and diagnostic studies. Pertinent findings as below. Weight increased approximately 10 kg from admission WBC 6.3 Hemoglobin 10.8, stable Electrolytes stable Creatinine 0.60 Ultrasound lower extremity negative for DVT Chest x-ray reviewed, more consistent with volume overload than pneumonia
[2024-10-03] MEDS: ENOXAPARIN INJ 40 MG/0.4 ML SYR SQ SCH (13:43)
[2024-10-03] MEDS: AMOXICILLIN/CLAVULANATE 875 MG TAB PO SCH (16:04)
[2024-10-04 06:25] LABS: Hematocrit (blood only) 33.2 % (42.0-52.0); Hemoglobin 11.1 g/dl (14.0-18.0); Mean Corpuscular Hemoglobin 35.1 pg (25.0-34.0); Mean Corpuscular Hgb Conc 33.4 g/dL (32.0-36.0); Mean Corpuscular Volume 105.1 fL (80.0-100.0); Nucleated RBC # (auto) 0.02 K/uL (0.00-0.12); Nucleated RBC % (auto) 0.4 %; Platelet Count 174 K/uL (130-400); RDW Coefficient of Variation 18.6 % (11.5-14.5); RDW Standard Deviation 70.4 fL (36.4-46.3); Red Blood Count 3.16 M/uL (4.70-6.10); White Blood Count 5.01 K/ul (4.8-10.8)
[2024-10-04 06:43] LABS: BUN Creatinine Ratio 22.6 (10-20); Calcium 8.4 mg/dl (8.6-10.3); Creatinine Clr Calc Pharmacy 95.1 ml/min
--- NOTE | 2024-10-04 10:52 | Hospitalist Progress Note ---
Date of Service October 04, 2024 Assessment & Plan (1) Severe sepsis: (2) Bilateral cellulitis of lower leg: (3) Atrial fibrillation with rapid ventricular response: (4) Acute on chronic diastolic heart failure due to valvular disease: (5) Aspiration pneumonitis: (6) Allergic dermatitis: Plan: Feet and lower legs (7) PAD (peripheral artery disease): (8) Alcohol intoxication: (9) Alcohol abuse: (10) Alcohol withdrawal: (11) Presence of Watchman left atrial appendage closure device: (12) Tricuspid valvular regurgitation: (13) Vocal cord dysfunction: (14) Cirrhosis: (15) Hypernatremia: (16) Dehydration: Plan (1) Severe sepsis: (2) Bilateral cellulitis of lower leg: Patient presenting from home for evaluation of ongoing BL leg infection. Reports he had been on antibiotics until 2 weeks ago. [facility]. Patient meets severe sepsis criteria on presentation with tachycardia, tachypnea, elevated lactate 3.9 (alcohol intoxication may be contributing to elevated lactate) S/p Vanco and cefepime in ED, continued with both initially IVF ID consult due to recurrent cellulitis Wound care consult Venous and arterial dopplers -> vasc. surgery consulted - (1) PAD (peripheral artery disease): This patient does have peripheral artery occlusive disease however he has palpable DP's bilaterally. Cellulitis that does not have ischemic tissue loss is not an indication for any surgical or endovascular interventions. He has adequate flow for antibiotic therapy to get to the feet. Even with total occlusions as long as the collateral flow is good we would treat cellulitis with antibiotics and reserve surgical or endovascular interventions for those with ischemic tissue loss. Follow blood cultures - negative Patient initially presented dehydration and hypernatremia and volume depleted. Received fluid resuscitation for this. Also patient was having some hypotension associated with his infection and but atrial fibrillation treated with fluid boluses. Now showing signs of volume overload with significant edema in the scrotum and dependent portions of his thighs and sacrum. Metoprolol - dose has been decreased, blood pressure is improved, continue to monitor for rapid ventricular response IV Lasix daily, monitor electrolytes and renal function and daily weight ID consulted (seen 09/29/2024)- -Discontinue cefepime -continue vancomycin dosed per pharmacy -please discontinue topical agents on the skin as he is likely having an allergic reaction to one or more of the components - please consult Wound Care for careful evaluation, there input will be appreciated regards to potential allergic reaction and further care - ID will continue to follow Continue vancomycin for lower extremity cellulitis. Transition to oral Zyvox on discharge would treat for total of 14 days including the days that he was on IV vancomycin here in the hospital. Case management reports that cost of Zyvox is less than $10 Wound care consulted. Patient would benefit from regular wound care of his lower extremities. It is felt that part of the redness and swelling of his feet were due to an allergic dermatitis from various topical creams and ointments that he was putting on his feet prior to admission. Previously chest x-ray obtained. Patient did have a suspected aspiration event a couple days ago. Suspect chest x-ray findings more consistent with pulmonary edema than significant pneumonia, can transition to oral Augmentin for a short course for possible aspiration pneumonitis. 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 Previous provider discussed w/patient's son. He reports that him and his are the patient's caretakers are able to care for him upon discharge. He was told that the earliest date for discharge would be Wednesday. Anticipate discharge when patient's volume status is more euvolemic, heart rate and blood pressure stabilized and transition to oral Zyvox. Admission and Anticipated Discharge Date Admission Date: September 28, 2024 Subjective Pt seen in follow up of foot cellulitis, etoh use Currently sitting up in chair, legs elevated, in NAD RN changing dressings, reports R foot looks much better than yesterday (as she h ad the pt yesterday). Wound care also saw the pt yesterday. Pt reports pain is much improved since admission No fever, chills, chest pain, shortness of breath. Pt was very edematous yesterday, edema in his limbs much improved, still has scrotal edema. Received lasix. Review of Systems Review of Systems: All systems reviewed & are unremarkable except as noted in Subjective Physical Exam Physical Exam: Constitutional: WD/WN elderly M in NAD, chronically ill appearing HEENT: NC/AT. Mucous membranes moist., +hoarse voice (? chronic) Lungs: Decreased breath sounds, few crackles CV: S1-S2, irregular Abdomen: Soft, nontender, nondistended Extremities: + scrotal edema and dependent posterior thigh sacral area. Swelling in the feet and ankles improved, erythema is improved Neuro: awake, alert, answers appropriately but slowly, moves extremities Psych: Cooperative, normal mood Results & Data Results & Data Vital Signs (Past 12 Hours) Vital Signs Temp Pulse Pulse Pulse Resp BP BP 10/04/24 09:14 115/72 10/04/24 07:57 36.4 C L 102 H 17 97/64 L 10/04/24 07:16 10/04/24 06:59 119 H 10/04/24 04:13 36.5 C 105 H 20 117/76 10/04/24 00:53 96 H 10/03/24 23:56 36.9 C 109 H 20 108/76 Pulse Ox O2 Del Method 10/04/24 09:14 10/04/24 07:57 94 Room Air 10/04/24 07:16 Room Air 10/04/24 06:59 10/04/24 04:13 93 Room Air 10/04/24 00:53 10/03/24 23:56 94 Room Air Laboratory Results 10/04/24 09/28/24 Range/Units 05:28 22:00 WBC 5.01 (4.8-10.8) K/ul RBC 3.16 L (4.70-6.10) M/uL Hgb 11.1 L (14.0-18.0) g/dl Hct 33.2 L (42.0-52.0) % MCV 105.1 H (80.0-100.0) fL MCH 35.1 H (25.0-34.0) pg MCHC 33.4 (32.0-36.0) g/dL RDW Std Deviation 70.4 H (36.4-46.3) fL RDW Coeff of Giancarlo 18.6 H (11.5-14.5) % Plt Count 174 (130-400) K/uL MPV 9.0 L (9.4-12.4) fL Absolute Nucleated RBC 0.02 (0.00-0.12) K/uL Nucleated RBC % (auto) 0.4 % Sodium 141 (136-145) mmol/L Potassium 4.0 (3.5-5.1) mmol/L Chloride 106 (98-107) mmol/L Carbon Dioxide 32 (21-32) mmol/L Anion Gap 3 (3-11) BUN 14 (6-23) mg/dl Creatinine 0.62 (0.6-1.4) mg/dl Est Cr Clr Drug Dosing 95.1 ml/min eGFR 99.06 BUN/Creatinine Ratio 22.6 H (10-20) Glucose 79 (70-99(Fasting)) mg/dl Calcium 8.4 L (8.6-10.3) mg/dl U Codeine Confrm GC/MS NEGATIVE (<50) ng/mL Ur Morphine (GC/MS) NEGATIVE (<50) ng/mL Ur Hydrocodone (GC/MS) NEGATIVE (<50) ng/mL Ur Norhydrocodone NEGATIVE (<50) ng/mL Ur Noroxycodone 2450 H (<50) ng/mL Urine Oxycodone (GC/MS) 2570 H (<50) ng/mL U Oxymorphone GC/MS 1320 H (<50) ng/mL Ur Hydromorphone (GC/MS) NEGATIVE (<50) ng/mL Drug Screen Comment SEE NOTE Medications Administered Current Inpatient Medications Acetaminophen (Acetaminophen 500 Mg Tab) 1,000 mg PO BID [facility] Stop: 11/01/24 08:59 Last Admin: 10/04/24 08:45 Dose: 1,000 mg Amoxicillin/Clavulanate Potassium (Amoxicillin/Clavulanate 875 Mg Tab) 1 tab PO BIDM [facility]; Protocol Stop: 10/08/24 16:59 Last Admin: 10/04/24 08:47 Dose: 1 tab Aspirin (Aspirin 81 Mg Ectab) 81 mg PO DAILY [facility] Stop: 10/29/24 08:59 Last Admin: 10/04/24 08:46 Dose: 81 mg Cetirizine HCl (Cetirizine Hcl 10 Mg Tablet) 10 mg PO [facility] Stop: 10/28/24 20:59 Last Admin: 10/03/24 20:31 Dose: 10 mg Docusate Sodium (Docusate Sodium 100 Mg Cap) 100 mg PO HS [facility] Stop: 10/28/24 20:59 Last Admin: 10/03/24 20:30 Dose: 100 mg Enoxaparin Sodium (Enoxaparin Inj 40 Mg/0.4 Ml Syr) 40 mg SQ QAM [facility] Stop: 11/02/24 13:14 Last Admin: 10/04/24 08:46 Dose: 40 mg Ferrous Sulfate (Ferrous Sulfate 325 Mg Tab) 325 mg PO DAILY [facility] Stop: 10/29/24 08:59 Last Admin: 10/04/24 08:47 Dose: 325 mg Folic Acid (Folic Acid 1 Mg Tab) [facility] [place]: 10/29/24 08:59 Last Admin: 10/04/24 08:46 Dose: 1 mg Furosemide (Furosemide 20 Mg Tab) [facility] [place] Stop: 11/01/24 14:57 Last Admin: 10/03/24 07:56 Dose: 20 mg Furosemide (Furosemide 40 Mg/4 Ml Vial) 40 mg IV DAILY [facility] Stop: 11/02/24 11:44 Last Admin: 10/04/24 08:45 Dose: 40 mg Vancomycin HCl (Vancomycin Hcl) 1,000 mg in 270 mls @ 200 mls/hr IV Q12H [facility] Stop: 10/05/24 18:59 Last Infusion: 10/04/24 07:39 Dose: Infused Prochlorperazine 5 mg/ Syringe 5 mls @ 5 mls/min IV Q6H PRN PRN Reason: Nausea And Vomiting Stop: 10/29/24 15:38 Last Admin: 10/04/24 09:07 Dose: 5 mls/min Levalbuterol HCl (Levalbuterol Hcl 0.63 Mg/3 Ml Neb) 0.63 mg NEB Q4H PRN; Protocol PRN Reason: Shortness Of Breath Or Wheezing Stop: 10/31/24 10:10 Magnesium Oxide (Magnesium Oxide 400 Mg Tab) 400 mg PO DAILY [facility] Stop: 10/29/24 08:59 Last Admin: 10/04/24 08:46 Dose: 400 mg Metoprolol Succinate (Metoprolol Succ 50mg Ext Rel Tab) [facility] [place]: 11/02/24 08:59 Last Admin: 10/04/24 09:14 Dose: 50 mg Metoprolol Succinate (Metoprolol Succ 25mg Ext Rel Tab) 25 mg PO HS [facility] Stop: 11/01/24 20:59 Last Admin: 10/03/24 20:31 Dose: 25 mg Miscellaneous Information (Vancomycin Consult Active) 1 each N/A UD PRN PRN Reason: Consult Stop: 10/28/24 12:17 Multivitamins (Multivitamin Tab) 1 tab PO QAM [facility] Stop: 10/29/24 08:59 Last Admin: 10/04/24 08:46 Dose: 1 tab Oxycodone HCl (Oxycodone Hcl Ir 5 Mg Tab (Immediate Release)) 5 mg PO Q4H PRN PRN Reason: Pain Stop: 10/13/24 20:35 Last Admin: 10/04/24 08:45 Dose: 5 mg Pregabalin (Pregabalin 25 Mg Cap) 25 mg PO BID [facility] Stop: 10/28/24 20:59 Last Admin: 10/04/24 08:45 Dose: 25 mg Rifaximin (Rifaximin 550 Mg Tablet) 550 mg PO BID [facility] Stop: 10/28/24 20:59 Last Admin: 10/04/24 08:47 Dose: 550 mg Sennosides (Senna 8.6 Mg Tab) 8.6 mg PO HS [facility] Stop: 10/28/24 20:59 Last Admin: 10/03/24 20:31 Dose: 8.6 mg Thiamine HCl (Thiamine Hcl 100 Mg Tab) 100 mg PO QAM [facility] Stop: 10/29/24 08:59 Last Admin: 10/04/24 08:46 Dose: 100 mg
[2024-10-04 13:12] LABS: Appearance Urine Clear (Clear); Bilirubin Urine Negative (Negative); Blood Urine Negative (Negative); Color Urine Yellow; Glucose Urine UA Negative (Negative); Ketones Urine Negative (Negative); Leukocyte Esterase Urine Negative (Negative); Nitrite Urine Negative (Negative); Protein Urine Negative (Negative); Specific Gravity Urine 1.006 (1.000-1.030); Urobilinogen Urine Negative (Negative)
[2024-10-05 08:13] LABS: Hematocrit (blood only) 31.9 % (42.0-52.0); Mean Corpuscular Hemoglobin 35.4 pg (25.0-34.0); Mean Corpuscular Hgb Conc 34.5 g/dL (32.0-36.0); Mean Corpuscular Volume 102.6 fL (80.0-100.0); Mean Platelet Volume 9.1 fL (9.4-12.4); Nucleated RBC # (auto) 0.02 K/uL (0.00-0.12); Nucleated RBC % (auto) 0.3 %; Platelet Count 190 K/uL (130-400); RDW Coefficient of Variation 18.7 % (11.5-14.5); Red Blood Count 3.11 M/uL (4.70-6.10); White Blood Count 5.74 K/ul (4.8-10.8)
[2024-10-05 08:33] LABS: BUN Creatinine Ratio 21.8 (10-20); Calcium 8.3 mg/dl (8.6-10.3); Creatinine Clr Calc Pharmacy 100.5 ml/min; Magnesium 1.8 mg/dl (1.7-2.4); Phosphorus 3.1 mg/dl (2.5-4.9); Potassium 3.7 mmol/L (3.5-5.1)
--- NOTE | 2024-10-05 13:40 | Hospitalist Progress Note ---
Date of Service October 05, 2024 Assessment & Plan (1) Severe sepsis: (2) Bilateral cellulitis of lower leg: (3) Atrial fibrillation with rapid ventricular response: (4) Acute on chronic diastolic heart failure due to valvular disease: (5) Aspiration pneumonitis: (6) Allergic dermatitis: Plan: Feet and lower legs (7) PAD (peripheral artery disease): (8) Alcohol intoxication: (9) Alcohol abuse: (10) Alcohol withdrawal: (11) Presence of Watchman left atrial appendage closure device: (12) Tricuspid valvular regurgitation: (13) Vocal cord dysfunction: (14) Cirrhosis: (15) Hypernatremia: (16) Dehydration: Plan (1) Severe sepsis: (2) Bilateral cellulitis of lower leg: Patient presenting from home for evaluation of ongoing BL leg infection. Reports he had been on antibiotics until 2 weeks ago. [facility] B[facility]. Patient meets severe sepsis criteria on presentation with tachycardia, tachypnea, elevated lactate 3.9 (alcohol intoxication may be contributing to elevated lactate) S/p Vanco and cefepime in ED, continued with both initially IVF ID consult due to recurrent cellulitis Wound care consult Venous and arterial dopplers -> vasc. surgery consulted - (1) PAD (peripheral artery disease): This patient does have peripheral artery occlusive disease however he has palpable DP's bilaterally. Cellulitis that does not have ischemic tissue loss is not an indication for any surgical or endovascular interventions. He has adequate flow for antibiotic therapy to get to the feet. Even with total occlusions as long as the collateral flow is good we would treat cellulitis with antibiotics and reserve surgical or endovascular interventions for those with ischemic tissue loss. Follow blood cultures - negative Patient initially presented w/ dehydration and hypernatremia and volume depleted. Received fluid resuscitation for this. Also patient was having some hypotension associated with his infection and but atrial fibrillation treated with fluid boluses. Now showing signs of volume overload with significant edema in the scrotum and dependent portions of his thighs and sacrum. Metoprolol - dose has been decreased, blood pressure is improved, continue to monitor for rapid ventricular response. Currently HR elevated. BP on lower side. IV Lasix received, edema improved but not resolved yet, monitor electrolytes and renal function and daily weight. Prn lasix as BP allows. ID consulted (seen 09/29/2024)- -Discontinue cefepime -continue vancomycin dosed per pharmacy -please discontinue topical agents on the skin as he is likely having an allergic reaction to one or more of the components - please consult Wound Care for careful evaluation, there input will be appreciated regards to potential allergic reaction and further care - ID will continue to follow Continue vancomycin for lower extremity cellulitis. Transition to oral Zyvox on discharge would treat for total of 14 days including the days that he was on IV vancomycin here in the hospital. Case management reports that cost of Zyvox is less than $10 Wound care consulted. Patient would benefit from regular wound care of his lowe r extremities. It is felt that part of the redness and swelling of his feet were due to an allergic dermatitis from various topical creams and ointments that he was putting on his feet prior to admission. Aspiration pneumonitis, cough Previously chest x-ray obtained. Patient did have a suspected aspiration event a couple days ago. Suspect chest x-ray findings more consistent with pulmonary edema than significant pneumonia, was transitioned to oral Augmentin for a short course for possible aspiration pneumonitis. Difficulty w/ cough Will add guaifenesin cont. IS, add flutter valve hypertonic saline gemma, chest vest percus. 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 Previous provider discussed w/patient's son. He reports that him and his are the patient's caretakers are able to care for him upon discharge. He was told that the earliest date for discharge would be Wednesday. Anticipate discharge when patient's volume status is more euvolemic, heart rate and blood pressure stabilized and transition to oral Zyvox. Admission and Anticipated Discharge Date Admission Date: September 28, 2024 Subjective Pt seen in follow up of foot cellulitis, etoh use Currently sitting up in chair, legs elevated, in NAD pt reports R foot looks/feels much better Wound care / ID consulted No fever, chills, chest pain, shortness of breath. Pt was very edematous, edema in his limbs is improved, says scrotal edema is improved. Received lasix. However BP on lower side so lasix only prn at this time Also pt has difficulty w/ cough, has very weak cough- will ordrr guaifenesin, already has ID, will order flutter valve, hypert. saline neb, chest percussion therapy- currently on RA, will cont. to closely monitor Review of Systems Review of Systems: All systems reviewed & are unremarkable except as noted in Subjective Physical Exam Physical Exam: Constitutional: WD/WN elderly M in NAD, chronically ill appearing HEENT: NC/AT. Mucous membranes moist., +hoarse voice (chronic for past 10 months per pt) Lungs: Decreased breath sounds, few crackles CV: S1-S2, irregular Abdomen: Soft, nontender, nondistended Extremities: + scrotal edema and dependent posterior thigh sacral area. Swelling in the feet and ankles improved, erythema is improved Neuro: awake, alert, answers appropriately but slowly, moves extremities Psych: Cooperative, normal mood Results & Data Results & Data Vital Signs (Past 12 Hours) Vital Signs Temp Pulse Pulse Resp BP BP Pulse Ox 10/05/24 13:08 91/57 L 10/05/24 11:12 37.0 C 125 H 16 100/66 92 10/05/24 08:00 107 H 10/05/24 08:00 10/05/24 07:33 37.0 C 125 H 16 106/73 91 10/05/24 04:00 37.2 C 104 H 20 105/69 92 O2 Del Method 10/05/24 13:08 10/05/24 11:12 Room Air 10/05/24 08:00 10/05/24 08:00 Room Air 10/05/24 07:33 Room Air 10/05/24 04:00 Room Air Laboratory Results 10/05/24 Range/Units 07:21 WBC 5.74 (4.8-10.8) K/ul RBC 3.11 L (4.70-6.10) M/uL Hgb 11.0 L (14.0-18.0) g/dl Hct 31.9 L (42.0-52.0) % MCV 102.6 H (80.0-100.0) fL MCH 35.4 H (25.0-34.0) pg MCHC 34.5 (32.0-36.0) g/dL RDW Std Deviation 69.0 H (36.4-46.3) fL RDW Coeff of Giancarlo 18.7 H (11.5-14.5) % Plt Count 190 (130-400) K/uL MPV 9.1 L (9.4-12.4) fL Absolute Nucleated RBC 0.02 (0.00-0.12) K/uL Nucleated RBC % (auto) 0.3 % Sodium 140 (136-145) mmol/L Potassium 3.7 (3.5-5.1) mmol/L Chloride 103 (98-107) mmol/L Carbon Dioxide 34 H (21-32) mmol/L Anion Gap 3 (3-11) BUN 12 (6-23) mg/dl Creatinine 0.55 L (0.6-1.4) mg/dl Est Cr Clr Drug Dosing 100.5 ml/min eGFR 102.71 BUN/Creatinine Ratio 21.8 H (10-20) Glucose 71 (70-99(Fasting)) mg/dl Calcium 8.3 L (8.6-10.3) mg/dl Phosphorus 3.1 (2.5-4.9) mg/dl Magnesium 1.8 (1.7-2.4) mg/dl Medications Administered Current Inpatient Medications Acetaminophen (Acetaminophen 500 Mg Tab) 1,000 mg PO BID [facility] Stop: 11/01/24 08:59 Last Admin: 10/05/24 08:54 Dose: 1,000 mg Amoxicillin/Clavulanate Potassium (Amoxicillin/Clavulanate 875 Mg Tab) 1 tab PO BIDM [facility]; Protocol Stop: 10/08/24 16:59 Last Admin: 10/05/24 08:54 Dose: 1 tab Aspirin (Aspirin 81 Mg Ectab) 81 mg PO DAILY [facility] Stop: 10/29/24 08:59 Last Admin: 10/05/24 08:54 Dose: 81 mg Cetirizine HCl (Cetirizine Hcl 10 Mg Tablet) 10 mg PO HS [facility] Stop: 10/28/24 20:59 Last Admin: 10/04/24 20:54 Dose: 10 mg Docusate Sodium (Docusate Sodium 100 Mg Cap) 100 mg PO HS [facility] Stop: 10/28/24 20:59 Last Admin: 10/04/24 20:54 Dose: 100 mg Enoxaparin Sodium (Enoxaparin Inj 40 Mg/0.4 Ml Syr) 40 mg SQ QAM [facility] Stop: 11/02/24 13:14 Last Admin: 10/05/24 08:55 Dose: 40 mg Ferrous Sulfate (Ferrous Sulfate 325 Mg Tab) 325 mg PO DAILY [facility] Stop: 10/29/24 08:59 Last Admin: 10/05/24 08:54 Dose: 325 mg Folic Acid (Folic Acid 1 Mg Tab) [facility] [place] Stop: 10/29/24 08:59 Last Admin: 10/05/24 08:55 Dose: 1 mg Furosemide (Furosemide 20 Mg Tab) 20 mg PO QAM [facility] Stop: 11/01/24 14:57 Last Admin: 10/03/24 07:56 Dose: 20 mg Guaifenesin (Guaifenesin 600 Mg Tabcr) 600 mg PO Q12 [facility] Stop: 11/04/24 12:59 Vancomycin HCl (Vancomycin Hcl) 1,000 mg in 270 mls @ 200 mls/hr IV Q12H [facility] Stop: 10/11/24 19:00 Last Infusion: 10/05/24 07:11 Dose: Infused Prochlorperazine 5 mg/ Syringe 5 mls @ 5 mls/min IV Q6H PRN PRN Reason: Nausea And Vomiting Stop: 10/29/24 15:38 Last Admin: 10/04/24 09:07 Dose: 5 mls/min Levalbuterol HCl (Levalbuterol Hcl 0.63 Mg/3 Ml Neb) 0.63 mg NEB Q4H PRN; Protocol PRN Reason: Shortness Of Breath Or Wheezing Stop: 10/31/24 10:10 Magnesium Oxide (Magnesium Oxide 400 Mg Tab) 400 mg PO DAILY [facility] Stop: 10/29/24 08:59 Last Admin: 10/05/24 08:54 Dose: 400 mg Metoprolol Succinate (Metoprolol Succ 50mg Ext Rel Tab) 50 mg PO QAM [facility] Stop: 11/02/24 08:59 Last Admin: 10/05/24 08:53 Dose: 50 mg Metoprolol Succinate (Metoprolol Succ 25mg Ext Rel Tab) 25 mg PO HS [facility] Stop: 11/01/24 20:59 Last Admin: 10/04/24 20:52 Dose: Not Given Miscellaneous Information (Vancomycin Consult Active) 1 each N/A UD PRN PRN Reason: Consult Stop: 10/28/24 12:17 Multivitamins (Multivitamin Tab) 1 tab PO QAM [facility] Stop: 10/29/24 08:59 Last Admin: 10/05/24 08:54 Dose: 1 tab Oxycodone HCl (Oxycodone Hcl Ir 5 Mg Tab (Immediate Release)) 5 mg PO Q4H PRN PRN Reason: Pain Stop: 10/13/24 20:35 Last Admin: 10/04/24 20:54 Dose: 5 mg Pregabalin (Pregabalin 25 Mg Cap) 25 mg PO BID [facility] Stop: 10/28/24 20:59 Last Admin: 10/05/24 08:54 Dose: 25 mg Rifaximin (Rifaximin 550 Mg Tablet) 550 mg PO BID [facility] Stop: 10/28/24 20:59 Last Admin: 10/05/24 08:55 Dose: 550 mg Sennosides (Senna 8.6 Mg Tab) 8.6 mg PO HS [facility] Stop: 10/28/24 20:59 Last Admin: 10/04/24 20:54 Dose: 8.6 mg Sodium Chloride (Sodium Chlor 7% 4 Ml Neb) 4 ml NEB BIDR [facility] Stop: 11/04/24 13:39 Thiamine HCl (Thiamine Hcl 100 Mg Tab) 100 mg PO QAM [facility] Stop: 10/29/24 08:59 Last Admin: 10/05/24 08:55 Dose: 100 mg
[2024-10-05] MEDS: guaiFENesin 600 MG TABCR PO SCH (14:11)
[2024-10-05] MEDS: METOPROLOL TARTRATE 25 MG TAB PO ONE (14:11)
[2024-10-05] MEDS: SODIUM CHLOR 7% 4 ML NEB NEB SCH (14:18)
--- NOTE | 2024-10-05 15:52 | XRay Report ---
XR chest 1V portable CLINICAL HISTORY: follow up, + cough COMPARISON STUDY: 10/02/2024 FINDINGS: The right basilar airspace opacity has increased since since the prior examination. There i s further obscuration of the right hemidiaphragm. The left pleural effusion/pleural fibrosis is uncha nged. Cardiomegaly and pulmonary vascular congestion unchanged. Atrioventricular pacemaker remains in place. IMPRESSION: Progressive right basilar infiltrate consistent with pneumonia. ACT 112: Negative or not required by law. Electronically signed by: Sara Young M.D. 10/05/2024 3:50 PM
--- NOTE | 2024-10-05 15:53 | Cardiology Consultation ---
Date of Consultation October 05, 2024 Assessment & Plan (1) Atrial fibrillation with rapid ventricular response: (2) Chronic atrial fibrillation: (3) Tachy-tahir syndrome: (4) Volume overload: (5) Hypoalbuminemia: (6) Bilateral cellulitis of lower leg: (7) Cardiac pacemaker in situ: Plan Tachycardia. Patient with chronic atrial fibrillation. Status post Watchman implantation in June 2021. Recommend rate control with metoprolol succinate - 25 mg by mouth tonight, resuming prior to arrival dosing which appears to be 50 mg in the morning and 25 mg in the evening. If additional heart rate control is needed would increase metoprolol dosing as blood pressure permits prior to adding digoxin. 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 Interrogate device. Volume overload, multifactorial in etiology - chronic hypoalbuminemia, infection, anemia, medications, diastolic heart failure. Consider reduction in Lyrica. Continue oral furosemide. Consider resumption of eplerenone. Supervising Physician Co-Signing Physician Notes Patient seen and examined personally. Full assessment and plan as outlined by advanced provider as above. Care and management as outlined and personally endorsed 74-year-old male with longstanding persistent atrial fibrillation status post watchman implantation for stroke risk reduction. History of tachybradycardia syndrome status post pacemaker implantation. Now admitted with peripheral cellulitis and medical concerns. Day 7 of hospitalization. Patient has received IV fluids with 8 L positive fluid intake since admission. Metoprolol succinate being held in the evening due to hypotension. Recommendations: As above resume usual dosing of metoprolol succinate 50 mg a.m. 25 mg p.m. if blood pressure trends lower consider reduction in alternate medications including Lyrica. May require cautious diuresis as course progresses but does not appear to be intravascularly volume overloaded. Low albumin contributing History of Present Illness Reason for Consultation: Tachycardia, hx of Afib s/p watchman, volume overload Requesting Physician: Dr. Gonsalo Redding MD Attending Physician: Dr. Gonsalo Redding MD History of Present Illness Mr. Romain Bailey is a 74-year-old male who presented to [facility] on September 28, 2024 cellulitis, severe sepsis. Patient initially was felt to be volume depleted and received fluid resuscitation. I's and O's are +8 L overall on chart review. Cardiology consultation requested on October 05, 2024 due to elevated heart rates, history of atrial fibrillation status post watchman, volume overload. Patient seen and examined. Notes longstanding history of atrial fibrillation. Patient status post Watchman implantation in June 2021. Also with Tachy- Bradycardia Syndrome status post Medtronic dual-chamber pacemaker implantation Patient notes a cough with difficulty expectorating. He denies chest pain, palpitations, orthopnea, or PND. No syncope. Problem List Diastolic congestive heart failure. Hepatic cirrhosis secondary to prior alcohol abuse Atrial fibrillation, ? 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 Chronic tobacco abuse History of upper extremity DVT History of lower GI bleeding Asplenia History of leukocytoclastic vasculitis GERD Erectile dysfunction Cholecystectomy Cataract extraction Lumbar spine fusion Partial gastrectomy Allergies Allergy/AdvReac Type Severity Reaction Status Date / Time gabapentin Allergy Unknown Unknown - Unverified 09/28/24 14:31 On file / [facility] fentanyl AdvReac Mild itch Verified 09/28/24 14:31 Home Medications Medication Instructions Recorded Confirmed Type aspirin 81 mg tablet,delayed 81 mg PO DAILY 11/15/22 09/28/24 History release ferrous sulfate 325 mg (65 mg 325 mg PO DAILY 11/15/22 09/28/24 History iron) tablet (FeroSul) magnesium oxide 420 mg tablet 420 mg PO DAILY 11/15/22 09/28/24 History multivitamin (Daily Multi-Vitamin 1 tab PO DAILY 11/15/22 09/28/24 History tablet) cetirizine 10 mg tablet (Zyrtec) 10 mg PO HS 09/28/24 09/28/24 History cholecalciferol (vitamin D3) 25 50 mcg PO DAILY 09/28/24 09/28/24 History mcg (1,000 unit) tablet (Vitamin D3) docusate sodium 100 mg capsule 100 mg PO HS 09/28/24 09/28/24 History eplerenone 50 mg tablet 50 mg PO DAILY 09/28/24 09/28/24 History furosemide 20 mg tablet 20 mg PO DAILY 09/28/24 09/28/24 History ketoconazole 2 % shampoo 1 ea topical 3XWK 09/28/24 09/28/24 History lanolin alcohols-mineral 1 applic topical BID 09/28/24 09/28/24 History oil-w.petrolatum-ceresin topical cream (Eucerin topical cream) metoprolol succinate 50 mg See Rx Instructions .Route .COMPLEX 09/28/24 09/28/24 History tablet,extended release 24 hr naloxone 4 mg/actuation nasal spray 4 mg intranasal DAILY PRN Opioid 09/28/24 09/28/24 History Overdose oxycodone 10 mg tablet,crush 10 mg PO Q12H 09/28/24 09/28/24 History resistant,extended release 12 hr pregabalin 25 mg capsule 25 mg PO BID 09/28/24 09/28/24 History promethazine 25 mg tablet 25 mg PO Q8H PRN Nausea And 09/28/24 09/28/24 History Vomiting rifaximin 550 mg tablet 550 mg PO BID 09/28/24 09/28/24 History sennosides 8.6 mg tablet (senna) 8.6 mg PO HS 09/28/24 09/28/24 History zinc oxide 20 % topical ointment 1 applic topical BID Buttock/Groin 09/28/24 09/28/24 History irritation linezolid 600 mg tablet (Zyvox) 600 mg PO BID 10 days #20 tabs 10/02/24 Rx Patient History Medical History CHF (congestive heart failure) Presence of Watchman left atrial appendage closure device Cardiac pacemaker in situ Cirrhosis History of bacteremia Per family's report Atrial fibrillation History of alcohol abuse Surgical History History of splenectomy Family History Other Family history non-contributory Social History Smoking Status: Former smoker Second Hand Exposure: No; Do You Dip or Chew Tobacco: No; Hx Alcohol Use: Yes Alcohol type: beer and hard liquor Hx Substance Use: No Preferred Language: Frisian Communication Ability: Effective Ear Specialist Required: No Beliefs That Will Affect Care: None Current Living Situation: Family Feels Safe at Home: Yes Assistive Devices: Cane, Walker and Wheelchair Review of Systems Review of Systems: Complete Review of Systems is as stated above, negative, or noncontributory Physical Exam Physical Exam: Examined in a bedside chair General: A&Ox3. NAD. HENT: Normocephalic. Atraumatic. Eyes: PER. Conjunctiva pink, sclera clear. Neck: No overt JVD. Heart: Irregularly irregular at 90 bpm. Systolic murmur at the LLSB. No diastolic murmur. Lungs: Absent breath sounds at the bases. Right basilar rales. No wheeze. Abdomen: +BS. Soft. Nontender. No masses or organomegaly. Extremities: Trace to 1+ distal bilateral lower extremity edema. 1-2+ presacral edema. Dressings not removed. Limited neurological examination is without focal deficits. Pulses: Distal pulses not appreciated (dressings in place). Results & Data Vital Signs (Past 12 Hours) Vital Signs Temp Pulse Pulse Resp BP BP Pulse Ox 10/05/24 15:51 117 H 10/05/24 14:30 92/57 L 10/05/24 14:19 119 H 21 93 10/05/24 13:08 91/57 L 10/05/24 11:12 37.0 C 125 H 16 100/66 92 10/05/24 08:00 107 H 10/05/24 08:00 10/05/24 07:33 37.0 C 125 H 16 106/73 91 10/05/24 04:00 37.2 C 104 H 20 105/69 92 O2 Del Method 10/05/24 15:51 10/05/24 14:30 10/05/24 14:19 Room Air 10/05/24 13:08 10/05/24 11:12 Room Air 10/05/24 08:00 10/05/24 08:00 Room Air 10/05/24 07:33 Room Air 10/05/24 04:00 Room Air Laboratory Results CBC 10/05/24 Range/Units 07:21 WBC 5.74 (4.8-10.8) K/ul RBC 3.11 L (4.70-6.10) M/uL Hgb 11.0 L (14.0-18.0) g/dl Hct 31.9 L (42.0-52.0) % Plt Count 190 (130-400) K/uL Comprehensive Metabolic Panel 10/05/24 Range/Units 07:21 Sodium 140 (136-145) mmol/L Potassium 3.7 (3.5-5.1) mmol/L Chloride 103 (98-107) mmol/L Carbon Dioxide 34 H (21-32) mmol/L BUN 12 (6-23) mg/dl Creatinine 0.55 L (0.6-1.4) mg/dl Glucose 71 (70-99(Fasting)) mg/dl Calcium 8.3 L (8.6-10.3) mg/dl Intake and Output 10/05/24 10/05/24 10/05/24 06:59 14:59 22:59 Intake Total 200 / 1680 270 / 610 340 / 610 Output Total 250 / 1051 Balance -50 / 629 270 / 609 339 / 609 Intake: IV 270 / 270 Vancomycin HCl 1,000 mg In 270 270 / 270 ml @ 200 mls/hr IV Q12H [facility] Rx# :[id number] Oral 200 / 1140 340 / 340 Output: Urine 250 / 1050 # Bowel Movements Other: # Unmeasured Voids 1 Weight 70.1 kg Weight Measurement Method Built in [facility] Diagnostic Findings Telemetry: Atrial fibrillation with a rapid ventricular response earlier today, now rate controlled with heart rates in the 80 to 100 bpm range. EKG on October 05, 2024 that 14:42: 41 revealed atrial fibrillation with rapid ventricular response with ventricular paced beats and PVCs.
--- NOTE | 2024-10-06 06:00 | Electrocardiogram Report ---
Test Reason : Blood Pressure : */* mmHG Vent. Rate : 110 BPM Atrial Rate : 85 BPM P-R Int : * ms QRS Dur : 68 ms QT Int : 362 ms P-R-T Axes : * 18 6 degrees QTcB Int : 489 ms Atrial fibrillation with rapid ventricular response with occasional ventricular-paced complexes Premature ventricular complexes Low voltage QRS Septal infarct (cited on or before 28-Sep-2024) Nonspecific T wave abnormality Abnormal ECG When compared with ECG of 28-Sep-2024 11:17, Ventricular paced complexes are now present Premature ventricular complexes are now Present Confirmed by Dane Gonzales ([id number]) on 10/06/2024 6:00:05 AM Referred By: REFERRED SELF Confirmed By: Dane Gonzales
[2024-10-06 06:16] LABS: Hematocrit (blood only) 32.1 % (42.0-52.0); Hemoglobin 11.1 g/dl (14.0-18.0); Mean Corpuscular Hemoglobin 35.6 pg (25.0-34.0); Mean Corpuscular Hgb Conc 34.6 g/dL (32.0-36.0); Mean Corpuscular Volume 102.9 fL (80.0-100.0); Mean Platelet Volume 8.9 fL (9.4-12.4); Platelet Count 197 K/uL (130-400); RDW Coefficient of Variation 18.8 % (11.5-14.5); RDW Standard Deviation 70.4 fL (36.4-46.3); Red Blood Count 3.12 M/uL (4.70-6.10)
[2024-10-06 06:29] LABS: BUN Creatinine Ratio 15.7 (10-20); Calcium 8.2 mg/dl (8.6-10.3); Creatinine Clr Calc Pharmacy 108.4 ml/min; Phosphorus 2.7 mg/dl (2.5-4.9); Potassium 3.6 mmol/L (3.5-5.1)
--- NOTE | 2024-10-06 07:53 | Hospitalist Progress Note ---
Date of Service October 06, 2024 Assessment & Plan (1) Severe sepsis: (2) Bilateral cellulitis of lower leg: (3) Atrial fibrillation with rapid ventricular response: (4) Acute on chronic diastolic heart failure due to valvular disease: (5) Aspiration pneumonitis: (6) Allergic dermatitis: Plan: Feet and lower legs (7) PAD (peripheral artery disease): (8) Alcohol intoxication: (9) Alcohol abuse: (10) Alcohol withdrawal: (11) Presence of Watchman left atrial appendage closure device: (12) Tricuspid valvular regurgitation: (13) Vocal cord dysfunction: (14) Cirrhosis: (15) Hypernatremia: (16) Dehydration: Plan (1) Severe sepsis: (2) Bilateral cellulitis of lower leg: Patient presenting from home for evaluation of ongoing BL leg infection. Reports he had been on antibiotics until 2 weeks ago. [facility]. Patient meets severe sepsis criteria on presentation with tachycardia, tachypnea, elevated lactate 3.9 (alcohol intoxication may be contributing to elevated lactate) S/p Vanco and cefepime in ED, continued with both initially IVF Blood cultures - negative ID consult due to recurrent cellulitis Wound care consult Venous and arterial dopplers -> Vasc. surgery consulted - (1) PAD (peripheral artery disease): This patient does have peripheral artery occlusive disease however he has palpable DP's bilaterally. Cellulitis that does not have ischemic tissue loss is not an indication for any surgical or endovascular interventions. He has adequate flow for antibiotic therapy to get to the feet. Even with total occlusions as long as the collateral flow is good we would treat cellulitis with antibiotics and reserve surgical or endovascular interventions for those with ischemic tissue loss. Patient initially presented w/ dehydration and hypernatremia and volume depleted. Received fluid resuscitation for this. Also patient was having some hypotension associated with his infection and but atrial fibrillation treated with fluid boluses. Now showing signs of volume overload with significant edema in the scrotum and dependent portions of his thighs and sacrum. IV Lasix received, edema improved but not resolved yet, monitor electrolytes and renal function and daily weight. Prn lasix as BP allows. HR elevated. BP on lower side. Discussed w/ cardiology, metoprolol, lasix resumed. Hypoalbuminemia contributing to edema - encourage protein intake, discussed w/ dietitian ID consulted (seen 09/29/2024)- -Discontinue cefepime -continue vancomycin dosed per pharmacy -please discontinue topical agents on the skin as he is likely having an all ergic reaction to one or more of the components - please consult Wound Care for careful evaluation, there input will be appreciated regards to potential allergic reaction and further care - ID will continue to follow Continue vancomycin for lower extremity cellulitis. Transition to oral Zyvox on discharge would treat for total of 14 days including the days that he was on IV vancomycin here in the hospital. Case management reports that cost of Zyvox is less than $10 Wound care consulted. Patient would benefit from regular wound care of his lower extremities. It is felt that part of the redness and swelling of his feet were due to an allergic dermatitis from various topical creams and ointments that he was putting on his feet prior to admission. Aspiration pneumonitis, cough Previously chest x-ray obtained. Patient did have a suspected aspiration event a couple days ago. Suspect chest x-ray findings more consistent with pulmonary edema than significant pneumonia, was transitioned to oral Augmentin for a short course for possible aspiration pneumonitis. Difficulty w/ cough added guaifenesin cont. IS, add flutter valve hypertonic saline gemma, chest vest percus. therapy Repeat CXR - Progressive right basilar infiltrate consistent with pneumonia. Cont. Augmnetin, and therapies as above Again noted coughing w/ food Discussed w/ speech therapy - plan for video swallow on Wednesday Therapies as tolerated Atrial fibrillation with rapid ventricular response: Presence of Watchman left atrial appendage closure device: History of PAF s/p Watchman RVR likely secondary to sepsis received IVF resuscitation, consider PRN IV metoprolol if needed Continue [employer] metoprolol succinate Metoprolol on hold last night as BP low, now HR elevated again (10/05/24) Metoprolol resumed, discussed w/ cardiology as above Alcohol abuse: Patient reports drinking 6 beers/week Alcohol level 374 on admission Alcohol withdrawal protocol with Librium and PRN Ativan - on admission Patient is not having any signs of withdrawal from alcohol, continue to encourage abstinence Per previous provider - Patient's determined to return home with his son caring for him and home services. Previous provider discussed w/patient's son. He reports that him and his are the patient's caretakers are able to care for him upon discharge. Per CM note, plan for rehab [facility] in [place]. Anticipate discharge when patient's volume status is more euvolemic, heart rate and blood pressure stabilized and transition to oral Zyvox. Admission and Anticipated Discharge Date Admission Date: September 28, 2024 Subjective Pt seen in follow up of foot cellulitis, etoh use Currently sitting up in bed, in NAD pt reports R foot looks/feels better -> saw pt again PM when RN changed the dressings, foot much less swollen , less erythema but still quite erythematous. Pt reports less pain but takes pain meds prn. Wound care / ID consulted No fever, chills, chest pain, shortness of breath. Pt was very edematous, edema in his limbs is improved, scrotal edema is improved. Received lasix. However BP on lower side. HR elevated - discussed w/ cardiology. back on beta franc, lasix, trying to improve protein intake, hypoalbuminemia contributing to edema Also pt has difficulty w/ cough, has very weak cough cough w/ eating repeat CXR also obtained - redemonstrates pna, discussed w/speech- swallow eval on wednesday Review of Systems Review of Systems: All systems reviewed & are unremarkable except as noted in Subjective Physical Exam Physical Exam: Constitutional: WD/WN elderly M in NAD, chronically ill appearing HEENT: NC/AT. Mucous membranes moist., +hoarse voice (chronic for past 10 months per pt) Lungs: Decreased breath sounds, few crackles CV: S1-S2, irregular Abdomen: Soft, nontender, nondistended Extremities: + scrotal edema and dependent posterior thigh sacral area improved. Swelling in the feet and ankles improved, erythema is improved Neuro: awake, alert, answers appropriately but slowly, moves extremities Psych: Cooperative, normal mood Results & Data Results & Data Vital Signs (Past 12 Hours) Vital Signs Temp Pulse Pulse Resp BP Pulse Ox O2 Del Method 10/06/24 07:45 86 16 94 Room Air 10/06/24 07:35 36.9 C 85 16 109/81 94 Room Air 10/06/24 07:24 Room Air 10/06/24 04:20 36.7 C 93 H 20 107/75 92 Room Air 10/06/24 00:32 97 H 10/06/24 00:04 36.5 C 96 H 20 101/69 93 Room Air 03/13/25 23:25 Room Air 10/05/24 20:24 36.8 C 90 20 103/70 93 Room Air 10/05/24 20:00 99 H 17 96 Room Air Laboratory Results 10/06/24 10/05/24 Range/Units 05:25 07:21 WBC 5.20 5.74 (4.8-10.8) K/ul RBC 3.12 L 3.11 L (4.70-6.10) M/uL Hgb 11.1 L 11.0 L (14.0-18.0) g/dl Hct 32.1 L 31.9 L (42.0-52.0) % MCV 102.9 H 102.6 H (80.0-100.0) fL MCH 35.6 H 35.4 H (25.0-34.0) pg MCHC 34.6 34.5 (32.0-36.0) g/dL RDW Std Deviation 70.4 H 69.0 H (36.4-46.3) fL RDW Coeff of Giancarlo 18.8 H 18.7 H (11.5-14.5) % Plt Count 197 190 (130-400) K/uL MPV 8.9 L 9.1 L (9.4-12.4) fL Absolute Nucleated RBC 0.02 (0.00-0.12) K/uL Nucleated RBC % (auto) 0.3 % Sodium 142 140 (136-145) mmol/L Potassium 3.6 3.7 (3.5-5.1) mmol/L Chloride 104 103 (98-107) mmol/L Carbon Dioxide 33 H 34 H (21-32) mmol/L Anion Gap 5 3 (3-11) BUN 8 12 (6-23) mg/dl Creatinine 0.51 L 0.55 L (0.6-1.4) mg/dl Est Cr Clr Drug Dosing 108.4 100.5 ml/min eGFR 105.08 102.71 BUN/Creatinine Ratio 15.7 21.8 H (10-20) Glucose 70 71 (70-99(Fasting)) mg/dl Calcium 8.2 L 8.3 L (8.6-10.3) mg/dl Phosphorus 2.7 3.1 (2.5-4.9) mg/dl Magnesium 2.0 1.8 (1.7-2.4) mg/dl Random Vancomycin 24.0 H (10-20) mcg/ml Medications Administered Current Inpatient Medications Acetaminophen (Acetaminophen 500 Mg Tab) 1,000 mg PO BID [facility] Stop: 11/01/24 08:59 Last Admin: 10/05/24 20:41 Dose: 1,000 mg Amoxicillin/Clavulanate Potassium (Amoxicillin/Clavulanate 875 Mg Tab) 1 tab PO BIDM [facility]; Protocol Stop: 10/08/24 16:59 Last Admin: 10/05/24 17:17 Dose: 1 tab Aspirin (Aspirin 81 Mg Ectab) 81 mg PO DAILY [facility] Stop: 10/29/24 08:59 Last Admin: 10/05/24 08:54 Dose: 81 mg Cetirizine HCl (Cetirizine Hcl 10 Mg Tablet) 10 mg PO [facility] Stop: 10/28/24 20:59 Last Admin: 10/05/24 20:42 Dose: 10 mg Docusate Sodium (Docusate Sodium 100 Mg Cap) 100 mg PO [facility] Stop: 10/28/24 20:59 Last Admin: 10/05/24 20:41 Dose: 100 mg Enoxaparin Sodium (Enoxaparin Inj 40 Mg/0.4 Ml Syr) 40 mg SQ QAM [facility] Stop: 11/02/24 13:14 Last Admin: 10/05/24 08:55 Dose: 40 mg Ferrous Sulfate (Ferrous Sulfate 325 Mg Tab) 325 mg PO DAILY [facility] Stop: 10/29/24 08:59 Last Admin: 10/05/24 08:54 Dose: 325 mg Folic Acid (Folic Acid 1 Mg Tab) [facility]: 10/29/24 08:59 Last Admin: 10/05/24 08:55 Dose: 1 mg Furosemide (Furosemide 20 Mg Tab) [facility] [place] Stop: 11/01/24 14:57 Last Admin: 10/03/24 07:56 Dose: 20 mg Guaifenesin (Guaifenesin 600 Mg Tabcr) 600 mg PO Q12 [facility] Stop: 11/04/24 12:59 Last Admin: 10/05/24 20:43 Dose: 600 mg Vancomycin HCl (Vancomycin Hcl) 1,000 mg in 270 mls @ 200 mls/hr IV Q12H [facility] Stop: 10/11/24 19:00 Last Admin: 10/06/24 06:12 Dose: 200 mls/hr Prochlorperazine 5 mg/ Syringe 5 mls @ 5 mls/min IV Q6H PRN PRN Reason: Nausea And Vomiting Stop: 10/29/24 15:38 Last Admin: 10/04/24 09:07 Dose: 5 mls/min Levalbuterol HCl (Levalbuterol Hcl 0.63 Mg/3 Ml Neb) 0.63 mg NEB Q4H PRN; Protocol PRN Reason: Shortness Of Breath Or Wheezing Stop: 10/31/24 10:10 Magnesium Oxide (Magnesium Oxide 400 Mg Tab) 400 mg PO DAILY [facility] Stop: 10/29/24 08:59 Last Admin: 10/05/24 08:54 Dose: 400 mg Metoprolol Succinate (Metoprolol Succ 50mg Ext Rel Tab) 50 mg PO QAM [facility] Stop: 11/02/24 08:59 Last Admin: 10/05/24 08:53 Dose: 50 mg Metoprolol Succinate (Metoprolol Succ 25mg Ext Rel Tab) 25 mg PO [facility] Stop: 11/01/24 20:59 Last Admin: 10/05/24 20:42 Dose: 25 mg Miscellaneous Information (Vancomycin Consult Active) 1 each N/A UD PRN PRN Reason: Consult Stop: 10/28/24 12:17 Multivitamins (Multivitamin Tab) 1 tab PO QAM [facility] Stop: 10/29/24 08:59 Last Admin: 10/05/24 08:54 Dose: 1 tab Oxycodone HCl (Oxycodone Hcl Ir 5 Mg Tab (Immediate Release)) 5 mg PO Q4H PRN PRN Reason: Pain Stop: 10/13/24 20:35 Last Admin: 10/04/24 20:54 Dose: 5 mg Pregabalin (Pregabalin 25 Mg Cap) 25 mg PO BID [facility] Stop: 10/28/24 20:59 Last Admin: 10/05/24 20:41 Dose: 25 mg Rifaximin (Rifaximin 550 Mg Tablet) 550 mg PO BID [facility] Stop: 10/28/24 20:59 Last Admin: 10/05/24 20:42 Dose: 550 mg Sennosides (Senna 8.6 Mg Tab) 8.6 mg PO [facility] Stop: 10/28/24 20:59 Last Admin: 10/05/24 20:41 Dose: 8.6 mg Sodium Chloride (Sodium Chlor 7% 4 Ml Neb) 4 ml NEB BIDR [facility] Stop: 11/04/24 13:39 Last Admin: 10/06/24 07:45 Dose: 4 ml Thiamine HCl (Thiamine Hcl 100 Mg Tab) 100 mg PO QAM [facility] Stop: 10/29/24 08:59 Last Admin: 10/05/24 08:55 Dose: 100 mg
--- NOTE | 2024-10-06 10:25 | Pharmacy Report ---
Pharmacy PK ABX Note - Date of Service October 06, 2024 - Assessment and Plan Assessment 10/06: * Day #9 of vancomycin, day #4 of Augmentin. Discussed with hospitalist to see if okay to transition to linezolid today. Plan is to continue vancomycin for the time being. Patient remains afebrile with no leukocytosis. Renal function remains stable. Cultures all negative. 10/02: * Day #5 of vanc. Await further ID recs for duration of vanc. All cultures remain with no significant growth. Scr trended back down. 09/30: * Day #3 of Vancomycin. Cefepime was discontinued by infectious disease. Hospitalist added 1 g of IV Ceftriaxone daily for a UTI last evening so today will be day #2 of that. * Afebrile. No white count. No growth in any cultures yet. SCr slightly worse today (0.55 --> 0.70 mg/dL). * Trough level therapeutic this AM. 09/29: 74 year old M receiving vancomycin and cefepime for treatment of recurrent worsening b/l infection of his feet. Patient states that infection in his legs and feet started in May of 2024. He was last treated a few weeks ago with oral Bactrim (last dose ~2 weeks ago). Patient noticed increase in b/l erythema after completion of outpatient antibiotic. ID has been consulted. * Of note, patient presents with tachycardia, tachypnea, and elevated lactate of 3.9 (alcohol screen was also +). However, no leukocytosis or fever and procalcitonin is negative * Pertinent microbiologic data includes: Positive MRSA Nasal Swab; Blood cultures x 2 and urine culture from 09/28 are pending. Day # 2 of antimicrobial therapy. Plan Vancomycin * Current regimen: 1000 mg IV every 12 hours * Random level obtained 10/06/24 resulted as 24 mcg/mL. This is predicted to result in slightly supratherapeutic AUC/GENNA > 600 mg/L.hr * Change to 750 mg IV every 12 hours * Predicted AUC at steady state: 469 mg/L.hr * Repeat random level ordered for: 10/09/24 Pharmacy has transitioned to AUC monitoring for vancomycin. AUC/GENNA is the preferred PK/PD target and is associated with decreased risk of nephrotoxicity compared to traditional trough targets.
--- NOTE | 2024-10-06 13:37 | Cardiology Progress Note ---
Date of Service October 06, 2024 Assessment & Plan (1) Atrial fibrillation with rapid ventricular response: (2) Chronic atrial fibrillation: (3) Tachy-cora syndrome: (4) Volume overload: (5) Hypoalbuminemia: (6) Bilateral cellulitis of lower leg: (7) Cardiac pacemaker in situ: Plan Chronic atrial fibrillation. Recommend continuation of rate control, increasing metoprolol succinate to 50 mg twice a day. If additional heart rate control is needed would increase metoprolol dosing as blood pressure permits or add digoxin. Patient status post Watchman implantation in June 2021. Tachy-Cora Syndrome. Status post dual-chamber Medtronic pacemaker implantation. Limited device interrogation today demonstrates appropriate function, adequate battery reserve, VVIR mode, chronic atrial fibrillation for at least the last year. Volume overload, multifactorial in etiology - chronic hypoalbuminemia, infection, anemia, medications, diastolic heart failure. Consider reduction in Lyrica. Continue oral furosemide. Recommend resumption of eplerenone. Please contact with any cardiology questions or concerns. Admission and Anticipated Discharge Date Admission Date: September 28, 2024 Supervising Physician Co-Signing Physician Notes Patient seen and personally examined. Full assessment and plan as outlined by advanced provider. Heart rate slightly better but occasionally elevated. No acute cardiac complaints. Volume overload as noted mostly extravascular Pacemaker functioning normally Recommendations as above Contact for further question Subjective Patient seen and examined. Chart, medications, telemetry reviewed. No chest pain, palpitations, or worsening shortness of breath. Telemetry: Atrial fibrillation with a rapid ventricular response, occasionally with ventricular paced complexes and premature ventricular contractions. Review of Systems Review of Systems: Complete Review of Systems is as stated above, negative, or noncontributory Physical Exam Physical Exam: Examined in a bedside chair General: A&Ox3. NAD. HENT: Normocephalic. Atraumatic. Eyes: PER. Conjunctiva pink, sclera clear. Neck: No overt JVD. Heart: Irregularly irregular at 110 bpm. Systolic murmur at the LLSB. No diastolic murmur. Lungs: Decreased at the bases. No wheeze, rales, or rhonchi. Abdomen: +BS. Soft. Nontender. No masses or organomegaly. Extremities: Trace to 1+ distal bilateral lower extremity edema. 1-2+ presacral edema. Dressings not removed. Left upper extremity erythema. Limited neurological examination is without focal deficits. Results & Data Vital Signs (Past 12 Hours) Vital Signs Temp Pulse Pulse Resp BP Pulse Ox O2 Del Method 10/06/24 09:44 104 H 10/06/24 07:45 86 16 94 Room Air 10/06/24 07:35 36.9 C 85 16 109/81 94 Room Air 10/06/24 07:24 Room Air 10/06/24 04:20 36.7 C 93 H 20 107/75 92 Room Air Laboratory Results CBC 10/06/24 Range/Units 05:25 WBC 5.20 (4.8-10.8) K/ul RBC 3.12 L (4.70-6.10) M/uL Hgb 11.1 L (14.0-18.0) g/dl Hct 32.1 L (42.0-52.0) % Plt Count 197 (130-400) K/uL Comprehensive Metabolic Panel 10/06/24 Range/Units 05:25 Sodium 142 (136-145) mmol/L Potassium 3.6 (3.5-5.1) mmol/L Chloride 104 (98-107) mmol/L Carbon Dioxide 33 H (21-32) mmol/L BUN 8 (6-23) mg/dl Creatinine 0.51 L (0.6-1.4) mg/dl Glucose 70 (70-99(Fasting)) mg/dl Calcium 8.2 L (8.6-10.3) mg/dl Intake and Output 10/05/24 10/06/24 10/06/24 22:59 06:59 14:59 Intake Total 610 / 1280 400 / 1280 270 / 270 Output Total 201 / 202 Balance 609 / 1078 199 / 1078 269 / 269 Intake: IV 270 / 540 270 / 270 Vancomycin HCl 1,000 mg In 270 270 / 540 270 / 270 ml @ 200 mls/hr IV Q12H [facility] Rx# :[id number] Oral 340 / 740 400 / 740 Output: Urine 200 / 200 # Bowel Movements 1 / 2 / 2 Other: # Unmeasured Voids 1 Weight 70.1 kg 73.1 kg Weight Measurement Method Built in [facility]
[2024-10-06] MEDS: VANCOMYCIN 750 MG in SODIUM CHLORIDE 0.9% 250 ML IV SCH (21:01)
[2024-10-07 07:32] LABS: Hemoglobin 11.4 g/dl (14.0-18.0); Mean Corpuscular Hemoglobin 35.1 pg (25.0-34.0); Mean Corpuscular Hgb Conc 33.5 g/dL (32.0-36.0); Mean Corpuscular Volume 104.6 fL (80.0-100.0); Mean Platelet Volume 9.1 fL (9.4-12.4); Platelet Count 203 K/uL (130-400); RDW Coefficient of Variation 18.7 % (11.5-14.5); RDW Standard Deviation 70.8 fL (36.4-46.3); Red Blood Count 3.25 M/uL (4.70-6.10); White Blood Count 6.39 K/ul (4.8-10.8)
[2024-10-07 07:45] LABS: Calcium 8.5 mg/dl (8.6-10.3); Magnesium 2.1 mg/dl (1.7-2.4)
[2024-10-07 07:51] LABS: BUN Creatinine Ratio 11.3 (10-20); Creatinine Clr Calc Pharmacy 89.7 ml/min; Phosphorus 2.8 mg/dl (2.5-4.9)
--- NOTE | 2024-10-07 08:10 | Hospitalist Progress Note ---
Date of Service October 07, 2024 Assessment & Plan (1) Severe sepsis: (2) Bilateral cellulitis of lower leg: (3) Atrial fibrillation with rapid ventricular response: (4) Acute on chronic diastolic heart failure due to valvular disease: (5) Aspiration pneumonitis: (6) Allergic dermatitis: Plan: Feet and lower legs (7) PAD (peripheral artery disease): (8) Alcohol intoxication: (9) Alcohol abuse: (10) Alcohol withdrawal: (11) Presence of Watchman left atrial appendage closure device: (12) Tricuspid valvular regurgitation: (13) Vocal cord dysfunction: (14) Cirrhosis: (15) Hypernatremia: (16) Dehydration: Plan (1) Severe sepsis: (2) Bilateral cellulitis of lower leg: Patient presenting from home for evaluation of ongoing BL leg infection. Reports he had been on antibiotics until 2 weeks ago. [facility] B[facility]. Patient meets severe sepsis criteria on presentation with tachycardia, tachypnea, elevated lactate 3.9 (alcohol intoxication may be contributing to elevated lactate) S/p Vanco and cefepime in ED, continued with both initially IVF Blood cultures - negative ID consult due to recurrent cellulitis Wound care consult Venous and arterial dopplers -> Vasc. surgery consulted - (1) PAD (peripheral artery disease): This patient does have peripheral artery occlusive disease however he has palpable DP's bilaterally. Cellulitis that does not have ischemic tissue loss is not an indication for any surgical or endovascular interventions. He has adequate flow for antibiotic therapy to get to the feet. Even with total occlusions as long as the collateral flow is good we would treat cellulitis with antibiotics and reserve surgical or endovascular interventions for those with ischemic tissue loss. Patient initially presented w/ dehydration and hypernatremia and volume depleted. Received fluid resuscitation for this. Also patient was having some hypotension associated with his infection and but atrial fibrillation treated with fluid boluses. Now showing signs of volume overload with significant edema in the scrotum and dependent portions of his thighs and sacrum. IV Lasix received, edema improved but not resolved yet, monitor electrolytes and renal function and daily weight. Prn lasix as BP allows. HR elevated. BP on lower side. Discussed w/ cardiology, metoprolol, lasix resumed. metoprolol titrated, also adding digoxin. Hypoalbuminemia contributing to edema - encourage protein intake, discussed w/ dietitian, unfortunately pt has cough w/ any po intake , video swallow study on Wednesday ID consulted (seen 09/29/2024)- -Discontinue cefepime -continue vancomycin dosed per pharmacy -please discontinue topical agents on the skin as he is likely having an allergic reaction to one or more of the components - please consult Wound Care for careful evaluation, there input will be appreciated regards to potential allergic reaction and further care - ID will continue to follow Continue vancomycin for lower extremity cellulitis. Transition to oral Zyvox on discharge would treat for total of 14 days including the days that he was on IV vancomycin here in the hospital. Case management reports that cost of Zyvox is less than $10 Wound care consulted. Patient would benefit from regular wound care of his lower extremities. It is felt that part of the redness and swelling of his feet were due to an allergic dermatitis from various topical creams and ointments that he was putting on his feet prior to admission. Aspiration pneumonitis, cough Previously chest x-ray obtained. Patient did have a suspected aspiration event a couple days ago. Suspect chest x-ray findings more consistent with pulmonary edema than significant pneumonia, was transitioned to oral Augmentin for a short course for possible aspiration pneumonitis. Difficulty w/ cough added guaifenesin cont. IS, add flutter valve hypertonic saline gemma, chest vest percus. therapy Repeat CXR - Progressive right basilar infiltrate consistent with pneumonia. Cont. Augmnetin, and therapies as above Again noted coughing w/ food Discussed w/ speech therapy - plan for video swallow on Wednesday Therapies as tolerated Atrial fibrillation with rapid ventricular response: Presence of Watchman left atrial appendage closure device: History of PAF s/p Watchman RVR likely secondary to sepsis received IVF resuscitation, consider PRN IV metoprolol if needed Continue [employer] metoprolol succinate Metoprolol on hold last night as BP low, now HR elevated again (10/05/24) Metoprolol resumed, discussed w/ cardiology as above metoprolol titrated, adding digoxin (10/07) Alcohol abuse: Patient reports drinking 6 beers/week Alcohol level 374 on admission Alcohol withdrawal protocol with Librium and PRN Ativan - on admission Patient is not having any signs of withdrawal from alcohol, continue to encourage abstinence Per previous provider - Patient's determined to return home with his son caring for him and home services. Previous provider discussed w/patient's son. He reports that him and his are the patient's caretakers are able to care for him upon discharge. Per CM note, plan for rehab [facility] in [place]. Anticipate discharge when patient's volume status is more euvolemic, heart rate and blood pressure stabilized and transition to oral Zyvox. Admission and Anticipated Discharge Date Admission Date: September 28, 2024 Subjective Pt seen in follow up of foot cellulitis, etoh use Currently sitting up in bed, in NAD pt reports R foot looks/feels better -> saw pt yesterday when RN changed the dressings, foot much less swollen , less erythema but still quite erythematous. Pt reports less pain but takes pain meds prn. Wound care / ID consulted No fever, chills, chest pain, but + cough especially after any PO intake Pt was very edematous, edema in his limbs is improved, scrotal edema is improved. Received lasix. However BP on lower side. HR elevated - discussed w/ cardiology. back on beta franc, lasix, trying to improve protein intake, hypoalbuminemia contributing to edema Also pt has difficulty w/ cough, has very weak cough cough w/ eating repeat CXR also obtained - redemonstrates pna, discussed w/speech- swallow eval on Wednesday HR elevated - cardiology following - titrating metoprolol, adding digoxin Review of Systems Review of Systems: All systems reviewed & are unremarkable except as noted in Subjective Physical Exam Physical Exam: Constitutional: WD/WN elderly M in NAD, chronically ill appearing HEENT: NC/AT. Mucous membranes moist., +hoarse voice (chronic for past 10 months per pt) Lungs: Decreased breath sounds, few crackles CV: S1-S2, irregular Abdomen: Soft, nontender, nondistended Extremities: + scrotal edema and dependent posterior thigh sacral area improved. Swelling in the feet and ankles improved, erythema is improved Neuro: awake, alert, answers appropriately but slowly, moves extremities Psych: Cooperative, normal mood Results & Data Results & Data Vital Signs (Past 12 Hours) Vital Signs Temp Pulse Pulse Resp BP BP Pulse Ox 10/07/24 08:03 36.4 C L 76 18 132/85 93 10/07/24 07:28 10/07/24 07:16 115 H 20 96 10/07/24 06:53 128 H 10/07/24 04:00 36.7 C 90 18 114/77 92 10/07/24 00:00 36.9 C 84 18 117/77 93 10/06/24 21:57 99 H 10/06/24 20:41 101 H 18 95 O2 Del Method 10/07/24 08:03 Room Air 10/07/24 07:28 Room Air 10/07/24 07:16 Room Air 10/07/24 06:53 10/07/24 04:00 Room Air 10/07/24 00:00 Room Air 10/06/24 21:57 10/06/24 20:41 Room Air Laboratory Results 10/07/24 Range/Units 07:14 WBC 6.39 (4.8-10.8) K/ul RBC 3.25 L (4.70-6.10) M/uL Hgb 11.4 L (14.0-18.0) g/dl Hct 34.0 L (42.0-52.0) % MCV 104.6 H (80.0-100.0) fL MCH 35.1 H (25.0-34.0) pg MCHC 33.5 (32.0-36.0) g/dL RDW Std Deviation 70.8 H (36.4-46.3) fL RDW Coeff of Giancarlo 18.7 H (11.5-14.5) % Plt Count 203 (130-400) K/uL MPV 9.1 L (9.4-12.4) fL Sodium 143 (136-145) mmol/L Potassium 4.0 (3.5-5.1) mmol/L Chloride 107 (98-107) mmol/L Carbon Dioxide 33 H (21-32) mmol/L Anion Gap 3 (3-11) BUN 7 (6-23) mg/dl Creatinine 0.62 (0.6-1.4) mg/dl Est Cr Clr Drug Dosing 89.7 ml/min eGFR 99.06 BUN/Creatinine Ratio 11.3 (10-20) Glucose 95 (70-99(Fasting)) mg/dl Calcium 8.5 L (8.6-10.3) mg/dl Phosphorus 2.8 (2.5-4.9) mg/dl Magnesium 2.1 (1.7-2.4) mg/dl Medications Administered Current Inpatient Medications Acetaminophen (Acetaminophen 500 Mg Tab) 1,000 mg PO BID [facility] Stop: 11/01/24 08:59 Last Admin: 10/06/24 20:57 Dose: 1,000 mg Amoxicillin/Clavulanate Potassium (Amoxicillin/Clavulanate 875 Mg Tab) 1 tab PO BIDM [facility]; Protocol Stop: 10/08/24 16:59 Last Admin: 10/06/24 17:55 Dose: 1 tab Aspirin (Aspirin 81 Mg Ectab) 81 mg PO DAILY [facility] Stop: 10/29/24 08:59 Last Admin: 10/06/24 08:33 Dose: 81 mg Cetirizine HCl (Cetirizine Hcl 10 Mg Tablet) 10 mg PO [facility] Stop: 10/28/24 20:59 Last Admin: 10/06/24 20:59 Dose: 10 mg Docusate Sodium (Docusate Sodium 100 Mg Cap) 100 mg PO [facility] Stop: 10/28/24 20:59 Last Admin: 10/06/24 20:57 Dose: Not Given Enoxaparin Sodium (Enoxaparin Inj 40 Mg/0.4 Ml Syr) [facility] [place]: 11/02/24 13:14 Last Admin: 10/06/24 08:33 Dose: 40 mg Ferrous Sulfate (Ferrous Sulfate 325 Mg Tab) 325 mg PO DAILY [facility] Stop: 10/29/24 08:59 Last Admin: 10/06/24 08:34 Dose: 325 mg Folic Acid (Folic Acid 1 Mg Tab) [facility] [place]: 10/29/24 08:59 Last Admin: 10/06/24 08:35 Dose: 1 mg Furosemide (Furosemide 20 Mg Tab) 20 mg PO [facility] Stop: 11/01/24 14:57 Last Admin: 10/03/24 07:56 Dose: 20 mg Guaifenesin (Guaifenesin 600 Mg Tabcr) 600 mg PO Q12 [facility] Stop: 11/04/24 12:59 Last Admin: 10/06/24 21:00 Dose: 600 mg Prochlorperazine 5 mg/ Syringe 5 mls @ 5 mls/min IV Q6H PRN PRN Reason: Nausea And Vomiting Stop: 10/29/24 15:38 Last Admin: 10/06/24 14:34 Dose: 5 mls/min Vancomycin HCl 750 mg/ Sodium (Chloride) 265 mls @ 200 mls/hr IV Q12H [facility] Stop: 10/13/24 20:59 Last Infusion: 10/06/24 22:21 Dose: Infused Levalbuterol HCl (Levalbuterol Hcl 0.63 Mg/3 Ml Neb) 0.63 mg NEB Q4H PRN; Protocol PRN Reason: Shortness Of Breath Or Wheezing Stop: 10/31/24 10:10 Magnesium Oxide (Magnesium Oxide 400 Mg Tab) 400 mg PO DAILY [facility] Stop: 10/29/24 08:59 Last Admin: 10/06/24 08:34 Dose: 400 mg Metoprolol Succinate (Metoprolol Succ 50mg Ext Rel Tab) 50 mg PO BID [facility] Stop: 11/06/24 08:59 Miscellaneous Information (Vancomycin Consult Active) 1 each N/A UD PRN PRN Reason: Consult Stop: 10/28/24 12:17 Multivitamins (Multivitamin Tab) 1 tab PO QAM [facility] Stop: 10/29/24 08:59 Last Admin: 10/06/24 08:33 Dose: 1 tab Oxycodone HCl (Oxycodone Hcl Ir 5 Mg Tab (Immediate Release)) 5 mg PO Q4H PRN PRN Reason: Pain Stop: 10/13/24 20:35 Last Admin: 10/04/24 20:54 Dose: 5 mg Pregabalin (Pregabalin 25 Mg Cap) 25 mg PO BID [facility] Stop: 10/28/24 20:59 Last Admin: 10/06/24 20:57 Dose: 25 mg Rifaximin (Rifaximin 550 Mg Tablet) 550 mg PO BID [facility] Stop: 10/28/24 20:59 Last Admin: 10/06/24 21:00 Dose: 550 mg Sennosides (Senna 8.6 Mg Tab) 8.6 mg PO HS [facility] Stop: 10/28/24 20:59 Last Admin: 10/06/24 20:57 Dose: Not Given Sodium Chloride (Sodium Chlor 7% 4 Ml Neb) 4 ml NEB BIDR [facility] Stop: 11/04/24 13:39 Last Admin: 10/07/24 06:58 Dose: 4 ml Thiamine HCl (Thiamine Hcl 100 Mg Tab) 100 mg PO QAM [facility] Stop: 10/29/24 08:59 Last Admin: 10/06/24 08:34 Dose: 100 mg
[2024-10-07] MEDS: METOPROLOL SUCC 50MG EXT REL TAB PO SCH (08:34)
--- NOTE | 2024-10-07 09:28 | Communication Note ---
Date of Service: October 07, 2024 Telemetry reviewed - atrial fibrillation, currently 100-120s, with occasional PVC or aberrant conduction, occasional ventricular paced complexes. Heart rates remain elevated despite titration of metoprolol. Patient with chronic atrial fibrillation. No concerns for bradycardia noting appropriately functioning Medtronic pacemaker in place. Add digoxin, 250 mcg IV now then oral as ordered, 125 mcg MWF Patient seen telemetry reviewed. Assessment as outlined above personally endorsed
[2024-10-07] MEDS: DIGOXIN 250 MCG in SYRINGE 9 ML IV STA (09:44)
[2024-10-07] MEDS: BUDESONIDE 0.25 MG/2 ML VIAL (PULMICORT) NEB SCH (16:24)
[2024-10-07 19:27] VITALS: O2SAT 91
[2024-10-07 23:02] VITALS: RESP 20; TEMP 97
[2024-10-07 23:21] VITALS: PULSE 83
[2024-10-08 00:16] VITALS: BP 117/77
--- NOTE | 2024-10-08 07:06 | Discharge Summary ---
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 Patient is somewhat a poor historian. He does not know what medications he takes. Alcohol level 374 and patient reports he drinks 6 beers/week, upon further questioning patient states he may have had a bloody jessika this morning. Patient reports he has had BLLE leg skin infection since May. Reports being on antibiotics until about 2 weeks ago and says he was "cut off". Reports he had some improvement while on the antibiotics. Patient denies fever and chills. No chest pain or shortness of breath. Reports somewhat chronic nausea and vomiting at times which is unchanged from baseline. No abdominal pain. Denies lightheadedness, dizziness, diaphoresis, and syncopal events. No urinary symptoms. Admission Exam Per Admitting Provider Constitutional: + ill appearing (chronically); no acute distress Eyes: PERRL, conjunctivae normal, anicteric sclerae ENMT: external ear and nose normal, oropharynx normal Respiratory: normal respiratory effort, lungs clear to auscultation Cardiovascular: Rate/Rhythm: + tachycardic and + irregularly irregular Vessels: normal peripheral pulses Extremities: + edema (BLLE) Gastrointestinal (Abdomen): normal bowel sounds, soft, nontender, no hepatosplenomegaly Musculoskeletal: no cyanosis or clubbing, extremities motor strength 5/5 Skin: please refer to wound care pictures for BLLE skin assessment Neurologic: no focal motor deficits Psychiatric: Orientation: alert, oriented to person and oriented to place; + not oriented to time Insight: + limited insight Principal Diagnosis Sepsis BLE cellulitis Aspiration pneumonia Afib RVR Discharge Exam Constitutional: WD/WN elderly M in NAD, chronically ill appearing HEENT: NC/AT. Mucous membranes moist., +hoarse voice (chronic) Lungs: Decreased breath sounds, few crackles CV: S1-S2, irregular Abdomen: Soft, nontender, nondistended Extremities: + scrotal edema and dependent posterior thigh sacral area improved. Swelling in the feet and ankles improved, erythema is improved Neuro: awake, alert, answers appropriately but slowly, moves extremities Psych: Cooperative, normal mood Discharge Data Allergies Allergy/AdvReac Type Severity Reaction Status Date / Time gabapentin Allergy Unknown Unknown - Unverified 09/28/24 14:31 On file / [facility] Pharmacy fentanyl AdvReac Mild itch Verified 09/28/24 14:31 Consultations 09/28/24 14:06 ED Decision to Admit Stat 09/28/24 17:10 Consult Infectious Diseases Routine 09/28/24 19:19 Consult Vascular Surgery Routine 10/05/24 15:13 Consult Cardiology Routine 10/07/24 14:34 Consult Palliative Care Routine Ordered Studies 09/28/24 14:51 US arterial duplex LE BI Urgent IMPRESSION: 1. Bilateral moderate calcified atherosclerosis. 2. Significant increased velocity in the right proximal ADRIAN down to the dorsalis pedis artery indicates significant stenosis. 3. Significant increased velocity of the left dorsalis pedis artery, indicating significant stenosis. 4. Further evaluation with CTA is advised as clinically indicated US venous doppler LE BI Urgent FINDINGS: Limited visualization of the calf veins due to edema. Normal phasic, non-pulsatile, and spontaneous flow is noted in bilateral common femoral, superficial femoral, and popliteal veins. Visualized veins of both lower extremities demonstrate normal compressibility. No sonographic evidence of acute deep vein thrombosis (DVT) is detected in the visualized veins of both lower extremities. Compression and Augmentation: All evaluated veins compress fully with applied transducer pressure. Augmentation of venous flow is noted with distal compression. Additional Findings: No evidence of intraluminal thrombus. IMPRESSION: No sonographic evidence of acute DVT was detected in bilateral common femoral, superficial femoral, or popliteal veins at the time of examination. 10/01/24 20:44 CT head/brain wo con Stat FINDINGS: Limitations: There is motion artifact, despite repeated imaging at times, which degrades image quality on multiple image slices. Brain: No intracranial hemorrhage. No significant mass-effect. No cortical infarct. The parenchyma is similar in appearance to the previous examination. There are a few areas of decreased attenuation in the deep cerebral white matter consistent with mild small vessel ischemic/degenerative changes. The cerebral and cerebellar sulci are mildly prominent consistent with mild brain atrophy. Ventricles: No midline shift or ventriculomegaly. No effacement of the ventricles. Bones/joints: Unremarkable. No acute fracture. Soft tissues: Unremarkable. Sinuses: Unremarkable as visualized. No acute sinusitis. Mastoid air cells: Unremarkable as visualized. No mastoid effusion. IMPRESSION: No acute intracranial process or significant alteration from the prior examination. No significant progression and the presumed age-related findings, as detailed above. 10/03/24 01:29 US venous doppler UE BI Urgent FINDINGS: The bilateral internal jugular, subclavian, axillary, brachial, radial, ulnar, cephalic and basilic veins were patent. No venous thrombus was identified within the upper extremities. Exam is mildly compromised from a technical standpoint. IMPRESSION: Exam mildly compromised from a technical standpoint. No venous thrombus identified within the upper extremities. Hospital Course (1) Severe sepsis: (2) Bilateral cellulitis of lower leg: (3) Atrial fibrillation with rapid ventricular response: (4) Acute on chronic diastolic heart failure due to valvular disease: (5) Aspiration pneumonitis: (6) Allergic dermatitis: Feet and lower legs (7) PAD (peripheral artery disease): (8) Alcohol intoxication: (9) Alcohol abuse: (10) Alcohol withdrawal: (11) Presence of Watchman left atrial appendage closure device: (12) Tricuspid valvular regurgitation: (13) Vocal cord dysfunction: (14) Cirrhosis: (15) Hypernatremia: (16) Dehydration: Plan (1) Severe sepsis: (2) Bilateral cellulitis of lower leg: Patient presenting from home for evaluation of ongoing BL leg infection. Reports he had been on antibiotics until 2 weeks ago. [facility] B[facility]. Patient meets severe sepsis criteria on presentation with tachycardia, tachypnea, elevated lactate 3.9 (alcohol intoxication may be contributing to elevated lactate) S/p Vanco and cefepime in ED, continued with both initially IVF Blood cultures - negative ID consult due to recurrent cellulitis Wound care consult Venous and arterial dopplers -> Vasc. surgery consulted - (1) PAD (peripheral artery disease): This patient does have peripheral artery occlusive disease however he has palpable DP's bilaterally. Cellulitis that does not have ischemic tissue loss is not an indication for any surgical or endovascular interventions. He has adequate flow for antibiotic therapy to get to the feet. Even with total occlusions as long as the collateral flow is good we would treat cellulitis with antibiotics and reserve surgical or endovascular interventions for those with ischemic tissue loss. Patient initially presented w/ dehydration and hypernatremia and volume d epleted. Received fluid resuscitation for this. Also patient was having some hypotension associated with his infection and but atrial fibrillation treated with fluid boluses. Now showing signs of volume overload with significant edema in the scrotum and dependent portions of his thighs and sacrum. IV Lasix received, edema improved but not resolved yet, monitor electrolytes and renal function and daily weight. Prn lasix as BP allows. HR elevated. BP on lower side. Discussed w/ cardiology, metoprolol, lasix resumed. metoprolol titrated, also adding digoxin. Hypoalbuminemia contributing to edema - encourage protein intake, discussed w/ dietitian, unfortunately pt has cough w/ any po intake , video swallow study on Wednesday ID consulted (seen 09/29/2024)- -Discontinue cefepime -continue vancomycin dosed per pharmacy -please discontinue topical agents on the skin as he is likely having an allergic reaction to one or more of the components - please consult Wound Care for careful evaluation, there input will be appreciated regards to potential allergic reaction and further care - ID will continue to follow Continue vancomycin for lower extremity cellulitis. Transition to oral Zyvox on discharge would treat for total of 14 days including the days that he was on IV vancomycin here in the hospital. Case management reports that cost of Zyvox is less than $10 Wound care consulted. Patient would benefit from regular wound care of his lower extremities. It is felt that part of the redness and swelling of his feet were due to an allergic dermatitis from various topical creams and ointments that he was putting on his feet prior to admission. Aspiration pneumonitis, cough Previously chest x-ray obtained. Patient did have a suspected aspiration event a couple days ago. Suspect chest x-ray findings more consistent with pulmonary edema than significant pneumonia, was transitioned to oral Augmentin for a short course for possible aspiration pneumonitis. Difficulty w/ cough added guaifenesin cont. IS, add flutter valve hypertonic saline gemma, chest vest percus. therapy Repeat CXR - Progressive right basilar infiltrate consistent with pneumonia. Cont. Augmnetin, and therapies as above Again noted coughing w/ food Discussed w/ speech therapy - plan for video swallow on Wednesday Therapies as tolerated Atrial fibrillation with rapid ventricular response: Presence of Watchman left atrial appendage closure device: History of PAF s/p Watchman RVR likely secondary to sepsis received IVF resuscitation, consider PRN IV metoprolol if needed Continue [employer] metoprolol succinate Metoprolol on hold last night as BP low, now HR elevated again (10/05/24) Metoprolol resumed, discussed w/ cardiology as above metoprolol titrated, adding digoxin (10/07) Alcohol abuse: Patient reports drinking 6 beers/week Alcohol level 374 on admission Alcohol withdrawal protocol with Librium and PRN Ativan - on admission Patient is not having any signs of withdrawal from alcohol, continue to encourage abstinence Per previous provider - Patient's determined to return home with his son caring for him and home services. Previous provider discussed w/patient's son. He reports that him and his are the patient's caretakers are able to care for him upon discharge. Per CM note, plan for rehab [facility] in [place]. Anticipate discharge when patient's volume status is more euvolemic, heart rate and blood pressure stabilized and transition to oral Zyvox. 10/07/2024 I updated the pt's son over the phone - especially difficulty swallowing, aspiration, and plan for video swallow study on Wednesday. Poor nutrition status, which is difficult to achieve better nutrition if po intake is difficult. I was planning to involve palliative care as well on Wednesday. LE cellulitis is much improved but still significantly far from normal. Family report that patient was at [facility] before (had to be shipped there acutely ill) and they [facility] were able to fix him. Also, feel that [facility] knows [facility] and his complex status. Therefore they called [facility] and asked about bed placement in their hospital. Family wanted to discuss this with the pt first and see if he would be agreeable to transfer. Pt initially wanted to stay at [facility] for a day or two longer and see how he does. I discussed with family at the bedside that I support their decision, especially if [[facility]] is able to provide appropriate specialists in house such as infectious disease, dermatology, etc. that patient could certainly benefit from. I informed them that pt needs to be accepted by the physician there and even after that it can take days before he can be physically transported there. Therefore, it would be reasonable to start the process earlier than later, family and patient were in agreement. I called [facility] and discussed the patient's clinical course in detail with Dr. Macario who accepted the pt to their care. Total Time Total Time Spent Total Time Spent (In Minutes): 60 Discharge Plan Discharge Items Patient Disposition: Transfer Acute Care Hospital Reason For Visit: SEPSIS, BLLE CELLULITIS Discharge Diagnosis: Sepsis BLE cellulitis Aspiration pneumonia Afib RVR Activity: Per Instructions section Non-emergency contact: Hospitalist and Specialist Call non-emergency contact if: you have any medication questions and your symptoms worsen Follow-up/Referrals: Shadia Hernandez DO [Primary Care Provider] - Diet: Nothing by Mouth Addtl Attending Provider Instructions: Patient will be transferred to [facility] for further evaluation and care. Pending Studies at Discharge: Yes Studies:: sputum culture Stand-Alone Forms: My [facility] Skilled Items Patient informed of condition?: Yes DNR: No Discharge Level of Care: Other Communicable Disease: No (+ MRSA nasal swab) Discharge Prognosis: Other Lines: Peripheral IV Urinary Catheter: No Medications and DC Order Prescriptions: Continued magnesium oxide 420 mg tablet 420 mg PO DAILY multivitamin [Daily Multi-Vitamin] Tablet 1 tab PO DAILY aspirin 81 mg tablet,delayed release (DR/EC) 81 mg PO DAILY ferrous sulfate [FeroSul] 325 mg (65 mg iron) tablet 325 mg PO DAILY ketoconazole 2 % Shampoo 1 ea TOPICAL [id number] Rx Instructions: Mon/Wed/Fri cetirizine [Zyrtec] 10 mg Tablet 10 mg PO HS docusate sodium 100 mg capsule 100 mg PO HS furosemide 20 mg Tablet 20 mg PO DAILY eplerenone 50 mg Tablet 50 mg PO DAILY cholecalciferol (vitamin D3) [Vitamin D3] 25 mcg (1,000 unit) Tablet 50 mcg PO DAILY Eucerin Cream 1 applic TOPICAL BID sennosides [senna] 8.6 mg Tablet 8.6 mg PO HS Rx Instructions: Last filled 06/14/24 x90 day supply metoprolol succinate 50 mg tablet extended release 24 hr See Rx Instructions .ROUTE .COMPLEX Rx Instructions: Take 75mg by mouth in the morning and 100mg by mouth at bedtime zinc oxide 20 % Ointment 1 applic TOPICAL BID promethazine 25 mg Tablet 25 mg PO Q8H PRN (Reason: Nausea And Vomiting) pregabalin 25 mg capsule 25 mg PO BID rifaximin 550 mg Tablet 550 mg PO BID oxycodone 10 mg Tablet,Oral Only,Ext.Rel.12 Hr 10 mg PO Q12H naloxone 4 mg/actuation [place],Non-Aerosol 4 mg INTRANASAL DAILY PRN (Reason: Opioid Overdose) Rx Instructions: Alternating nostrils once Discharge Orders: Discharge Order (Routine); Ordered 10/07/24 Ordered By: Gonsalo Redding Admission Data Admit Date/Time: 09/28/24 14:17 Attending Provider: Gonsalo Redding Admit Provider: Justyn Urias Primary Care Provider: Shadia Hernandez Other Providers: [facility]; Justyn Urias; Reilly Sherman; Erendira Peterson; Dalton Perrin I.; Jacob Navarro II; Hortencia Lazo; Suhail Matias; Yaya Wolfe; Silvio Dey; Miguelangel Olmstead; Anuj Simeon; Tao Grande; Jeyson Matias; Diego Ramos; Che Velez Other Interventions: Discharge Summary Assessment (RN) Last Done: 10/07/24 00:00
[2024-10-09] MEDS ORDERED: DIGOXIN 0.125 MG TAB PO SCH (09:00)
== END 2024-10-08 00:05 | DRG 871 ==
LOC: ED 11:07 → 4W 14:17 → SUATTDRO 14:17 → 4W 16:46 → 2N 10-02 15:02

== ENCOUNTER 2025-02-22 10:41 | Inpatient (IN) ==
[2025-02-22] MEDS: SODIUM CHLORIDE 0.9% 1,000 ML IV ONE ×3 (10:53→16:35)
[2025-02-22] MEDS: RAPID SEQUENCE INDUCTION BAG ONE (10:56)
--- NOTE | 2025-02-22 11:02 | XRay Report ---
XR chest 1V portable CLINICAL HISTORY: SOB, hypoxic COMPARISON STUDY: 10/05/2024 FINDINGS: Stable pacemaker. Stable left atrial appendage occlusion device. Stable mild cardiomegaly w ithout pulmonary vascular congestion. Inspiration is shallow. There is mild stranding at the left stella g base. No other consolidation or pleural effusion. No pneumothorax. IMPRESSION: Shallow inspiration with likely atelectasis left lung base. ACT 112: Negative or not required by law. Electronically signed by: Lui Tan M.D. 02/22/2025 11:00 AM
[2025-02-22 11:11] LABS: Base Excess VBG -9.2 mEq/L; HCO3 VBG 16 mmol/L; Oxygen Saturation VBG < 60.0 %; PCO2 VBG 33 mmHg (38-50); PO2 VBG 27 mmHg; pH VBG 7.30 (7.36-7.41)
[2025-02-22] MEDS ORDERED: STAT IV Infusion **Titration per Protocol STA ×2 (11:18→13:35)
[2025-02-22] MEDS ORDERED: MIDAZOLAM BOLUS FROM BAG IV PRN (11:18)
[2025-02-22 11:26] LABS: Hematocrit (blood only) 28.7 % (42.0-52.0); Hemoglobin 10.6 g/dl (14.0-18.0); Immature Granulocytes # (auto) 0.05 K/uL (0.01-0.20); Immature Granulocytes % (auto) 0.6 %; Mean Corpuscular Hemoglobin 35.2 pg (25.0-34.0); Mean Corpuscular Volume 95.3 fL (80.0-100.0); Platelet Count 193 K/uL (130-400); RDW Standard Deviation 57.3 fL (36.4-46.3); Red Blood Count 3.01 M/uL (4.70-6.10); White Blood Count 8.88 K/ul (4.8-10.8)
[2025-02-22 11:39] LABS: Alanine Aminotransferase 35.0 U/L (7-52); Alkaline Phosphatase 336.0 U/L (34-104); Anion Gap 13.0 (3-11); Bilirubin,Total 2.8 mg/dl (0.2-1.0); Blood Urea Nitrogen 35.0 mg/dl (6-23); Calcium 7.7 mg/dl (8.6-10.3); Carbon Dioxide 17.0 mmol/L (21-32); Chloride 108.0 mmol/L (98-107); Creatine Kinase 68.0 U/L (30-223); Creatinine Clr Calc Pharmacy 37.3 ml/min; Glucose 134.0 mg/dl (70-99(Fasting)); Lipase 13.0 U/L (11-82); Potassium 3.7 mmol/L (3.5-5.1); Sodium 138.0 mmol/L (136-145); Total Protein 5.6 gm/dl (6.0-8.3)
--- NOTE | 2025-02-22 11:45 | XRay Report ---
XR chest 1V portable CLINICAL HISTORY: TUBE PLACEMENT COMPARISON STUDY: 02/22/2025 FINDINGS: Endotracheal tube tip is at the thoracic inlet. Nasogastric tube tip is likely near the gas troesophageal junction. Stable pacemaker. Stable mild cardiomegaly without pulmonary vascular congest ion. Stable mild opacity at the left base with mild blunting of the left costophrenic angle. No pneum othorax. IMPRESSION: 1. Well-positioned endotracheal tube. 2. Nasogastric tube tip is likely near the GE junction. ACT 112: Negative or not required by law. Electronically signed by: Lui Tan M.D. 02/22/2025 11:44 AM
--- NOTE | 2025-02-22 11:48 | Emergency Department Note ---
Impression & Plan Unresponsive, UTI (urinary tract infection), Occlusion of right vertebral artery, Acute hypoxic respiratory failure, Elevated troponin ED Provider Note NAME: RADHA SULLIVAN AGE: 74 SEX: M : 1950 ARRIVES VIA: Ambulance INFORMANT: Patient, ED PROVIDER(S): Anthony De Dios MD CHIEF COMPLAINT: Unresponsive HPI: This is a 74-year-old male presented for unresponsiveness. Patient reportedly was talkative yesterday as per EMS. As per son, patient had a slow decline over the past few months, and is a drinker. Has not drank alcohol in multiple days. Otherwise no significant changes to his routine or medications. Overnight the patient was put to bed by his son, son states that he was somewhat confused at this time. This morning was significantly more lethargic. EMS was then alerted and patient brought to the ER. At this time he is unable to provide any history. ROS: Unable to obtain PHYSICAL EXAMINATION: General: Unresponsive, chronically unwell appearing, disheveled, malodorous Head: Normocephalic Eyes: Leftward gaze deviation, equal/reactive to light Ear, nose, throat: Normal external exam, dry oral mucous membranes Respiratory: lungs clear to auscultation bilaterally Cardiovascular: Tachycardic regular rate/rhythm, no murmur GI: soft Extremities: Spontaneously moves all extremities Neuro: GCS 6, (E1, V1, M4), not alert oriented Skin: Warm, dry, and intact MEDICAL DECISION MAKING: This is 74-year-old male presenting for unresponsiveness. Patient currently only moving extremities to painful stimuli. Otherwise no verbal or eye response. -Chest Xray independently interpreted by me showing no pneumothorax, focal opacity; possible pleural effusion on the left noted - Due to patient having concern for airway protection, will intubate the patient at this time. See note below for details. -Discussed goals of care with son who states that "if there is a chance, please resuscitate and do everything ". - IV access obtained with ultrasound guidance of the right basilic vein by myself. - Patient today with bilateral breath sounds and appropriate positioning of the tube after x-ray. - Will do post sedation propofol. - Due to downtrending blood pressure, will switch from propofol to Versed and fentanyl. -Blood work reviewed with no leukocytosis, 10.6 anemia, VBG 7.3/33, anion gap of 13, CO2 17, creatinine 1.5. Lactic acid initially 2.9 uptrending to 3.5. Initial troponin 118 - urinalysis positive for UTI. Will give ceftriaxone empirically. - Patient went to CT scan which reveals no intracranial hemorrhage but does reveal right vertebral artery occluded at origin, as well as 70-90% left ICA stenosis. -Discussed with Dr. Caba, stroke neurologist, at [facility], about patient patient's symptoms, would not be amenable to thrombectomy at this time. Did discuss whether neurosurgery needs to be involved. Dr. Caba states at this time would not require surgical evaluation. -Discussed with son again and advised him to come to the hospital more emergently. Patient is having declining blood pressures, increasing tachycardic. -Discussed with Dr. Goldstein, ICU physician. Endotracheal Intubation Indication airway protection The patient was on 100% oxygen via NRB prior to the procedure. Suction, airway equipment, RSI drugs, respiratory equipment, and appropriate personnel were prepared prior to the initiation of the procedure. A time out was taken. Induction was performed with etomidate, rocuronium. After observing the clinical benefit of the medications, the airway was easily visualized utilizing a video laryngoscope. A 7.5 size ETT tube was placed atraumatically to 25 cm using standard technique. The cuff inflated without signs of malfunction. There were bilateral breath sounds, positive colormetric change, no gastric sounds, a good capnography waveform, and post procedure pulse oximetry was 99%. Post intubation sedation and paralysis was administered using propofol. There were no complications. Differential diagnosis: SAH, subdural, stroke, sepsis, cirrhosis, hyperammonemia Independent History obtained from: Son, EMS Diagnostics interpreted by me: ECG: ECG independently interpreted by me with atrial fibrillation with RVR at a rate of 157, normal QRS, normal QTc, no ST segment elevations consistent with STEMI criteria Cardiac Monitoring: An order was placed for continuous cardiac monitoring. The monitor shows a rate of 150 with atrial fibrillation rhythm. Critical Care Note: I have personally spent 95 minutes of critical care time in the direct management of this patient. This includes bedside care, interpretation of diagnostic studies, and testing, discussion with consultants, patient, and family members, and other required patient management activities. This 95 minutes is in excess of all separately billable procedures. Past Med/Surg History Problem List (Updated 02/22/25 @ 15:23 by Anthony De Dios MD) Elevated troponin (Acute) Acute hypoxic respiratory failure (Acute) Occlusion of right vertebral artery (Acute) UTI (urinary tract infection) (Acute) Unresponsive (Acute) Shock Encephalopathy Hypoalbuminemia Volume overload Tachy-cora syndrome Chronic atrial fibrillation Aspiration pneumonitis Acute on chronic diastolic heart failure due to valvular disease Vocal cord dysfunction Allergic dermatitis Suspected UTI Tricuspid valvular regurgitation Alcohol withdrawal Bilateral cellulitis of lower leg (Acute) PAD (peripheral artery disease) Alcohol abuse (Acute) Atrial fibrillation with rapid ventricular response (Acute) Atrial fibrillation (Acute) Dehydration (Acute) Alcohol intoxication (Acute) Hypernatremia Severe sepsis Medical History CHF (congestive heart failure) Presence of Watchman left atrial appendage closure device Cardiac pacemaker in situ Cirrhosis History of bacteremia Per family's report Atrial fibrillation History of alcohol abuse Surgical History History of splenectomy Family History Other Family history non-contributory Social History Smoking Status: Unknown if ever smoked Second Hand Exposure: No; Do You Dip or Chew Tobacco: No; Hx Alcohol Use: Yes Alcohol type: beer and hard liquor Hx Substance Use: No Preferred Language: Nigerien Communication Ability: Effective Senior Financial Consultant Required: No Beliefs That Will Affect Care: None Current Living Situation: Family Feels Safe at Home: Yes Assistive Devices: Cane, Walker and Wheelchair Allergies Allergies Allergy/AdvReac Type Severity Reaction Status Date / Time gabapentin Allergy Unknown Unknown - Unverified 09/28/24 14:31 On file / [facility] Pharm[facility] fentanyl AdvReac Mild itch Verified 09/28/24 14:31 Home Meds Home Medications Medication Instructions Recorded Confirmed aspirin 81 mg tablet,delayed 81 mg PO DAILY 11/15/22 02/22/25 release ferrous sulfate 325 mg (65 mg 325 mg PO DAILY 11/15/22 02/22/25 iron) tablet (FeroSul) multivitamin (Daily Multi-Vitamin 1 tab PO DAILY 11/15/22 02/22/25 tablet) cetirizine 10 mg tablet (Zyrtec) 10 mg PO HS 03/06/25 07/31/25 cholecalciferol (vitamin D3) 25 50 mcg PO DAILY 09/28/24 02/22/25 mcg (1,000 unit) tablet (Vitamin D3) eplerenone 50 mg tablet 50 mg PO DAILY 09/28/24 02/22/25 furosemide 20 mg tablet 20 mg PO DAILY 09/28/24 02/22/25 metoprolol succinate 50 mg 75 - 100 mg PO UD 09/28/24 02/22/25 tablet,extended release 24 hr naloxone 4 mg/actuation nasal spray 4 mg intranasal DAILY PRN Opioid 09/28/24 02/22/25 Overdose oxycodone 10 mg tablet,crush 10 mg PO Q12H 09/28/24 02/22/25 resistant,extended release 12 hr pregabalin 25 mg capsule 25 mg PO BID 09/28/24 02/22/25 acetaminophen 500 mg tablet 500 mg PO DIRECTED PRN Pain 02/22/25 02/22/25 ketoconazole 2 % shampoo 1 ea topical .WED,WED,Wednesday02/22/25 02/22/25 omeprazole 20 mg capsule,delayed 20 mg PO DAILY 02/22/25 02/22/25 release potassium chloride 20 mEq 20 meq PO DAILY 02/22/25 02/22/25 tablet,extended release povidone-iodine 10 % topical swab 1 applic topical .WED,WED,Wednesday02/22/25 02/22/25 rifaximin 550 mg tablet 550 mg PO BID 02/22/25 02/22/25 zinc oxide 20 % topical ointment 1 applic topical .WED,WED,Wednesday02/22/25 02/22/25 Results & Data (ED) Vital Signs Vital Signs - 24 hr 02/22/25 10:47 02/22/25 10:54 02/22/25 10:55 Temperature 35.8 C L Temperature Source Rectal Pulse Rate 163 H Pulse Rate [Apical] 162 H Pulse Rate from SpO2 Sensor Respiratory Rate 26 H 30 H Blood Pressure 121/84 103/85 Blood Pressure [Right Arm] 121/84 Blood Pressure Mean 104 91 Blood Pressure Mean [Right Arm] 96 Pulse Oximetry 97 95 Oxygen Delivery Method Room Air Room Air Fraction of Inspired Oxygen Sepsis Recent Fever Within 48 Hours No Sepsis New/Unexplained Change in Mental Status No Sepsis Action Taken by Nursing Physician Notified End-Tidal CO2 02/22/25 10:57 02/22/25 11:00 02/22/25 11:00 Temperature Temperature Source Pulse Rate 144 H 175 H Pulse Rate [Apical] Pulse Rate from SpO2 Sensor 173 H Respiratory Rate 47 H Blood Pressure 117/74 Blood Pressure [Right Arm] Blood Pressure Mean 85 Blood Pressure Mean [Right Arm] Pulse Oximetry 95 Oxygen Delivery Method Fraction of Inspired Oxygen Sepsis Recent Fever Within 48 Hours Sepsis New/Unexplained Change in Mental Status Sepsis Action Taken by Nursing End-Tidal CO2 02/22/25 11:00 02/22/25 11:05 02/22/25 11:05 Temperature Temperature Source Pulse Rate 147 H Pulse Rate [Apical] Pulse Rate from SpO2 Sensor 150 H Respiratory Rate 32 H Blood Pressure 120/69 120/69 Blood Pressure [Right Arm] Blood Pressure Mean 83 83 Blood Pressure Mean [Right Arm] Pulse Oximetry 93 Oxygen Delivery Method Fraction of Inspired Oxygen Sepsis Recent Fever Within 48 Hours Sepsis New/Unexplained Change in Mental Status Sepsis Action Taken by Nursing End-Tidal CO2 02/22/25 11:05 02/22/25 11:05 02/22/25 11:09 Temperature Temperature Source Pulse Rate 168 H Pulse Rate [Apical] Pulse Rate from SpO2 Sensor 174 H Respiratory Rate Blood Pressure 120/69 120/69 Blood Pressure [Right Arm] Blood Pressure Mean 83 83 Blood Pressure Mean [Right Arm] Pulse Oximetry 100 Oxygen Delivery Method Fraction of Inspired Oxygen Sepsis Recent Fever Within 48 Hours Sepsis New/Unexplained Change in Mental Status Sepsis Action Taken by Nursing End-Tidal CO2 02/22/25 11:11 02/22/25 11:15 02/22/25 11:15 Temperature Temperature Source Pulse Rate Pulse Rate [Apical] 175 H Pulse Rate from SpO2 Sensor Respiratory Rate Blood Pressure 97/74 L 99/70 L Blood Pressure [Right Arm] 97/74 L Blood Pressure Mean 75 78 Blood Pressure Mean [Right Arm] 81 Pulse Oximetry 100 Oxygen Delivery Method T-Piece Fraction of Inspired Oxygen Sepsis Recent Fever Within 48 Hours Sepsis New/Unexplained Change in Mental Status Sepsis Action Taken by Nursing End-Tidal CO2 02/22/25 11:20 02/22/25 11:20 02/22/25 11:20 Temperature Temperature Source Pulse Rate 182 H Pulse Rate [Apical] Pulse Rate from SpO2 Sensor Respiratory Rate 16 Blood Pressure 83/65 L 83/65 L Blood Pressure [Right Arm] Blood Pressure Mean 71 71 Blood Pressure Mean [Right Arm] Pulse Oximetry 100 Oxygen Delivery Method Fraction of Inspired Oxygen 30 Sepsis Recent Fever Within 48 Hours Sepsis New/Unexplained Change in Mental Status Sepsis Action Taken by Nursing End-Tidal CO2 02/22/25 11:21 02/22/25 11:25 02/22/25 11:30 Temperature Temperature Source Pulse Rate 167 H 171 H Pulse Rate [Apical] Pulse Rate from SpO2 Sensor 171 H 184 H Respiratory Rate 16 16 Blood Pressure 93/67 L Blood Pressure [Right Arm] Blood Pressure Mean 72 Blood Pressure Mean [Right Arm] Pulse Oximetry 99 96 Oxygen Delivery Method Fraction of Inspired Oxygen Sepsis Recent Fever Within 48 Hours Sepsis New/Unexplained Change in Mental Status Sepsis Action Taken by Nursing End-Tidal CO2 22 02/22/25 11:35 02/22/25 11:35 02/22/25 11:35 Temperature Temperature Source Pulse Rate Pulse Rate [Apical] 187 H Pulse Rate from SpO2 Sensor Respiratory Rate 22 Blood Pressure 107/81 107/81 Blood Pressure [Right Arm] 90/67 L Blood Pressure Mean 102 102 Blood Pressure Mean [Right Arm] 74 Pulse Oximetry 100 Oxygen Delivery Method Mechanical Vent Fraction of Inspired Oxygen Sepsis Recent Fever Within 48 Hours Sepsis New/Unexplained Change in Mental Status Sepsis Action Taken by Nursing End-Tidal CO2 02/22/25 11:35 02/22/25 11:36 02/22/25 12:01 Temperature Temperature Source Pulse Rate 182 H Pulse Rate [Apical] 176 H Pulse Rate from SpO2 Sensor 175 H Respiratory Rate 16 26 H Blood Pressure 107/81 Blood Pressure [Right Arm] 112/86 Blood Pressure Mean 102 Blood Pressure Mean [Right Arm] 94 Pulse Oximetry 100 100 Oxygen Delivery Method Mechanical Vent Fraction of Inspired Oxygen Sepsis Recent Fever Within 48 Hours Sepsis New/Unexplained Change in Mental Status Sepsis Action Taken by Nursing End-Tidal CO2 02/22/25 12:01 02/22/25 12:01 02/22/25 12:01 Temperature Temperature Source Pulse Rate Pulse Rate [Apical] Pulse Rate from SpO2 Sensor Respiratory Rate Blood Pressure 112/86 112/86 112/86 Blood Pressure [Right Arm] Blood Pressure Mean 90 90 90 Blood Pressure Mean [Right Arm] Pulse Oximetry Oxygen Delivery Method Fraction of Inspired Oxygen Sepsis Recent Fever Within 48 Hours Sepsis New/Unexplained Change in Mental Status Sepsis Action Taken by Nursing End-Tidal CO2 02/22/25 12:03 02/22/25 12:10 02/22/25 12:10 Temperature Temperature Source Pulse Rate 185 H Pulse Rate [Apical] Pulse Rate from SpO2 Sensor 176 H Respiratory Rate 16 Blood Pressure 115/90 115/90 Blood Pressure [Right Arm] Blood Pressure Mean 102 102 Blood Pressure Mean [Right Arm] Pulse Oximetry 100 Oxygen Delivery Method Fraction of Inspired Oxygen Sepsis Recent Fever Within 48 Hours Sepsis New/Unexplained Change in Mental Status Sepsis Action Taken by Nursing End-Tidal CO2 02/22/25 12:12 02/22/25 12:15 02/22/25 12:18 Temperature Temperature Source Pulse Rate 176 H 168 H Pulse Rate [Apical] Pulse Rate from SpO2 Sensor 177 H 169 H Respiratory Rate 16 16 Blood Pressure 117/87 Blood Pressure [Right Arm] Blood Pressure Mean 94 Blood Pressure Mean [Right Arm] Pulse Oximetry 100 100 Oxygen Delivery Method Fraction of Inspired Oxygen Sepsis Recent Fever Within 48 Hours Sepsis New/Unexplained Change in Mental Status Sepsis Action Taken by Nursing End-Tidal CO2 02/22/25 12:20 02/22/25 12:20 02/22/25 12:21 Temperature Temperature Source Pulse Rate 183 H Pulse Rate [Apical] Pulse Rate from SpO2 Sensor 170 H Respiratory Rate 16 Blood Pressure 122/99 122/99 Blood Pressure [Right Arm] Blood Pressure Mean 105 105 Blood Pressure Mean [Right Arm] Pulse Oximetry 99 Oxygen Delivery Method Fraction of Inspired Oxygen Sepsis Recent Fever Within 48 Hours Sepsis New/Unexplained Change in Mental Status Sepsis Action Taken by Nursing End-Tidal CO2 02/22/25 12:25 02/22/25 12:25 02/22/25 12:30 Temperature Temperature Source Pulse Rate Pulse Rate [Apical] Pulse Rate from SpO2 Sensor Respiratory Rate Blood Pressure 100/80 100/80 98/76 L Blood Pressure [Right Arm] Blood Pressure Mean 92 92 79 Blood Pressure Mean [Right Arm] Pulse Oximetry Oxygen Delivery Method Fraction of Inspired Oxygen Sepsis Recent Fever Within 48 Hours Sepsis New/Unexplained Change in Mental Status Sepsis Action Taken by Nursing End-Tidal CO2 02/22/25 12:30 02/22/25 12:30 02/22/25 12:30 Temperature Temperature Source Pulse Rate 165 H Pulse Rate [Apical] Pulse Rate from SpO2 Sensor 163 H Respiratory Rate 16 Blood Pressure 98/76 L 98/76 L Blood Pressure [Right Arm] Blood Pressure Mean 79 79 Blood Pressure Mean [Right Arm] Pulse Oximetry 99 Oxygen Delivery Method Fraction of Inspired Oxygen Sepsis Recent Fever Within 48 Hours Sepsis New/Unexplained Change in Mental Status Sepsis Action Taken by Nursing End-Tidal CO2 02/22/25 12:35 02/22/25 12:35 02/22/25 12:35 Temperature Temperature Source Pulse Rate Pulse Rate [Apical] Pulse Rate from SpO2 Sensor Respiratory Rate Blood Pressure Blood Pressure [Right Arm] Blood Pressure Mean 97 97 97 Blood Pressure Mean [Right Arm] Pulse Oximetry Oxygen Delivery Method Fraction of Inspired Oxygen Sepsis Recent Fever Within 48 Hours Sepsis New/Unexplained Change in Mental Status Sepsis Action Taken by Nursing End-Tidal CO2 02/22/25 12:40 02/22/25 12:45 02/22/25 12:45 Temperature Temperature Source Pulse Rate 189 H Pulse Rate [Apical] Pulse Rate from SpO2 Sensor Respiratory Rate 16 Blood Pressure 89/70 L 123/69 Blood Pressure [Right Arm] Blood Pressure Mean 74 90 Blood Pressure Mean [Right Arm] Pulse Oximetry 97 Oxygen Delivery Method Fraction of Inspired Oxygen Sepsis Recent Fever Within 48 Hours Sepsis New/Unexplained Change in Mental Status Sepsis Action Taken by Nursing End-Tidal CO2 02/22/25 12:48 02/22/25 12:50 02/22/25 12:50 Temperature 35.1 C L Temperature Source Caraballo Cath ( Temp Sensing) Pulse Rate Pulse Rate [Apical] 173 H Pulse Rate from SpO2 Sensor Respiratory Rate 24 Blood Pressure 89/62 L 89/62 L Blood Pressure [Right Arm] 123/69 Blood Pressure Mean 74 74 Blood Pressure Mean [Right Arm] 87 Pulse Oximetry 100 Oxygen Delivery Method Mechanical Vent Fraction of Inspired Oxygen Sepsis Recent Fever Within 48 Hours Sepsis New/Unexplained Change in Mental Status Sepsis Action Taken by Nursing End-Tidal CO2 02/22/25 12:50 02/22/25 12:53 02/22/25 12:54 Temperature Temperature Source Pulse Rate 161 H Pulse Rate [Apical] Pulse Rate from SpO2 Sensor Respiratory Rate 16 Blood Pressure 89/62 L Blood Pressure [Right Arm] Blood Pressure Mean 74 Blood Pressure Mean [Right Arm] Pulse Oximetry 98 99 Oxygen Delivery Method Mechanical Vent Fraction of Inspired Oxygen Sepsis Recent Fever Within 48 Hours Sepsis New/Unexplained Change in Mental Status Sepsis Action Taken by Nursing End-Tidal CO2 02/22/25 13:00 02/22/25 13:00 02/22/25 13:06 Temperature 35.1 C L Temperature Source Caraballo Cath ( Temp Sensing) Pulse Rate 169 H Pulse Rate [Apical] 184 H Pulse Rate from SpO2 Sensor 185 H Respiratory Rate 24 16 Blood Pressure 97/68 L Blood Pressure [Right Arm] 96/69 L Blood Pressure Mean 78 Blood Pressure Mean [Right Arm] 78 Pulse Oximetry 96 93 Oxygen Delivery Method Mechanical Vent Fraction of Inspired Oxygen Sepsis Recent Fever Within 48 Hours Sepsis New/Unexplained Change in Mental Status Sepsis Action Taken by Nursing End-Tidal CO2 26 02/22/25 13:10 02/22/25 13:10 02/22/25 13:27 Temperature Temperature Source Pulse Rate 185 H Pulse Rate [Apical] Pulse Rate from SpO2 Sensor 103 H Respiratory Rate 16 Blood Pressure 81/64 L 81/64 L Blood Pressure [Right Arm] Blood Pressure Mean 69 69 Blood Pressure Mean [Right Arm] Pulse Oximetry 96 Oxygen Delivery Method Fraction of Inspired Oxygen Sepsis Recent Fever Within 48 Hours Sepsis New/Unexplained Change in Mental Status Sepsis Action Taken by Nursing End-Tidal CO2 23 02/22/25 13:30 Temperature Temperature Source Pulse Rate 155 H Pulse Rate [Apical] Pulse Rate from SpO2 Sensor 109 H Respiratory Rate 16 Blood Pressure Blood Pressure [Right Arm] Blood Pressure Mean Blood Pressure Mean [Right Arm] Pulse Oximetry 97 Oxygen Delivery Method Fraction of Inspired Oxygen Sepsis Recent Fever Within 48 Hours Sepsis New/Unexplained Change in Mental Status Sepsis Action Taken by Nursing End-Tidal CO2 23 Laboratory Data 02/22/25 11:01 02/22/25 11:01 Lab Results 02/22/25 02/22/25 02/22/25 Range/Units 11:01 11:05 12:21 WBC 8.88 (4.8-10.8) K/ul RBC 3.01 L (4.70-6.10) M/uL Hgb 10.6 L (14.0-18.0) g/dl POC Hgb 12.2 L (14.0-18.0) g/dl Hct 28.7 L (42.0-52.0) % POC Hct 36 L (42-52) % MCV 95.3 (80.0-100.0) fL MCH 35.2 H (25.0-34.0) pg MCHC 36.9 H (32.0-36.0) g/dL RDW Std Deviation 57.3 H (36.4-46.3) fL RDW Coeff of Giancarlo 16.5 H (11.5-14.5) % Plt Count 193 (130-400) K/uL MPV 10.1 (9.4-12.4) fL Immature Gran % (Auto) 0.6 % Neut % (Auto) 82.9 % Lymph % (Auto) 7.1 % [place] % (Auto) 9.1 % Eos % (Auto) 0.1 % Baso % (Auto) 0.2 % Neut # (Auto) 7.36 H (1.40-6.50) K/uL Lymph # (Auto) 0.63 L (1.20-3.40) K/uL [place] # (Auto) 0.81 H (0.11-0.59) K/uL Eos # (Auto) 0.01 (0.00-0.50) K/uL Baso # (Auto) 0.02 (0.00-0.20) K/uL Immature Gran # (Auto) 0.05 (0.01-0.20) K/uL Absolute Nucleated RBC 0.02 (0.00-0.12) K/uL Nucleated RBC % (auto) 0.2 % VBG pH 7.30 L (7.36-7.41) VBG pCO2 33 L (38-50) mmHg VBG pO2 27 mmHg VBG HCO3 16 mmol/L VBG O2 Saturation < 60.0 % VBG Base Excess -9.2 mEq/L POC Sodium 139 (135-144) mmol/L Sodium 138 (136-145) mmol/L POC Potassium 3.7 (3.3-5.0) mmol/L Potassium 3.7 (3.5-5.1) mmol/L POC Chloride 108 (101-112) mmol/L Chloride 108 H (98-107) mmol/L Carbon Dioxide 17 L (21-32) mmol/L POC Total CO2 16 L (24-31) mmol/L Anion Gap 13 H (3-11) POC Anion Gap 21.0 (16-25) mmol/L POC BUN 31 H (7-18) mg/dl BUN 35 H (6-23) mg/dl Creatinine 1.50 H (0.6-1.4) mg/dl POC Creatinine 1.7 H (0.6-1.3) mg/dl Est Cr Clr Drug Dosing 37.3 ml/min eGFR 47.95 BUN/Creatinine Ratio 23.3 H (10-20) Glucose 134 H (70-99(Fasting)) mg/dl POC Glucose (other) 128 H (70-99) mg/dl Lactate 2.9 H* (0.4-2.0) mmol/L Calcium 7.7 L (8.6-10.3) mg/dl POC Ioniz Calcium Lili 1.03 L (1.12-1.32) mmol/l Total Bilirubin 2.8 H (0.2-1.0) mg/dl Direct Bilirubin 1.8 H (0-0.2) mg/dl AST 78 H (13-39) U/L ALT 35 (7-52) U/L Alkaline Phosphatase 336 H (34-104) U/L Ammonia (18-72) umol/L Total Creatine Kinase 68 (30-223) U/L Troponin I High Sens 118.4 H* (0-20) pg/ml Total Protein 5.6 L (6.0-8.3) gm/dl Albumin 2.2 L (3.4-5.0) gm/dl Lipase 13 (11-82) U/L Urine Color Dark Yellow Urine Appearance Turbid A (Clear) Urine pH 5.5 (4.5-7.5) Ur Specific [place] 1.021 (1.000-1.030) Urine Protein 1+ H (Negative) Urine Glucose (UA) Negative (Negative) Urine Ketones Negative (Negative) Urine Blood 3+ H (Negative) Urine Nitrite Positive A (Negative) Urine Bilirubin 2+ H (Negative) Urine Urobilinogen Positive H (Negative) Ur Leukocyte Esterase 3+ H (Negative) Urine WBC (Auto) >50 H (0-5) /hpf Urine RBC (Auto) >20 H (0-2) /hpf U Hyaline Cast (Auto) >20 H (0-2) /lpf U Epithel Cells (Auto) 0-2 (0-2) /hpf Urine Bacteria (Auto) 4+ H (None Seen) Urine Comment 02/22/25 02/22/25 Range/Units 12:44 12:53 WBC (4.8-10.8) K/ul RBC (4.70-6.10) M/uL Hgb (14.0-18.0) g/dl POC Hgb (14.0-18.0) g/dl Hct (42.0-52.0) % POC Hct (42-52) % MCV (80.0-100.0) fL MCH (25.0-34.0) pg MCHC (32.0-36.0) g/dL RDW Std Deviation (36.4-46.3) fL RDW Coeff of Giancarlo (11.5-14.5) % Plt Count (130-400) K/uL MPV (9.4-12.4) fL Immature Gran % (Auto) % Neut % (Auto) % Lymph % (Auto) % [place] % (Auto) % Eos % (Auto) % Baso % (Auto) % Neut # (Auto) (1.40-6.50) K/uL Lymph # (Auto) (1.20-3.40) K/uL [place] # (Auto) (0.11-0.59) K/uL Eos # (Auto) (0.00-0.50) K/uL Baso # (Auto) (0.00-0.20) K/uL Immature Gran # (Auto) (0.01-0.20) K/uL Absolute Nucleated RBC (0.00-0.12) K/uL Nucleated RBC % (auto) % VBG pH 7.19 L (7.36-7.41) VBG pCO2 42 (38-50) mmHg VBG pO2 26 mmHg VBG HCO3 16 mmol/L VBG O2 Saturation < 60.0 % VBG Base Excess -11.6 mEq/L POC Sodium (135-144) mmol/L Sodium (136-145) mmol/L POC Potassium (3.3-5.0) mmol/L Potassium (3.5-5.1) mmol/L POC Chloride (101-112) mmol/L Chloride (98-107) mmol/L Carbon Dioxide (21-32) mmol/L POC Total CO2 (24-31) mmol/L Anion Gap (3-11) POC Anion Gap (16-25) mmol/L POC BUN (7-18) mg/dl BUN (6-23) mg/dl Creatinine (0.6-1.4) mg/dl POC Creatinine (0.6-1.3) mg/dl Est Cr Clr Drug Dosing ml/min eGFR BUN/Creatinine Ratio (10-20) Glucose (70-99(Fasting)) mg/dl POC Glucose (other) (70-99) mg/dl Lactate 3.5 H* (0.4-2.0) mmol/L Calcium (8.6-10.3) mg/dl POC Ioniz Calcium Lili (1.12-1.32) mmol/l Total Bilirubin (0.2-1.0) mg/dl Direct Bilirubin (0-0.2) mg/dl AST (13-39) U/L ALT (7-52) U/L Alkaline Phosphatase (34-104) U/L Ammonia 79.0 H (18-72) umol/L Total Creatine Kinase (30-223) U/L Troponin I High Sens 110.4 H* (0-20) pg/ml Total Protein (6.0-8.3) gm/dl Albumin (3.4-5.0) gm/dl Lipase (11-82) U/L Urine Color Urine Appearance (Clear) Urine pH (4.5-7.5) Ur Specific [place] (1.000-1.030) Urine Protein (Negative) Urine Glucose (UA) (Negative) Urine Ketones (Negative) Urine Blood (Negative) Urine Nitrite (Negative) Urine Bilirubin (Negative) Urine Urobilinogen (Negative) Ur Leukocyte Esterase (Negative) Urine WBC (Auto) (0-5) /hpf Urine RBC (Auto) (0-2) /hpf U Hyaline Cast (Auto) (0-2) /lpf U Epithel Cells (Auto) (0-2) /hpf Urine Bacteria (Auto) (None Seen) Urine Comment Administered Medications Midazolam HCl (Versed) 125 mg in 250 mls @ 10 mls/hr IV .Q25H SHAWN; Protocol Stop: 03/24/25 11:29 Last Admin: 02/22/25 12:11 Dose: 5 mg/hr, 10 mls/hr Documented By: LANG Co-signed By: SKYE Fentanyl Citrate (Fentanyl Citrate) 2,500 mcg in 250 mls @ 5 mls/hr IV .Q50H [facility]; Protocol Stop: 03/08/25 11:44 Last Admin: 02/22/25 12:33 Dose: 50 mcg/hr, 5 mls/hr Documented By: LANG Co-signed By: SKYE Discontinued Medications Fentanyl Citrate (Fentanyl Citrate 2,500 Mcg/250 Ml Bag) Confirm Administered Dose 2,500 mcg IV .STK-MED ONE Stop: 02/22/25 11:36 Last Admin: 02/22/25 12:32 Dose: Not Given Documented By: LANG Sodium Chloride (Nss) 1,000 mls @ 999 mls/hr IV .Q1H1M ONE Stop: 02/22/25 11:50 Last Infusion: 02/22/25 12:32 Dose: Infused Documented By: Admin: 02/22/25 10:53 Dose: 999 mls/hr Documented By: LANG Propofol (Diprivan) 1,000 mg in 100 mls @ 7.56 mls/hr IV .[id number] [facility]; Protocol Stop: 02/22/25 12:30 Last Admin: 02/22/25 12:57 Dose: Not Given Documented By: LANG Ceftriaxone Sodium (Rocephin) 2,000 mg in 50 mls @ 100 mls/hr IV NOW STA Stop: 02/22/25 13:35 Last Admin: 02/22/25 13:14 Dose: 100 mls/hr Documented By: SKYE Sodium Chloride (Nss) 1,000 mls @ 999 mls/hr IV .Q1H1M ONE Stop: 02/22/25 14:34 Last Admin: 02/22/25 13:44 Dose: 999 mls/hr Documented By: LANG Ioversol (Optiray 320 125ml) 120 ml IV ONCE ONE Stop: 02/22/25 11:57 Last Admin: 02/22/25 11:56 Dose: 120 ml Documented By: AVELINO Levetiracetam (Levetiracetam 500 Mg/5 Ml Vial) 1,250 mg 20 mg/kg (1250 mg) IV NOW STA Stop: 02/22/25 12:46 Last Admin: 02/22/25 13:01 Dose: 1,250 mg Documented By: SKYE Miscellaneous (Rapid Sequence Induction Bag) Confirm Administered Dose 1 each N/A .STK-MED ONE Stop: 02/22/25 10:57 Last Admin: 02/22/25 10:56 Dose: 1 each Documented By: LANG Miscellaneous (Stat Iv Infusion Titration Per Protocol) 1 each N/A NOW STA Stop: 02/22/25 11:39 Last Admin: 02/22/25 12:33 Dose: Not Given Documented By: LANG Propofol (Propofol Iv Emulsion 10 Mg/Ml 100 Ml Vial) Confirm Administered Dose 1,000 mg IV .Dedicated DevicesK-MED ONE Stop: 02/22/25 11:08 Last Admin: 02/22/25 12:57 Dose: Not Given Documented By: LANG Imaging Data Radiologist's Impression: Chest X-Ray 02/22/25 10:49 XR chest 1V portable CLINICAL HISTORY: SOB, hypoxic COMPARISON STUDY: 10/05/2024 FINDINGS: Stable pacemaker. Stable left atrial appendage occlusion device. Stable mild cardiomegaly without pulmonary vascular congestion. Inspiration is shallow. There is mild stranding at the left lung base. No other consolidation or pleural effusion. No pneumothorax. IMPRESSION: Shallow inspiration with likely atelectasis left lung base. ACT 112: Negative or not required by law. Electronically signed by: Lui Tan M.D. 02/22/2025 11:[address] 02/22/25 10:49 CT head/brain wo con CLINICAL HISTORY: confusion, SAH. TECHNIQUE: Multiple axial CT images of the head were obtained without contrast. A dose lowering technique was utilized adhering to the principles of ALARA. CT DOSE: 625.8 mGy.cm COMPARISON: 10/01/2024 FINDINGS: There is stable mild patchy periventricular hypodensity which is nonspecific, but usually represents chronic small vessel ischemic changes. No intracranial hemorrhage seen. No mass effect, midline shift, or hydrocephalus. Visualized paranasal sinuses and mastoid air cells are clear. No skull fracture seen. IMPRESSION: No acute findings. ACT 112: Negative or not required by law. The above report was generated using voice recognition software. It may contain grammatical, syntax or spelling errors. Electronically signed by: Lui Tan M.D. 02/22/2025 12:02 PM Chest X-Ray 02/22/25 11:39 XR chest 1V portable CLINICAL HISTORY: TUBE PLACEMENT COMPARISON STUDY: 02/22/2025 FINDINGS: Endotracheal tube tip is at the thoracic inlet. Nasogastric tube tip is likely near the gastroesophageal junction. Stable pacemaker. Stable mild cardiomegaly without pulmonary vascular congestion. Stable mild opacity at the left base with mild blunting of the left costophrenic angle. No pneumothorax. IMPRESSION: 1. Well-positioned endotracheal tube. 2. Nasogastric tube tip is likely near the GE junction. ACT 112: Negative or not required by law. Electronically signed by: Lui Tan M.D. 02/22/2025 11:44 AM Head CTA 02/22/25 11:52 CT ANGIOGRAM OF THE BRAIN CLINICAL HISTORY: Strokelike symptoms. Unresponsive. COMPARISON STUDY: Unenhanced CT of the brain performed the same day 02/22/2025. TECHNIQUE: Following the IV administration of 120 cc of Optiray 320, CT angiogram of the brain was performed from the skull base to the vertex. Images are reviewed in the axial, sagittal, and coronal planes. 3-D MIPS images are created and assessed. IV contrast was administered without complication. A dose lowering technique was utilized adhering to the principles of ALARA. CT DOSE: 481.89 mGy.cm FINDINGS: Endotracheal and enteric tubes are in place. Brain parenchyma: There is age-related involutional change noting mild subcortical and periventricular microangiopathic disease. There is no evidence of hemorrhage or mass effect noting angiographic phase technique. There is no evidence of enhancing mass lesion on the angiogram phase images. No extra-axial fluid collection is seen. Henning-white matter differentiation is preserved. Ventricles, sulci, and cisterns: Prominent secondary to involutional change. CT angiogram of the brain: There is atherosclerotic calcification of the cavernous carotid arteries. The internal carotid arteries at the skull base are patent, as are the anterior and middle cerebral arteries. The vertebrobasilar system and posterior cerebral arteries are patent. The left vertebral artery is dominant, and the right vertebral artery is diminutive. There is a large right posterior communicating artery. There is no aneurysm, high-grade stenosis, or focal vessel cutoff identified throughout the intracranial circulation. Dural sinuses: Clear as visualized. Orbits: The bony orbits are intact. The orbital contents are normal as visualized noting bilateral ocular lens implants. Sinuses and mastoids: The visualized paranasal sinuses are clear. The mastoid air cells are well pneumatized. Calvarium: Unremarkable. IMPRESSION: 1. There is no evidence of hemorrhage or mass effect noting angiographic phase technique. 2. Unremarkable CT angiogram of the brain. ACT 112: Negative or not required by law. Electronically signed by: Mio Cantu M.D. 02/22/2025 12:14 PM Neck CTA 02/22/25 11:52 CT angio neck with con CLINICAL HISTORY: stroke/unresponsive. TECHNIQUE: Following the IV administration of 120 of Optiray, CT angiogram of the neck was performed from the aortic arch to the skull base. Images are reviewed in the axial, sagittal, and coronal planes. 3-D MIPS images are created and assessed. IV contrast was administered without complication. All measurements were calculated based on NASCET criteria. A dose lowering technique was utilized adhering to the principles of ALARA. CT DOSE: 482 COMPARISON STUDY: Head CT earlier today FINDINGS: Mixed calcified and noncalcified plaque proximally at the left internal carotid artery causes 70-90% narrowing. No other significant narrowing or occlusion seen at the common or internal carotid arteries bilaterally. The right vertebral artery is occluded at its origin. The left vertebral artery is widely patent. The diminutive mid and distal right vertebral artery is opacified, likely due to backflow. There is a possible partially visualized peripherally calcified aneurysm at the aortic arch. Endotracheal tube tip is in good position just below the thoracic inlet. Orogastric tube is partially coiled in the mouth with the tip off the field of view inferiorly. There are cervical spine degenerative changes. IMPRESSION: 1. 70-90% narrowing proximal left internal carotid artery. 2. Right vertebral artery is occluded at its origin. 3. Possible partially visualized peripherally calcified aneurysm at the aortic arch. 4. Otherwise as described. ACT 112: Negative or not required by law. The above report was generated using voice recognition software. It may contain grammatical, syntax or spelling errors. Electronically signed by: Lui Tan M.D. 02/22/2025 12:16 PM Discharge Plan Visit Data Chief Complaint: Lethargic Stated Complaint: AMS, LETAHRGIC HYPOTENSIVE ED Provider: Anthony De Dios Discharge Problem: Unresponsive, UTI (urinary tract infection), Occlusion of right vertebral artery, Acute hypoxic respiratory failure, Elevated troponin Patient Disposition: Admitted As Inpatient Condition: Critical Discharge Instructions Interventions: ED Discharge Assessment Last Done: 02/22/25 13:43
[2025-02-22] MEDS: OPTIRAY 320 125ml IV ONE (11:56)
--- NOTE | 2025-02-22 12:04 | CT Scan Report ---
CT head/brain wo con CLINICAL HISTORY: confusion, SAH. TECHNIQUE: Multiple axial CT images of the head were obtained without contrast. A dose lowering tech nique was utilized adhering to the principles of ALARA. CT DOSE: 625.8 mGy.cm COMPARISON: 10/01/2024 FINDINGS: There is stable mild patchy periventricular hypodensity which is nonspecific, but usually r epresents chronic small vessel ischemic changes. No intracranial hemorrhage seen. No mass effect, mid line shift, or hydrocephalus. Visualized paranasal sinuses and mastoid air cells are clear. No skull fracture seen. IMPRESSION: No acute findings. ACT 112: Negative or not required by law. The above report was generated using voice recognition software. It may contain grammatical, syntax o r spelling errors. Electronically signed by: Lui Tan M.D. 02/22/2025 12:02 PM
[2025-02-22] MEDS: MIDAZOLAM HCL 125 MG/250 ML BAG IV SCH (12:11)
--- NOTE | 2025-02-22 12:17 | CT Scan Report ---
CT ANGIOGRAM OF THE BRAIN CLINICAL HISTORY: Strokelike symptoms. Unresponsive. COMPARISON STUDY: Unenhanced CT of the brain performed the same day 02/22/2025. TECHNIQUE: Following the IV administration of 120 cc of Optiray 320, CT angiogram of the brain was pe rformed from the skull base to the vertex. Images are reviewed in the axial, sagittal, and coronal pl anes. 3-D MIPS images are created and assessed. IV contrast was administered without complication. A dose lowering technique was utilized adhering to the principles of ALARA. CT DOSE: 481.89 mGy.cm FINDINGS: Endotracheal and enteric tubes are in place. Brain parenchyma: There is age-related involutional change noting mild subcortical and periventricula r microangiopathic disease. There is no evidence of hemorrhage or mass effect noting angiographic pha se technique. There is no evidence of enhancing mass lesion on the angiogram phase images. No extra-a xial fluid collection is seen. Henning-white matter differentiation is preserved. Ventricles, sulci, and cisterns: Prominent secondary to involutional change. CT angiogram of the brain: There is atherosclerotic calcification of the cavernous carotid arteries. The internal carotid arteries at the skull base are patent, as are the anterior and middle cerebral arteries. The vertebrobasilar system and posterior cerebral arteries are patent. The left vertebral a rtery is dominant, and the right vertebral artery is diminutive. There is a large right posterior com municating artery. There is no aneurysm, high-grade stenosis, or focal vessel cutoff identified throu ghout the intracranial circulation. Dural sinuses: Clear as visualized. Orbits: The bony orbits are intact. The orbital contents are normal as visualized noting bilateral oc ular lens implants. Sinuses and mastoids: The visualized paranasal sinuses are clear. The mastoid air cells are well pneu matized. Calvarium: Unremarkable. IMPRESSION: 1. There is no evidence of hemorrhage or mass effect noting angiographic phase technique. 2. Unremarkable CT angiogram of the brain. ACT 112: Negative or not required by law. Electronically signed by: Mio Cantu M.D. 02/22/2025 12:14 PM
--- NOTE | 2025-02-22 12:17 | CT Scan Report ---
CT angio neck with con CLINICAL HISTORY: stroke/unresponsive. TECHNIQUE: Following the IV administration of 120 of Optiray, CT angiogram of the neck was performed from the aortic arch to the skull base. Images are reviewed in the axial, sagittal, and coronal plane s. 3-D MIPS images are created and assessed. IV contrast was administered without complication. All m easurements were calculated based on NASCET criteria. A dose lowering technique was utilized adherin g to the principles of ALARA. CT DOSE: 482 COMPARISON STUDY: Head CT earlier today FINDINGS: Mixed calcified and noncalcified plaque proximally at the left internal carotid artery caus es 70-90% narrowing. No other significant narrowing or occlusion seen at the common or internal carot id arteries bilaterally. The right vertebral artery is occluded at its origin. The left vertebral art elizabeth is widely patent. The diminutive mid and distal right vertebral artery is opacified, likely due t o backflow. There is a possible partially visualized peripherally calcified aneurysm at the aortic ar ch. Endotracheal tube tip is in good position just below the thoracic inlet. Orogastric tube is partially coiled in the mouth with the tip off the field of view inferiorly. There are cervical spine degenera tive changes. IMPRESSION: 1. 70-90% narrowing proximal left internal carotid artery. 2. Right vertebral artery is occluded at its origin. 3. Possible partially visualized peripherally calcified aneurysm at the aortic arch. 4. Otherwise as described. ACT 112: Negative or not required by law. The above report was generated using voice recognition software. It may contain grammatical, syntax o r spelling errors. Electronically signed by: Lui Tan M.D. 02/22/2025 12:16 PM
[2025-02-22] MEDS: fentaNYL citrate 2,500 MCG/250 ML BAG IV ONE (12:32)
[2025-02-22] MEDS: STAT IV Infusion **Titration per Protocol STA (12:33)
[2025-02-22] MEDS: fentaNYL citrate 2,500 MCG/250 ML BAG IV SCH (12:33)
[2025-02-22 12:50] LABS: Appearance Urine Turbid (Clear); Bacteria Urine Automated 4+ (None Seen); Cast Urine Automated >20 /lpf (0-2); Epithelial Cell Urine Auto 0-2 /hpf (0-2); Glucose Urine UA Negative (Negative); RBC Urine Automated >20 /hpf (0-2); WBC Urine Automated >50 /hpf (0-5)
[2025-02-22] MEDS: PROPOFOL IV EMULSION 10 MG/ML 100 ML VIAL IV ONE (12:57)
[2025-02-22 12:59] LABS: Base Excess VBG -11.6 mEq/L; HCO3 VBG 16 mmol/L; Oxygen Saturation VBG < 60.0 %; PCO2 VBG 42 mmHg (38-50); PO2 VBG 26 mmHg; pH VBG 7.19 (7.36-7.41)
[2025-02-22] MEDS: cefTRIAXone SODIUM 2,000 MG/50 ML BAG IV STA (13:14)
--- NOTE | 2025-02-22 13:37 | Critical Care Consultation ---
Date of Consultation February 22, 2025 Assessment & Plan (1) Chronic atrial fibrillation: (2) PAD (peripheral artery disease): (3) Alcohol abuse: (4) Atrial fibrillation with rapid ventricular response: (5) Encephalopathy: (6) Shock: Plan Romain Bailey is a 74-year-old male with past medical history of atrial fibrillation s/p watchman device, CHF, cirrhosis, and alcohol abuse; who presented to [facility] ED on 02/22/2025 after being found down unresponsive. CT head negative. CTA head and neck showed right vertebral artery occlusion. Neuro: Acute encephalopathy -CT/CTA negative. Possible right vertebral artery occlusion. -MRI unable to obtain due to pacemaker. Will plan for repeat CT in 6 hrs. -Order TSH, cortisol, ammonia 79 -On ceftriaxone for UTI. Cultured may need to consider LP for meningitis. -EEG ordered CV: Atrial fibrillation; afib w// RVR; shock hypovolemic v. septic -Bolused 2 liters of crystalloid -Start phenylephrine -Maintain MAP > 65mmHg Pulm: Acute hypoxic respiratory failure related to encephalopathy and possible aspiration -Current vent settings: VC-AC 40% [id number] -Maintain SpO2 > 92% GI: -NPO -Bowel regimen -MIVF : Acute kidney injury stage I related to possible hypovolemia or ATN -Creat 1.5 on admission previously 0.6-0.7 -Monitor Lactic acidosis; metabolic acidosis related to hypoperfusion -Lactate 3.5 -pH 7.19, pCO2 42, HCO3 16 Heme: Anemia likely of chronic disease -Hgb 10.8 on admission -MCV 95 -No active bleeding. -Monitor CBC qam transfuse for Hgb < 7 Endo: Stress Hyperglycemia -BG 134 on admission -Maintain BG 140-180 -Hyperglycemia protocol ordered. ID: Possible sepsis related to UTI v. meningitis v. other Prophylaxis: -DVT chemoprophylaxis held at this time. Can consider heparin prophy if plan to continue care. -SCD for mechanical prophylaxis. -Protonix for GI prophy Disposition: ICU for encephalopathy requiring mechanical ventilation and hemodynamic support with vasoactive medications with high risk for decline and . Patient is DNR/DNI. Fmily updated at bedside. Plan to pursue compassionate extubation and comfort care. CRITICAL CARE TIME I have personally spent 60 minutes of critical care time in the direct management of this patient. This is a life/limb threatening event. This includes time spent evaluating patient, direct bedside care, chart review, placing orders, interpretation of diagnostic studies, discussion with consultants, patient, and family members, as well as other required patient management activities. This time is exclusive of all separately billable procedures, and teaching time and separate from and in addition to any other critical care service time. Supervising Physician Co-Signing Physician Notes I have personally evaluated and examined this patient. I agree with assessment and plan of Ayan REY. Discussed with hospital medicine team and reviewed prior records. Patient previously engaged with hospice after last admission. Patient has been in functional decline for the last several months. Likely outcome and recovery inconsistent with patient's longstanding wishes. Patient transition to DO NOT RESUSCITATE and will proceed with comfort care with compassionate extubation when additional family members arrive at bedside History of Present Illness Reason for Consultation: Acute severe encephalopathy History of Present Illness Romain Bailey is a 74-year-old male with past medical history of atrial fibrillation s/p watchman device, CHF, cirrhosis, and alcohol abuse; who presented to [facility] ED on 02/22/2025 after being found down unresponsive. Patient reportedly lethargic the past few days with poor PO intake. Patient found down in his home this am unresponsive. EMS was called and he was taken to [facility]. Initial GCS appeared to be 6 and patient was intubated for airway protection. CT head showed no acute intracranial abnormality. CTA head and neck showed right vertebral artery occlusion and severe stenosis of the left ICA. The patient had telestroke with [facility] and unfortunately was not a candidate for any acute intervention. Further workup showed urinalysis significant for 4+ bacteria, 50+ WBC, + nitrites, and leuk esterase. Patient given ceftriaxone. Patient admitted to hospitalist service with search coordinator consultation for encephalopathy requiring mechanical ventilation and hemodynamic support with vasoactive medications with high risk for decline and . Allergies Allergy/AdvReac Type Severity Reaction Status Date / Time gabapentin Allergy Unknown Unknown - Unverified 09/28/24 14:31 On file / [facility] fentanyl AdvReac Mild itch Verified 09/28/24 14:31 Home Medications Medication Instructions Recorded Confirmed Type aspirin 81 mg tablet,delayed 81 mg PO DAILY 11/15/22 02/22/25 History release ferrous sulfate 325 mg (65 mg 325 mg PO DAILY 11/15/22 02/22/25 History iron) tablet (FeroSul) multivitamin (Daily Multi-Vitamin 1 tab PO DAILY 11/15/22 02/22/25 History tablet) cetirizine 10 mg tablet (Zyrtec) 10 mg PO HS 09/28/24 02/22/25 History cholecalciferol (vitamin D3) 25 50 mcg PO DAILY 09/28/24 02/22/25 History mcg (1,000 unit) tablet (Vitamin D3) eplerenone 50 mg tablet 50 mg PO DAILY 09/28/24 02/22/25 History furosemide 20 mg tablet 20 mg PO DAILY 09/28/24 02/22/25 History metoprolol succinate 50 mg 75 - 100 mg PO UD 09/28/24 02/22/25 History tablet,extended release 24 hr naloxone 4 mg/actuation nasal spray 4 mg intranasal DAILY PRN Opioid 09/28/24 02/22/25 History Overdose oxycodone 10 mg tablet,crush 10 mg PO Q12H 09/28/24 02/22/25 History resistant,extended release 12 hr pregabalin 25 mg capsule 25 mg PO BID 09/28/24 02/22/25 History acetaminophen 500 mg tablet 500 mg PO DIRECTED PRN Pain 02/22/25 02/22/25 History ketoconazole 2 % shampoo 1 ea topical .WED,WED,Wednesday02/22/25 02/22/25 History omeprazole 20 mg capsule,delayed 20 mg PO DAILY 02/22/25 02/22/25 History release potassium chloride 20 mEq 20 meq PO DAILY 02/22/25 02/22/25 History tablet,extended release povidone-iodine 10 % topical swab 1 applic topical .WED,WED,Wednesday02/22/25 02/22/25 History rifaximin 550 mg tablet 550 mg PO BID 02/22/25 02/22/25 History zinc oxide 20 % topical ointment 1 applic topical .WED,WED,Wednesday02/22/25 02/22/25 History Patient History Medical History CHF (congestive heart failure) Presence of Watchman left atrial appendage closure device Cardiac pacemaker in situ Cirrhosis History of bacteremia Per family's report Atrial fibrillation History of alcohol abuse Surgical History History of splenectomy Family History Other Family history non-contributory Social History Smoking Status: Unknown if ever smoked Second Hand Exposure: No; Do You Dip or Chew Tobacco: No; Hx Alcohol Use: Yes Alcohol type: beer and hard liquor Hx Substance Use: No Preferred Language: Sudanese Communication Ability: Effective Automotive Service Writer Required: Yes Beliefs That Will Affect Care: Hindu Current Living Situation: Family Current Living Situation Comment: unable to obtain Feels Safe at Home: Yes Assistive Devices: Cane, Walker and Wheelchair Review of Systems 2 Review of Systems: Unobtainable due to cognitive status and Unobtainable due to endotracheal tube Physical Exam 2 Physical Exam: VITALS: Reviewed. WEIGHT/BMI reviewed. GEN: Chronically ill appearing, obtunded, intubated in no distress. PSYCH: SHARMIN HEENT -Head: NC/AT; -Eyes: Pupils 2mm brisk -Ears: External ears are normal. -Nose: Normal nares. NECK: Supple, with no masses. CV: Irregular rate and rhythm, no m/r/g. LUNGS: CTAB, no w/r/c. ABD: Soft, NT/ND, NBS, no masses or organomegaly. : N/A SKIN: Warm, well perfused. sacral ulcer and multiple other ulcerations. Left axillary scar or graft site. MSK: No deformities. EXT: No clubbing, cyanosis, or edema. NEURO: No eye opening, no cough, gag, or corneals. 0/5 all extremities. Results & Data Results & Data Vital Signs (Past 12 Hours) Vital Signs Temp Pulse Pulse Resp BP BP Pulse Ox 02/22/25 13:10 81/64 L 02/22/25 13:10 81/64 L 02/22/25 13:06 169 H 16 93 02/22/25 13:00 97/68 L 02/22/25 13:00 35.1 C L 184 H 24 96/69 L 96 02/22/25 12:54 161 H 16 99 02/22/25 12:53 98 02/22/25 12:50 89/62 L 02/22/25 12:50 89/62 L 02/22/25 12:50 89/62 L 02/22/25 12:48 35.1 C L 173 H 24 123/69 100 02/22/25 12:45 123/69 02/22/25 12:45 189 H 16 97 02/22/25 12:40 89/70 L 02/22/25 12:30 165 H 16 99 02/22/25 12:30 98/76 L 02/22/25 12:30 98/76 L 02/22/25 12:30 98/76 L 02/22/25 12:25 100/80 02/22/25 12:25 100/80 02/22/25 12:21 183 H 16 99 02/22/25 12:20 122/99 02/22/25 12:20 122/99 02/22/25 12:18 168 H 16 100 02/22/25 12:15 117/87 02/22/25 12:12 176 H 16 100 02/22/25 12:10 115/90 02/22/25 12:10 115/90 02/22/25 12:03 185 H 16 100 02/22/25 12:01 112/86 02/22/25 12:01 112/86 02/22/25 12:01 112/86 02/22/25 12:01 176 H 26 H 112/86 100 02/22/25 11:36 182 H 16 100 02/22/25 11:35 107/81 02/22/25 11:35 107/81 02/22/25 11:35 107/81 02/22/25 11:35 187 H 22 90/67 L 100 02/22/25 11:30 171 H 16 96 02/22/25 11:25 93/67 L 02/22/25 11:21 167 H 16 99 02/22/25 11:20 83/65 L 02/22/25 11:20 83/65 L 02/22/25 11:20 182 H 16 100 02/22/25 11:15 99/70 L 02/22/25 11:15 175 H 97/74 L 100 02/22/25 11:11 97/74 L 02/22/25 11:09 168 H 100 02/22/25 11:05 120/69 02/22/25 11:05 120/69 02/22/25 11:05 120/69 02/22/25 11:05 120/69 02/22/25 11:00 147 H 32 H 93 02/22/25 11:00 117/74 02/22/25 11:00 175 H 02/22/25 10:57 144 H 47 H 95 02/22/25 10:55 163 H 30 H 103/85 95 02/22/25 10:54 35.8 C L 162 H 26 H 121/84 97 02/22/25 10:47 121/84 O2 Del Method FiO2 02/22/25 13:10 02/22/25 13:10 02/22/25 13:06 02/22/25 13:00 02/22/25 13:00 Mechanical Vent 02/22/25 12:54 02/22/25 12:53 Mechanical Vent 02/22/25 12:50 02/22/25 12:50 02/22/25 12:50 02/22/25 12:48 Mechanical Vent 02/22/25 12:45 02/22/25 12:45 02/22/25 12:40 02/22/25 12:30 02/22/25 12:30 02/22/25 12:30 02/22/25 12:30 02/22/25 12:25 02/22/25 12:25 02/22/25 12:21 02/22/25 12:20 02/22/25 12:20 02/22/25 12:18 02/22/25 12:15 02/22/25 12:12 02/22/25 12:10 02/22/25 12:10 02/22/25 12:03 02/22/25 12:01 02/22/25 12:01 02/22/25 12:01 02/22/25 12:01 Mechanical Vent 02/22/25 11:36 02/22/25 11:35 02/22/25 11:35 02/22/25 11:35 02/22/25 11:35 Mechanical Vent 02/22/25 11:30 02/22/25 11:25 02/22/25 11:21 02/22/25 11:20 02/22/25 11:20 02/22/25 11:20 30 02/22/25 11:15 02/22/25 11:15 T-Piece 02/22/25 11:11 02/22/25 11:09 02/22/25 11:05 02/22/25 11:05 02/22/25 11:05 02/22/25 11:05 02/22/25 11:00 02/22/25 11:00 02/22/25 11:00 02/22/25 10:57 02/22/25 10:55 Room Air 02/22/25 10:54 Room Air 02/22/25 10:47 Laboratory Results 02/22/25 11:01 02/22/25 11:01 Abnormal Lab Results 02/22/25 02/22/25 02/22/25 11:01 11:05 12:21 WBC 8.88 RBC 3.01 L Hgb 10.6 L POC Hgb 12.2 L Hct 28.7 L POC Hct 36 L MCV 95.3 MCH 35.2 H MCHC 36.9 H RDW Std Deviation 57.3 H RDW Coeff of Giancarlo 16.5 H Plt Count 193 MPV 10.1 Immature Gran % (Auto) 0.6 Neut % (Auto) 82.9 Lymph % (Auto) 7.1 [place] % (Auto) 9.1 Eos % (Auto) 0.1 Baso % (Auto) 0.2 Neut # (Auto) 7.36 H Lymph # (Auto) 0.63 L [place] # (Auto) 0.81 H Eos # (Auto) 0.01 Baso # (Auto) 0.02 Immature Gran # (Auto) 0.05 Absolute Nucleated RBC 0.02 Nucleated RBC % (auto) 0.2 POC pH POC pCO2 POC pO2 POC HCO3 POC Base Excess POC ABG O2 Sat VBG pH 7.30 L VBG pCO2 33 L VBG pO2 27 VBG HCO3 16 VBG O2 Saturation < 60.0 VBG Base Excess -9.2 POC Sodium 139 Sodium 138 POC Potassium 3.7 Potassium 3.7 POC Chloride 108 Chloride 108 H Carbon Dioxide 17 L POC Total CO2 16 L Anion Gap 13 H POC Anion Gap 21.0 POC BUN 31 H BUN 35 H Creatinine 1.50 H POC Creatinine 1.7 H Est Cr Clr Drug Dosing 37.3 eGFR 47.95 BUN/Creatinine Ratio 23.3 H Glucose 134 H POC Glucose (other) 128 H Lactate 2.9 H* Calcium 7.7 L POC Ioniz Calcium Lili 1.03 L Total Bilirubin 2.8 H Direct Bilirubin 1.8 H AST 78 H ALT 35 Alkaline Phosphatase 336 H Ammonia Total Creatine Kinase 68 Troponin I High Sens 118.4 H* Total Protein 5.6 L Albumin 2.2 L Lipase 13 Urine Color Dark Yellow Urine Appearance Turbid A Urine pH 5.5 Ur Specific [place] 1.021 Urine Protein 1+ H Urine Glucose (UA) Negative Urine Ketones Negative Urine Blood 3+ H Urine Nitrite Positive A Urine Bilirubin 2+ H Urine Urobilinogen Positive H Ur Leukocyte Esterase 3+ H Urine WBC (Auto) >50 H Urine RBC (Auto) >20 H U Hyaline Cast (Auto) >20 H U Epithel Cells (Auto) 0-2 Urine Bacteria (Auto) 4+ H Urine Comment 02/22/25 02/22/25 02/22/25 12:44 12:53 13:40 WBC RBC Hgb POC Hgb 11.9 L Hct POC Hct 35 L MCV MCH MCHC RDW Std Deviation RDW Coeff of Giancarlo Plt Count MPV Immature Gran % (Auto) Neut % (Auto) Lymph % (Auto) [place] % (Auto) Eos % (Auto) Baso % (Auto) Neut # (Auto) Lymph # (Auto) [place] # (Auto) Eos # (Auto) Baso # (Auto) Immature Gran # (Auto) Absolute Nucleated RBC Nucleated RBC % (auto) POC pH 7.31 L POC pCO2 28 L POC pO2 79 L POC HCO3 14 L POC Base Excess -13.0 L POC ABG O2 Sat 95.0 VBG pH 7.19 L VBG pCO2 42 VBG pO2 26 VBG HCO3 16 VBG O2 Saturation < 60.0 VBG Base Excess -11.6 POC Sodium 139 Sodium POC Potassium 3.0 L Potassium POC Chloride Chloride Carbon Dioxide POC Total CO2 15 L Anion Gap POC Anion Gap POC BUN BUN Creatinine POC Creatinine Est Cr Clr Drug Dosing eGFR BUN/Creatinine Ratio Glucose POC Glucose (other) Lactate 3.5 H* Calcium POC Ioniz Calcium Lili Total Bilirubin Direct Bilirubin AST ALT Alkaline Phosphatase Ammonia 79.0 H Total Creatine Kinase Troponin I High Sens 110.4 H* Total Protein Albumin Lipase Urine Color Urine Appearance Urine pH Ur Specific [place] Urine Protein Urine Glucose (UA) Urine Ketones Urine Blood Urine Nitrite Urine Bilirubin Urine Urobilinogen Ur Leukocyte Esterase Urine WBC (Auto) Urine RBC (Auto) U Hyaline Cast (Auto) U Epithel Cells (Auto) Urine Bacteria (Auto) Urine Comment Diagnostic Findings Chest X-Ray 02/22/25 10:49 XR chest 1V portable CLINICAL HISTORY: SOB, hypoxic COMPARISON STUDY: 10/05/2024 FINDINGS: Stable pacemaker. Stable left atrial appendage occlusion device. Stable mild cardiomegaly without pulmonary vascular congestion. Inspiration is shallow. There is mild stranding at the left lung base. No other consolidation or pleural effusion. No pneumothorax. IMPRESSION: Shallow inspiration with likely atelectasis left lung base. ACT 112: Negative or not required by law. Electronically signed by: Lui Tan M.D. 02/22/2025 11:[address] 02/22/25 10:49 CT head/brain wo con CLINICAL HISTORY: confusion, SAH. TECHNIQUE: Multiple axial CT images of the head were obtained without contrast. A dose lowering technique was utilized adhering to the principles of ALARA. CT DOSE: 625.8 mGy.cm COMPARISON: 10/01/2024 FINDINGS: There is stable mild patchy periventricular hypodensity which is nonspecific, but usually represents chronic small vessel ischemic changes. No intracranial hemorrhage seen. No mass effect, midline shift, or hydrocephalus. Visualized paranasal sinuses and mastoid air cells are clear. No skull fracture seen. IMPRESSION: No acute findings. ACT 112: Negative or not required by law. The above report was generated using voice recognition software. It may contain grammatical, syntax or spelling errors. Electronically signed by: Lui Tan M.D. 02/22/2025 12:02 PM Chest X-Ray 02/22/25 11:39 XR chest 1V portable CLINICAL HISTORY: TUBE PLACEMENT COMPARISON STUDY: 02/22/2025 FINDINGS: Endotracheal tube tip is at the thoracic inlet. Nasogastric tube tip is likely near the gastroesophageal junction. Stable pacemaker. Stable mild cardiomegaly without pulmonary vascular congestion. Stable mild opacity at the left base with mild blunting of the left costophrenic angle. No pneumothorax. IMPRESSION: 1. Well-positioned endotracheal tube. 2. Nasogastric tube tip is likely near the GE junction. ACT 112: Negative or not required by law. Electronically signed by: Lui Tan M.D. 02/22/2025 11:44 AM Head CTA 02/22/25 11:52 CT ANGIOGRAM OF THE BRAIN CLINICAL HISTORY: Strokelike symptoms. Unresponsive. COMPARISON STUDY: Unenhanced CT of the brain performed the same day 02/22/2025. TECHNIQUE: Following the IV administration of 120 cc of Optiray 320, CT angiogram of the brain was performed from the skull base to the vertex. Images are reviewed in the axial, sagittal, and coronal planes. 3-D MIPS images are created and assessed. IV contrast was administered without complication. A dose lowering technique was utilized adhering to the principles of ALARA. CT DOSE: 481.89 mGy.cm FINDINGS: Endotracheal and enteric tubes are in place. Brain parenchyma: There is age-related involutional change noting mild subcortical and periventricular microangiopathic disease. There is no evidence of hemorrhage or mass effect noting angiographic phase technique. There is no evidence of enhancing mass lesion on the angiogram phase images. No extra-axial fluid collection is seen. Henning-white matter differentiation is preserved. Ventricles, sulci, and cisterns: Prominent secondary to involutional change. CT angiogram of the brain: There is atherosclerotic calcification of the cavernous carotid arteries. The internal carotid arteries at the skull base are patent, as are the anterior and middle cerebral arteries. The vertebrobasilar system and posterior cerebral arteries are patent. The left vertebral artery is dominant, and the right vertebral artery is diminutive. There is a large right posterior communicating artery. There is no aneurysm, high-grade stenosis, or focal vessel cutoff identified throughout the intracranial circulation. Dural sinuses: Clear as visualized. Orbits: The bony orbits are intact. The orbital contents are normal as visualized noting bilateral ocular lens implants. Sinuses and mastoids: The visualized paranasal sinuses are clear. The mastoid air cells are well pneumatized. Calvarium: Unremarkable. IMPRESSION: 1. There is no evidence of hemorrhage or mass effect noting angiographic phase technique. 2. Unremarkable CT angiogram of the brain. ACT 112: Negative or not required by law. Electronically signed by: Mio Cantu M.D. 02/22/2025 12:14 PM Neck CTA 02/22/25 11:52 CT angio neck with con CLINICAL HISTORY: stroke/unresponsive. TECHNIQUE: Following the IV administration of 120 of Optiray, CT angiogram of the neck was performed from the aortic arch to the skull base. Images are reviewed in the axial, sagittal, and coronal planes. 3-D MIPS images are created and assessed. IV contrast was administered without complication. All measurements were calculated based on NASCET criteria. A dose lowering technique was utilized adhering to the principles of ALARA. CT DOSE: 482 COMPARISON STUDY: Head CT earlier today FINDINGS: Mixed calcified and noncalcified plaque proximally at the left internal carotid artery causes 70-90% narrowing. No other significant narrowing or occlusion seen at the common or internal carotid arteries bilaterally. The right vertebral artery is occluded at its origin. The left vertebral artery is widely patent. The diminutive mid and distal right vertebral artery is opacified, likely due to backflow. There is a possible partially visualized peripherally calcified aneurysm at the aortic arch. Endotracheal tube tip is in good position just below the thoracic inlet. Orogastric tube is partially coiled in the mouth with the tip off the field of view inferiorly. There are cervical spine degenerative changes. IMPRESSION: 1. 70-90% narrowing proximal left internal carotid artery. 2. Right vertebral artery is occluded at its origin. 3. Possible partially visualized peripherally calcified aneurysm at the aortic arch. 4. Otherwise as described. ACT 112: Negative or not required by law. The above report was generated using voice recognition software. It may contain grammatical, syntax or spelling errors. Electronically signed by: Lui Tan M.D. 02/22/2025 12:16 PM Critical Care Results & Data Vital Signs (Past 12 Hours) Vital Signs Temp Pulse Pulse Resp BP BP Pulse Ox 02/22/25 13:10 81/64 L 02/22/25 13:10 81/64 L 02/22/25 13:06 169 H 16 93 02/22/25 13:00 97/68 L 02/22/25 13:00 35.1 C L 184 H 24 96/69 L 96 02/22/25 12:54 161 H 16 99 02/22/25 12:53 98 02/22/25 12:50 89/62 L 02/22/25 12:50 89/62 L 02/22/25 12:50 89/62 L 02/22/25 12:48 35.1 C L 173 H 24 123/69 100 02/22/25 12:45 123/69 02/22/25 12:45 189 H 16 97 02/22/25 12:40 89/70 L 02/22/25 12:30 165 H 16 99 02/22/25 12:30 98/76 L 02/22/25 12:30 98/76 L 02/22/25 12:30 98/76 L 02/22/25 12:25 100/80 02/22/25 12:25 100/80 02/22/25 12:21 183 H 16 99 02/22/25 12:20 122/99 02/22/25 12:20 122/99 02/22/25 12:18 168 H 16 100 02/22/25 12:15 117/87 02/22/25 12:12 176 H 16 100 02/22/25 12:10 115/90 02/22/25 12:10 115/90 02/22/25 12:03 185 H 16 100 02/22/25 12:01 112/86 02/22/25 12:01 112/86 02/22/25 12:01 112/86 02/22/25 12:01 176 H 26 H 112/86 100 02/22/25 11:36 182 H 16 100 02/22/25 11:35 107/81 02/22/25 11:35 107/81 02/22/25 11:35 107/81 02/22/25 11:35 187 H 22 90/67 L 100 02/22/25 11:30 171 H 16 96 02/22/25 11:25 93/67 L 02/22/25 11:21 167 H 16 99 02/22/25 11:20 83/65 L 02/22/25 11:20 83/65 L 02/22/25 11:20 182 H 16 100 02/22/25 11:15 99/70 L 02/22/25 11:15 175 H 97/74 L 100 02/22/25 11:11 97/74 L 02/22/25 11:09 168 H 100 02/22/25 11:05 120/69 02/22/25 11:05 120/69 02/22/25 11:05 120/69 02/22/25 11:05 120/69 02/22/25 11:00 147 H 32 H 93 02/22/25 11:00 117/74 02/22/25 11:00 175 H 02/22/25 10:57 144 H 47 H 95 02/22/25 10:55 163 H 30 H 103/85 95 02/22/25 10:54 35.8 C L 162 H 26 H 121/84 97 02/22/25 10:47 121/84 O2 Del Method FiO2 02/22/25 13:10 02/22/25 13:10 02/22/25 13:06 02/22/25 13:00 02/22/25 13:00 Mechanical Vent 02/22/25 12:54 02/22/25 12:53 Mechanical Vent 02/22/25 12:50 02/22/25 12:50 02/22/25 12:50 02/22/25 12:48 Mechanical Vent 02/22/25 12:45 02/22/25 12:45 02/22/25 12:40 02/22/25 12:30 02/22/25 12:30 02/22/25 12:30 02/22/25 12:30 02/22/25 12:25 02/22/25 12:25 02/22/25 12:21 02/22/25 12:20 02/22/25 12:20 02/22/25 12:18 02/22/25 12:15 02/22/25 12:12 02/22/25 12:10 02/22/25 12:10 02/22/25 12:03 02/22/25 12:01 02/22/25 12:01 02/22/25 12:01 02/22/25 12:01 Mechanical Vent 02/22/25 11:36 02/22/25 11:35 02/22/25 11:35 02/22/25 11:35 02/22/25 11:35 Mechanical Vent 02/22/25 11:30 02/22/25 11:25 02/22/25 11:21 02/22/25 11:20 02/22/25 11:20 02/22/25 11:20 30 02/22/25 11:15 02/22/25 11:15 T-Piece 02/22/25 11:11 02/22/25 11:09 02/22/25 11:05 02/22/25 11:05 02/22/25 11:05 02/22/25 11:05 02/22/25 11:00 02/22/25 11:00 02/22/25 11:00 02/22/25 10:57 02/22/25 10:55 Room Air 02/22/25 10:54 Room Air 02/22/25 10:47 Lab & Micro Results (Past 24 Hours) 2 RBC 3.01 M/uL (4.70-6.10) L 02/22/25 WBC 8.88 K/ul (4.8-10.8) 02/22/25 Hgb 10.6 g/dl (14.0-18.0) L 02/22/25 Hct 28.7 % (42.0-52.0) L 02/22/25 MCV 95.3 fL (80.0-100.0) 02/22/25 MCH 35.2 pg (25.0-34.0) H 02/22/25 MCHC 36.9 g/dL (32.0-36.0) H 02/22/25 RDW Standard Deviation 57.3 fL (36.4-46.3) H 02/22/25 RDW Coefficient of Variation 16.5 % (11.5-14.5) H 02/22/25 Plt Count 193 K/uL (130-400) 02/22/25 MPV 10.1 fL (9.4-12.4) 02/22/25 Nucleated Red Blood Cells % (auto) 0.2 % 02/22 Nucleated RBC Absolute Count (auto) 0.02 K/uL (0.00-0.12) 0 02/22/25 Neutrophils (%) (Auto) 82.9 % 02/22/25 Lymphocytes (%) (Auto) 7.1 % 02/22/25 Monocytes # (Auto) 0.81 K/uL (0.11-0.59) H 02/22/25 Eosinophils # (Auto) 0.01 K/uL (0.00-0.50) 02/22/25 Immature Granulocyte % (Auto) 0.6 % 02/22/25 Neutrophils # (Auto) 7.36 K/uL (1.40-6.50) H 02/22/25 Lymphocytes # (Auto) 0.63 K/uL (1.20-3.40) L 02/22/25 Monocytes # (Auto) 0.81 K/uL (0.11-0.59) H 02/22/25 Eosinophils # (Auto) 0.01 K/uL (0.00-0.50) 02/22/25 Basophils # (Auto) 0.02 K/uL (0.00-0.20) 02/22/25 Immature Granulocyte # (Auto) 0.05 K/uL (0.01-0.20) 5 2 Na 138 mmol/L (136-145) 02/22/25 K 3.7 mmol/L (3.5-5.1) 02/22/25 Cl 108 mmol/L (98-107) H 02/22/25 CO2 17 mmol/L (21-32) L 02/22/25 Anion Gap 13 (3-11) H 02/22/25 BUN 35 mg/dl (6-23) H 02/22/25 Creatinine 1.50 mg/dl (0.6-1.4) H 02/22/25 BUN/Creatinine Ratio 23.3 (10-20) H 02/22/25 Glu 134 mg/dl (70-99(Fasting)) H 02/22/25 Ca 7.7 mg/dl (8.6-10.3) L 02/22/25 Total Bilirubin 2.8 mg/dl (0.2-1.0) H 02/22/25 Direct Bilirubin 1.8 mg/dl (0-0.2) H 02/22/25 AST 78 U/L (13-39) H 02/22/25 ALT 35 U/L (7-52) 02/22/25 Alkaline Phosphatase 336 U/L (34-104) H 02/22/25 TP 5.6 gm/dl (6.0-8.3) L 02/22/25 Albumin 2.2 gm/dl (3.4-5.0) L 02/22/25 2 Calcium Level 7.7 mg/dl (8.6-10.3) L 02/22/25 11:01 Venous Blood pH 7.19 (7.36-7.41) L 02/22/25 12:53 Venous Blood Partial Pressure CO2 42 mmHg (38-50) 02/22/25 12:5 3 Venous Blood Partial Pressure O2 26 mmHg 02/22/25 12:53 Venous Blood HCO3 16 mmol/L 02/22/25 12:53 Venous Blood Base Excess -11.6 mEq/L 02/22/25 12:53 Venous Blood Oxygen Saturation < 60.0 % 02/22/25 12:53 Diagnostic Findings (Past 24 Hours) Chest X-Ray 02/22/25 10:49 XR chest 1V portable CLINICAL HISTORY: SOB, hypoxic COMPARISON STUDY: 10/05/2024 FINDINGS: Stable pacemaker. Stable left atrial appendage occlusion device. Stable mild cardiomegaly without pulmonary vascular congestion. Inspiration is shallow. There is mild stranding at the left lung base. No other consolidation or pleural effusion. No pneumothorax. IMPRESSION: Shallow inspiration with likely atelectasis left lung base. ACT 112: Negative or not required by law. Electronically signed by: Lui Tan M.D. 02/22/2025 11:[address] 02/22/25 10:49 CT head/brain wo con CLINICAL HISTORY: confusion, SAH. TECHNIQUE: Multiple axial CT images of the head were obtained without contrast. A dose lowering technique was utilized adhering to the principles of ALARA. CT DOSE: 625.8 mGy.cm COMPARISON: 10/01/2024 FINDINGS: There is stable mild patchy periventricular hypodensity which is nonspecific, but usually represents chronic small vessel ischemic changes. No intracranial hemorrhage seen. No mass effect, midline shift, or hydrocephalus. Visualized paranasal sinuses and mastoid air cells are clear. No skull fracture seen. IMPRESSION: No acute findings. ACT 112: Negative or not required by law. The above report was generated using voice recognition software. It may contain grammatical, syntax or spelling errors. Electronically signed by: Lui Tan M.D. 02/22/2025 12:02 PM Chest X-Ray 02/22/25 11:39 XR chest 1V portable CLINICAL HISTORY: TUBE PLACEMENT COMPARISON STUDY: 02/22/2025 FINDINGS: Endotracheal tube tip is at the thoracic inlet. Nasogastric tube tip is likely near the gastroesophageal junction. Stable pacemaker. Stable mild cardiomegaly without pulmonary vascular congestion. Stable mild opacity at the left base with mild blunting of the left costophrenic angle. No pneumothorax. IMPRESSION: 1. Well-positioned endotracheal tube. 2. Nasogastric tube tip is likely near the GE junction. ACT 112: Negative or not required by law. Electronically signed by: Lui Tan M.D. 02/22/2025 11:44 AM Head CTA 02/22/25 11:52 CT ANGIOGRAM OF THE BRAIN CLINICAL HISTORY: Strokelike symptoms. Unresponsive. COMPARISON STUDY: Unenhanced CT of the brain performed the same day 02/22/2025. TECHNIQUE: Following the IV administration of 120 cc of Optiray 320, CT angiogram of the brain was performed from the skull base to the vertex. Images are reviewed in the axial, sagittal, and coronal planes. 3-D MIPS images are created and assessed. IV contrast was administered without complication. A dose lowering technique was utilized adhering to the principles of ALARA. CT DOSE: 481.89 mGy.cm FINDINGS: Endotracheal and enteric tubes are in place. Brain parenchyma: There is age-related involutional change noting mild subcortical and periventricular microangiopathic disease. There is no evidence of hemorrhage or mass effect noting angiographic phase technique. There is no evidence of enhancing mass lesion on the angiogram phase images. No extra-axial fluid collection is seen. Henning-white matter differentiation is preserved. Ventricles, sulci, and cisterns: Prominent secondary to involutional change. CT angiogram of the brain: There is atherosclerotic calcification of the cavernous carotid arteries. The internal carotid arteries at the skull base are patent, as are the anterior and middle cerebral arteries. The vertebrobasilar system and posterior cerebral arteries are patent. The left vertebral artery is dominant, and the right vertebral artery is diminutive. There is a large right posterior communicating artery. There is no aneurysm, high-grade stenosis, or focal vessel cutoff identified throughout the intracranial circulation. Dural sinuses: Clear as visualized. Orbits: The bony orbits are intact. The orbital contents are normal as visualized noting bilateral ocular lens implants. Sinuses and mastoids: The visualized paranasal sinuses are clear. The mastoid air cells are well pneumatized. Calvarium: Unremarkable. IMPRESSION: 1. There is no evidence of hemorrhage or mass effect noting angiographic phase technique. 2. Unremarkable CT angiogram of the brain. ACT 112: Negative or not required by law. Electronically signed by: Mio Cantu M.D. 02/22/2025 12:14 PM Neck CTA 02/22/25 11:52 CT angio neck with con CLINICAL HISTORY: stroke/unresponsive. TECHNIQUE: Following the IV administration of 120 of Optiray, CT angiogram of the neck was performed from the aortic arch to the skull base. Images are reviewed in the axial, sagittal, and coronal planes. 3-D MIPS images are created and assessed. IV contrast was administered without complication. All measurements were calculated based on NASCET criteria. A dose lowering technique was utilized adhering to the principles of ALARA. CT DOSE: 482 COMPARISON STUDY: Head CT earlier today FINDINGS: Mixed calcified and noncalcified plaque proximally at the left internal carotid artery causes 70-90% narrowing. No other significant narrowing or occlusion seen at the common or internal carotid arteries bilaterally. The right vertebral artery is occluded at its origin. The left vertebral artery is widely patent. The diminutive mid and distal right vertebral artery is opacified, likely due to backflow. There is a possible partially visualized peripherally calcified aneurysm at the aortic arch. Endotracheal tube tip is in good position just below the thoracic inlet. Orogastric tube is partially coiled in the mouth with the tip off the field of view inferiorly. There are cervical spine degenerative changes. IMPRESSION: 1. 70-90% narrowing proximal left internal carotid artery. 2. Right vertebral artery is occluded at its origin. 3. Possible partially visualized peripherally calcified aneurysm at the aortic arch. 4. Otherwise as described. ACT 112: Negative or not required by law. The above report was generated using voice recognition software. It may contain grammatical, syntax or spelling errors. Electronically signed by: Lui Tan M.D. 02/22/2025 12:16 PM I & O Totals 24 Hours 02/21/25 02/22/25 02/23/25 06:59 06:59 06:59 Intake Total 1000 / 1000 Balance 1000 / 1000 Cumulative 02/22/25 10:35 thru 02/22/25 12:32 Intake Total 1000 Balance 1000 RT Ventilator Mngmt (Last Documented) Ventilator Ordered Settings Ventilator Support Mode Assist Control 02/22/25 11:20 Respiratory Rate 16 02/22/25 13:06 Ventilator Tidal Volume 460 02/22/25 11:20 Setting Minute Ventilation 7.2 02/22/25 11:20 Positive End Expiratory 5 02/22/25 11:20 Pressure Fraction of Inspired Oxygen 30 02/22/25 11:20 Machine Comment Setting placed with at 02/22/25 11:20 bedside. Ventilator - PT Measurements Respiratory Rate 16 Exhaled Tidal Volume 450 Minute Ventilation 7.2 Peak Inspiratory Airway 32 Pressure Respiratory Cycle Inspiratory: 1:4 Expiratory Ratio Inspiratory Phase Time 0.75 End-Tidal CO2 26 Dynamic Lung Compliance 16.67 Normal Static Lung Compliance 45.00 Patient Measurements Comment Pt was was weaned to 420 tidal volume due to an appropriate IBW. Coding Level of Care Code 42883 CRITICAL CARE 1ST 30-74M Diagnoses Chronic atrial fibrillation I48.20 PAD (peripheral artery disease) I73.9 Alcohol abuse F10.10 Atrial fibrillation with rapid ventricular response I48.91 Encephalopathy G93.40 Shock R57.9
[2025-02-22 13:44] VITALS: TEMP 95.7
[2025-02-22 13:55] LABS: iSTAT Art Bld Gas Base Excess -13.0 meg/L (-9-1.8)
[2025-02-22] MEDS ORDERED: ONDANSETRON INJ 2 MG/ML 2 ML VIAL IV PRN (14:07)
--- NOTE | 2025-02-22 14:11 | Communication Note ---
Code status and GOC discussed with patients next of kin son over phone. [place]. Comfort measures only, DNRDNI, family on way, full note coming later. Date of Service: February 22, 2025
[2025-02-22 14:58] VITALS: BP 110/82
[2025-02-22] MEDS: PHENYLEPHRINE/NSS 25 MG/250 ML BAG IV SCH (16:36)
--- NOTE | 2025-02-22 17:13 | History & Physical Report ---
Date of Service February 22, 2025 Assessment & Plan (1) Unresponsive: (2) Acute hypoxic respiratory failure: (3) Occlusion of right vertebral artery: (4) Presence of Watchman left atrial appendage closure device: (5) Cardiac pacemaker in situ: Plan 74 yo male with pmhx of alcoholic cirrhosis, severe shock/respiratory failure with multiweek admission to hospital (16 months ago), permanent atrial fibrillation c/b tachybrady syndrome s/p watchman procedure, chronic HFpEF (EF 55%), PAD, dural AV fistula presenting to ED for unresponsiveness 2/2 multiorgan failure. #Metabolic Encephalopathy #Right Vertebral Artery Occlusion #Alcoholic Cirrhosis c/b Hepatic Encephalopathy #R/o Stroke -patient minimally responsive with multiorgan failure -likely combination of likely stroke, hepatic encephalophathy, shock, infectious etiologies perhaps -discussed goals of care with son and POA, will focus on comfort at this time -of note, [facility] neurology was consulted in ED Plan: -comfort care orders placed -dilaudid for pain -glycopyrulate for secretions -ativan for agitation -zofran for nausea/vomiting -eye and mouth care ordered -pastoral care consult -plan for compassionate extubation once family arrives, discussed with nursing, given IV dilaudid and glycopyrulate 15-30 minutes before extubation #Type 2 [place] #PAD #CAD -likely 2/2 cirrhosis, shock, CAD -comfort care #Acute Hypoxic Respriatory Failure #Metabolic Acidosis w/ Secondary Respiratory Alkalosis -intubated due to inability to protect airway -see above #Shock -likely multifactorial, distributive vs. cardiogenic vs. septic vs. neurologic shock -given fluids with improvement #BIANCA -2/2 above I spent a total of 90 minutes in direct patient care, including [id number] time with the patient and/or family, reviewing medical records, ordering and reviewing diagnostic tests, and coordinating care with other healthcare providers. This time includes: history taking, physical examination, medical decision making, counseling, ECG interpretation, imaging interpretation, lab interpretation, orders, and education, excluding time spent in the performance of separately billed services. Admission and Anticipated Discharge Date Admission Date: February 22, 2025 History of Present Illness Chief Complaint: -unresponsive Primary Care Provider: Shadia Hernandez, DO 74 yo male with pmhx of alcoholic cirrhosis, severe shock/respiratory failure with multiweek admission to hospital (16 months ago), permanent atrial fibrillation c/b tachybrady syndrome s/p watchman procedure, chronic HFpEF (EF 55%), PAD, dural AV fistula presenting to ED for unresponsiveness. Last admission on 09/2024 for septic shock. In the ED, intubated due to inability to protect airway, minimal reflexes, GOC discussion in ED by this provider resulted in comfort focused care. CT scan which reveals no intracranial hemorrhage but does reveal right vertebral artery occluded at origin, as well as 70-90% left ICA stenosis. Patient unresponsive at this time. Per collateral, patient has been fatigued and weaker for past few weeks. Has become essentially bedbound. This morning was found unresponsive/lethargic, EMS called, brought to ED. Heavy alcohol use, appears to be recent and current. Allergies Allergy/AdvReac Type Severity Reaction Status Date / Time gabapentin Allergy Unknown Unknown - Unverified 09/28/24 14:31 On file w/ [facility] Pharmacy fentanyl AdvReac Mild itch Verified 09/28/24 14:31 Home Medications Medication Instructions Recorded Confirmed Type aspirin 81 mg tablet,delayed 81 mg PO DAILY 11/15/22 02/22/25 History release ferrous sulfate 325 mg (65 mg 325 mg PO DAILY 11/15/22 02/22/25 History iron) tablet (FeroSul) multivitamin (Daily Multi-Vitamin 1 tab PO DAILY 11/15/22 02/22/25 History tablet) cetirizine 10 mg tablet (Zyrtec) 10 mg PO HS 09/28/24 02/22/25 History cholecalciferol (vitamin D3) 25 50 mcg PO DAILY 09/28/24 02/22/25 History mcg (1,000 unit) tablet (Vitamin D3) eplerenone 50 mg tablet 50 mg PO DAILY 09/28/24 02/22/25 History furosemide 20 mg tablet 20 mg PO DAILY 09/28/24 02/22/25 History metoprolol succinate 50 mg 75 - 100 mg PO UD 09/28/24 02/22/25 History tablet,extended release 24 hr naloxone 4 mg/actuation nasal spray 4 mg intranasal DAILY PRN Opioid 09/28/24 02/22/25 History Overdose oxycodone 10 mg tablet,crush 10 mg PO Q12H 09/28/24 02/22/25 History resistant,extended release 12 hr pregabalin 25 mg capsule 25 mg PO BID 09/28/24 02/22/25 History acetaminophen 500 mg tablet 500 mg PO DIRECTED PRN Pain 02/22/25 02/22/25 History ketoconazole 2 % shampoo 1 ea topical .WED,WED,Wednesday02/22/25 02/22/25 History omeprazole 20 mg capsule,delayed 20 mg PO DAILY 02/22/25 02/22/25 History release potassium chloride 20 mEq 20 meq PO DAILY 02/22/25 02/22/25 History tablet,extended release povidone-iodine 10 % topical swab 1 applic topical .WED,WED,Wednesday02/22/25 02/22/25 History rifaximin 550 mg tablet 550 mg PO BID 02/22/25 02/22/25 History zinc oxide 20 % topical ointment 1 applic topical .WED,WED,Wednesday02/22/25 02/22/25 History Past Med/Surg History Problem List Elevated troponin (Acute) Acute hypoxic respiratory failure (Acute) Occlusion of right vertebral artery (Acute) UTI (urinary tract infection) (Acute) Unresponsive (Acute) Shock Encephalopathy Hypoalbuminemia Volume overload Tachy-cora syndrome Chronic atrial fibrillation Aspiration pneumonitis Acute on chronic diastolic heart failure due to valvular disease Vocal cord dysfunction Allergic dermatitis Suspected UTI Tricuspid valvular regurgitation Alcohol withdrawal Bilateral cellulitis of lower leg (Acute) PAD (peripheral artery disease) Alcohol abuse (Acute) Atrial fibrillation with rapid ventricular response (Acute) Atrial fibrillation (Acute) Dehydration (Acute) Alcohol intoxication (Acute) Hypernatremia Severe sepsis Medical History CHF (congestive heart failure) Presence of Watchman left atrial appendage closure device Cardiac pacemaker in situ Cirrhosis History of bacteremia Per family's report Atrial fibrillation History of alcohol abuse Surgical History History of splenectomy Family History Other Family history non-contributory Social History Smoking Status: Unknown if ever smoked Second Hand Exposure: No; Do You Dip or Chew Tobacco: No; Hx Alcohol Use: Yes Alcohol type: beer and hard liquor Hx Substance Use: No Preferred Language: Hungarian Communication Ability: Effective Ammonia Solution Preparer Required: Yes Beliefs That Will Affect Care: Evangelical Current Living Situation: Family Current Living Situation Comment: unable to obtain Feels Safe at Home: Yes Assistive Devices: Cane, Walker and Wheelchair Review of Systems Review of Systems: -unable to endorse due to mental status Physical Exam Physical Exam: Gen: A&O 0 intubated, pale HEENT: NCAT, EOMI, not icteric. External ears normal. No rhinorrhea. Moist mucous membranes. Neck: Supple, full range of motion, no observable masses, No meningeal sign. Lungs: on ventilator CV: RRR, no edema. Abdomen: slightly distended abdomen MSK: No joint swelling, no redness. Skin: No rashes, petechiae, lesions. Normal color per patient. Neuro: no eye response to stimulation, only to severe pain mild withdrawal Results & Data Results & Data Vital Signs (Past 12 Hours) Vital Signs Temp Pulse Pulse Resp BP BP Pulse Ox 02/22/25 15:03 150 H 16 98 02/22/25 14:51 143 H 16 98 02/22/25 14:47 110/82 02/22/25 14:47 110/82 02/22/25 14:45 155 H 16 98 02/22/25 14:39 147 H 16 98 02/22/25 14:22 152 H 02/22/25 14:21 160 H 16 98 02/22/25 14:12 157 H 16 96 02/22/25 14:10 02/22/25 14:10 152 H 16 110/82 100 02/22/25 14:03 0 L 02/22/25 13:50 81/59 L 02/22/25 13:50 81/59 L 02/22/25 13:43 35.4 C L 179 H 16 82/56 L 96 02/22/25 13:41 82/56 L 02/22/25 13:33 165 H 16 97 02/22/25 13:30 155 H 16 97 02/22/25 13:27 185 H 16 96 02/22/25 13:10 81/64 L 02/22/25 13:10 81/64 L 02/22/25 13:06 169 H 16 93 02/22/25 13:00 97/68 L 02/22/25 13:00 35.1 C L 184 H 24 96/69 L 96 02/22/25 12:54 161 H 16 99 02/22/25 12:53 98 02/22/25 12:50 89/62 L 02/22/25 12:50 89/62 L 02/22/25 12:50 89/62 L 02/22/25 12:48 35.1 C L 173 H 24 123/69 100 02/22/25 12:45 123/69 02/22/25 12:45 189 H 16 97 02/22/25 12:40 89/70 L 02/22/25 12:30 165 H 16 99 02/22/25 12:30 98/76 L 02/22/25 12:30 98/76 L 02/22/25 12:30 98/76 L 02/22/25 12:25 100/80 02/22/25 12:25 100/80 02/22/25 12:21 183 H 16 99 02/22/25 12:20 122/99 02/22/25 12:20 122/99 02/22/25 12:18 168 H 16 100 02/22/25 12:15 117/87 02/22/25 12:12 176 H 16 100 02/22/25 12:10 115/90 02/22/25 12:10 115/90 02/22/25 12:03 185 H 16 100 02/22/25 12:01 112/86 02/22/25 12:01 112/86 02/22/25 12:01 112/86 02/22/25 12:01 176 H 26 H 112/86 100 02/22/25 11:36 182 H 16 100 02/22/25 11:35 107/81 02/22/25 11:35 107/81 02/22/25 11:35 107/81 02/22/25 11:35 187 H 22 90/67 L 100 02/22/25 11:30 171 H 16 96 02/22/25 11:25 93/67 L 02/22/25 11:21 167 H 16 99 02/22/25 11:20 83/65 L 02/22/25 11:20 83/65 L 02/22/25 11:20 182 H 16 100 02/22/25 11:15 99/70 L 02/22/25 11:15 175 H 97/74 L 100 02/22/25 11:11 97/74 L 02/22/25 11:09 168 H 100 02/22/25 11:05 120/69 02/22/25 11:05 120/69 02/22/25 11:05 120/69 02/22/25 11:05 120/69 02/22/25 11:00 147 H 32 H 93 02/22/25 11:00 117/74 02/22/25 11:00 175 H 02/22/25 10:57 144 H 47 H 95 02/22/25 10:55 163 H 30 H 103/85 95 02/22/25 10:54 35.8 C L 162 H 26 H 121/84 97 02/22/25 10:47 121/84 O2 Del Method FiO2 02/22/25 15:03 02/22/25 14:51 02/22/25 14:47 02/22/25 14:47 02/22/25 14:45 02/22/25 14:39 02/22/25 14:22 02/22/25 14:21 Mechanical Vent 30 02/22/25 14:12 30 02/22/25 14:10 Mechanical Vent 30 02/22/25 14:10 Mechanical Vent 30 02/22/25 14:03 02/22/25 13:50 02/22/25 13:50 02/22/25 13:43 Mechanical Vent 02/22/25 13:41 02/22/25 13:33 02/22/25 13:30 02/22/25 13:27 02/22/25 13:10 02/22/25 13:10 02/22/25 13:06 02/22/25 13:00 02/22/25 13:00 Mechanical Vent 02/22/25 12:54 02/22/25 12:53 Mechanical Vent 02/22/25 12:50 02/22/25 12:50 02/22/25 12:50 02/22/25 12:48 Mechanical Vent 02/22/25 12:45 02/22/25 12:45 02/22/25 12:40 02/22/25 12:30 02/22/25 12:30 02/22/25 12:30 02/22/25 12:30 02/22/25 12:25 02/22/25 12:25 02/22/25 12:21 02/22/25 12:20 02/22/25 12:20 02/22/25 12:18 02/22/25 12:15 02/22/25 12:12 02/22/25 12:10 02/22/25 12:10 02/22/25 12:03 02/22/25 12:01 02/22/25 12:01 02/22/25 12:01 02/22/25 12:01 Mechanical Vent 02/22/25 11:36 02/22/25 11:35 02/22/25 11:35 02/22/25 11:35 02/22/25 11:35 Mechanical Vent 02/22/25 11:30 02/22/25 11:25 02/22/25 11:21 02/22/25 11:20 02/22/25 11:20 02/22/25 11:20 30 02/22/25 11:15 02/22/25 11:15 T-Piece 02/22/25 11:11 02/22/25 11:09 02/22/25 11:05 02/22/25 11:05 02/22/25 11:05 02/22/25 11:05 02/22/25 11:00 02/22/25 11:00 02/22/25 11:00 02/22/25 10:57 02/22/25 10:55 Room Air 02/22/25 10:54 Room Air 02/22/25 10:47 Laboratory Results -personally reviewed, Hgb drop to 10.6 slightly below baseline, pH with metabolic acidosis with respiratory alkalosis, lactic acid of 3.5, low ionized calcium, elevated troponin to 115 downtrending, elevated ammonia, UA suggestive of infection Medications Administered Midazolam HCl (Versed) 125 mg in 250 mls @ 10 mls/hr IV .Q25H SHAWN; Protocol Stop: 03/24/25 11:29 Last Admin: 02/22/25 12:11 Dose: 5 mg/hr, 10 mls/hr Documented By: LOIF Co-signed By: SKYE Fentanyl Citrate (Fentanyl Citrate) 2,500 mcg in 250 mls @ 5 mls/hr IV .Q50H SHAWN; Protocol Stop: 03/08/25 11:44 Last Admin: 02/22/25 12:33 Dose: 50 mcg/hr, 5 mls/hr Documented By: LANG Co-signed By: SKYE Phenylephrine HCl (Phenylephrine/Nss) 25 mg in 250 mls @ 18.9 mls/hr IV .[id number] [facility]; Protocol Stop: 03/24/25 13:34 Last Admin: 02/22/25 16:36 Dose: Not Given Documented By: [email or web address] Code Status & VTE Plan VTE Prophylaxis Plan VTE Prophylaxis will be ordered: Yes
--- NOTE | 2025-02-22 17:41 | Advance Care Plan Prog Note ---
Advanced Care Planning Note Date of Discussion February 22, 2025 ACP Discussion Diagnoses requiring ACP discussion: [acute respiratory failure, end stage cirrhosis, right vertebral occlusion] A [id number] discussion with the [son] regarding the patient's advanced care planning took place during this hospitalization on the above date. The discussion included the explanation and discussion of advance directives and associated forms/documents, as well as the patient's current code status. We also discussed at length the patient's medical conditions (both acute and chronic), general prognosis, treatment options, and goals of care. The following summarizes the discussion: 30 minutes spent discussing goals and values with patient son JACINTA (lives with him). Discussed critical nature of illness, including acute respiratory failure, undifferentiated shock, right vertebral artery occlusion c/b likely stroke, BIANCA, severe alcoholic cirrhosis. Discussed that patient is unlikely to survive hospitalization, best case scenario being in and out of hospitals and nursing homes for the rest of his life. Son states he would not want to live like that, and states he would want to be comfortable. He would like to do a compassionate extubation and focus on comfort only. Discussed dying process at length, discussed prognosis of minutes to hours once extubated given minimal breathing reflexes before intubation. He understands this. Plan is to gather family and perform compassionate extubation once family has seen patient, no escalation of care, DNRDNI. DPOA-HC/Surrogate Decision Maker -son Status Resuscitation Status DNR/DNI No Resuscitation Total Time I spent a total of 30 minutes was spent on this discussion, including counseling, answering questions, and completing, if any, pertinent advanced care planning forms/documents.
[2025-02-22] MEDS: GLYCOPYRROLATE 0.2 MG/ML VIAL IV PRN (18:30)
[2025-02-22] MEDS: HYDROmorphone INJ 0.5 MG/0.5 ML SYR IV PRN (18:31)
--- NOTE | 2025-02-22 19:51 | Communication Note ---
Date of Service: February 22, 2025 Patient seen on evening rounds. Events of today noted. Patient is being prepared for palliative extubation at the direction of direct family. Analgesics and anxiolytics adjusted to ensure comfort if needed. Palliative extubation by RT. Coding Level of Care Code None
[2025-02-22 21:32] VITALS: PULSE 0; RESP 0; O2SAT 0
--- NOTE | 2025-02-22 21:50 | Death Pronouncement Note ---
Date of Service February 22, 2025 Pronouncement Note Admission Date February 22, 2025 Date and Time of Date of : 02/22/25 Time of : 21:22 Additional Data Confirmation of : no pulse, no respirations, no heart sounds and pupils fixed and dilated Family: at bedside Attending physician: Tj Dougherty MD
[2025-02-23 06:15] LABS: A calco-baum cmplx NotReported Not Detected (NotDetected); Bact fragilis Not Reported Not Detected (NotDetected); Blood Culture Id Panel See PCR Comment (NotDetected); C auris Not Reported Not Detected (NotDetected); Calbicans Not Reported Not Detected (NotDetected); Candida glabrata Not Reported Not Detected (NotDetected); Candida krusei Not Reported Not Detected (NotDetected); Cneoformans/gatti Not Reported Not Detected (NotDetected); Cparapsilosis Not Reported Not Detected (NotDetected); Ctropicalis Not Reported Not Detected (NotDetected); E cloacae compx Not Reported Not Detected (NotDetected); Efaecalis Not Reported Not Detected (NotDetected); Efaecium Not Reported Not Detected (NotDetected); Enterobacterales Not Reported Not Detected (NotDetected); Escherichia coli Not Reported Not Detected (NotDetected); H influenzae Not Reported Not Detected (NotDetected); K aerogenes Not Reported Not Detected (NotDetected); Koxytoca Not Reported Not Detected (NotDetected); Kpneumoniae grp Not Reported Not Detected (NotDetected); Lmonocyt Not Reported Not Detected (NotDetected); N meningitidis Not Reported Not Detected (NotDetected); P aeruginosa Not Reported Not Detected (NotDetected); Proteus spp Not Reported Not Detected (NotDetected); Salmonella spp Not Reported Not Detected (NotDetected); Staph lugdunensis Not Reported Not Detected (NotDetected); Staph spp. Not Reported DETECTED (NotDetected); Staphaureus Not Reported Not Detected (NotDetected); Staphepi Not Reported DETECTED (NotDetected); Staphylococcus spp. DETECTED (NotDetected); Stenmaltophilia Not Reported Not Detected (NotDetected); Strep agal(GrpB) Not Reported Not Detected (NotDetected); Strep pneum Not Reported Not Detected (NotDetected); Strep pyog (GrpA) Not Reported Not Detected (NotDetected); Strep spp Not Reported Not Detected (NotDetected)
[2025-02-23 06:15] LABS: A calco-baum cmplx NotReported Not Detected (NotDetected); Bact fragilis Not Reported Not Detected (NotDetected); Blood Culture Id Panel See PCR Comment (NotDetected); C auris Not Reported Not Detected (NotDetected); Calbicans Not Reported Not Detected (NotDetected); Candida glabrata Not Reported Not Detected (NotDetected); Candida krusei Not Reported Not Detected (NotDetected); Cneoformans/gatti Not Reported Not Detected (NotDetected); Cparapsilosis Not Reported Not Detected (NotDetected); Ctropicalis Not Reported Not Detected (NotDetected); E cloacae compx Not Reported Not Detected (NotDetected); Efaecalis Not Reported DETECTED (NotDetected); Efaecium Not Reported Not Detected (NotDetected); Enterobacterales Not Reported Not Detected (NotDetected); Escherichia coli Not Reported Not Detected (NotDetected); H influenzae Not Reported Not Detected (NotDetected); K aerogenes Not Reported Not Detected (NotDetected); Koxytoca Not Reported Not Detected (NotDetected); Kpneumoniae grp Not Reported Not Detected (NotDetected); Lmonocyt Not Reported Not Detected (NotDetected); N meningitidis Not Reported Not Detected (NotDetected); P aeruginosa Not Reported Not Detected (NotDetected); Proteus spp Not Reported Not Detected (NotDetected); Salmonella spp Not Reported Not Detected (NotDetected); Staph lugdunensis Not Reported Not Detected (NotDetected); Staph spp. Not Reported Not Detected (NotDetected); Staphaureus Not Reported Not Detected (NotDetected); Staphepi Not Reported Not Detected (NotDetected); Stenmaltophilia Not Reported Not Detected (NotDetected); Strep agal(GrpB) Not Reported Not Detected (NotDetected); Strep pneum Not Reported Not Detected (NotDetected); Strep pyog (GrpA) Not Reported Not Detected (NotDetected); Strep spp Not Reported Not Detected (NotDetected); VanAB Resistant Gene VRE Not Detected (NotDetected)
[2025-02-23 06:31] LABS: mecAC Resistant Gene DETECTED (NotDetected)
[2025-02-23 06:32] LABS: Staphylococcus epidermidis DETECTED (NotDetected)
[2025-02-23 06:34] LABS: Enterococcus faecalis DETECTED (NotDetected)
--- NOTE | 2025-02-23 20:30 | Discharge Summary ---
Discharge Summary Date of Service February 23, 2025 Principal Dx & Hospital Course #1 = Principal Diagnosis (1) Unresponsive: (2) Acute hypoxic respiratory failure: (3) Occlusion of right vertebral artery: (4) Presence of Watchman left atrial appendage closure device: (5) Cardiac pacemaker in situ: Plan 74 yo male with pmhx of alcoholic cirrhosis, severe shock/respiratory failure with multiweek admission to hospital (16 months ago), permanent atrial fibrillation c/b tachybrady syndrome s/p watchman procedure, chronic HFpEF (EF 55%), PAD, dural AV fistula presenting to ED for unresponsiveness 2/2 multiorgan failure. #Metabolic Encephalopathy #Right Vertebral Artery Occlusion #Alcoholic Cirrhosis c/b Hepatic Encephalopathy #R/o Stroke -patient minimally responsive with multiorgan failure -likely combination of likely stroke, hepatic encephalophathy, shock, infectious etiologies perhaps -discussed goals of care with son and POA, will focus on comfort at this time -of note, [facility] neurology was consulted in ED Plan: -comfort care orders placed -dilaudid for pain -glycopyrulate for secretions -ativan for agitation -zofran for nausea/vomiting -eye and mouth care ordered -pastoral care consult -plan for compassionate extubation once family arrives, discussed with nursing, given IV dilaudid and glycopyrulate 15-30 minutes before extubation #Type 2 MO #PAD #CAD -likely 2/2 cirrhosis, shock, CAD -comfort care #Acute Hypoxic Respriatory Failure #Metabolic Acidosis w/ Secondary Respiratory Alkalosis -intubated due to inability to protect airway -see above #Shock -likely multifactorial, distributive vs. cardiogenic vs. septic vs. neurologic shock -given fluids with improvement #BIANCA -2/2 above I spent a total of 90 minutes in direct patient care, including [id number] time with the patient and/or family, reviewing medical records, ordering and reviewing diagnostic tests, and coordinating care with other healthcare providers. This time includes: history taking, physical examination, medical decision making, counseling, ECG interpretation, imaging interpretation, lab interpretation, orders, and education, excluding time spent in the performance of separately billed services. Notes For Next Care Provider . Medication Changes From Visit -see below Admission HPI Per Admitting Provider 74 yo male with pmhx of alcoholic cirrhosis, severe shock/respiratory failure with multiweek admission to hospital (16 months ago), permanent atrial fibrillation c/b tachybrady syndrome s/p watchman procedure, chronic HFpEF (EF 55%), PAD, dural AV fistula presenting to ED for unresponsiveness. Last admission on 09/2024 for septic shock. In the ED, intubated due to inability to protect airway, minimal reflexes, GOC discussion in ED by this provider resulted in comfort focused care. CT scan which reveals no intracranial hemorrhage but does reveal right vertebral artery occluded at origin, as well as 70-90% left ICA stenosis. Patient unresponsive at this time. Per collateral, patient has been fatigued and weaker for past few weeks. Has become essentially bedbound. This morning was found unresponsive/lethargic, EMS called, brought to ED. Heavy alcohol use, appears to be recent and current. Updated Medication List Medication Instructions Recorded Confirmed Type aspirin 81 mg tablet,delayed 81 mg PO DAILY 11/15/22 02/22/25 History release ferrous sulfate 325 mg (65 mg 325 mg PO DAILY 11/15/22 02/22/25 History iron) tablet (FeroSul) multivitamin (Daily Multi-Vitamin 1 tab PO DAILY 11/15/22 02/22/25 History tablet) cetirizine 10 mg tablet (Zyrtec) 10 mg PO HS 09/28/24 02/22/25 History cholecalciferol (vitamin D3) 25 50 mcg PO DAILY 09/28/24 02/22/25 History mcg (1,000 unit) tablet (Vitamin D3) eplerenone 50 mg tablet 50 mg PO DAILY 09/28/24 02/22/25 History furosemide 20 mg tablet 20 mg PO DAILY 09/28/24 02/22/25 History metoprolol succinate 50 mg 75 - 100 mg PO UD 09/28/24 02/22/25 History tablet,extended release 24 hr naloxone 4 mg/actuation nasal spray 4 mg intranasal DAILY PRN Opioid 09/28/24 02/22/25 History Overdose oxycodone 10 mg tablet,crush 10 mg PO Q12H 09/28/24 02/22/25 History resistant,extended release 12 hr pregabalin 25 mg capsule 25 mg PO BID 09/28/24 02/22/25 History acetaminophen 500 mg tablet 500 mg PO DIRECTED PRN Pain 02/22/25 02/22/25 History ketoconazole 2 % shampoo 1 ea topical .MON,WED,Wednesday02/22/25 02/22/25 History omeprazole 20 mg capsule,delayed 20 mg PO DAILY 02/22/25 02/22/25 History release potassium chloride 20 mEq 20 meq PO DAILY 02/22/25 02/22/25 History tablet,extended release povidone-iodine 10 % topical swab 1 applic topical .,Wednesday02/22/25 02/22/25 History rifaximin 550 mg tablet 550 mg PO BID 02/22/25 02/22/25 History zinc oxide 20 % topical ointment 1 applic topical .,Wednesday02/22/25 02/22/25 History Hospital Stay Data Consultations 02/22/25 13:05 ED Decision to Admit Stat 02/22/25 14:22 Consult Painter Supervisor Routine Diagnostic Imagining Performed 02/22/25 10:49 CT head/brain wo con Stat 02/22/25 11:52 CTA head w con [CT angio head w con] Stat CTA neck with con [CT angio neck with con] Stat Total Time Total Time Spent Total Time Spent (In Minutes): I spent a total of 35 minutes in direct patient care, including [id number] time with the patient and/or family, reviewing medical records, ordering and reviewing diagnostic tests, and coordinating care with other healthcare providers. This time includes: history taking, physical examination, medical decision making, counseling, ECG interpretation, imaging interpretation, lab interpretation, orders, and education, excluding time spent in the performance of separately billed services.
--- NOTE | 2025-02-23 22:50 | Electrocardiogram Report ---
Test Reason : Blood Pressure : */* mmHG Vent. Rate : 157 BPM Atrial Rate : * BPM P-R Int : * ms QRS Dur : 58 ms QT Int : 246 ms P-R-T Axes : * 59 227 degrees QTcB Int : 397 ms Poor data quality, interpretation may be adversely affected Atrial fibrillation with rapid ventricular response with premature ventricular or aberrantly conducte d complexes Low voltage QRS Septal infarct (cited on or before 28-Sep-2024) Nonspecific T wave abnormality Abnormal ECG When compared with ECG of 05-Oct-2024 14:42, Nonspecific T wave abnormality now evident in Lateral leads Confirmed by Dane Gonzales ([id number]) on 02/23/2025 10:50:07 PM Referred By: REFERRED SELF Confirmed By: Dane Gonzales
== END 2025-02-22 22:33 | disposition expired | DRG 208 ==
LOC: ED 10:41 → 1E 13:32